=== PATIENT | female | born 1995 | race Caucasian/White ===

== ENCOUNTER 2024-11-09 17:05 | Inpatient (IN) | payer BC, SELFPAY ==
[2024-11-09] VITALS (9 sets, daily range): BP systolic 115–127; BP diastolic 67–88; PULSE 46–103; RESP 16–18; TEMP 36.7–37.3; O2SAT 82–99; BMI 26.6
[2024-11-09 16:57] LABS: ROM Internal Control Test YES-OK TO RESULT pt. (Internal QC)
[2024-11-09 17:00] LABS: ROM Patient Test POSITIVE (Negative)
[2024-11-09 17:01] LABS: Record Kit Lot#, ROM+ K3358
[2024-11-09] MEDS: Lactated Ringers 1,000 ML 50 ML IV (17:30)
[2024-11-09 18:16] LABS: Hematocrit 32.2 % (37-47); Hemoglobin 10.6 g/dL (12.0-15.0); Immature Granulocytes Count 0.090 X10^3/uL (0.0-0.0); Mean Corp Hgb Conc 32.9 g/dL (32-36); Mean Corpuscular Volume 85.0 fL (81-99); Mean Platelet Vol. 11.4 fl (6.2-12.0); NRBC Flagged by Analyzer 0 % (0-5); Platelet Count 224 K/mm3 (150-450); RBC Distribution Width CV 13.2 % (11.6-14.6); RBC Distribution Width SD 40.6 fl (35.1-43.9); Red Blood Count 3.79 M/mm3 (4.2-5.4); White Blood Count 13.9 K/mm3 (4.4-11.0)
[2024-11-09 18:27] LABS: Syphilis Antibodies Nonreactive (Nonreactive)
--- NOTE | 2024-11-09 19:30 | PCM.HP.OB ---
HPI - General General Date of Admission: 11/09/24 Date of Service: 11/09/24 Chief Complaint: leaking of fluid [facility] Narrative IGNACIO PETTIT, is a 29 F who presents 3 para 1-0-1-1 who presents for spontaneous rupture membranes. She notes she had some vaginal discharge around 5:30 AM however she had leaking of fluid down her legs at approximately 9 AM. She has had some irregular contractions last few days but not anything that she has been timing. She has had no gross vaginal bleeding. She has had good movement. Maternal Data Information Final APOLONIA: 11/17/24 Gestational age: 38 6/7 [facility] [place] [facility] Medical History (Updated 11/09/24 @ 19:[address] Abigail Hensley MD) Genital herpes affecting History of pre-term labor Home Medications ?Medication ?Instructions ?Recorded ?Last Taken ?Type acyclovir 400 mg tablet 400 mg PO TID 11/09/24 11/09/24 06:30 History vitamins no.102-iron 90 1 cap PO DAILY 11/09/24 11/09/24 History mg-folate 1 mg-dha 200 mg capsule Allergy/AdvReac Type Severity Reaction Status Date / Time Penicillins (PCN) Allergy Severe Rash Verified 11/09/24 15:30 latex Allergy Unknown Rash Verified 11/09/24 15:30 nickel Allergy Unknown Rash Verified 11/09/24 15:30 valacyclovir (From Valtrex) Allergy Unknown Shortness Verified 11/09/24 15:30 of breath Surgical History (Updated 11/09/24 @ 17:40 by Danilo Iglesias) History of surgery Social History Smoking Status: Former smoker History Elective abortions Hx Para 1 Spontaneous abortions Hx # Term Pregnancies Ectopic pregnancies Hx # Pregnancies Multiple births # of living children ROS Constitutional Constitutional: Denies fatigue, fever(s) or malaise Eyes Eyes: Denies change in vision ENT HEENT: Denies dizziness or headache(s) Cardiovascular Cardiovascular: Denies chest pain, dyspnea or lightheadedness Respiratory/Chest Respiratory/Chest: Denies cough or dyspnea Gastrointestinal Gastrointestinal: Denies change in bowel habits Genitourinary Genitourinary: Denies burning urination or genital lesions Integumentary Integumentary: Denies rash Neurologic Neurologic: Denies confusion, dizziness, headache(s), numbness or weakness Vital Signs Vital Signs Vital Signs: 11/09/24 15:40 11/09/24 15:40 11/09/24 15:40 Temperature 99.1 F Temperature Source Pulse Rate 87 Respiratory Rate Blood Pressure 123/88 H BP Systolic 123 BP Diastolic 88 Pulse Ox 11/09/24 15:40 11/09/24 15:43 11/09/24 15:43 Temperature Temperature Source Pulse Rate 88 Respiratory Rate 16 Blood Pressure BP Systolic BP Diastolic Pulse Ox 97 11/09/24 16:16 11/09/24 16:16 11/09/24 19:20 Temperature Temperature Source Temporal Pulse Rate 83 Respiratory Rate Blood Pressure BP Systolic BP Diastolic Pulse Ox 98 11/09/24 19:20 11/09/24 19:21 11/09/24 19:21 Temperature 98.0 F 98.1 F Temperature Source Pulse Rate Respiratory Rate Blood Pressure 127/82 H BP Systolic 127 BP Diastolic 82 Pulse Ox 11/09/24 19:21 Temperature Temperature Source Pulse Rate 93 Respiratory Rate Blood Pressure BP Systolic BP Diastolic Pulse Ox Weight Weight: 66.224 kg Body Mass Index (BMI) 26.6 Physical Exam Const alert and no apparent distress General Appearance: cooperative HEENT normocephalic Resp normal respiratory effort Cardio regular rate GI soft to palpation GI Narrative: gravid, nontender, appropriate for gestational age Extremity no calf tenderness General Extremity: edema Skin no wounds Rashes: No rashes noted Psych activity/motor behavior normal Labs Labs Labs: Blood Type B POSITIVE Antibody Screen NEGATIVE Hct 32.2 % (37-47) L Hgb 10.6 g/dL (12.0-15.0) L Syphilis Total Ab Nonreactive (Nonreactive) Assessment & Plan (1) PROM (premature rupture of membranes): COMMENT: Estimated weight is less than 4000 g clinically and pelvis clinically adequate to expect vaginal delivery. I discussed with the patient recommendation for Pitocin for induction of labor as patient is evelyn but no evidence of active labor and approximately 10 to 12 hours since rupture of membranes. We are not sure of exact time for rupture membranes. Patient declines Pitocin at this time. May have routine pain control measures during labor. Patient plans to have an unmedicated may elect to use nitrous oxide. Has been on acyclovir for HSV prophylaxis. No signs or symptoms of outbreak today (2) 38 weeks gestation of :
--- OUTSIDE RECORDS SUMMARY | 2024-11-09 23:23 | XMS RPT_ITS | CCD ---
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 Comment: [facility] Congress of Obstetricians and Gynecologists (Steff/Ofelia) guidelines state gestational diabetes mellitus is present when 2 or more of the plasma glucose concentrations meet or exceed the following levels: fastin mg/dl, 1 hr: 180 mg/dl, 2 hr: 155 mg/dl, and 3 hr: 140 mg/dl. Performed By: #### G TGST1 #### [facility] CLIA [id number] [address] [place] [address] [place] GLUCOSE GESTATIONAL, 2 HOURo n 09-06-2024 Glucose 2 Hr post Unsp challenge [Mass/Vol] 162 mg/dL Normal <165 [facility] Comment on above: Order Comment: Speci men Type: BLOOD SPECIMEN Ordering Facility: [facility] Address: [address] [place] [address] Result Comment: [facility] Congress of Obstetricians and Gynecologists (Steff/Ofelia) guidelines state gestational diabetes mellitus is present when 2 or more of the plasma glucose concentrations meet or exceed the following levels: fastin mg/dl, 1 hr: 180 mg/dl, 2 hr: 155 mg/dl, and 3 hr: 140 mg/dl. Performed By: #### G TGST2 #### [facility] CLIA [id number] [address] [place] [address] [place] GLUCOSE GESTATIONAL, 3 HOURo n 09-06-2024 Glucose 3 Hr post Unsp challenge [Mass/Vol] 144 mg/dL Normal <145 [facility] Comment on above: Order Comment: Yennifer puga Type: BLOOD SPECIMEN Ordering Facility: [facility] Address: [address] [place] [address] Result Comment: [facility] Congress of Obstetricians and Gynecologists (Artis/Coustan) guidelines state gestational diabetes mellitus is present when 2 or more of the plasma glucose concentrations meet or exceed the following levels: fastin mg/dl, 1 hr: 180 mg/dl, 2 hr: 155 mg/dl, and 3 hr: 140 mg/dl. Performed By: #### G TGST3 #### [facility] CLIA [id number] [address] [place] [address] [place] GLUCOSE GESTATIONAL, FASTING on 09-06-2024 Glucose post fast [Mass/Vol] 73 mg/dL Normal 70-100 [facility] Comment on above: Order Comment: Yennifer puga Type: BLOOD SPECIMEN Ordering Facility: [facility] Address: [address] [place] [address] Result Comment: [facility] Congress of Obstetricians and Gynecologists (Artis/Coustan) guidelines state gestational diabetes mellitus is present when 2 or more of the plasma glucose concentrations meet or exceed the following levels: fastin mg/dl, 1 hr: 180 mg/dl, 2 hr: 155 mg/dl, and 3 hr: 140 mg/dl. Performed By: #### G TGSTF #### [facility] CLIA [id number] [address] [place] [address] [place] CBC W Auto Differential pane l (Bld)on 08-26-2024 Basophils (Bld) [#/Vol] 0.03 10*3/uL Normal <0.11 [facility] Comment on above: Order Comment: Yennifer puga Type: BLOOD SPECIMEN Ordering Facility: [facility] Address: [address] [place] [address] Performed By: #### 3 024-7, 3016-3 #### [facility] CLIA [id number] [address] [place] [address] [id number] [place] [address] [place] Basophils/100 WBC (Bld) 0.3 % Normal [facility] Comment on above: Order Comment: Speci men Type: BLOOD SPECIMEN Ordering Facility: [facility] Address: [address] [place] [address] Performed By: #### 3 024-7, 3016-3 #### [facility] CLIA [id number] [address] [place] [address] [place] Differential cell count method Nom (Bld) Auto Normal [facility] Comment on above: Order Comment: Speci men Type: BLOOD SPECIMEN Ordering Facility: [facility] Address: [address] [place] [address] Performed By: #### 3 024-7, 6-3 #### [facility] CLIA [id number] [address] [place] [address] [place] Eosinophils (Bld) [#/Vol] 0.07 10*3/uL Normal <0.46 [facility] Comment on above: Order Comment: Speci men Type: BLOOD SPECIMEN Ordering Facility: [facility] Address: [address] [place] [address] Performed By: #### 3 024-7, 6-3 #### [facility] CLIA [id number] [address] [place] [address] [place] Eosinophils/100 WBC (Bld) 0.7 % Normal [facility] Comment on above: Order Comment: Speci men Type: BLOOD SPECIMEN Ordering Facility: [facility] Address: [address] [place] [address] Performed By: #### 3 024-7, 6-3 #### [facility] CLIA [id number] [address] [place] [address] [place] Erythrocyte distribution width (RBC) [Ratio] 13.2 % Normal 11.5-15.0 [facility] Comment on above: Order Comment: Speci men Type: BLOOD SPECIMEN Ordering Facility: [facility] Address: [address] [place] [address] Performed By: #### 3 024-7, 3016-3 #### [facility] CLIA [id number] [address] [place] [address] [place] Hematocrit (Bld) [Volume fraction] 32.9 % Low 36.0-46.0 [facility] Comment on above: Order Comment: Speci men Type: BLOOD SPECIMEN Ordering Facility: [facility] Address: [address] [place] [address] Performed By: #### 3 024-7, 3015-3 #### [facility] CLIA [id number] [address] [place] [address] [place] Hemoglobin (Bld) [Mass/Vol] 11.2 g/dL Low 11.5-15.5 [facility] Comment on above: Order Comment: Speci men Type: BLOOD SPECIMEN Ordering Facility: [facility] Address: [address] [place] [address] Performed By: #### 3 024-7, 3015-3 #### [facility] CLIA [id number] [address] [place] [address] [place] Immature granulocytes (Bld) [#/Vol] 0.11 10*3/uL High <0.10 [facility] Comment on above: Order Comment: Speci men Type: BLOOD SPECIMEN Ordering Facility: [facility] Address: [address] [place] [address] Performed By: #### 3 024-7, 6-3 #### [facility] CLIA [id number] [address] [place] [address] [place] Immature granulocytes/100 WBC (Bld) 1.0 % Normal [facility] Comment on above: Order Comment: Speci men Type: BLOOD SPECIMEN Ordering Facility: [facility] Address: [address] [place] [address] Performed By: #### 3 024-7, 3016-3 #### [facility] CLIA [id number] [address] [place] [address] [place] Lymphocytes (Bld) [#/Vol] 1.78 10*3/uL Normal 1.00-4.00 [facility] Comment on above: Order Comment: Speci men Type: BLOOD SPECIMEN Ordering Facility: [facility] Address: [address] [place] [address] Performed By: #### 3 024-7, 3016-3 #### [facility] CLIA [id number] [address] [place] [address] [place] Lymphocytes/100 WBC (Bld) 17.0 % Normal [facility] Comment on above: Order Comment: Speci men Type: BLOOD SPECIMEN Ordering Facility: [facility] Address: [address] [place] [address] Performed By: #### 3 024-7, 3016-3 #### [facility] CLIA [id number] [address] [place] [address] [place] MCH (RBC) [Entitic mass] 29.8 pg Normal 26.0-34.0 [facility] Comment on above: Order Comment: Speci men Type: BLOOD SPECIMEN Ordering Facility: [facility] Address: [address] [place] [address] Performed By: #### 3 024-7, 3016-3 #### [facility] CLIA [id number] [address] [place] [address] [place] MCHC (RBC) [Mass/Vol] 34.0 g/dL Normal 30.5-36.0 [facility] Comment on above: Order Comment: Speci men Type: BLOOD SPECIMEN Ordering Facility: [facility] Address: [address] [place] [address] Performed By: #### 3 024-7, 3016-3 #### [facility] CLIA [id number] [address] [place] [address] [place] MCV (RBC) [Entitic vol] 87.5 fL Normal 80.0-100.0 [facility] Comment on above: Order Comment: Speci men Type: BLOOD SPECIMEN Ordering Facility: [facility] Address: [address] [place] [address] Performed By: #### 3 024-7, 3016-3 #### [facility] CLIA [id number] [address] [place] [address] [place] Monocytes (Bld) [#/Vol] 0.75 10*3/uL Normal <0.87 [facility] Comment on above: Order Comment: Speci men Type: BLOOD SPECIMEN Ordering Facility: [facility] Address: [address] [place] [address] Performed By: #### 3 024-7, 3016-3 #### [facility] CLIA [id number] [address] [place] [address] [place] Monocytes/100 WBC (Bld) 7.1 % Normal [facility] Comment on above: Order Comment: Speci men Type: BLOOD SPECIMEN Ordering Facility: [facility] Address: [address] [place] [address] Performed By: #### 3 024-7, 3016-3 #### [facility] CLIA [id number] [address] [place] [address] [place] Neutrophils (Bld) [#/Vol] 7.75 10*3/uL High 1.45-7.50 [facility] Comment on above: Order Comment: Speci men Type: BLOOD SPECIMEN Ordering Facility: [facility] Address: [address] [place] [address] Performed By: #### 3 024-7, 3016-3 #### [facility] CLIA [id number] [address] [place] [address] [place] Neutrophils/100 WBC (Bld) 73.9 % Normal [facility] Comment on above: Order Comment: Speci men Type: BLOOD SPECIMEN Ordering Facility: [facility] Address: [address] [place] [address] Performed By: #### 3 024-7, 3016-3 #### [facility] CLIA [id number] [address] [place] [address] [place] Nucleated RBC (Bld) [#/Vol] 10*3/uL Normal <0.01 [facility] Comment on above: Order Comment: Speci men Type: BLOOD SPECIMEN Ordering Facility: [facility] Address: [address] [place] [address] Performed By: #### 3 024-7, 6-3 #### [facility] CLIA [id number] [address] [place] [address] [place] Nucleated RBC/100 WBC (Bld) [Ratio] 0.0 /100 WBC Normal [facility] Comment on above: Order Comment: Speci men Type: BLOOD SPECIMEN Ordering Facility: [facility] Address: [address] [place] [address] Performed By: #### 3 024-7, 6-3 #### [facility] CLIA [id number] [address] [place] [address] [place] Platelet mean volume (Bld) [Entitic vol] 9.6 fL Normal 9.0-12.7 [facility] Comment on above: Order Comment: Speci men Type: BLOOD SPECIMEN Ordering Facility: [facility] Address: [address] [place] [address] Performed By: #### 3 024-7, 3016-3 #### [facility] CLIA [id number] [address] [place] [address] [place] Platelets (Bld) [#/Vol] 271 10*3/uL Normal 150-400 [facility] Comment on above: Order Comment: Speci men Type: BLOOD SPECIMEN Ordering Facility: [facility] Address: [address] [place] [address] Performed By: #### 3 024-7, 3016-3 #### [facility] CLIA [id number] [address] [place] [address] [place] RBC (Bld) [#/Vol] 3.76 10*6/uL Low 3.90-5.20 [facility] Comment on above: Order Comment: Speci men Type: BLOOD SPECIMEN Ordering Facility: [facility] Address: [address] [place] [address] Performed By: #### 3 024-7, 3016-3 #### [facility] CLIA [id number] [address] [place] [address] [place] WBC (Bld) [#/Vol] 10.49 10*3/uL Normal 3.70-11.00 [facility] Comment on above: Order Comment: Speci men Type: BLOOD SPECIMEN Ordering Facility: [facility] Address: [address] [place] [address] Performed By: #### 3 024-7, 3015-3 #### [facility] CLIA [id number] [address] [place] [address] [place] Examination level ultrasound on 08-26-2024 [facility] Radiology Study observation (narrative) [facility] GESTATIONAL GLUCOSE SCREEN, 1-HOUR, 50 GRAM, NON-FASTINGon 08-26-2024 Glucose [Mass/Vol] 140 mg/dL High 74-134 [facility] Comment on above: Order Comment: Speci men Type: BLOOD SPECIMEN Ordering Facility: [facility] Address: [address] [place] [address] Result Comment: [place] Congress of Obstetricians and Gynecologists (Steff/Ofelia) guidelines state a gestational diabetes mellitus positive screen is made, in women not previously diagnosed with overt diabetes, when the 1 hr plasma glucose level is equal to or above 140 mg/dL. The [facility] Adjunct Instructor In Economics and Women's Health [place] recommends a 135 mg/dL cutoff. Performed By: #### 3 024-7, 3016-3 #### [facility] CLIA [id number] [address] [place] [address] [place] Reagin and Treponema pallidu m IgG and IgM [Interp]on 08-26-2024 T. pallidum IgG+IgM IA Ql (S) Non-Reactive Normal Nonreactive [facility] Comment on above: Order Comment: Yennifer puga Type: BLOOD SPECIMEN Ordering Facility: [facility] Address: [address] [place] [address] Performed By: #### T SPN #### [facility] CLIA [id number] [address] [place] [address] [place] Reagin+T pallidum IgG+IgM Se rPl-Impon 08-26-2024 Reagin and Treponema pallidum IgG and IgM [Interp] Cannot exclude recent Treponemal infection if specimen collected within 7-10 days after appearance of suspect lesions or 2-3 weeks after an exposure. Clinical correlation is required. Normal [facility] Comment on above: Order Comment: Speci vivien Type: BLOOD SPECIMEN Ordering Facility: [facility] Address: [address] [place] [address] Performed By: #### T SPN #### [facility] CLIA [id number] [address] [place] [address] [place] [facility] CNPN Telephone (OBGYWM) IGNACIO PETTIT ([id number]) 1995 F Date Time Provider Department 08/17/24 GISELLA KNAPP OBLYLE During your visit today, we recorded the following information about you: Patricia Pryor RN 08/17/2024 4:36 PM Signed 26w6d Patient called in asking if provider reviewed labs from yesterday yet. Aware provider back in office tomorrow. JOSE Denney Deidre, MD 08/18/2024 7:47 AM Signed See result note Patricia Pryor RN 08/18/2024 9:30 AM Signed Gisella Knapp MD to [facility] Ob-Rv Repair Technician Pool (Selected Message) 08/18/24 7:47 AM Result Note Slight increase in amylase which can be normal in to have small increase in number- but could also be seen with pancreatitis (I would expect her to have likely higher numbers and very sick) but if she still has symptoms we should get her in to see GI. Please see how she is feeling. Next appt 08/26/24. Pt was in [facility] last week for pain. BILE ACIDS, TOTAL; LIPASE; COMPREHENSIVE METABOLIC PANEL; AMYLASE; COMPLETE BLOOD COUNT Patricia Pryor RN 08/18/2024 9:30 AM Signed Left message for patient to call office. JOSE Denney Trisha, RN 08/19/2024 9:53 AM Signed See 08/18 results follow up encounter. Patient was notified. Patricia Pryor RN Allergies As of Date: 08/17/2024 Noted Allergy Reaction NICKEL 12/24/2018 2 - Rash LATEX 06/07/2015 2 - Rash PENICILLINS 06/07/2015 2 - Rash Comments: 05/24/2024 skin testing positive to Pre-Pen indicating increased risk of having an allergic reaction to penicillin Date Reviewed: 08/13/2024 Reviewed by: Harley Lam MA - Fully Assessed Reason for Visit: Results [95] Prescriptions as of 08/19/2024 - cyclobenzaprine (FLEXERIL) 5 mg tablet Take 5 mg by mouth two times a day as needed. - acetaminophen (TYLENOL EXTRA STRENGTH) 500 mg tablet Take 500 mg by mouth every 8 hours as needed for pain. - PNV no.95/ferrous fum/folic ac ( ORAL) Take by mouth. - Lactobacillus acidophilus (PROBIOTIC ORAL) Take by mouth. 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 M-Power [O99.891] 05/31/2024 Pyelectasis of fetus on ultrasound (HC*07/01/2024 Uterine size-date discrepancy, second trimester*07/29/2024 Encounter Status:Closed by PATRICIA PRYOR on 08/19/24 Normal [facility] Amylase SerPl-cCncon 025 Amylase [Catalytic activity/Vol] 118 U/L High 30-104 [facility] Comment on above: Order Comment: Speci men Type: BLOOD SPECIMEN Ordering Facility: [facility] Address: [address] [place] [address] Performed By: #### 3 024-7, 3016-3 #### [facility] CLIA [id number] [address] [place] [address] [place] BILE ACIDS FRACT BLDon 08-16 CHENODEOXYCHOLIC ACID 0.3 umol/L Normal 0.0-3.4 [facility] Comment on above: Order Comment: Speci men Type: BLOOD SPECIMEN Ordering Facility: [facility] Address: [address] [place] [address] Performed By: #### 3 024-7, 3016-3 #### [facility] CLIA [id number] [address] [place] [address] [place] CHOLIC ACID 0.3 umol/L Normal 0.0-1.9 [facility] Comment on above: Order Comment: Speci men Type: BLOOD SPECIMEN Ordering Facility: [facility] Address: [address] [place] [address] Performed By: #### 3 024-7, 3015-3 #### [facility] CLIA [id number] [address] [place] [address] [place] DEOXYCHOLIC ACID 1.0 umol/L Normal 0.0-2.5 [facility] Comment on above: Order Comment: Speci men Type: BLOOD SPECIMEN Ordering Facility: [facility] Address: [address] [place] [address] Performed By: #### 3 024-7, 3015-3 #### [facility] CLIA [id number] [address] [place] [address] [place] TOTAL BILE ACIDS 1.9 umol/L Normal 0.0-7.0 [facility] Comment on above: Order Comment: Speci men Type: BLOOD SPECIMEN Ordering Facility: [facility] Address: [address] [place] [address] Result Comment: INTE RPRETIVE INFORMATION: Bile Acids, Fractionated and Total This test was developed and its performance characteristics determined by [facility]. It has not been cleared or approved by the [place] Food and Drug Administration. This test was performed in a CLIA certified laboratory and is intended for clinical purposes. Performed By: [facility] [address] [place] [id number] Clerical Secretary: Mikal Bernstein MD, PhD [place] Number: [id number] Performed By: #### 3 024-7, 3 #### [facility] CLIA [id number] [address] [place] [address] [place] URSODEOXYCHOLIC ACID 0.3 umol/L Normal 0.0-1.0 [facility] Comment on above: Order Comment: Speci men Type: BLOOD SPECIMEN Ordering Facility: [facility] Address: [address] [place] [address] Performed By: #### 3 024-7, 3015-3 #### [facility] CLIA [id number] [address] [place] [address] [place] BILE ACIDS, TOTALon 08-17-19 25 Bile acid [Moles/Vol] 2.4 umol/L Normal <7.5 [facility] Comment on above: Order Comment: Yennifer puga Type: BLOOD SPECIMEN Ordering Facility: [facility] Address: [address] [place] [address] Result Comment: Refe rence interval applies to fasting specimens. The total serum bile acid concentration is increased after meals; hence, samples should be collected under fasting conditions, when possible. This does not apply to patients for whom intrahepatic cholestasis of as a diagnostic consideration; these patients will need peak bile acid testing, and samples should be postprandial. This serum bile acid assay should not be used for patients receiving ursodeoxycholic acid, nor should it be used as the primary assay for the screening or diagnosis of genetic disorders of bile acid metabolism. Patient Reference Intervals: 0 Days to 5 Months: Not established 6 Months to 23 Months: <25.8 umol/L 2 Years to 4 Years: <20.9 umol/L 5 Years to 9 Years: <12.4 umol/L 10 Years to 19 Years: <13.6 umol/L 20 Years to 59 Years: <7.5 umol/L >=60 Years: <8.3 umol/L Reference Intervals (Non-fasting): First Trimester (up to 13 weeks gestation): < 15.3 umol/L Reference Interval (Non-fasting): Second Trimester (13 - 27 weeks gestation): < 11.4 umol/L Reference Interval (Non-fasting): Third Trimester (> 27 weeks gestation): < 10.4 umol/L Performed By: #### 3 024-7, 3016-3 #### [facility] CLIA [id number] [address] [place], [place] [address] [place] CBC panel Auto (Bld)on 08-16 Erythrocyte distribution width (RBC) [Ratio] 13.5 % Normal 11.5-15.0 [facility] Comment on above: Order Comment: Yennifer puga Type: BLOOD SPECIMEN Ordering Facility: [facility] Address: [address] [place] [address] Performed By: #### 3 024-7, 6-3 #### [facility] CLIA [id number] [address] [place] [address] [place] Hematocrit (Bld) [Volume fraction] 36.3 % Normal 36.0-46.0 [facility] Comment on above: Order Comment: Speci men Type: BLOOD SPECIMEN Ordering Facility: [facility] Address: [address] [place] [address] Performed By: #### 3 024-7, 3015-3 #### [facility] CLIA [id number] [address] [place] [address] [place] Hemoglobin (Bld) [Mass/Vol] 12.0 g/dL Normal 11.5-15.5 [facility] Comment on above: Order Comment: Speci men Type: BLOOD SPECIMEN Ordering Facility: [facility] Address: [address] [place] [address] Performed By: #### 3 024-7, 3015-3 #### [facility] CLIA [id number] [address] [place] [address] [place] MCH (RBC) [Entitic mass] 30.2 pg Normal 26.0-34.0 [facility] Comment on above: Order Comment: Speci men Type: BLOOD SPECIMEN Ordering Facility: [facility] Address: [address] [place] [address] Performed By: #### 3 024-7, 3015-3 #### [facility] CLIA [id number] [address] [place] [address] [place] MCHC (RBC) [Mass/Vol] 33.1 g/dL Normal 30.5-36.0 [facility] Comment on above: Order Comment: Speci men Type: BLOOD SPECIMEN Ordering Facility: [facility] Address: [address] [place] [address] Performed By: #### 3 024-7, 6-3 #### [facility] CLIA [id number] [address] [place] [address] [place] MCV (RBC) [Entitic vol] 91.4 fL Normal 80.0-100.0 [facility] Comment on above: Order Comment: Speci men Type: BLOOD SPECIMEN Ordering Facility: [facility] Address: [address] [place] [address] Performed By: #### 3 024-7, 3016-3 #### [facility] CLIA [id number] [address] [place] [address] [place] Nucleated RBC (Bld) [#/Vol] 10*3/uL Normal <0.01 [facility] Comment on above: Order Comment: Speci men Type: BLOOD SPECIMEN Ordering Facility: [facility] Address: [address] [place] [address] Performed By: #### 3 024-7, 3016-3 #### [facility] CLIA [id number] [address] [place] [address] [place] Platelet mean volume (Bld) [Entitic vol] 12.1 fL Normal 9.0-12.7 [facility] Comment on above: Order Comment: Speci men Type: BLOOD SPECIMEN Ordering Facility: [facility] Address: [address] [place] [address] Performed By: #### 3 024-7, 3016-3 #### [facility] CLIA [id number] [address] [place] [address] [place] Platelets (Bld) [#/Vol] 231 10*3/uL Normal 150-400 [facility] Comment on above: Order Comment: Speci men Type: BLOOD SPECIMEN Ordering Facility: [facility] Address: [address] [place] [address] Performed By: #### 3 024-7, 3016-3 #### [facility] CLIA [id number] [address] [place] [address] [place] RBC (Bld) [#/Vol] 3.97 10*6/uL Normal 3.90-5.20 [facility] Comment on above: Order Comment: Speci men Type: BLOOD SPECIMEN Ordering Facility: [facility] Address: [address] [place] [address] Performed By: #### 3 024-7, 3016-3 #### [facility] CLIA [id number] [address] [place] [address] [place] WBC (Bld) [#/Vol] 11.78 10*3/uL High 3.70-11.00 [facility] Comment on above: Order Comment: Speci men Type: BLOOD SPECIMEN Ordering Facility: [facility] Address: [address] [place] [address] Performed By: #### 3 024-7, 3016-3 #### [facility] CLIA [id number] [address] [place] [address] [place] Comprehensive metabolic 2000 panelon 08-16-2024 Albumin [Mass/Vol] 3.8 g/dL Low 3.9-4.9 [facility] Comment on above: Order Comment: Speci men Type: BLOOD SPECIMEN Ordering Facility: [facility] Address: [address] [place] [address] Performed By: #### 3 024-7, 3016-3 #### [facility] CLIA [id number] [address] [place] [address] [place] ALP [Catalytic activity/Vol] 87 U/L Normal 34-123 [facility] Comment on above: Order Comment: Speci men Type: BLOOD SPECIMEN Ordering Facility: [facility] Address: [address] [place] [address] Performed By: #### 3 024-7, 3016-3 #### [facility] CLIA [id number] [address] [place] [address] [place] ALT [Catalytic activity/Vol] 33 U/L Normal 7-38 [facility] Comment on above: Order Comment: Speci men Type: BLOOD SPECIMEN Ordering Facility: [facility] Address: [address] [place] [address] Performed By: #### 3 024-7, 3016-3 #### [facility] CLIA [id number] [address] [place] [address] [place] Anion gap [Moles/Vol] 12 mmol/L Normal 8-15 [facility] Comment on above: Order Comment: Speci men Type: BLOOD SPECIMEN Ordering Facility: [facility] Address: [address] [place] [address] Performed By: #### 3 024-7, 3016-3 #### [facility] CLIA [id number] [address] [place] [address] [place] AST [Catalytic activity/Vol] 27 U/L Normal 13-35 [facility] Comment on above: Order Comment: Speci men Type: BLOOD SPECIMEN Ordering Facility: [facility] Address: [address] [place] [address] Performed By: #### 3 024-7, 3016-3 #### [facility] CLIA [id number] [address] [place] [address] [place] Bilirubin [Mass/Vol] mg/dL Low 0.2-1.3 [facility] Comment on above: Order Comment: Speci men Type: BLOOD SPECIMEN Ordering Facility: [facility] Address: [address] [place] [address] Performed By: #### 3 024-7, 3016-3 #### [facility] CLIA [id number] [address] [place] [address] [place] Calcium [Mass/Vol] 9.0 mg/dL Normal 8.5-10.2 [facility] Comment on above: Order Comment: Speci men Type: BLOOD SPECIMEN Ordering Facility: [facility] Address: [address] [place] [address] Performed By: #### 3 024-7, 3016-3 #### [facility] CLIA [id number] [address] [place] [address] [place] Chloride [Moles/Vol] 102 mmol/L Normal 98-107 [facility] Comment on above: Order Comment: Speci men Type: BLOOD SPECIMEN Ordering Facility: [facility] Address: [address] [place] [address] Performed By: #### 3 024-7, 3016-3 #### [facility] CLIA [id number] [address] [place] [address] [place] CO2 [Moles/Vol] 21 mmol/L Low 22-30 [facility] Comment on above: Order Comment: Speci men Type: BLOOD SPECIMEN Ordering Facility: [facility] Address: [address] [place] [address] Performed By: #### 3 024-7, 3016-3 #### [facility] CLIA [id number] [address] [place] [address] [place] Creatinine [Mass/Vol] 0.41 mg/dL Low 0.58-0.96 [facility] Comment on above: Order Comment: Speci men Type: BLOOD SPECIMEN Ordering Facility: [facility] Address: [address] [place] [address] Performed By: #### 3 024-7, 3016-3 #### [facility] CLIA [id number] [address] [place] [address] [place] Creatinine and Glomerular filtration rate.predicted panel (S/P/Bld) 135 mL/min/1.73m??? Normal >=60 [facility] Comment on above: Order Comment: Speci men Type: BLOOD SPECIMEN Ordering Facility: [facility] Address: [address] [place] [address] Result Comment: Lyndsey mated Glomerular Filtration Rate (eGFR) is calculated using the 2020 CKD-EPI creatinine equation. This equation utilizes serum creatinine, sex, and age as parameters. The creatinine assay has traceable calibration to isotope dilution-mass spectrometry. Refer to KDIGO guidelines for clinical interpretation. In patients with unstable renal function, e.g. those with acute kidney injury, the eGFR may not accurately reflect actual GFR. Performed By: #### 3 024-7, 6-3 #### [facility] CLIA [id number] [address] [place] [address] [place] Glucose [Mass/Vol] 73 mg/dL Low 74-99 [facility] Comment on above: Order Comment: Yennifer puga Type: BLOOD SPECIMEN Ordering Facility: [facility] Address: [address] [place] [address] Result Comment: The [place] Diabetes Association (ADA) provides guidance for cutoff values for fasting glucose and random glucose. The ADA defines fasting as no caloric intake for at least 8 hours. Fasting plasma glucose results between 100 to 125 mg/dL indicate increased risk for diabetes (prediabetes). Fasting plasma glucose results greater than or equal to 126 mg/dL meet the criteria for diagnosis of diabetes. In the absence of unequivocal hyperglycemia, results should be confirmed by repeat testing. In a patient with classic symptoms of hyperglycemia or hyperglycemic crisis, random plasma glucose results greater than or equal to 200 mg/dL meet the criteria for diagnosis of diabetes. Reference: Standards of Medical Care in Diabetes 2016, [place] Diabetes Association. Diabetes Care. 2016.39(Suppl 1). Performed By: #### 3 024-7, 3015-3 #### [facility] CLIA [id number] [address] [place] [address] [place] Potassium [Moles/Vol] 3.7 mmol/L Normal 3.7-5.1 [facility] Comment on above: Order Comment: Yennifer puga Type: BLOOD SPECIMEN Ordering Facility: [facility] Address: [address] [place] [address] Performed By: #### 3 024-7, 3015-3 #### [facility] CLIA [id number] [address] [place], [place] [address] [place] Protein [Mass/Vol] 7.1 g/dL Normal 6.3-8.0 [facility] Comment on above: Order Comment: Speci men Type: BLOOD SPECIMEN Ordering Facility: [facility] Address: [address] [place] [address] Performed By: #### 3 024-7, 3016-3 #### [facility] CLIA [id number] [address] [place] [address] [place] Sodium [Moles/Vol] 135 mmol/L Low 136-144 [facility] Comment on above: Order Comment: Speci men Type: BLOOD SPECIMEN Ordering Facility: [facility] Address: [address] [place] [address] Performed By: #### 3 024-7, 3016-3 #### [facility] CLIA [id number] [address] [place] [address] [place] Urea nitrogen [Mass/Vol] 6 mg/dL Low 7-21 [facility] Comment on above: Order Comment: Speci men Type: BLOOD SPECIMEN Ordering Facility: [facility] Address: [address] [place] [address] Performed By: #### 3 024-7, 3016-3 #### [facility] CLIA [id number] [address] [place] [address] [place] Lipase SerPl-cCncon 08-17-19 25 Lipase [Catalytic activity/Vol] 45 U/L Normal 16-61 [facility] Comment on above: Order Comment: Speci men Type: BLOOD SPECIMEN Ordering Facility: [facility] Address: [address] [place] [address] Performed By: #### 3 024-7, 3016-3 #### [facility] CLIA [id number] [address] [place] [address] [place] Bacteria Ur Culton 5 Bacteria identified Cx Nom (U) ORGANISM ID: 1 10,000 -<50,000 CFU/ml Normal urogenital remy Normal [facility] Comment on above: Performed By: #### 3 024-7, 3016-3 #### [facility] CLIA [id number] [address] [place] [address] [place] Jacob 08-13-2024 CNPN Telephone (OBGYWM) ORAIGNACIO Palomo ([id number]) 1995 F Date Time Provider Department 08/13/24 JOCELYN COOLEY OBHEENAWVeronica During your visit today, we recorded the following information about you: Marylu Simons RN 08/13/2024 9:05 AM Signed 26w2d Went to [facility] ER for pain in kidney/gallbladder. Pt states she was advised she needed admitted to this morning, but declined. Therefore, was advised to f/u in office d/t elevated blood work r/t liver and gallbladder AND Polyps in gallbladder. States glucose was in urine AND US was also completed. States was given muscle relaxer (cyclobenzaprine TID x7 days) AND Tylenol AND advised to use heating pad. States medications are taking edge off- but still having pain rear right side and front right side. Woke up feeling achy-has not got out of bed at this time. Records requested from [facility] for appt scheduled in office today with DM. Marylu Simons RN Allergies As of Date: 08/13/2024 Noted Allergy Reaction NICKEL 12/24/2018 2 - Rash LATEX 06/07/2015 2 - Rash PENICILLINS 06/07/2015 2 - Rash Comments: 05/24/2024 skin testing positive to Pre-Pen indicating increased risk of having an allergic reaction to penicillin Date Reviewed: 07/29/2024 Reviewed by: Harley Lam MA - Fully Assessed Reason for Visit: ER F/U [41] Prescriptions as of 08/13/2024 - PNV no.95/ferrous fum/folic ac ( ORAL) Take by mouth. - Lactobacillus acidophilus (PROBIOTIC ORAL) Take by mouth. 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 M-Power [O99.891] 05/31/2024 Pyelectasis of fetus on ultrasound (HC*07/01/2024 Uterine size-date discrepancy, second trimester*07/29/2024 Encounter Status:Closed by MARYLU SIMONS on 08/13/24 Normal [facility] UA DIP, URINE (POC)on 2024 BILIRUBIN UA (POCT) Negative Negative [facility] CLARITY UA (POCT) Clear [facility] COLOR UA (POCT) Yellow [facility] GLUCOSE UA (POCT) Negative Negative mg/dL [facility] Hemoglobin Ql (U) Negative Negative [facility] Interpretation and review of laboratory results Abnormal [facility] KETONE UA (POCT) Trace Negative mg/dL [facility] LEUKOCYTES UA (POCT) Negative Negative [facility] NITRITE UA (POCT) Negative Negative [facility] PH UA (POCT) 6.5 4.5 - 8.0 [facility] Protein Ql (U) Trace Abnormal Negative mg/dL [facility] SPECIFIC GRAVITY UA (POCT) 1.02 1.005 - 1.030 [facility] UROBILINOGEN UA (POCT) 0.2 Normal E.U./dL [facility] Location:[facility], [address] , [place], [place], [id number] [place] [address] POINT OF CARE [facility] US ABDOMEN LIMITEDon 025 US ABDOMEN LIMITED ORIGINAL EXAMINATION: RIGHT UPPER QUADRANT ULTRASOUND 08/12/2024 11:57 pm COMPARISON: None. HISTORY: ORDERING SYSTEM PROVIDED HISTORY: Reason for Exam: RUQ abdominal pain and transaminitis Permanently stored images were reviewed FINDINGS: LIVER: Liver measures 15.8 cm and is within normal limits for size. There is normal parenchymal echogenicity without evidence of intrahepatic biliary ductal dilation. No nodularity of the liver margin or focal hepatic mass. BILIARY SYSTEM: Gallbladder is well distended and demonstrates multiple rounded non mobile echogenicities projecting into its lumen and measuring up to 4 mm in size. No evidence of pericholecystic fluid, wall thickening or stones. Negative sonographic Almaguer's sign. Common bile duct is within normal limits measuring 5.3 mm at the dominique hepatis. RIGHT KIDNEY: The right kidney measures 10.1 cm in length and demonstrates normal cortical thickness and echogenicity. Mild right pelvicaliectasis. No focal renal lesion. PANCREAS: Visualized portions of the pancreas are unremarkable. OTHER: No evidence of right upper quadrant ascites. Visualized proximal segments of the aorta and IVC are patent. IMPRESSION: Mild right pelvicaliectasis. Intrarenal collecting system is not dilated. Multiple gallbladder polyps measuring up to 4 mm in size and require no additional follow-up imaging. I have personally reviewed the images of this examination, and agree with the resident's findings and interpretation. Interpreted by: Jose Martinez MD Preliminary Report By: Malini Camilo Electronically signed By Jose Martinez MD Dictated Date: 08/13/2024 12:30:55 AM Prelim Date: 08/13/2024 12:39:08 AM Sign Date: 08/13/2024 12:52:23 AM Ordering Provider: JENNIFER Jack [facility] .Auto Diffon 08-12-2024 Basophil, Absolute 0.0 10 3/mcL Normal 0.0-0.3 [facility] Comment on above: Performed By: #### A FLAKITA, CMP, CBC, GFR, ADIFF #### [place] [id number] [place] [address] Basophils/100 WBC (Bld) 0.1 % Normal 0.0-2.5 [facility] Comment on above: Performed By: #### A FLAKITA, CMP, CBC, GFR, ADIFF #### [address] [address] Eosinophil, Absolute 0.1 10 3/mcL Normal 0.0-0.7 [facility] Comment on above: Performed By: #### A FLAKITA, CMP, CBC, GFR, ADIFF #### [address] [address] Eosinophils/100 WBC (Bld) 0.4 % Normal 0.0-6.0 [facility] Comment on above: Performed By: #### A FLAKITA, CMP, CBC, GFR, ADIFF #### [address] [address] Lymphocyte, Absolute 1.6 10 3/mcL Normal 0.9-4.3 [facility] Comment on above: Performed By: #### A FLAKITA, CMP, CBC, GFR, ADIFF #### [address] [address] Lymphocytes/100 WBC (Bld) 9.9 % Low 20.0-40.0 [facility] Comment on above: Performed By: #### A FLAKITA, CMP, CBC, GFR, ADIFF #### [address] [address] Monocyte, Absolute 1.2 10 3/mcL Normal 0.1-1.4 [facility] Comment on above: Performed By: #### A FLAKIAT, CMP, CBC, GFR, ADIFF #### [address] [address] Monocytes/100 WBC (Bld) 7.7 % Normal 2.0-13.0 [facility] Comment on above: Performed By: #### A FLAKITA, CMP, CBC, GFR, ADIFF #### [address] [address] Neutrophils/100 WBC (Bld) 81.9 % High 50.0-75.0 [facility] Comment on above: Performed By: #### A FLAKITA, CMP, CBC, GFR, ADIFF #### [address] [address] .GFRon 08-12-2024 GFR/1.73 sq M.predicted among non-blacks MDRD (S/P/Bld) [Vol rate/Area] mL/min/{1.73_m2} Normal [facility] Comment on above: Result Comment: Stages of Chronic Kidney Disease (CKD) Stage Description eGFR(ml/min/1.73 sq.m.) CKD 1 Normal kidney function or >=90 normal kindney function with possible kidney damage (ex. Proteinuria) CKD 2 Kidney damage with mild loss 60-89 of kidney function CKD 3a Mild to moderate loss of kidney 45-59 function CKD 3b Moderate to severe loss of 30-44 of kindey function CKD 4 Severe loss of kidney function 15-29 CKD 5 Kidney failure <15 Note: (go live 2024) the eGFR calculation was updated to the 2020 CKD-EPI creatinine equation without a race factor to calculate the eGFR results. Performed By: #### A FLAKITA, CMP, CBC, GFR, ADIFF #### [place] [address] .NEUABSon 08-12-2024 Neutrophil, Absolute 13.1 10 3/mcL High 2.3-8.1 [facility] Comment on above: Performed By: #### A FLAKITA, CMP, CBC, GFR, ADIFF #### [place] [address] AMYon 08-12-2024 Amylase [Catalytic activity/Vol] 94 U/L Normal 30-118 [facility] Comment on above: Result Comment: No te - New Reference Range in effect 19 Performed By: #### L IP, LD, KETAN #### [place] [address] CBCon 08-12-2024 Erythrocyte distribution width (RBC) [Ratio] 14.0 % Normal 11.5-15.5 [facility] Comment on above: Performed By: #### A FLAKITA, CMP, CBC, GFR, ADIFF #### [place] [address] Hematocrit (Bld) [Volume fraction] 34.9 % Normal 34.0-46.0 [facility] Comment on above: Performed By: #### A FLAKITA, CMP, CBC, GFR, ADIFF #### [place] [address] Hgb 12.0 G/dL Normal 12.0-16.0 [facility] Comment on above: Performed By: #### A FLAKITA, CMP, CBC, GFR, ADIFF #### [address] [address] MCH (RBC) [Entitic mass] 30.1 pg Normal 27.0-33.0 [facility] Comment on above: Performed By: #### A FLAKITA, CMP, CBC, GFR, ADIFF #### [place] [address] MCHC 34.3 G/dL Normal 32.0-36.0 [facility] Comment on above: Performed By: #### A FLAKITA, CMP, CBC, GFR, ADIFF #### [place] [address] MCV (RBC) [Entitic vol] 87.7 fL Normal 80.0-99.0 [facility] Comment on above: Performed By: #### A FLAKITA, CMP, CBC, GFR, ADIFF #### [place] [address] Platelet 223 10 3/mcL Normal 150-450 [facility] Comment on above: Performed By: #### A FLAKITA, CMP, CBC, GFR, ADIFF #### [place] [address] Platelet mean volume (Bld) [Entitic vol] 8.8 fL Normal 6.6-10.5 [facility] Comment on above: Performed By: #### A FLAKITA, CMP, CBC, GFR, ADIFF #### [place] [address] RBC 3.98 10 6/mcL Low 4.10-5.30 [facility] Comment on above: Performed By: #### A FLAKITA, CMP, CBC, GFR, ADIFF #### [place] [id number] WBC 16.0 10 3/mcL High 4.5-10.8 [facility] Comment on above: Performed By: #### A FLAKITA, CMP, CBC, GFR, ADIFF #### [address] [address] CMPon 08-12-2024 Albumin Level 3.2 G/dL Normal 3.2-4.8 [facility] Comment on above: Performed By: #### A FLAKITA, CMP, CBC, GFR, ADIFF #### [address] [address] Albumin/Globulin [Mass ratio] 0.9 {ratio} Normal 0.9-1.6 [facility] Comment on above: Performed By: #### A FLAKITA, CMP, CBC, GFR, ADIFF #### [place] [id number] ALP [Catalytic activity/Vol] 61 U/L Normal 38-126 [facility] Comment on above: Performed By: #### A FLAKITA, CMP, CBC, GFR, ADIFF #### [place] [id number] ALT [Catalytic activity/Vol] 56 U/L High 10-49 [facility] Comment on above: Performed By: #### A FLAKITA, CMP, CBC, GFR, ADIFF #### [place] [id number] AST [Catalytic activity/Vol] 41 U/L High 8-34 [facility] Comment on above: Performed By: #### A FLAKITA, CMP, CBC, GFR, ADIFF #### [place] [id number] Bili Total 0.30 mg/dL Normal 0.20-1.20 [facility] Comment on above: Result Comment: Use of this assay is not recommended for patients undergoing treatment with eltrombopag due to the potential for falsely elevated results. Performed By: #### A FLAKITA, CMP, CBC, GFR, ADIFF #### [place] [id number] BUN/Creatinine Ratio 15.0 ratio Normal 10.0-22.0 [facility] Comment on above: Performed By: #### A FLAKITA, CMP, CBC, GFR, ADIFF #### [place] [id number] Calcium [Mass/Vol] 9.0 mg/dL Normal 8.7-10.4 [facility] Comment on above: Performed By: #### A FLAKITA, CMP, CBC, GFR, ADIFF #### [address] [address] Chloride [Moles/Vol] 104 mmol/L Normal 98-110 [facility] Comment on above: Performed By: #### A FLAKITA, CMP, CBC, GFR, ADIFF #### [address] [address] CO2 [Moles/Vol] 21 mmol/L Low 22-32 [facility] Comment on above: Performed By: #### A FLAKITA, CMP, CBC, GFR, ADIFF #### [address] [address] Creatinine [Mass/Vol] 0.40 mg/dL Low 0.50-1.20 [facility] Comment on above: Result Comment: Test ing performed on [employer] analyzer using enzymatic creatinine methodology. Performed By: #### A FLAKITA, CMP, CBC, GFR, ADIFF #### [address] [address] Electrolyte Balance 14.0 mEq/L Normal 4.0-15.0 [facility] Comment on above: Performed By: #### A FLAKITA, CMP, CBC, GFR, ADIFF #### [address] [address] Globulin 3.7 G/dL Normal 2.5-4.2 [facility] Comment on above: Performed By: #### A FLAKITA, CMP, CBC, GFR, ADIFF #### [address] [address] Glucose [Mass/Vol] 125 mg/dL High 70-110 [facility] Comment on above: Performed By: #### A FLAKITA, CMP, CBC, GFR, ADIFF #### [address] [address] Potassium [Moles/Vol] 3.3 mmol/L Low 3.5-5.0 [facility] Comment on above: Performed By: #### A FLAKITA, CMP, CBC, GFR, ADIFF #### [address] [address] Sodium [Moles/Vol] 139 mmol/L Normal 136-145 [facility] Comment on above: Performed By: #### A FLAKITA, CMP, CBC, GFR, ADIFF #### [place] [id number] Total Protein 6.9 G/dL Normal 5.7-8.2 [facility] Comment on above: Performed By: #### A FLAKITA, CMP, CBC, GFR, ADIFF #### [place] [id number] Urea nitrogen [Mass/Vol] 6.0 mg/dL Low 8.0-22.0 [facility] Comment on above: Performed By: #### A FLAKITA, CMP, CBC, GFR, ADIFF #### [place] [id number] HEPACon 08-12-2024 Hep A IgM Ab Non-Reactive Normal Non-Reactive [facility] Comment on above: Performed By: #### H EPAC #### [place] [id number] Hep A IgM Ab Int See [facility] Comment on above: Result Comment: Clinical Interpretation: No serological evidence of a current Hepatitis A infection. Performed By: #### H EPAC #### [place] [id number] Hep B Core IgM Ab Non-Reactive Normal Non-[facility] Comment on above: Performed By: #### H EPAC #### [place] [id number] Hep B Core IgM Ab Int See [facility] Comment on above: Result Comment: Clinical Interpretation: Samples with a value < 0.80 Index are considered nonreactive (negative) for IgM antibodies to hepatitis B core antigen. Performed By: #### H EPAC #### [place] [id number] Hep B Surf Ag Non-Reactive Normal Non-[facility] Comment on above: Performed By: #### H EPAC #### [place] [id number] Hep C Ab Non-Reactive Normal Non-Reactive [facility] Comment on above: Performed By: #### H EPAC #### [place] [address] Hep C Ab Int See Interp Normal [facility] Comment on above: Result Comment: Clinical Interpretation: Nonreactive: Samples with a value < 0.80 are considered nonreactive (negative) for antibodies to HCV. A negative test result does not exclude the possibility of exposure to or infection with HCV. HCV antibodies may be undetectable in some stages of the infection and in some clinical conditions. Performed By: #### H EPAC #### [place] [id number] [place] [address] LABORATORYOrdered By: Selene Leigh on 08-12-2024 HAV IgM IA Ql Non-Reactive (08/12/24 10:35 PM) Normal Non-Reactive ADM SS HAV IgM IA Ql See Interp 6 *NA* (08/12/24 10:35 PM) Invalid Interpretation Code AH Chemistry S Comment on above: Result Comment: Clinical Interpretation: No serological evidence of a current Hepatitis A infection. HBV core IgM IA Ql See Interp 5 *NA* (08/12/24 10:35 PM) Invalid Interpretation Code AH Chemistry S Comment on above: Result Comment: Clinical Interpretation: Samples with a value < 0.80 Index are considered nonreactive (negative) for IgM antibodies to hepatitis B core antigen. HBV core IgM IA Ql Non-Reactive (08/12/24 10:35 PM) Normal Non-Reactive AH ADM SS HBV surface Ag IA Ql Non-Reactive (08/12/24 10:35 PM) Normal Non-Reactive ADM SS HCV Ab IA Ql See Interp 7 *NA* (08/12/24 10:35 PM) Invalid Interpretation Code AH Chemistry S Comment on above: Result Comment: Clinical Interpretation: Nonreactive: Samples with a value < 0.80 are considered nonreactive (negative) for antibodies to HCV. A negative test result does not exclude the possibility of exposure to or infection with HCV. HCV antibodies may be undetectable in some stages of the infection and in some clinical conditions. HCV Ab IA Ql Non-Reactive (08/12/24 10:35 PM) Normal Non-Reactive ADM SS LABORATORYOrdered By: German Fuller on 08-12-2024 Blood Glucose Testing Reason Routine (08/12/24 10:13 PM) [facility] Work Phone: Glucose [Mass/Vol] 90 mg/dL Normal 70 - 110 mg/dL [facility] Work Phone: LABORATORYOrdered By: SYSTEM SYSTEM on 08-12-2024 Albumin BCP dye [Mass/Vol] 3.2 G/dL Normal 3.2 - 4.8 G/dL ADM SS Albumin/Globulin [Mass ratio] 0.9 {ratio} Normal 0.9 - 1.6 ratio AH ADM SS ALP [Catalytic activity/Vol] 61 U/L Normal 38 - 126 U/L ADM SS ALT No additional P-5'-P [Catalytic activity/Vol] 56 U/L High 10 - 49 U/L ADM SS Amylase [Catalytic activity/Vol] 94 U/L Normal 30 - 118 U/L ADM SS Comment on above: Interpretive Data: * *Note - New Reference Range in effect 19 AST [Catalytic activity/Vol] 41 U/L High 8 - 34 U/L ADM SS Basophils (Bld) [#/Vol] 0.0 103/mcL Normal 0.0 - 0.3 10^3/mcL Workflow SS Basophils/100 WBC (Bld) 0.1 % Normal 0.0 - 2.5 % Workflow SS Bilirubin [Mass/Vol] 0.30 mg/dL Normal 0.20 - 1.20 mg/dL AH ADM SS Comment on above: Interpretive Data: U se of this assay is not recommended for patients undergoing treatment with eltrombopag due to the potential for falsely elevated results. Calcium [Mass/Vol] 9.0 mg/dL Normal 8.7 - 10. 4 mg/dL AH ADM SS Chloride [Moles/Vol] 104 mmol/L Normal 98 - 110 mEq/L ADM SS CO2 [Moles/Vol] 21 mmol/L Low 22 - 32 mEq/L AH ADM SS Creatinine [Mass/Vol] 0.40 mg/dL Low 0.50 - 1.20 mg/dL AH ADM SS Comment on above: Interpretive Data: T esting performed on [employer] analyzer using enzymatic creatinine methodology. Electrolyte Balance 14.0 mEq/L Normal 4.0 - 15 .0 mEq/L AH ADM SS Eosinophils (Bld) [#/Vol] 0.1 103/mcL Normal 0.0 - 0.7 10^3/mcL Workflow SS Eosinophils/100 WBC (Bld) 0.4 % Normal 0.0 - 6.0 % Workflow SS Erythrocyte distribution width (RBC) [Ratio] 14.0 % Normal 11.5 - 15.5 % Workflow SS Estimated Glomerular Filtration Rate ml/min/1.73sqm Invalid Interpretation Code Chemistry S Comment on above: Interpretive Data: Stages of Chronic Kidney Disease (CKD) Stage Description eGFR(ml/min/1.73 sq.m.) CKD 1 Normal kidney function or >=90 normal kindney function with possible kidney damage (ex. Proteinuria) CKD 2 Kidney damage with mild loss 60-89 of kidney function CKD 3a Mild to moderate loss of kidney 45-59 function CKD 3b Moderate to severe loss of 30-44 of kindey function CKD 4 Severe loss of kidney function 15-29 CKD 5 Kidney failure <15 Note: (go live 2024) the eGFR calculation was updated to the 2020 CKD-EPI creatinine equation without a race factor to calculate the eGFR results. Globulin 3.7 G/dL Normal 2.5 - 4.2 G/dL ADM SS Glucose [Mass/Vol] 125 mg/dL High 70 - 110 mg/dL ADM SS Hematocrit (Bld) [Volume fraction] 34.9 % Normal 34.0 - 46.0 % Workflow SS Hemoglobin (Bld) [Mass/Vol] 12.0 G/dL Normal 12.0 - 16.0 G/dL Workflow SS LDH Lactate to pyruvate reaction [Catalytic activity/Vol] 167 1 Normal 120 - 246 U/L ADM SS Lipase [Catalytic activity/Vol] 57 U/L High 12 - 53 U/L ADM SS Lymphocytes (Bld) [#/Vol] 1.6 103/mcL Normal 0.9 - 4.3 10^3/mcL Workflow SS Lymphocytes/100 WBC (Bld) 9.9 % Low 20.0 - 40.0 % Workflow SS MCH (RBC) [Entitic mass] 30.1 pg Normal 27.0 - 33.0 pg Workflow SS MCHC 34.3 G/dL Normal 32.0 - 36.0 G/dL Workflow SS MCV (RBC) [Entitic vol] 87.7 fL Normal 80.0 - 99.0 fL AH Workflow SS Monocytes (Bld) [#/Vol] 1.2 103/mcL Normal 0.1 - 1.4 10^3/mcL AH Workflow SS Monocytes/100 WBC (Bld) 7.7 % Normal 2.0 - 13.0 % AH Workflow SS Neutrophils (Bld) [#/Vol] 13.1 103/mcL High 2.3 - 8.1 10^3/mcL AH Workflow SS Neutrophils/100 WBC (Bld) 81.9 % High 50.0 - 75.0 % AH Workflow SS Platelet mean volume (Bld) [Entitic vol] 8.8 fL Normal 6.6 - 10.5 fL AH Workflow SS Platelets (Bld) [#/Vol] 223 103/mcL Normal 150 - 450 10^3/mcL AH Workflow SS Potassium [Moles/Vol] 3.3 mmol/L Low 3.5 - 5.0 mEq/L AH ADM SS Protein [Mass/Vol] 6.9 G/dL Normal 5.7 - 8.2 G/dL AH ADM SS RBC (Bld) [#/Vol] 3.98 106/mcL Low 4.10 - 5.3 0 10^6/mcL AH Workflow SS Sodium [Moles/Vol] 139 mmol/L Normal 136 - 145 mEq/L AH ADM SS Urea nitrogen [Mass/Vol] 6.0 mg/dL Low 8.0 - 22.0 mg/dL AH ADM SS Urea nitrogen/Creatinine [Mass ratio] 15.0 ratio Normal 10.0 - 22.0 ratio AH ADM SS WBC (Bld) [#/Vol] 16.0 103/mcL High 4.5 - 10.8 10^3/mcL AH Workflow SS LABORATORYOrdered By: Brian Moy on 08-12-2024 Appearance (U) Clear (08/12/24 9:49 PM) Normal Clear AH Auto Urine SS Bilirubin Ql (U) Negative (08/12/24 9:49 PM) Normal Neg-Trace AH Auto Urine SS Color (U) Yellow (08/12/24 9:49 PM) Normal AH Auto Urine SS Glucose Test strip (U) [Mass/Vol] 500 mg/dL Invalid Interpretation Code Negative AH Auto Urine SS Hemoglobin Auto test strip (U) [Mass/Vol] Negative (08/12/24 9:49 PM) Normal Neg-Trace Auto Urine SS Ketones Ql (U) Trace mg/dL Normal Neg-Trace Auto Urine SS UA Leuk Est Negative (08/12/24 9:49 PM) Normal Negative Auto Urine SS UA Nitrite Negative (08/12/24 9:49 PM) Normal Negative Auto Urine SS UA pH 7.0 (08/12/24 9:49 PM) Normal 5.0 - 8.0 Auto Urine SS UA Protein Negative Normal Negative Auto Urine SS UA Spec Grav 1.010 (08/12/24 9:49 PM) Normal 1.006-1.029 Auto Urine SS UA Specimen Type Clean Catch (08/12/24 9:49 PM) Normal Auto Urine SS UA Urobilinogen 0.2 E.U./dL Normal 0.2-1.0 Auto Urine SS LDHon 08-12-2024 LDH 167 U/L Normal 120-246 [facility] Comment on above: Performed By: #### L RIK MORA, KETAN #### [place] [address] LIPon 08-12-2024 Lipase Level 57 U/L High 12-53 [facility] Comment on above: Performed By: #### L RIK MORA AMY #### [place] [address] UAon 08-12-2024 Color (U) Yellow Normal [facility] Comment on above: Performed By: #### L RIK MORA, KETAN #### [place] [id number] Glucose (U) [Mass/Vol] 500 mg/dL Abnormal Negative [facility] Comment on above: Performed By: #### L RIK MORA, KETAN #### [place] [id number] Ketones Ql (U) Trace Normal Neg-Trace [facility] Comment on above: Performed By: #### L RIK MORA, KETAN #### [place] [id number] UA Appear Clear Normal Clear [facility] Comment on above: Performed By: #### L RIK MORA, KETAN #### [place] [address] UA Blood Negative Normal Neg-Trace [facility] Comment on above: Performed By: #### L IP LD, KETAN #### [place] [address] UA Leuk Est Negative Normal Negative [facility] Comment on above: Performed By: #### L IP, LD, KETAN #### [place] [address] UA Nitrite Negative Normal Negative [facility] Comment on above: Performed By: #### L IP, LD, KETAN #### [place] [address] UA pH 7.0 Normal 5.0 - 8.0 [facility] Comment on above: Performed By: #### L IP, LD, KETAN #### [place] [address] UA Protein Negative Normal Negative [facility] Comment on above: Performed By: #### L IP LD, KETAN #### [place] [address] UA Spec Grav 1.010 Normal 1.006-1.029 [facility] Comment on above: Performed By: #### L IPRIK, KETAN #### [place] [address] UA Specimen Type Clean Catch Normal [facility] Comment on above: Performed By: #### L IP LD, KETAN #### [place] [address] UA Urobilinogen 0.2 E.U./dL Normal 0.2-1.0 [facility] Comment on above: Performed By: #### L IP, LD, KETAN #### [place] [address] Urobilinogen (U) [Mass/Vol] Negative Normal Neg-Trace [facility] Comment on above: Performed By: #### L IP, LD, KETAN #### [place] [address] ALLERGEN SKIN TEST-PENICILLI Non 05-24-2024 ANTIBIOTIC PERCUTANEOUS AND INTRADERMAL SKIN TESTING/ Mean Wheal & Flare Diameter (mm) Patient has been identified by name and date of : Yes . Skin test applied by : Mayte Marshall RN Interpreted By: DARVIN Dewey * Clinical significant reactions are regarded as a wheal diameter greater than or equal to 3 mm with a flare diameter greater or equal to 6mm. ALLERGENS Negative Control (50% glycerin/50% cocas for prick and HSA for intradermal) P: W = 2 mm F = 3 mm PENICILLIN GK 10,000 UNITS/ML P: W = 2 mm F = 4 mm PREPEN -(benzylpenicilloyl polylysine) full strength P: W = 3 mm F = 6mm [facility] 38393-015-20 Lot [id number] Exp 04/04 HISTAMINE- positive control (Histamine base 6mg/ml)for Prick and 0.1 mg/ml for intradermal P: W = 7 mm F = 20 mm [facility] CNOVon 05-24-2024 CN Office Visit ([facility] ) IGNACIO PETTIT ([id number]) 1995 F Date Time Provider Department 05/24/24 10:00 AM OSMEL JOSÉ [facility] During your visit today, we recorded the following information about you: Temperature Pulse Respiration Blood pressure 98 degrees 84/minute 17/minute 97/60 Weight Height 51.3 kg 1.575 m Osmel José APRN.CNS 05/25/2024 5:08 PM Signed [facility] Allergy AND Clinical Immunology Jocelyn Cooley APRN.CNM has requested consultation for penicillin allergy. My progress note with assessment and recommendations from today's appointment will be electronically routed to Jocelyn Cooley APRN.CNM. Chief Complaint: penicillin allergy Historian: patient HPI Ms. Pettit is a 29 year old 15-week female with no significant medical history in clinic for work up of penicillin allergy. Patient was a and still in the hospital when she was diagnosed with pneumonia. She was treated with penicillin and developed a rash on her buttocks. Her mother was told she was allergic, so she has avoided it ever since. 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 PAST MEDICAL HISTORY Diagnosis Date Cyst, thyroid 08/2018 History of miscarriage 04/05/2024 HSV-2 seropositive 2022 PCOS (polycystic ovarian syndrome) 2012 PAST SURGICAL HISTORY Procedure Laterality Date TONSILLECTOMY HX FAMILY HISTORY Problem Relation Age of Onset Thyroid Mother Breast Cancer Maternal Grandmother Social History Tobacco Use Smoking status: Former Types: Cigarettes Passive exposure: Current Smokeless tobacco: Never Tobacco comments: Quit when i was 18 Vaping Use Vaping status: Never Used Substance Use Topics Alcohol use: Not Currently Comment: social Drug use: Never Social History Tobacco Use Smoking status: Former Types: Cigarettes Passive exposure: Current Smokeless tobacco: Never Tobacco comments: Quit when i was 18 Current Outpatient Medications Medication Sig aspirin, enteric coated (ECOTRIN LOW STRENGTH) 81 mg EC tablet Take 1 tablet by mouth once daily. PNV no.95/ferrous fum/folic ac ( ORAL) Take by mouth. Lactobacillus acidophilus (PROBIOTIC ORAL) Take by mouth. Current Facility-Administered Medications Medication Dose Route Frequency penicillin G potassium 2,000 Units injection in NaCl 0.9% 0.2 mL (PFIZERPEN-G) 2,000 Units INTRADERMAL ONCE ALLERGIES Allergen Reactions Nickel Rash Latex Rash Penicillins Rash Review of Systems Constitutional: Negative for chills and fever. HENT: Negative for congestion, postnasal drip, rhinorrhea, sore throat and trouble swallowing. Eyes: Negative for redness and itching. Respiratory: Negative for cough, chest tightness, shortness of breath and wheezing. Cardiovascular: Negative for chest pain. Gastrointestinal: Negative for abdominal pain, diarrhea, nausea and vomiting. Skin: Negative for rash. Neurological: Negative for dizziness, syncope, weakness, light-headedness and numbness. Blood pressure 97/60, pulse 84, temperature 36.7 ?C (98 ?F), temperature source Temporal, resp. rate 17, height 157.5 cm (5' 2), weight 51.3 kg (113 lb 1.5 oz), last menstrual period 02/11/2024, SpO2 99%. Body mass index is 20.69 kg/m?. Physical Exam Vitals reviewed. Constitutional: General: She is not in acute distress. Appearance: Normal appearance. She is not ill-appearing. HENT: Nose: Nose normal. Mouth/Throat: Mouth: Mucous membranes are moist. Pharynx: Oropharynx is clear. Eyes: Conjunctiva/sclera: Conjunctivae normal. Cardiovascular: Rate and Rhythm: Normal rate and regular rhythm. Heart sounds: Normal heart sounds. Pulmonary: Effort: Pulmonary effort is normal. Breath sounds: Normal breath sounds. Skin: General: Skin is warm and dry. Neurological: Mental Status: She is alert. Psychiatric: Mood and Affect: Mood normal. Behavior: Behavior is cooperative. Allergy Skin Testing Skin testing performed percutaneously to penicillin G and PrePen. PrePen G was positive and personally reviewed and interpreted by me. Assessment and Recommendations (R21) Rash (primary encounter diagnosis) (Z88.0) Personal history of allergy to penicillin (Z3A.15) 15 weeks gestation of Skin testing positive to PrePen indicating patient is at increased risk for an IgE-mediated reaction to penicilli (more content not included)... Normal [facility] Examination level ultrasound on 05-05-2024 Indication First trimester anatomic survey, History of delivery Impression REMOTE READ The patient is referred for a first trimester anatomy scan including nuchal translucency measurement as clinically indicated. - Single, live, intrauterine . - [place] rump length measurement is consistent with the established gestational age. - A qualitative screen of the nuchal translucency and other anatomic structures was unremarkable on a complete first trimester anatomic assessment. - Not all structural malformations can be detected by ultrasound examination. Recommendations Additional follow-up as clinically indicated. Method Transabdominal ultrasound examination Campbell . Number of fetuses: 1 Dating LMP on: 02/11/2024 GA by LMP 12 w + 0 d APOLONIA by LMP: 11/17/2024 Ultrasound examination on: 05/05/2024 GA by U/S based upon: CRL GA by U/S 11 w + 6 d APOLONIA by U/S: 11/18/2024 Assigned: based on the LMP, selected on 04/05/2024 Assigned GA 12 w + 0 d Assigned APOLONIA: 11/17/2024 General Evaluation Cardiac activity present Placenta: posterior Cord vessels: 3 vessel cord, normal insertion Amniotic fluid: normal amount Biometry Standard FHR 164 bpm CRL 51.2 mm 11w 6d 19% [place] First Trimester Anatomy Calvarium: normal Falx cerebri: normal Choroid plexus: normal Profile: normal Nasal bone: normal Retronasal triangle: normal Maxilla: normal Mandible: normal Nuchal translucency: Unremarkable Situs: normal Cardiac position: normal Cardiac axis: normal 4-chamber view: visualized 4-chamber view with color: visualized [id number] view: normal Abdominal cord insertion: normal Stomach: normal Kidneys: visualized Bladder: normal Color doppler of perivesical umbilical arteries: normal Vertebral alignment: normal Arms: normal Hands: normal Legs: normal Feet: normal Maternal Structures Uterus / Cervix Uterus: Visualized Uterus position: anteverted Ovaries / Tubes / Adnexa Rt ovary: Visualized Rt ovary morphology: normal Rt ovary D1 24 mm Rt ovary D2 21 mm Rt ovary D3 25 mm Rt ovary Vol 6.5 cm Lt ovary: Visualized Lt ovary morphology: normal Lt ovary D1 25 mm Lt ovary D2 14 mm Lt ovary D3 14 mm Lt ovary Vol 2.4 cm Performed By: Precious Elizabeth RDMS Read By: Teresa Manriquez M.D. MATERNAL MEDICINE [facility] Radiology Study observation (narrative) [facility] [id number] PLUSon 04-22-2024 Cell-free DNA./Cell-free DNA.total Dosage of chromosome-specific cfDNA (cfDNA) [Molar fraction] 17% Normal [facility] Comment on above: Order Comment: Speci men Type: BLOOD SPECIMEN Ordering Facility: [facility] Address: [address] [place] [address] Performed By: #### 3 024-7, 3016-3 #### [facility] CLIA [id number] [address] [place] [address] [place] [address] [place] Chr 13+18+21+X+Y aneuploidy Dosage of chromosome-specific cfDNA Ql (cfDNA) Negative Normal [facility] Comment on above: Order Comment: Speci men Type: BLOOD SPECIMEN Ordering Facility: [facility] Address: [address] [place] [address] Performed By: #### 3 024-7, 3016-3 #### [facility] CLIA [id number] [address] [place] [address] [place] Chr 21 trisomy Dosage of chromosome-specific cfDNA Ql (cfDNA) Negative Normal [facility] Comment on above: Order Comment: Speci men Type: BLOOD SPECIMEN Ordering Facility: [facility] Address: [address] [place] [address] Performed By: #### 3 024-7, 3016-3 #### [facility] CLIA [id number] [address] [place] [address] [place] Chr X and Y aneuploidy risk Sequencing Ql (cfDNA) [Interp] Not detected Normal [facility] Comment on above: Order Comment: Speci men Type: BLOOD SPECIMEN Ordering Facility: [facility] Address: [address] [place] [address] Result Comment: Not Detected Not Detected Performed By: #### 3 024-7, 3016-3 #### [facility] CLIA [id number] [address] [place] [address] [place] Citation Williams (Reference lab test) Comment Normal [facility] Comment on above: Order Comment: Speci men Type: BLOOD SPECIMEN Ordering Facility: [facility] Address: [address] [place] [address] Result Comment: 1. P magnolia RANDOLPH, et al. [place] Med. 2012;14(3):296-305. 2. Gucci TAMAYO, et al. Prenat Diag. 2013;33(6):591-597. 3. Quincy Lagos, et al. Clin Chem. 2015 Apr;61(4):608-616. 4. Johnny RANDOLPH, et al. [place] Med. 2011;13(11):913-920. 5. ACOG/[facility] Practice Bulletin No. 226, Dec 2019. Performed By: #### 3 024-7, 3016-3 #### [facility] CLIA [id number] [address] [place] [address] [place] Gestational age Estimated from conception date Campbell Normal [facility] Comment on above: Order Comment: Speci men Type: BLOOD SPECIMEN Ordering Facility: [facility] Address: [address] [place] [address] Performed By: #### 3 024-7, 301-3 #### [facility] CLIA [id number] [address] [place] [address] [place] GESTATIONALAGE AGE > OR = 9W Yes Normal [facility] Comment on above: Order Comment: Farrahi vivien Type: BLOOD SPECIMEN Ordering Facility: [facility] Address: [address] [place] [address] Performed By: #### 3 024-7, 3015-3 #### [facility] CLIA [id number] [address] [place] [address] [place] Laboratory comment Williams (Report) Comment Normal [facility] Comment on above: Order Comment: Yennifer puga Type: BLOOD SPECIMEN Ordering Facility: [facility] Address: [address] [place] [address] Result Comment: The MaterniT(R) 21 PLUS laboratory-developed test (LDT) analyzes circulating cell-free DNA from a maternal blood sample. This test is used for screening purposes and not diagnostic. Clinical correlation is recommended. Validation data on twin pregnancies is limited and the ability of this test to detect aneuploidy in higher multiple gestations has not yet been validated. Performed By: #### 3 024-7, 6-3 #### [facility] CLIA [id number] [address] [place] [address] [place] chief medical director name Nom (Provider) Comment Normal [facility] Comment on above: Order Comment: Farrahi vivien Type: BLOOD SPECIMEN Ordering Facility: [facility] Address: [address] [place] [address] Result Comment: This specimen showed an expected representation of chromosome 21, 18 and 13 material. Clinical correlation is suggested. Comment Dung Moore MD, PhD, Director, [place] Performed By: #### 3 024-7, 3016-3 #### [facility] CLIA [id number] [address] [place] [address] [place] [address] [place] LIMITATIONS OF THE TEST Comment Normal [facility] Comment on above: Order Comment: Speci men Type: BLOOD SPECIMEN Ordering Facility: [facility] Address: [address] [place] [address] Result Comment: Whil e the results of these tests are highly reliable, discordant results, including inaccurate sex prediction, may occur due to placental, maternal, or mosaicism or neoplasm; vanishing twin; prior maternal organ transplant; or other causes. These tests are screening tests and not diagnostic; they do not replace the accuracy and precision of diagnosis with CVS or amniocentesis. A patient with a positive test result should be referred for genetic counseling and offered invasive diagnosis for confirmation of test results.[5] The results of this testing, including the benefits and limitations, should be discussed with a qualified healthcare provider. management decisions, including termination of the , should not be based on the results of these tests alone. The healthcare provider is responsible for the use of this information in the management of their patient. Sex chromosomal aneuploidies are not reportable for known multiple gestations. A negative result does not ensure an unaffected nor does it exclude the possibility of other chromosomal abnormalities or defects which are not a part of these tests. An uninformative result may be reported, the causes of which may include, but are not limited to, insufficient sequencing coverage, noise or artifacts in the region, amplification or sequencing bias, or insufficient fraction. These tests are not intended to identify pregnancies at risk for neural tube defects or ventral wall defects. Testing for whole chromosome abnormalities (including sex chromosomes) and for subchromosomal abnormalities could lead to the potential discovery of both and maternal genomic abnormalities that could have major, minor, or no, clinical significance. Evaluating the significance of a positive or a non-reportable result may involve both invasive testing and additional studies on the mother. Such investigations may lead to a diagnosis of maternal chromosomal or subchromosomal abnormalities, which on occasion may be associated with benign or malignant maternal neoplasms. These tests may not accurately identify triploidy, balanced rearrangements, or the precise location of subchromosomal duplications or deletions; these may be detected by diagnosis with CVS or amniocentesis. The ability to report results may be impacted by maternal BMI, maternal weight, maternal systemic lupus erythematosus (SLE) and/or by certain pharmaceutical agents such as low molecular weight heparin (for example: Lovenox(R), Xaparin(R), Clexane(R) and Fragmin(R)). Performed By: #### 3 024-7, 3016-3 #### [facility] CLIA [id number] [address] [place] [address] STATES [facility] Monosomy X risk Dosage of chromosome-specific cfDNA Ql (Plasma cell-free+WBC DNA) [Interp] Not detected Normal [facility] Comment on above: Order Comment: Yennifer puga Type: BLOOD SPECIMEN Ordering Facility: [facility] Address: [address] [place] [address] Performed By: #### 3 024-7, 3015-3 #### [facility] CLIA [id number] [address] [place] [address] STATES [facility] NEGATIVE PREDICTIVE VALUE Note Normal [facility] Comment on above: Order Comment: Yennifer puga Type: BLOOD SPECIMEN Ordering Facility: [facility] Address: [address] [place] [address] Result Comment: The Negative Predictive Value (NPV) for trisomy 21, 18, and 13 is greater than 99%. The NPV for SCA and ESS cannot be calculated as SCA and ESS are only reported when an abnormality is detected. Performed By: #### 3 024-7, 3016-3 #### [facility] CLIA [id number] [address] [place] [address] [place] PERFORMANCE CHARACTERISTICS Note Normal [facility] Comment on above: Order Comment: Yennifer puga Type: BLOOD SPECIMEN Ordering Facility: [facility] Address: [address] [place] [address] Result Comment: ! Sex ! Accuracy: 99.4% ! ! ! ! Region (associated syndrome) ! Est. Sens# ! Est. Spec ! ! ! ! Trisomy 21 (Down Syndrome) ! 99.1% ! 99.9% ! ! ! ! Trisomy 18 (Cherry Syndrome) ! >99.9% ! 99.6% ! ! ! ! Trisomy 13 (Patau Syndrome) ! 91.7% ! 99.7% ! ! ! ! Sex Chromosome Aneuploidies## ! 96.2% ! 99.7% ! ! ! * As reported in ISCA database nstd37 [https://www.ncbi.nlm.nih.gov/dbvar/studies/nstd37/ ] # Estimated Sensitivity. Sensitivity estimated across the observed size distribution of each syndrome [per ISCA database nstd37] and across the range of fractions observed in routine clinical NIPT. Actual sensitivity can also be influenced by other factors such as the size of the event, total sequence counts, amplification bias, or sequence bias. ## Campbell gestation only. Performed By: #### 3 024-7, 3015-3 #### [facility] CLIA [id number] [address] [place] [address] [place] POSITIVE PREDICTIVE VALUE N/A Normal [facility] Comment on above: Order Comment: Speci men Type: BLOOD SPECIMEN Ordering Facility: [facility] Address: [address] [place] [address] Performed By: #### 3 024-7, 3015-3 #### [facility] CLIA [id number] [address] [place] [address] [place] Reference Lab Test Method Comment Normal [facility] Comment on above: Order Comment: Speci men Type: BLOOD SPECIMEN Ordering Facility: [facility] Address: [address] [place] [address] Result Comment: See Notes Circulating cell-free DNA was purified from the plasma component of maternal blood. The extracted DNA was then converted into a genomic DNA library for aneuploidy analysis of chromosomes 21, 18, and 13 via next generation sequencing.[1] Optional findings based on the test order include sex chromosome aneuploidy (SCA)[2], and enhanced sequencing series (ESS)[3], which will only be reported on as an additional finding when an abnormality is detected. SCA testing includes information on X and Y representation, while ESS testing includes deletions in selected regions (22q, 15q, 11q, 8q, 5p, 4p, 1p) and trisomy of chromosomes 16 and 22. Performed By: #### 3 024-7, 3015-3 #### [facility] CLIA [id number] [address] [place] [address] [place] Service comment (Unsp spec) [Interp] Comment Normal [facility] Comment on above: Order Comment: Speci men Type: BLOOD SPECIMEN Ordering Facility: [facility] Address: [address] [place] [address] Result Comment: See Notes [employer] is a subsidiary of [employer], using the brand [employer]. This test was developed and its performance characteristics determined by [employer]. It has not been cleared or approved by the Food and Drug Administration. This laboratory is certified under the Clinical Laboratory Improvement Amendments (CLIA) as qualified to perform high complexity clinical laboratory testing and accredited by the College of [place] [employer] (CAP). If there is future clinical need for adding MaterniT GENOME testing, this specimen will be available until term. [facility] samples will not be retained beyond 60 days. [facility] patients will have to send a new sample for re-sequencing ([facility] Test Code: [id number]). Performed By: #### 3 024-7, 6-3 #### [facility] CLIA [id number] [address] [place] [address] [place] Sex Dosage of chromosome-specific cfDNA Nom (cfDNA) Comment Normal [facility] Comment on above: Order Comment: Speci men Type: BLOOD SPECIMEN Ordering Facility: [facility] Address: [address] [place] [address] Result Comment: Cons istent with Male Performed By: #### 3 024-7, 3015-3 #### [facility] CLIA [id number] [address] [place] [address] [place] Test performance information Williams (Unsp spec) Comment Normal [facility] Comment on above: Order Comment: Speci men Type: BLOOD SPECIMEN Ordering Facility: [facility] Address: [address] [place] [address] Result Comment: The performance characteristics of the MaterniT(R) 21 PLUS laboratory-developed test (LDT) have been determined in a clinical validation study with women at increased risk for chromosomal aneuploidy.[1-4] Performed By: #### 3 024-7, 3016-3 #### [facility] CLIA [id number] [address] [place] [address] [place] Trisomy 13 risk Dosage of chromosome-specific cfDNA Ql (cfDNA) [Interp] Negative Normal [facility] Comment on above: Order Comment: Speci men Type: BLOOD SPECIMEN Ordering Facility: [facility] Address: [address] [place] [address] Performed By: #### 3 024-7, 3016-3 #### [facility] CLIA [id number] [address] [place] [address] [place] Trisomy 18 risk Dosage of chromosome-specific cfDNA Ql (Plasma cell-free+WBC DNA) [Interp] Negative Normal [facility] Comment on above: Order Comment: Speci men Type: BLOOD SPECIMEN Ordering Facility: [facility] Address: [address] [place] [address] Performed By: #### 3 024-7, 3016-3 #### [facility] CLIA [id number] [address] [place] [address] [place] CBC W Auto Differential pane l (Bld)on 04-08-2024 Basophils (Bld) [#/Vol] 0.04 10*3/uL Normal <0.11 [facility] Comment on above: Order Comment: Speci men Type: BLOOD SPECIMEN Ordering Facility: [facility] Address: [address] [place] [address] Performed By: #### 5 7021-8 #### [facility] CLIA [id number] [address] [place] [address] [place] Basophils/100 WBC (Bld) 0.4 % Normal [facility] Comment on above: Order Comment: Speci men Type: BLOOD SPECIMEN Ordering Facility: [facility] Address: [address] [place] [address] Performed By: #### 5 7021-8 #### [facility] CLIA [id number] [address] [place] [address] [place] Differential cell count method Nom (Bld) Auto Normal [facility] Comment on above: Order Comment: Speci men Type: BLOOD SPECIMEN Ordering Facility: [facility] Address: [address] [place] [address] Performed By: #### 5 7021-8 #### [facility] CLIA [id number] [address] [place] [address] [place] Eosinophils (Bld) [#/Vol] 0.09 10*3/uL Normal <0.46 [facility] Comment on above: Order Comment: Speci men Type: BLOOD SPECIMEN Ordering Facility: [facility] Address: [address] [place] [address] Performed By: #### 5 7021-8 #### [facility] CLIA [id number] [address] [place] [address] [place] Eosinophils/100 WBC (Bld) 0.9 % Normal [facility] Comment on above: Order Comment: Speci men Type: BLOOD SPECIMEN Ordering Facility: [facility] Address: [address] [place] [address] Performed By: #### 5 7021-8 #### [id number] [address] [place] [address] [place] Erythrocyte distribution width (RBC) [Ratio] 12.8 % Normal 11.5-15.0 [facility] Comment on above: Order Comment: Speci men Type: BLOOD SPECIMEN Ordering Facility: [facility] Address: [address] [place] [address] Performed By: #### 5 7021-8 #### [facility] CLIA [id number] [address] [place] [address] [place] Hematocrit (Bld) [Volume fraction] 36.9 % Normal 36.0-46.0 [facility] Comment on above: Order Comment: Speci men Type: BLOOD SPECIMEN Ordering Facility: [facility] Address: [address] [place] [address] Performed By: #### 5 7021-8 #### [facility] CLIA [id number] [address] [place] [address] [place] Hemoglobin (Bld) [Mass/Vol] 12.8 g/dL Normal 11.5-15.5 [facility] Comment on above: Order Comment: Speci men Type: BLOOD SPECIMEN Ordering Facility: [facility] Address: [address] [place], [place] [address] Performed By: #### 5 7021-8 #### [facility] CLIA [id number] [address] [place] [address] [place] Immature granulocytes (Bld) [#/Vol] 0.03 10*3/uL Normal <0.10 [facility] Comment on above: Order Comment: Speci men Type: BLOOD SPECIMEN Ordering Facility: [facility] Address: [address] [place] [address] Performed By: #### 5 7021-8 #### [facility] CLIA [id number] [address] [place] [address] [place] Immature granulocytes/100 WBC (Bld) 0.3 % Normal [facility] Comment on above: Order Comment: Speci men Type: BLOOD SPECIMEN Ordering Facility: [facility] Address: [address] [place] [address] Performed By: #### 5 7021-8 #### [facility] CLIA [id number] [address] [place] [address] [place] Lymphocytes (Bld) [#/Vol] 2.07 10*3/uL Normal 1.00-4.00 [facility] Comment on above: Order Comment: Speci men Type: BLOOD SPECIMEN Ordering Facility: [facility] Address: [address] [place] [address] Performed By: #### 5 7021-8 #### [facility] CLIA [id number] [address] [place] [address] [place] Lymphocytes/100 WBC (Bld) 21.0 % Normal [facility] Comment on above: Order Comment: Speci men Type: BLOOD SPECIMEN Ordering Facility: [facility] Address: [address] [place] [address] Performed By: #### 5 7021-8 #### [facility] CLIA [id number] [address] [place] [address] [place] MCH (RBC) [Entitic mass] 29.4 pg Normal 26.0-34.0 [facility] Comment on above: Order Comment: Speci men Type: BLOOD SPECIMEN Ordering Facility: [facility] Address: [address] [place] [address] Performed By: #### 5 7021-8 #### [id number] [address] [place] [address] [place] MCHC (RBC) [Mass/Vol] 34.7 g/dL Normal 30.5-36.0 [facility] Comment on above: Order Comment: Speci men Type: BLOOD SPECIMEN Ordering [facility]: [facility] Address: [address] [place] [address] Performed By: #### 5 7021-8 #### [facility] [id number] [address] [place] [address] [place] MCV (RBC) [Entitic vol] 84.8 fL Normal 80.0-100.0 [facility] Comment on above: Order Comment: Speci men Type: BLOOD SPECIMEN Ordering Facility: [facility] Address: [address] [place] [address] Performed By: #### 5 7021-8 #### [facility] CLIA [id number] [address] [place] [address] [place] Monocytes (Bld) [#/Vol] 0.84 10*3/uL Normal <0.87 [facility] Comment on above: Order Comment: Speci men Type: BLOOD SPECIMEN Ordering Facility: [facility] Address: [address] [place] [address] Performed By: #### 5 7021-8 #### [facility] CLIA [id number] [address] [place] [address] [place] Monocytes/100 WBC (Bld) 8.5 % Normal [facility] Comment on above: Order Comment: Speci men Type: BLOOD SPECIMEN Ordering Facility: [facility] Address: [address] [place] [address] Performed By: #### 5 7021-8 #### [facility] CLIA [id number] [address] [place] [address] [place] Neutrophils (Bld) [#/Vol] 6.81 10*3/uL Normal 1.45-7.50 [facility] Comment on above: Order Comment: Speci men Type: BLOOD SPECIMEN Ordering Facility: [facility] Address: [address] [place] [address] Performed By: #### 5 7021-8 #### [facility] CLIA [id number] [address] [place] [address] [place] Neutrophils/100 WBC (Bld) 68.9 % Normal [facility] Comment on above: Order Comment: Speci men Type: BLOOD SPECIMEN Ordering Facility: [facility] Address: [address] [place] [address] Performed By: #### 5 7021-8 #### [facility] CLIA [id number] [address] [place] [address] [place] Nucleated RBC (Bld) [#/Vol] 10*3/uL Normal <0.01 [facility] Comment on above: Order Comment: Speci men Type: BLOOD SPECIMEN Ordering Facility: [facility] Address: [address] [place] [address] Performed By: #### 5 7021-8 #### [facility] CLIA [id number] [address] [place] [address] [place] Nucleated RBC/100 WBC (Bld) [Ratio] 0.0 /100 WBC Normal [facility] Comment on above: Order Comment: Speci men Type: BLOOD SPECIMEN Ordering Facility: [facility] Address: [address] [place] [id number] Performed By: #### 5 7021-8 #### [facility] CLIA [id number] [address] [place] [address] [place] Platelet mean volume (Bld) [Entitic vol] 10.3 fL Normal 9.0-12.7 [facility] Comment on above: Order Comment: Speci men Type: BLOOD SPECIMEN Ordering Facility: [facility] Address: [address] [place], [place] [address] Performed By: #### 5 7021-8 #### [facility] CLIA [id number] [address] [place] [address] [place] Platelets (Bld) [#/Vol] 230 10*3/uL Normal 150-400 [facility] Comment on above: Order Comment: Speci men Type: BLOOD SPECIMEN Ordering Facility: [facility] Address: [address] [place] [address] Performed By: #### 5 7021-8 #### [facility] CLIA [id number] [address] [place] [address] [place] RBC (Bld) [#/Vol] 4.35 10*6/uL Normal 3.90-5.20 [facility] Comment on above: Order Comment: Speci men Type: BLOOD SPECIMEN Ordering Facility: [facility] Address: [address] [place] [address] Performed By: #### 5 7021-8 #### [facility] CLIA [id number] [address] [place] [address] [place] WBC (Bld) [#/Vol] 9.88 10*3/uL Normal 3.70-11.00 [facility] Comment on above: Order Comment: Speci men Type: BLOOD SPECIMEN Ordering Facility: [facility] Address: [address] [place] [address] Performed By: #### 5 7021-8 #### [facility] CLIA [id number] [address] [place] [address] [place] HBV surface Ag Ser Qlon 03-12 HBV surface Ag Ql (S) Negative Normal Negative [facility] Comment on above: Order Comment: Speci men Type: BLOOD SPECIMEN Ordering Facility: [facility] Address: [address] [place] [address] Performed By: #### 3 024-7, 3016-3 #### [facility] CLIA [id number] [address] [place] [address] [place] HCV Ab Ser Qlon 04-08-2024 HCV Ab Ql (S) Negative Normal Negative [facility] Comment on above: Order Comment: Speci men Type: BLOOD SPECIMEN Ordering Facility: [facility] Address: [address] [place] [address] Result Comment: The result suggests no evidence of active infection with Hepatitis C virus. Should recent infection be suspected, repeat testing may be considered 4-6 weeks after this draw. Performed By: #### T SPN #### [facility] CLIA [id number] [address] [place] [address] [place] HIV 1+2 Ab IA Qlon HIV 1 and 2 Ab IA.rapid Nom (S/P/Bld) Normal [facility] Comment on above: Order Comment: Speci men Type: BLOOD SPECIMEN Ordering Facility: [facility] Address: [address] [place] [address] Result Comment: Test not indicated. Performed By: #### 3 024-7, 3016-3 #### [facility] CLIA [id number] [address] [place] [address] [place] HIV 1+2 Ab+HIV1 p24 Ag IA Ql Non-Reactive Normal Nonreactive [facility] Comment on above: Order Comment: Speci men Type: BLOOD SPECIMEN Ordering Facility: [facility] Address: [address] [place] [address] Performed By: #### 3 024-7, 3015-3 #### [facility] CLIA [id number] [address] [place] [address] [place] HIV immunoassay testing algorithm interpretation (S/P/Bld) [Interp] Normal [facility] Comment on above: Order Comment: Speci men Type: BLOOD SPECIMEN Ordering Facility: [facility] Address: [address] [place] [address] Result Comment: No e vidence of HIV-1 or HIV-2 infection. Should recent infection be suspected, repeat testing may be considered 2-3 weeks after this draw. Tucker Rev. Code 3701.243(E): This information has been disclosed to you from confidential records protected from disclosure by state law. ???You shall make no further disclosure of this information without the specific, written, and informed release of the individual to whom it pertains or as otherwise permitted by state law. A general authorization for the release of medical or other information is not sufficient for the purpose of the release of HIV test results or diagnoses. Performed By: #### 3 024-7, 3015-3 #### [facility] CLIA [id number] [address] [place] [address] [place] HbA1c (Bld)on 04-08-2024 Average glucose Estimated from glycated hemoglobin (Bld) [Mass/Vol] 91 mg/dL Normal [facility] Comment on above: Order Comment: Speci men Type: BLOOD SPECIMEN Ordering Facility: [facility] Address: [address] [place] [address] Result Comment: eAG: (Estimated average glucose) is a calculated value from HgbA1c and is circulation representative of the average blood glucose level in the last 2-3 month period. Performed By: #### T SPN #### [facility] CLIA [id number] [address] [place] [address] [place] HbA1c (Bld) [Mass fraction] 4.8 % Normal 4.3-5.6 [facility] Comment on above: Order Comment: Speci men Type: BLOOD SPECIMEN Ordering Facility: [facility] Address: [address] [place] [address] Result Comment: Amer ican Diabetes Association guidelines indicate that patients with HgbA1c in the range 5.7-6.4% are at increased risk for development of diabetes, and intervention by lifestyle modification may be beneficial. HgbA1c greater or equal to 6.5% is considered diagnostic of diabetes. Performed By: #### T SPN #### [facility] CLIA [id number] [address] [place] [address] [place] RUBELLA IGG ANTIBODYon 04-08 RUBELLA IGG AB, QUAL Positive Normal Positive [facility] Comment on above: Order Comment: Speci [facility] Type: BLOOD SPECIMEN Ordering Facility: [facility] Address: [address] [place] [address] Result Comment: The result suggests recent or past exposure to Rubella virus or history of Rubella vaccination. Positive result may also be seen due to presence of passively-transferred antibodies. Please correlate with patient's history. Performed By: #### 3 024-7, 6-3 #### [facility] CLIA [id number] [address] [place] [address] [place] Reagin and Treponema pallidu m IgG and IgM [Interp]on 04-08-2024 T. pallidum IgG+IgM IA Ql (S) Non-Reactive Normal Nonreactive [facility] Comment on above: Order Comment: Speci [facility] Type: BLOOD SPECIMEN Ordering Facility: [facility] Address: [address] [place] [address] Performed By: #### 3 024-7, 3016-3 #### [facility] CLIA [id number] [address] [place] [address] [place] Reagin+T pallidum IgG+IgM Se rPl-Impon 04-08-2024 Reagin and Treponema pallidum IgG and IgM [Interp] Cannot exclude recent Treponemal infection if specimen collected within 7-10 days after appearance of suspect lesions or 2-3 weeks after an exposure. Clinical correlation is required. Normal [facility] Comment on above: Order Comment: Speci men Type: BLOOD SPECIMEN Ordering Facility: [facility] Address: [address] [place] [address] Performed By: #### 3 024-7, 3016-3 #### [facility] IA [id number] [address] [place] [address] [place] T4 Free SerPl-mCncon 025 Free T4 [Mass/Vol] 1.3 ng/dL Normal 0.9-1.7 [facility] Comment on above: Order Comment: Speci men Type: BLOOD SPECIMEN Ordering Facility: [facility] Address: [address] [place] [address] Performed By: #### 3 024-7, 3016-3 #### [facility] IA [id number] [address] [place] [address] [place] TSH SerPl-aCncon 04-08-2024 TSH Qn 0.941 m[IU]/L Normal 0.270-4.200 [facility] Comment on above: Order Comment: Speci men Type: BLOOD SPECIMEN Ordering Facility: [facility] Address: [address] [place] [address] Result Comment: If t he patient is , TSH reference range varies by gestational period: First Trimester (weeks 9-12): 0.180-2.990 mIU/L Second Trimester: 0.110-3.980 mIU/L Third Trimester: 0.480-4.710 mIU/L Wilder Tanner et al. A Practical Approach for the Verifications and Determination of Site- and Trimester-Specific Reference Intervals for Thyroid Function tests in . Thyroid, 2019:29:3:412-420. Jorge Palomo, et al. 2017 Guidelines of the [place] Thy[employer] Association for the Diagnosis and Management of Thyroid Disease during and the . Thyroid, 2017:27:3:315-389. Performed By: #### 3 024-7, 3016-3 #### [facility] CLIA [id number] [address] [place] [address] [place] TYPE + SCREEN PRENATALon ABO B Normal [facility] Comment on above: Order Comment: Speci men Type: BLOOD SPECIMEN Ordering Facility: [facility] Address: [address] [place] [address] Performed By: #### T SPN #### [facility] CLIA [id number] [address] [place] [address] [place] Rh Nom (Bld) Positive Normal [facility] Comment on above: Order Comment: Speci men Type: BLOOD SPECIMEN Ordering Facility: [facility] Address: [address] [place] [address] Performed By: #### T SPN #### [facility] CLIA [id number] [address] [place] [address] [place] [facility] TYPE AND SCREEN EXPIRATION 04/11/2024 23:59 Normal [facility] Comment on above: Order Comment: Speci men Type: BLOOD SPECIMEN Ordering Facility: [facility] Address: [address] [place] [address] Performed By: #### T SPN #### CC MAIN BLOOD BANK CLIA [id number] [address] [place] [address] [place] Bacteria Ur Culton 5 Bacteria identified Cx Nom (U) ORGANISM ID: 1 <10,000 CFU/ml Normal urogenital remy Normal [facility] Comment on above: Performed By: #### 3 024-7, 3016-3 #### [facility] CLIA [id number] [address] [place] [address] [place] C. trachomatis+N. gonorrhoea e DNA RICH+probe Ql (Unsp spec)on 04-05-2024 C. trachomatis rRNA RICH+probe Ql (Unsp spec) Not detected Normal Not detected [facility] Comment on above: Order Comment: Speci men Type: BLOOD SPECIMEN Ordering Facility: [facility] Address: [address] [place] [address] Performed By: #### 3 024-7, 3016-3 #### [facility] CLIA [id number] [address] [place] [address] N. gonorrhoeae rRNA RICH+probe Ql (Unsp spec) Not detected Normal Not detected [facility] Comment on above: Order Comment: Speci men Type: BLOOD SPECIMEN Ordering Facility: [facility] Address: [address] [place] [address] Performed By: #### 3 024-7, 3016-3 #### [facility] CLIA [id number] [address] [place] [address] [place] POC BACK SEWER ULTRASOUNDon 04-05-19 Indication Viability; confirm cardiac activity Impression Single intrauterine gestational sac, CRL is appropriate for clinical dates, corresponding to APOLONIA 11/17/24 cardiac activity is visualized Recommendations Follow up for 1st Trimester Anatomy with Nuchal Translucency as clinically indicated if desired. Method Transabdominal ultrasound examination, Transvaginal ultrasound examination. View: Adequate visualization Campbell . Number of embryos: 1 Dating LMP on: 02/11/2024 GA by LMP 7 w + 5 d APOLONIA by LMP: 11/17/2024 Ultrasound examination on: 04/05/2024 GA by U/S based upon: CRL GA by U/S 7 w + 4 d APOLONIA by U/S: 11/18/2024 Assigned: based on the LMP, selected on 04/05/2024 Assigned GA 7 w + 5 d Assigned APOLONIA: 11/17/2024 Biometry Standard FHR 141 bpm CRL 13.3 mm 7w 4d 72% Hadlock Assessment Gestational sac: visualized Location: intrauterine Yolk sac: visualized Embryo: visualized CRL 13.3 mm 7w 4d 72% Hadlock Cardiac activity: present FHR 141 bpm General Evaluation Cardiac activity present. FHR 141 bpm Performed By: Leodan Van NP Read By: Leodan Van NP MATERNAL MEDICINE [facility] Radiology Study observation (narrative) [facility] Jacob 2024 CNPN Telephone (OBGYWM) IGNACIO PETTIT ([id number]) 1995 F Date Time Provider Department 03/31/24 LEODAN VAN OBGYWM During your visit today, we recorded the following information about you: Marylu Simons RN 2024 10:00 AM Signed Attempted to reach patient to go over new OB intake questions. Left message for Pt to call office today and as to speak to Yony or Carie and if unable to reach one of us, to please arrive to her appointment on Friday at least 30 minutes early to allow time to go over questions prior to appointment with provider and to arrive with a full bladder. Marylu Simons RN Allergies As of Date: 2024 Noted Allergy Reaction NICKEL 12/24/2018 2 - Rash LATEX 06/07/2015 2 - Rash PENICILLINS 06/07/2015 2 - Rash Date Reviewed: 09/25/2023 Reviewed by: Stacy Caldera APRN.[facility] - Fully Assessed Reason for Visit: Appointment [186] Prescriptions as of 2024 - Lactobacillus acidophilus (PROBIOTIC ORAL) Take by mouth. Problem List As Of Date: 2024 (None) Medications Discontinued During This Encounter Prescriptions - albuterol HFA (PROVENTIL HFA, VENTOLIN HFA) 90 mcg/actuation inhaler (Discontinued) Inhale 1-2 Puffs as instructed every 4 hours as needed for wheezing/shortness of breath. - clindamycin (CLEOCIN-T) 1 % gel (Discontinued) - doxycycline (VIBRA-TABS) 100 mg tablet (Discontinued) take 2 tablets by mouth WITHIN 24 HOURS BUT NO LATER THAN 72 HOURS AFTER CONDOMLESS SEX - tretinoin (RETIN-A) 0.025 % topical cream (Discontinued) - valACYclovir (VALTREX) 1 gram tablet (Discontinued) Take 1 tablet by mouth once daily. - XULANE 150-35 mcg/24 hr patch (Discontinued) Apply 1 Patch as directed one time a week. Encounter Status:Closed by MARYLU SIMONS on 03/31/24 Normal [facility] B-HCG SerPl-aCncon 5 HCG.beta subunit Qn 1340.0 m[IU]/mL High <5.0 [facility] Comment on above: Order Comment: Speci men Type: BLOOD SPECIMEN Ordering Facility: [facility] Address: [address] [place] [address] Result Comment: HOLLIS TITATIVE HCG NORMAL RANGES Weeks of Gestation (Weeks Since LMP) 3 Weeks (5.8-71.2 mIU/mL) 4 Weeks (9.5-750 mIU/mL) 5 Weeks (217-7138 mIU/mL) 6 Weeks (158-09883 mIU/mL) 7 Weeks (3697-425907 mIU/mL) 8 Weeks (30956-314517 mIU/mL) 9 Weeks (17705-592953 mIU/mL) 10 Weeks (13540-939155 mIU/mL) 12 Weeks (44803-523641 mIU/mL) Referenced to 4th IS of [facility] Performed By: #### T SPN #### [facility] MAIN BLOOD BANK [facility] [id number] [address] [place] [address] [place] Jacob 03-15-2024 CNPN Telephone (OBGYWM) IGNACIO PETTIT ([id number]) 1995 F Date Time Provider Department 03/15/24 STACY CALDERA OBGYW During your visit today, we recorded the following information about you: Ana Diaz 03/15/2024 10:37 AM Signed Patient calling in to see if someone in OB could place a blood test for her to confirm . She states it is still early on. She is also asking if she is still okay to take valacyclovir as needed. Please review and advise patient. Ana Cooleystrom March 15, 2024 10:37 AM Joanna Orozco RN 03/15/2024 1:36 PM Signed Patient called in regards to below message, states she took 2 home tests and both were positive. Patient wanting blood test to confirm as her last was a miscarriage at 7 weeks. , LMP 02/11/24, approximately 4w5d. Patient also asked below about taking valacyclovir as needed, not currently having an outbreak. New OB has been scheduled. JOSE Gutiérrez Sara, MD 03/15/2024 2:26 PM Signed Hcg quant filed Valtrex is ok to take in for hsv outbreak Joanna Orozco RN 03/15/2024 2:29 PM Signed Patient notified and voiced understanding. Joanna Orozco RN Allergies As of Date: 03/15/2024 Noted Allergy Reaction NICKEL 12/24/2018 2 - Rash LATEX 06/07/2015 2 - Rash PENICILLINS 06/07/2015 2 - Rash Date Reviewed: 09/25/2023 Reviewed by: Stacy Caldera APRN.[employer] - Fully Assessed Reason for Visit: Patient Question [1477] Primary Visit Diagnosis:Missed menses [N92.6] Order(s):HCG QUANTITATIVE [SQHCGQT] Order #: [id number] FUTURE Prescriptions as of 03/15/2024 - valACYclovir (VALTREX) 1 gram tablet Take 1 tablet by mouth once daily. - clindamycin (CLEOCIN-T) 1 % gel - tretinoin (RETIN-A) 0.025 % topical cream - doxycycline (VIBRA-TABS) 100 mg tablet take 2 tablets by mouth WITHIN 24 HOURS BUT NO LATER THAN 72 HOURS AFTER CONDOMLESS SEX - XULANE 150-35 mcg/24 hr patch Apply 1 Patch as directed one time a week. - albuterol HFA (PROVENTIL HFA, VENTOLIN HFA) 90 mcg/actuation inhaler Inhale 1-2 Puffs as instructed every 4 hours as needed for wheezing/shortness of breath. - Lactobacillus acidophilus (PROBIOTIC ORAL) Take by mouth. Problem List As Of Date: 03/15/2024 (None) Encounter Status:Closed by JOANNA OROZCO on 03/15/24 [facility] ED PROV NOTEon 09-13-2023 ED PROV NOTE HNO ID: [id number] Author: ИВАН REYES PA-C Service: Emergency Medicine Author Type: Physician [employer] Machine Tender Type: ED Provider Notes Filed: 09/13/2023 19:04 Note Text: ED Provider Note Patient Name: Ignacio Pettit : 1995 SERVICE DATE: 09/13/23 History Patient presents with: Cough: Cough X 2 weeks Patient is a 28-year-old female coming in today with concerns for persistent cough for the last 2 weeks. Initially just had a headache and nonproductive cough. In the last 5 to 6 days however did note some fever/chills as well as some arthralgias and myalgias. She denies sore throat. Does feel like she has saliva in her throat. She denies drooling or voice changes. She denies chest pain or shortness of breath. Denies any abdominal pain, nausea, vomiting, diarrhea. Daughter sick with similar viral symptoms prior to her onset. She has been taking Tessalon Perles and Claritin. PAST MEDICAL HISTORY Diagnosis Date Cyst, thyroid 08/2018 HSV-2 seropositive 2022 PCOS (polycystic ovarian syndrome) 2012 PAST SURGICAL HISTORY Procedure Laterality Date TONSILLECTOMY HX FAMILY HISTORY Problem Relation Age of Onset Thyroid Mother Breast Cancer Maternal Grandmother Social History Tobacco Use Smoking status: Former Passive exposure: Current Smokeless tobacco: Never Vaping Use Vaping Use: Never used Substance and Sexual Activity Alcohol use: Yes Comment: social Drug use: Never Sexual activity: Yes Partners: Male ALLERGIES Allergen Reactions Nickel Rash Latex Rash Penicillins Rash Review of Systems Constitutional: Positive for chills, fatigue and fever. Negative for appetite change and diaphoresis. HENT: Negative for congestion, ear discharge, ear pain, facial swelling, hearing loss, sinus pressure, sinus pain, sneezing, sore throat, tinnitus, trouble swallowing and voice change. Eyes: Negative for pain, redness and itching. Respiratory: Positive for cough. Negative for chest tightness, shortness of breath and wheezing. Cardiovascular: Negative for chest pain, palpitations and leg swelling. Gastrointestinal: Negative for abdominal pain, diarrhea, nausea and vomiting. Endocrine: Negative. Genitourinary: Negative. Musculoskeletal: Positive for arthralgias and myalgias. Negative for joint swelling, neck pain and neck stiffness. Skin: Negative for color change, pallor, rash and wound. Allergic/Immunologic: Negative for immunocompromised state. Neurological: Positive for headaches. Negative for dizziness, facial asymmetry, speech difficulty, weakness, light-headedness and numbness. Hematological: Does not bruise/bleed easily. Psychiatric/Behaviora l: Negative for agitation, confusion, self-injury and suicidal ideas. The patient is not nervous/anxious. Physical Exam Vitals [09/13/23 1655] BP Pulse Temp Temp src Resp SpO2 Weight Height 112/78 87 36.5 ?C (97.7 ?F) Tympanic 18 97 % 45.4 kg (100 lb) -- Physical Exam Vitals and nursing note reviewed. Constitutional: General: She is not in acute distress. Appearance: Normal appearance. She is not ill-appearing. HENT: Head: Normocephalic and atraumatic. Jaw: No trismus. Mouth/Throat: Lips: Murillo. Mouth: Mucous membranes are moist. Pharynx: Oropharynx is clear. Uvula midline. No pharyngeal swelling, oropharyngeal exudate, posterior oropharyngeal erythema or uvula swelling. Tonsils: No tonsillar exudate or tonsillar abscesses. Comments: Tolerating secretions without difficulty. No drooling, muffled voice or trismus. No Bi's angina Eyes: Extraocular Movements: Extraocular movements intact. Pupils: Pupils are equal, round, and reactive to light. Neck: Meningeal: Kernig's sign absent. Cardiovascular: Rate and Rhythm: Normal rate and regular rhythm. Pulmonary: Effort: Pulmonary effort is normal. No respiratory distress. Breath sounds: Normal breath sounds. No wheezing or rhonchi. Abdominal: General: Bowel sounds are normal. Palpations: Abdomen is soft. Tenderness: There is no abdominal tenderness. There is no right CVA tenderness, left CVA tenderness, guarding or rebound. Musculoskeletal: General: No swelling or tenderness. Normal range of motion. Cervical back: Full passive range of motion without pain, normal range of motion and neck supple. No erythema, rigidity or tenderness. No pain with movement, spinous process tenderness or muscular tenderness. Normal range of motion. Right lower leg: No edema. Left lower leg: No edema. Comments: Moves all 4 extremities through full, pain-free range of motion. No focal joint pain Skin: General: Skin is warm and dry. Capillary Refill: Capillary refill takes less than 2 seconds. Findings: No erythema or rash. Neurological: General: No focal deficit present. Mental Status: She is alert and oriented to person, place, and time. Cranial Nerves: No dysarthria or facial asymmetry. Motor: Motor fu (more content not included)... Normal [facility] FLUABV+SARS-CoV-2+RSV Pnl Re sp RICH+probeon 09-13-2023 FLUABV+SARS-CoV-2+RSV Pnl Resp RICH+probe COVID 19 RESULT: Not detected The method used is RT-PCR or an equivalent NAAT method. Reference Range(the expected result in uninfected individuals): Not detected INFLUENZA A PCR: Not detected INFLUENZA B PCR: Not detected RSV PCR: Not detected Normal [facility] Comment on above: Performed By: #### 9 5941-1 #### [facility] CLIA [id number] [address] [place] [address] [place] XR CHEST 2V FRONTAL/LATon XR CHEST 2V FRONTAL/LAT * * *Final Report* * * DATE OF EXAM: Sep 13 2023 5:16PM AWX [id number] - XR CHEST 2V FRONTAL/LAT / PROCEDURE REASON: Cough * * * * Physician Interpretation * * * * EXAMINATION: CHEST RADIOGRAPH (2 VIEW FRONTAL and LATERAL) CLINICAL HISTORY: Cough MQ: XC2_6 EXAM DATE/TIME: 09/13/2023 5:16 PM COMPARISON: No relevant prior studies available. RESULT: Lines, tubes, and devices: None. Lungs and pleura: No consolidation. No lung mass. No pleural effusion. No pneumothorax. Cardiomediastinal silhouette: Normal cardiomediastinal silhouette. Bones and soft tissues: Unremarkable. IMPRESSION: No acute radiographic abnormality. Utility Tender Carding: MICHAEL Transcribe Date/Time: Sep 13 2023 5:27P Dictated by : NILE GARRISON MD This examination was interpreted and the report reviewed and electronically signed by: NILE GARRISON MD on Sep 13 2023 5:28PM EST [id number] Normal [facility] US THYROID/PARATHYROIDon [facility] ED Provider Noteon ED Provider Note Fly [facility] eMERGENCY dEPARTMENT eNCOUnter Pt Name: Ignacio Pettit Birthdate 1995 Date of evaluation: 07/20/2020 Provider: Ramesh Mejia APRN - YOK[place] I have evaluated this patient on my own, per my scope of practice with an attending physician available for consultation. CHIEF COMPLAINT Chief Complaint Patient presents with ? Laceration HISTORY OF PRESENT ILLNESS (Location/Symptom, Timing/Onset,Context/ Setting, Quality, Duration, Modifying Factors, Severity) Note limiting factors. HPI Ignacio Pettit is a 25 y.o. female who presents to the emergency department with a laceration to the distal portion of the middle finger of the right hand. Patient cut it on a mandolin. Unsure when her last tetanus was. States she could not get it to stop bleeding. Nursing Notes were reviewed. REVIEW OF SYSTEMS (2+ for4; 10+ for level 5) Review of Systems Constitutional: Negative for activity change, appetite change, chills and fever. HENT: Negative for ear discharge, sinus pressure, sore throat and tinnitus. Eyes: Negative for discharge and redness. Musculoskeletal: Negative for arthralgias, back pain, myalgias and neck pain. Skin: Positive for wound. Negative for color change and rash. Neurological: Negative for dizziness, light-headedness and headaches. Psychiatric/Behaviora l: Negative for agitation and confusion. All other systems reviewed and are negative. PAST MEDICAL HISTORY History reviewed. No pertinent past medical history. SURGICALHISTORY Past Surgical History: Procedure Laterality Date ? INTRAUTERINE DEVICE INSERTION 06/15/15 - 06/14/25 ParaGard ? TONSILLECTOMY Bilateral CURRENT MEDICATIONS Previous Medications No medications on file Latex, Other, and Pcn [penicillins] FAMILY HISTORY Family History Problem Relation Age of Onset ? Breast Cancer Neg Hx ? Cancer Neg Hx ? Colon Cancer Neg Hx ? Diabetes Neg Hx ? Eclampsia Neg Hx ? Hypertension Neg Hx ? Ovarian Cancer Neg Hx ? Labor Neg Hx ? Spont Abortions Neg Hx ? Stroke Neg Hx SOCIAL HISTORY Social History Socioeconomic History ? Marital status: Spouse name: None ? Number of children: None ? Years of education: None ? Highest education level: None Occupational History ? None Social Needs ? Financial resource strain: None ? Food insecurity Worry: None Inability: None ? Transportation needs Medical: None Non-medical: None Tobacco Use ? Smoking status: Former Smoker ? Smokeless tobacco: Never Used Substance and Sexual Activity ? Alcohol use: Not Currently Alcohol/week: 0.0 standard drinks ? Drug use: No ? Sexual activity: Yes Partners: Male control/protection: I.U.D. Comment: ParaGard (06/15/15 - 06/14/25) Lifestyle ? Physical activity Days per week: None Minutes per session: None ? Stress: None Relationships ? Social connections Talks on phone: None Gets together: None Attends lutheran service: None Active member of club or organization: None Attends meetings of clubs or organizations: None Relationship status: None ? Intimate partner violence Fear of current or ex partner: None Emotionally abused: None Physically abused: None Forced sexual activity: None Other Topics Concern ? None Social History Narrative ? None SCREENINGS @FLOW([id number])@ PHYSICAL EXAM (5+ for level 4, 8+ for level 5) ED Triage Vitals [07/20/202056] BP Temp Temp Source Pulse Resp SpO2 Height Weight 135/88 99.1 ?F (37.3 ?C) Temporal 111 16 100 % -- 100 lb (45.4 kg) Physical Exam Vitals signs and nursing note reviewed. Constitutional: General: She is not in acute distress. Appearance: Normal appearance. She is normal weight. She is not ill-appearing or toxic-appearing. HENT: Head: Normocephalic and atraumatic. Right Ear: External ear normal. Left Ear: External ear normal. Eyes: Extraocular Movements: Extraocular movements intact. Conjunctiva/sclera: Conjunctivae normal. Pupils: Pupils are equal, round, and reactive to light. Neck: Musculoskeletal: Normal range of motion and neck supple. No neck rigidity or muscular tenderness. Musculoskeletal: Normal range of motion. General: No swelling or deformity. Lymphadenopathy: Cervical: No cervical adenopathy. Skin: General: Skin is warm and dry. Capillary Refill: Capillary refill takes less than 2 seconds. Comments: Tissue avulsion to the lateral aspect of the middle finger of the distal phalanx of the right hand. Bleeding noted. Neurological: General: No focal deficit present. Mental Status: She is alert and oriented to person, place, and time. Mental status is at baseline. Psychiatric: Mood and Affect: Mood normal. DIAGNOSTIC RESULTS EKG (Per Emergency Physician): Not performed. RADIOLOGY (Per EmergencyPhysician): Not performed. Interpretation per the Radiologist below, if available at the time of this note: No results found (more content not included)... Normal [facility] ABO Rh Blood Typeon 11-09-19 19 ABO and Rh group Nom (Bld) ABO Group: B Rh, Gel: POS Normal [facility] Comment on above: Performed By: #### A BOB #### [address] [address] ABO/RHon 11-08-2018 Sodium [Moles/Vol] B [place], [place] Sodium [Moles/Vol] Positive [place], [place] Comment on above: Test Performed by [address] [address] Test Performed by [id number] [place] [address] Basic Metabolic Panelon Calcium [Mass/Vol] 9.0 mg/dL Normal 8.4-10.4 [facility] Comment on above: Performed By: #### H EMDF, BMP3, QWNT #### [address] Anion gap [Moles/Vol] 11 Normal [facility] Comment on above: Performed By: #### H EMDF, BMP3, QWNT #### [address] CO2 [Moles/Vol] 22 mmol/L Normal 22-30 [facility] Comment on above: Performed By: #### H EMDF, BMP3, QWNT #### [address] [address] [place] [address] Creatinine [Mass/Vol] 0.62 mg/dL Normal 0.52-1.25 [facility] Comment on above: Performed By: #### H EMDF, BMP3, QWNT #### [facility] [address] [place] [address] GFR/1.73 sq M predicted among blacks MDRD (S/P/Bld) [Vol rate/Area] mL/min/{1.73_m2} Normal >60 [facility] Comment on above: Performed By: #### H EMDF, BMP3, QWNT #### [facility] [address] [place] [address] GFR/1.73 sq M predicted among non-blacks MDRD (S/P/Bld) [Vol rate/Area] mL/min/{1.73_m2} Normal >60 [facility] Comment on above: Result Comment: Sour ce- MDRD equation with creatinine calibration to IDMS(NKDEP) eGFR not recommended for drug dose adjustment Performed By: #### H EMDF, BMP3, QWNT #### [address] [address] [address] [place], [place] Glucose [Mass/Vol] 89 mg/dL Normal 70-100 [facility] Comment on above: Performed By: #### H EMDF, BMP3, QWNT #### [address] [address] [place] [address] Urea nitrogen [Mass/Vol] 10 mg/dL Normal 7-20 [facility] Comment on above: Performed By: #### H EMDF, BMP3, QWNT #### [address] [place] [address] Chloride [Moles/Vol] 106 mmol/L Normal 98-107 [facility] Comment on above: Performed By: #### H EMDF, BMP3, QWNT #### [address] [place] [address] Potassium [Moles/Vol] 3.4 mmol/L Low 3.5-5.1 [facility] Comment on above: Performed By: #### H EMDF, BMP3, QWNT #### [facility] [address] [place] [address] Sodium [Moles/Vol] 139 mmol/L Normal 135-145 [facility] Comment on above: Performed By: #### H EMDF, BMP3, QWNT #### [facility] [address] [place] [address] Anion gap [Moles/Vol] 11 mmol/L [place], [place] Calcium [Mass/Vol] 9.0 mg/dL 8.4 - 10. 4 mg/dL [place] Chloride [Moles/Vol] 106 mmol/L 98 - 10 7 mmol/L [place] CO2 [Moles/Vol] 22 mmol/L 22 - 30 mmol/L [place] Creatinine [Mass/Vol] 0.62 mg/dL 0.52 - 1.25 mg/dL [place] EGFR IF NonAfrican [place] >60.0 >60 mL/min [place] Comment on above: Source- MDRD equatio n with creatinine calibration to IDMS(NKDEP) eGFR not recommended for drug dose adjustment GFR/1.73 sq M predicted among blacks MDRD (S/P/Bld) [Vol rate/Area] mL/min/{1.73_m2} >60 mL/min [place] Glucose [Mass/Vol] 89 mg/dL 70 - 100 mg/dL [place], [place] Interpretation and review of laboratory results Abnormal [place] Potassium [Moles/Vol] 3.4 mmol/L Low 3.5 - 5.1 mmol/L [place] Sodium [Moles/Vol] 139 mmol/L 135 - 145 mmol/L [place] Urea nitrogen [Mass/Vol] 10 mg/dL 7 - 20 mg/dL [place] Test Performed by [facility], [address] [place] [address] [place], [place] Complete Urinalysison 2018 Appearance (U) Clear Normal [facility] Comment on above: Result Comment: Refe rence Range: Clear Performed By: #### C UA2 #### [address] [address] [address] [place], [place] Bacteria LM.HPF (Urine sed) [#/Area] Negative Normal [facility] Comment on above: Result Comment: Refe rence Range: Negative Performed By: #### C UA2 #### [address] [address] [address] [place], [place] Bilirubin,Urine Negative Normal [facility] Comment on above: Result Comment: Refe rence Range: Negative Performed By: #### C UA2 #### [address] [address] [address] [place], [place] Cast, Hyaline Negative Normal [facility] Comment on above: Result Comment: Refe rence Range: Negative Performed By: #### C UA2 #### [address] [address] [address] [place], [place] Color (U) Light-Yellow Normal [facility] Comment on above: Result Comment: Refe rence Range: Lt. Yellow Performed By: #### C UA2 #### [address] [address] [place], [place] Glucose Ql (U) Normal Normal [facility] Comment on above: Result Comment: Refe rence Range: Normal (<70) Performed By: #### C UA2 #### [address] [address] [address] [place], [place] Ketone,Urine Negative Normal [facility] Comment on above: Result Comment: Refe rence Range: Negative Performed By: #### C UA2 #### [address] [address] [address] [place], [place] Leukocytes,Urine Negative Normal [facility] Comment on above: Result Comment: Refe rence Range: Negative Performed By: #### C UA2 #### [address] [address] [address] [place], [place] Nitrites,Urine Negative Normal [facility] Comment on above: Result Comment: Refe rence Range: Negative Performed By: #### C UA2 #### [address] [address] [address] [place], [place] Occult Blood,Urine 0.1 mg/dL Normal [facility] Comment on above: Result Comment: Refe rence Range: Negative Performed By: #### C UA2 #### [address] [address] [address] [place], [place] pH (U) 7.5 Normal 5.0-8.0 [facility] Comment on above: Performed By: #### C UA2 #### [address] [address] [address] [place], [place] Protein (U) [Mass/Vol] Negative Normal [facility] Comment on above: Result Comment: Refe rence Range: Negative Performed By: #### C UA2 #### [address] [address] [address] [place], [place] RBC LM.HPF (Urine sed) [#/Area] 3 - 5 Normal [facility] Comment on above: Result Comment: Refe rence Range: 0-2 Performed By: #### C UA2 #### [address] [address] [address] [place], [place] Specific [place],Urine 1.018 Normal 1.005-1.030 [facility] Comment on above: Performed By: #### C UA2 #### [address] [address] [address] [place], [place] Squamous Epithelial 0 - 2 Normal [facility] Comment on above: Result Comment: Refe rence Range: 3-5 Performed By: #### C UA2 #### [address] [address] [address] [place], [place] Urobilinogen,Urine Normal Normal [facility] Comment on above: Result Comment: Refe rence Range: Normal (0-1) Performed By: #### C UA2 #### [address] [address] [place], [place] WBC LM.HPF (Urine sed) [#/Area] 0 - 2 Normal [facility] Comment on above: Result Comment: Refe rence Range: 0-5 Performed By: #### C UA2 #### [address] [address] [place] [address] HCG, Quantitative, on 11-08-2018 hCG Quant 1561 m[IU]/mL Abnormal <3 [place], [place] Interpretation and review of laboratory results Abnormal [place] Test Performed by [facility], [address] [place] [id number] [place] Hemogram (CBC) w/Auto Diffon 11-08-2018 Absolute Baso # 0.0 10*3/uL 0 - 0.2 10*3/uL [place] Absolute Neut # 6.2 10*3/uL 1.8 - 7 10*3/uL [place] Basophils/100 WBC (Bld) 0.4 % 0 - 2 % [place] Eosinophils (Bld) [#/Vol] 0.1 10*3/uL 0 - 0.5 10*3/uL [place] Eosinophils/100 WBC (Bld) 0.9 % Low 1 - 6 % [place] Erythrocyte distribution width (RBC) [Ratio] 13.6 % 11.5 - 14.5 % [place] Granulocytes/100 WBC (Bld) 63.4 % 40 - 80 % [place] Hematocrit (Bld) [Volume fraction] 38.2 % 35 - 47 % [place] Hemoglobin (Bld) [Mass/Vol] 13.2 g/dL 11.7 - 16 g/dL [place] Interpretation and review of laboratory results Abnormal [place] Lymphocytes (Bld) [#/Vol] 2.6 10*3/uL 1 - 4.3 10*3/uL [place] Lymphocytes/100 WBC (Bld) 26.8 % 20 - 40 % [place] MCH (RBC) [Entitic mass] 29.7 pg 26 - 34 pg [place] MCHC (RBC) [Mass/Vol] 34.5 % 32 - 36 % [place], [place] MCV (RBC) [Entitic vol] 86.0 fL 79 - 98 fL [place] Monocytes (Bld) [#/Vol] 0.8 10*3/uL 0 - 0.8 10*3/uL [place] Monocytes/100 WBC (Bld) 8.5 % 2 - 10 % [place] Platelet mean volume (Bld) [Entitic vol] 8.7 fL 7.4 - 10.4 fL [place] Platelets (Bld) [#/Vol] 208 10*3/uL 140 - 440 10*3/uL [place] RBC (Bld) [#/Vol] 4.45 10*6/uL 3.8 - 5.2 10*6/uL [place] WBC (Bld) [#/Vol] 9.8 10*3/uL 3.6 - 10.7 10*3/uL [place] Test Performed by [facility], [address] [place] [id number] [place] [address] Hemogram w/ Autodiffon 11-08 Abs Baso Cnt 0.0 10*3/uL Normal 0.0-0.2 [facility] Comment on above: Performed By: #### H EMDF, BMP3, QWNT #### [address] Abs Neutrophile Cnt 6.2 10*3/uL Normal 1.8-7.0 [facility] Comment on above: Performed By: #### H EMDF, BMP3, QWNT #### [address] [address] Basophils/100 WBC (Bld) 0.4 % Normal 0.0-2.0 [facility] Comment on above: Performed By: #### H EMDF, BMP3, QWNT #### [address] [address] Eosinophils (Bld) [#/Vol] 0.1 10*3/uL Normal 0.0-0.5 [facility] Comment on above: Performed By: #### H EMDF, BMP3, QWNT #### [address] [address] Eosinophils/100 WBC (Bld) 0.9 % Low 1.0-6.0 [facility] Comment on above: Performed By: #### H EMDF, BMP3, QWNT #### [address] [address] [place], [place] Erythrocyte distribution width (RBC) [Ratio] 13.6 % Normal 11.5-14.5 [facility] Comment on above: Performed By: #### H EMDF, BMP3, QWNT #### [address] [address] [place], [place] Granulocytes/100 WBC (Bld) 63.4 % Normal 40.0-80.0 [facility] Comment on above: Performed By: #### H EMDF, BMP3, QWNT #### [address] Hematocrit (Bld) [Volume fraction] 38.2 % Normal 35.0-47.0 [facility] Comment on above: Performed By: #### H EMDF, BMP3, QWNT #### [address] [address] [place], [place] Hemoglobin (Bld) [Mass/Vol] 13.2 g/dL Normal 11.7-16.0 [facility] Comment on above: Performed By: #### H EMDF, BMP3, QWNT #### [address] [address] [place], [place] Lymphocytes (Bld) [#/Vol] 2.6 10*3/uL Normal 1.0-4.3 [facility] Comment on above: Performed By: #### H EMDF, BMP3, QWNT #### [address] [address] [place], [place] Lymphocytes/100 WBC (Bld) 26.8 % Normal 20.0-40.0 [facility] Comment on above: Performed By: #### H EMDF, BMP3, QWNT #### [address] [address] [place] MCH (RBC) [Entitic mass] 29.7 pg Normal 26.0-34.0 [facility] Comment on above: Performed By: #### H EMDF, BMP3, QWNT #### [address] [address] [place] MCHC (RBC) [Mass/Vol] 34.5 % Normal 32.0-36.0 [facility] Comment on above: Performed By: #### H EMDF, BMP3, QWNT #### [address] MCV (RBC) [Entitic vol] 86.0 fL Normal 79.0-98.0 [facility] Comment on above: Performed By: #### H EMDF, BMP3, QWNT #### [address] Monocytes (Bld) [#/Vol] 0.8 10*3/uL Normal 0.0-0.8 [facility] Comment on above: Performed By: #### H EMDF, BMP3, QWNT #### [address] Monocytes/100 WBC (Bld) 8.5 % Normal 2.0-10.0 [facility] Comment on above: Performed By: #### H EMDF, BMP3, QWNT #### [address] Platelet mean volume (Bld) [Entitic vol] 8.7 fL Normal 7.4-10.4 [facility] Comment on above: Performed By: #### H EMDF, BMP3, QWNT #### [address] Platelets (Bld) [#/Vol] 208 10*3/uL Normal 140-440 [facility] Comment on above: Performed By: #### H EMDF, BMP3, QWNT #### [address] RBC (Bld) [#/Vol] 4.45 10*6/uL Normal 3.80-5.20 [facility] Comment on above: Performed By: #### H EMDF, BMP3, QWNT #### [facility] [address] [place] [address] WBC (Bld) [#/Vol] 9.8 10*3/uL Normal 3.6-10.7 [facility] Comment on above: Performed By: #### H EMDF, BMP3, QWNT #### [facility] [address] [place] [address] US OB TRANSVAGINALon [address], [facility] Incoming Radiology Results From [facility] - 11/08/2018 9:49 PM EDT Patient Name: IGNACIO PETTIT ---Ultrasound--- Exam Date/Time 11/08/2018 20:30:31 EDT Exam US Transvaginal Ordering Physician SHELL MORGAN MADALINA Accession Number [id number] CPT4 Codes 04455 () Reason For Exam 7 weeks, bleeding , abd cramping Report OB ULTRASOUND-FIRST TRIMESTER: CLINICAL INDICATION: Vaginal bleeding. Patient is seven weeks . Last menstrual period is unknown. TECHNIQUE: Transabdominal and transvaginal images were obtained to optimally evaluate the ovaries and adnexal structures including color flow and spectral Doppler imaging COMPARISON: None. FINDINGS: The endometrium is heterogeneous and measures 1.5 cm. There is no gestational sac identified. There is a small amount of simple appearing fluid within the cul-de-sac. Right ovary measures 4.2 x 2.5 x 2.1 cm. There is normal color Doppler flow within the right ovary and grossly normal spectral Doppler flow as well. The left ovary measures 2.8 x 2.0 x 2.4 cm. There is normal color Doppler flow with normal spectral Doppler signal in the left ovary. There is a complex cyst with layering echogenic material measuring 1.4 x 1.4 x 1.2 cm within the left ovary. IMPRESSION: 1. Heterogeneous endometrium measuring 1.5 cm in thickness. No gestational sac is identified. Recommend serial hCG measurements and repeat pelvic ultrasound. 2. Complex left ovarian cyst measuring 1.4 x 1.4 by 1.2 cm with layering echogenic material. Report Dictated on --- Final --- Dictated: 11/08/2018 9:43 pm Dictating Physician: MD MELVIN GEORGE RICHARD Signed Date and Time: 11/08/2018 9:47 pm Signed by: MD MELVIN GEORGE RICHARD Transcribed Date and Time: 11/08/2018 9:43 [place] Patient Name: IGNACIO PETTIT ---Ultrasound--- Exam Date/Time 11/08/2018 20:30:31 EDT Exam US Transvaginal Ordering Physician SHELL MORGAN MADALINA Accession Number [id number] CPT4 Codes 65105 () Reason For Exam 7 weeks, bleeding , abd cramping Report OB ULTRASOUND-FIRST TRIMESTER: CLINICAL INDICATION: Vaginal bleeding. Patient is seven weeks . Last menstrual period is unknown. TECHNIQUE: Transabdominal and transvaginal images were obtained to optimally evaluate the ovaries and adnexal structures including color flow and spectral Doppler imaging COMPARISON: None. FINDINGS: The endometrium is heterogeneous and measures 1.5 cm. There is no gestational sac identified. There is a small amount of simple appearing fluid within the cul-de-sac. Right ovary measures 4.2 x 2.5 x 2.1 cm. There is normal color Doppler flow within the right ovary and grossly normal spectral Doppler flow as well. The left ovary measures 2.8 x 2.0 x 2.4 cm. There is normal color Doppler flow with normal spectral Doppler signal in the left ovary. There is a complex cyst with layering echogenic material measuring 1.4 x 1.4 x 1.2 cm within the left ovary. IMPRESSION: 1. Heterogeneous endometrium measuring 1.5 cm in thickness. No gestational sac is identified. Recommend serial hCG measurements and repeat pelvic ultrasound. 2. Complex left ovarian cyst measuring 1.4 x 1.4 by 1.2 cm with layering echogenic material. Report Dictated on --- Final --- Dictated: 11/08/2018 9:43 pm Dictating Physician: MD MELVIN GEORGE RICHARD Signed Date and Time: 11/08/2018 9:47 pm Signed by: MD MELVIN GEORGE RICHARD Transcribed Date and Time: 11/08/2018 9:43 [place] US Transvaginalon 09-01-2019 US Transvaginal Patient Name: IGNACIO PETTIT Ultrasound Exam Date/Time 11/08/2018 20:30:31 EDT Exam US Transvaginal Ordering Physician SHELL MORGAN MADALINA Accession Number [id number] CPT4 Codes 50928 () Reason For Exam 7 weeks, bleeding , abd cramping Report OB ULTRASOUND-FIRST TRIMESTER: CLINICAL INDICATION: Vaginal bleeding. Patient is seven weeks . Last menstrual period is unknown. TECHNIQUE: Transabdominal and transvaginal images were obtained to optimally evaluate the ovaries and adnexal structures including color flow and spectral Doppler imaging COMPARISON: None. FINDINGS: The endometrium is heterogeneous and measures 1.5 cm. There is no gestational sac identified. There is a small amount of simple appearing fluid within the cul-de-sac. Right ovary measures 4.2 x 2.5 x 2.1 cm. There is normal color Doppler flow within the right ovary and grossly normal spectral Doppler flow as well. The left ovary measures 2.8 x 2.0 x 2.4 cm. There is normal color Doppler flow with normal spectral Doppler signal in the left ovary. There is a complex cyst with layering echogenic material measuring 1.4 x 1.4 x 1.2 cm within the left ovary. IMPRESSION: 1. Heterogeneous endometrium measuring 1.5 cm in thickness. No gestational sac is identified. Recommend serial hCG measurements and repeat pelvic ultrasound. 2. Complex left ovarian cyst measuring 1.4 x 1.4 by 1.2 cm with layering echogenic material. Report Dictated on Final Dictated: 11/08/2018 9:43 pm Dictating Physician: MD MELVIN GEORGE RICHARD Signed Date and Time: 11/08/2018 9:47 pm Signed by: MD MELVIN GEORGE RICHARD Transcribed Date and Time: 11/08/2018 9:43 Normal [facility] Urinalysison 11-08-2018 Appearance (U) [facility] Comment on above: Reference Range: Adel[place] ar Bacteria, UA Negative /[HPF] [place] Comment on above: Reference Range: Neg ative Bilirubin Urine Negative mg/dL [place] Comment on above: Reference Range: Neg ative Color (U) Light-Yellow [place] Comment on above: Reference Range: Lt. Yellow Glucose, Ur Normal mg/dL [place] Comment on above: Reference Range: Nor mal (<70) Hyaline Casts, UA Negative /[LPF] [place] Comment on above: Reference Range: Neg ative Ketones Ql (U) Negative mg/dL [place] Comment on above: Reference Range: Neg ative LEUKOCYTES, UA Negative [place]/uL [place] Comment on above: Reference Range: Neg ative Nitrite, Urine Negative [place] Comment on above: Reference Range: Neg ative Occult Blood,Urine 0.1 mg/dL [place] Comment on above: Reference Range: Neg ative pH (U) 7.5 [pH] [place] Protein (U) [Mass/Vol] Negative mg/dL [place] Comment on above: Reference Range: Neg ative RBC (U) [#/Vol] 3-5 /[HPF] [place] Comment on above: Reference Range: 0-2 Specific [place], Urine 1.018 [place] Squam Epithel, UA 0-2 /[HPF] [place] Comment on above: Reference Range: 3-5 Urobilinogen, Urine Normal mg/dL [place] Comment on above: Reference Range: Nor mal (0-1) WBC, UA 0-2 /[HPF] [place] Comment on above: Reference Range: 0-5 Test Performed by [facility], [address] [place] [address] [place] hCG Quantitativeon 9 hCG Quantitative 1561 m[IU]/mL Abnormal < 3 [facility] Comment on above: Performed By: #### H EMDF, BMP3, QWNT #### [facility] [address] [address] Vital Signs Date Time Vital Sign Value Performing Clinician Facility 11-03-2024 11:00-0400 Body mass index (BMI) [Ratio] 26.41 kg/m2 Jocelyn Plotts HEAD BAKER.CNM Work Phone: [facility] 11-03-2024 11:00-0400 Body weight 65.5 kg Jocelyn Plotts HEAD BAKER.CNM Work Phone: [facility] 11-03-2024 11:00-0400 Diastolic blood pressure 60 mm[Hg] Jocelyn Plotts HEAD BAKER.CNM Work Phone: [facility] 11-03-2024 11:00-0400 Systolic blood pressure 100 mm[Hg] Jocelyn Plotts HEAD BAKER.CNM Work Phone: [facility] 10-27-2024 12:55-0400 Body mass index (BMI) [Ratio] 25.9 kg/m2 Jocelyn Plotts HEAD BAKER.CNM Work Phone: [facility] 10-27-2024 12:55-0400 Body weight 64.23 kg Jocelyn Plotts HEAD BAKER.CNM Work Phone: [facility] 10-27-2024 12:55-0400 Diastolic blood pressure 60 mm[Hg] Jocelyn Plotts HEAD BAKER.CNM Work Phone: [facility] 10-27-2024 12:55-0400 Systolic blood pressure 100 mm[Hg] Jocelyn Plotts HEAD BAKER.CNM Work Phone: [facility] 10-20-2024 09:49-0400 Body mass index (BMI) [Ratio] 25.53 kg/m2 Coreen Cespedes HEAD BAKER.CNM Work Phone: [facility] 10-20-2024 09:49-0400 Body weight 63.32 kg Coreen Cespedes HEAD BAKER.CNM Work Phone: [facility] 10-20-2024 09:49-0400 Diastolic blood pressure 60 mm[Hg] Coreen Cespedes HEAD BAKER.CNM Work Phone: [facility] 10-20-2024 09:49-0400 Systolic blood pressure 90 mm[Hg] Coreencesar Cespedes HEAD BAKER.CNM Work Phone: [facility] 10-06-2024 10:08-0400 Body mass index (BMI) [Ratio] 24.84 kg/m2 Jocelyn Polanconessa HEAD BAKER.CNM Work Phone: [facility] 10-06-2024 10:08-0400 Body weight 61.6 kg Jocelyn Cooley HEAD BAKER.CNM Work Phone: [facility] 10-06-2024 10:08-0400 Diastolic blood pressure 66 mm[Hg] Jocelyn Cooley HEAD BAKER.CNM Work Phone: [facility] 10-06-2024 10:08-0400 Systolic blood pressure 112 mm[Hg] Jocelyn Cooley HEAD BAKER.CNM Work Phone: [facility] 09-22-2024 09:58-0400 Body mass index (BMI) [Ratio] 24.51 kg/m2 Gisella Dinh MD Work Phone: [facility] 09-22-2024 09:58-0400 Body weight 60.78 kg Gisella Dinh MD Work Phone: [facility] 09-22-2024 09:58-0400 Diastolic blood pressure 60 mm[Hg] Gisella Dinh MD Work Phone: [facility] 09-22-2024 09:58-0400 Systolic blood pressure 100 mm[Hg] Gisella Dinh MD Work Phone: [facility] 09-08-2024 15:02-0400 Body mass index (BMI) [Ratio] 23.78 kg/m2 Coreen Cespedes HEAD BAKER.CNM Work Phone: [facility] 09-08-2024 15:02-0400 Body weight 58.97 kg Coreen Cespedes APRN.CNM Work Phone: [facility] 09-08-2024 15:02-0400 Diastolic blood pressure 62 mm[Hg] Coreen Cespedes HEAD BAKER.CNM Work Phone: [facility] 09-08-2024 15:02-0400 Systolic blood pressure 100 mm[Hg] Coreen Cespedes APRN.CNM Work Phone: [facility] 08-26-2024 10:46-0400 Body mass index (BMI) [Ratio] 23.23 kg/m2 Cristobal Almanzar MD Work Phone: [facility] 08-26-2024 10:46-0400 Body weight 57.61 kg Cristobal Almanzar MD Work Phone: [facility] 08-26-2024 10:46-0400 Diastolic blood pressure 60 mm[Hg] Cristobal Almanzar MD Work Phone: [facility] 08-26-2024 10:46-0400 Systolic blood pressure 108 mm[Hg] Cristobal Almanzar MD Work Phone: [facility] 08-13-2024 16:16-0400 Body mass index (BMI) [Ratio] 22.83 kg/m2 Gisella Dinh MD Work Phone: [facility] 08-13-2024 16:16-0400 Body weight 56.61 kg Gisella Dinh MD Work Phone: [facility] 08-13-2024 16:16-0400 Diastolic blood pressure 64 mm[Hg] Gisella Dinh MD Work Phone: [facility] 08-13-2024 16:16-0400 Systolic blood pressure 110 mm[Hg] Gisella Dinh MD Work Phone: [facility] 05-31-2024 10:15-0400 Body mass index (BMI) [Ratio] 19.94 kg/m2 Coreen Cespedes APRN.CNM Work Phone: [facility] 05-31-2024 10:15-0400 Body weight 49.44 kg Coreen Cespedes APRN.CNM Work Phone: [facility] 05-31-2024 10:15-0400 Diastolic blood pressure 62 mm[Hg] Coreen Cespedes HEAD BAKER.CNM Work Phone: [facility] 05-31-2024 10:15-0400 Systolic blood pressure 100 mm[Hg] Coreen Cespedes HEAD BAKER.CNM Work Phone: [facility] 05-24-2024 09:53-0400 Body height 157.5 cm Osmel José HEAD BAKER.ICING MAKER Work Phone: [facility] 05-24-2024 09:53-0400 Body mass index (BMI) [Ratio] 20.69 kg/m2 Osmel José HEAD BAKER.ICING MAKER Work Phone: [facility] 05-24-2024 09:53-0400 Body temperature 98.01 [degF] Osmel José HEAD BAKER.ICING MAKER Work Phone: [facility] 05-24-2024 09:53-0400 Body weight 51.3 kg Osmel José HEAD BAKER.ICING MAKER Work Phone: [facility] 05-24-2024 09:53-0400 Diastolic blood pressure 60 mm[Hg] Osmel José HEAD BAKER.ICING MAKER Work Phone: [facility] 05-24-2024 09:53-0400 Heart rate 84 /min Osmel José HEAD BAKER.ICING MAKER Work Phone: [facility] 05-24-2024 09:53-0400 Respiratory rate 17 /min Osmel José HEAD BAKER.ICING MAKER Work Phone: [facility] 05-24-2024 09:53-0400 SaO2% (BldA) [Mass fraction] 99 % Osmel José HEAD BAKER.ICING MAKER Work Phone: [facility] 05-24-2024 09:53-0400 Systolic blood pressure 97 mm[Hg] Osmel Alvarezi HEAD BAKER.ICING MAKER Work Phone: [facility] 05-05-2024 10:00-0500 Body mass index (BMI) [Ratio] 18.21 kg/m2 Jocelyn Polancots HEAD BAKER.CNM Work Phone: [facility] 05-05-2024 10:00-0500 Body weight 48.99 kg Jocelyn Polancots HEAD BAKER.CNM Work Phone: [facility] 05-05-2024 10:00-0500 Diastolic blood pressure 66 mm[Hg] Jocelyn Polancots HEAD BAKER.CNM Work Phone: [facility] 05-05-2024 10:00-0500 Systolic blood pressure 108 mm[Hg] Jocelyn Polancots HEAD BAKER.CNM Work Phone: [facility] 04-05-2024 09:47-0500 Body height 164 cm Leodan Van HEAD BAKER.[employer] WORK[employer] Work Phone: [facility] 04-05-2024 09:47-0500 Body mass index (BMI) [Ratio] 18.38 kg/m2 Leodan Van HEAD BAKER.[employer] WORK[employer] Work Phone: [facility] 04-05-2024 09:47-0500 Body weight 49.44 kg Leodan Van HEAD BAKER.[employer] WORK[employer] Work Phone: [facility] 04-05-2024 09:47-0500 Diastolic blood pressure 60 mm[Hg] Leodan Van HEAD BAKER.[employer] WORK[employer] Work Phone: [facility] 04-05-2024 09:47-0500 Systolic blood pressure 108 mm[Hg] Leodan Van HEAD BAKER.[employer] WORKER Work Phone: [facility] 03-18-2024 10:27-0500 Body temperature 97.52 [degF] LEODAN DUNN DO [facility] 03-18-2024 10:27-0500 Body weight 50 kg LEODAN DUNN DO [facility] 03-18-2024 10:27-0500 Diastolic Blood Pressure Non-Invasive 72 mm[Hg] LEODAN DUNN DO [facility] 03-18-2024 10:27-0500 Heart rate 88 /min LEODAN DUNN DO [facility] 03-18-2024 10:27-0500 Respiratory rate 18 /min LEODAN DUNN DO [facility] 03-18-2024 10:27-0500 Systolic Blood Pressure Non-Invasive 109 mm[Hg] LEODAN DUNN DO [facility] 09-25-2023 09:41-0400 Body height 157.5 cm Stacy Redvale HEAD BAKER.[employer] WORK[employer] Work Phone: [facility] 09-25-2023 09:41-0400 Body mass index (BMI) [Ratio] 18.47 kg/m2 Stacy Yudith HEAD BAKER.[employer] WORK[employer] Work Phone: [facility] 09-25-2023 09:41-0400 Body weight 45.81 kg Stacy [place] HEAD BAKER.[employer] WORK[employer] Work Phone: [facility] 09-25-2023 09:41-0400 Diastolic blood pressure 58 mm[Hg] Stacy Yudith HEAD BAKER.[employer] WORK[employer] Work Phone: [facility] 09-25-2023 09:41-0400 Systolic blood pressure 104 mm[Hg] Stacy Redvale HEAD BAKER.[employer] WORK[employer] Work Phone: [facility] 02-07-2023 07:59-0500 Body temperature 97.9 [degF] Mikael Pendlebury HEAD BAKER.[employer] WORKER Work Phone: [facility] 02-07-2023 07:59-0500 Body weight 49.9 kg Mikael Pendlebury HEAD BAKER.[employer] WORK[employer] Work Phone: [facility] 02-07-2023 07:59-0500 Diastolic blood pressure 78 mm[Hg] Mikael Pendlebury HEAD BAKER.[employer] WORK[employer] Work Phone: [facility] 02-07-2023 07:59-0500 Heart rate 83 /min Mikael Pendlebury HEAD BAKER.[employer] WORK[employer] Work Phone: [facility] 02-07-2023 07:59-0500 Respiratory rate 20 /min [facility].[employer] WORK[employer] Work Phone: [facility] 02-07-2023 07:59-0500 SaO2% (BldA) [Mass fraction] 98 % [facility] HEAD [facility]ER.[employer] WORK[employer] Work Phone: [facility] 02-07-2023 07:59-0500 Systolic blood pressure 117 mm[Hg] [facility] HEAD BAKER.[employer] WORKER Work Phone: [facility] 09-24-2022 07:23-0400 Body height 157.5 cm Stacy [place] HEAD BAKER.[employer] WORKER Work Phone: [facility] 09-24-2022 07:23-0400 Body weight 46.63 kg Stacy Yudith HEAD BAKER.[employer] WORK[employer] Work Phone: [facility] 09-24-2022 07:23-0400 Diastolic blood pressure 60 mm[Hg] Stacy Yudith HEAD BAKER.[employer] WORK[employer] Work Phone: [facility] 09-24-2022 07:23-0400 Systolic blood pressure 110 mm[Hg] Stacy [place]ale HEAD BAKER.[employer] WORK[employer] Work Phone: [facility] 07-20-2020 20:57-0400 Body mass index (BMI) [Ratio] 18.29 kg/m2 Milo Thornton DO Work Phone: [facility] Work Phone: 07-20-2020 20:57-0400 Body temperature 99.1 [degF] Milo Thornton DO Work Phone: [facility] Work Phone: 07-20-2020 20:57-0400 Body weight 45.36 kg Milo Thornton DO Work Phone: [facility] Work Phone: 07-20-2020 20:57-0400 Diastolic blood pressure 88 mm[Hg] Milo Thornton DO Work Phone: [facility] Work Phone: 07-20-2020 20:57-0400 Heart rate 111 /min Milo Thornton DO Work Phone: [facility] Work Phone: 07-20-2020 20:57-0400 Respiratory rate 16 /min Milo Thornton DO Work Phone: [facility] Work Phone: 07-20-2020 20:57-0400 SaO2% (BldA) [Mass fraction] 100 % Milo Thornton DO Work Phone: [employer] Work Phone: 07-20-2020 20:57-0400 Systolic blood pressure 135 mm[Hg] Milo Thornton DO Work Phone: [employer] Work Phone: 11-08-2018 22:36-0400 BP Diastolic 79 mm[Hg] [place], [place] 11-08-2018 22:36-0400 BP Systolic 109 mm[Hg] [place], [place] 11-08-2018 22:36-0400 Pulse (Heart Rate) 81 /min [place], [place] 11-08-2018 22:36-0400 Pulse Oximetry 98 % Milo [facility] , [place] 11-08-2018 22:36-0400 Respiratory Rate 18 /min [facility] [place] 11-08-2018 19:34-0400 BMI (Body Mass Index) 18.29 kg/m2 [facility], [place] 11-08-2018 19:34-0400 Body Temperature 97.81 [degF] [facility] [place] 11-08-2018 19:34-0400 Body weight 45.36 kg [facility] [place] 11-08-2018 19:34-0400 Height 157.5 cm [facility] [place] Encounters Encounter Date Encounter Type Care Provider Facility Start: 11-17-2024 [facility] Facility: [facility] Start: 11-03-2024 End: 11-03-2024 Patient encounter procedure Jocelyn Cooley HEAD BAKER.ERICK Work Phone: OB/Gynecology Comment on above: 38 weeks gestation o f (HCC) (Primary Dx); Supervision of high risk in third trimester (HCC); HSV-2 seropositive Start: 11-03-2024 End: 11-03-2024 ambulatory [facility] Facility:[facility] Start: 10-27-2024 End: 10-27-2024 Patient encounter procedure Jocelyn Cooley HEAD BAKER.CNM Work Phone: OB/Gynecology Comment on above: 37 weeks gestation o f (HCC) (Primary Dx); Supervision of high risk in third trimester (HCC); HSV-2 seropositive; History of delivery Start: 10-27-2024 End: 10-27-2024 [facility] Facility:[facility] Start: 10-20-2024 End: 10-20-2024 Patient encounter procedure Coreen Cespedes HEAD BAKER.ERICK Work Phone: OB/Gynecology Comment on above: Supervision of high risk in second trimester (HCC) (Primary Dx); 36 weeks gestation of (HCC); HSV-2 seropositive Start: 10-20-2024 End: 10-20-2024 [facility] Facility:[facility] Start: 10-11-2024 [facility] Facility: [facility] Start: 10-11-2024 End: 10-11-2024 Subsequent hospital visit by physician Kurt Ponce Ob L&D Work Phone: OB/Gynecology Comment on above: Supervision of high risk in second trimester (HCC) [O09.92] Start: 10-06-2024 End: 10-06-2024 Patient encounter procedure Jocelyn Polanconessa HEAD BAKER.CNVeronica Work Phone: OB/Gynecology Comment on above: 34 weeks gestation o f (HCC) (Primary Dx); Supervision of high risk in third trimester (HCC); History of delivery; Penicillin allergy Start: 10-06-2024 End: 10-06-2024 [facility] Facility:[facility] Start: 09-29-2024 End: 09-29-2024 Telephone encounter Kurt Greene Ob L&D Work Phone: [facility] 3 L&D Comment on above: Care Coordination (M -Power scheduling, lmtcb//) Start: 09-22-2024 End: 09-22-2024 Patient encounter procedure Gisella Dinh MD Work Phone: OB/Gynecology Comment on above: Supervision of high risk in third trimester (HCC) (Primary Dx); Pyelectasis of fetus on ultrasound ([facility]); History of delivery; 32 weeks gestation of ([facility]) Start: 09-22-2024 End: 09-22-2024 ambulatory GISELLA DINH Facility:[facility] Start: 09-17-2024 End: 09-17-2024 Telephone encounter Kurt Greene Ob L&D Work Phone: [facility] 3 L&D Comment on above: Care Coordination (M -Power Scheduling/LM attempt # 1) Start: 09-15-2024 End: 09-15-2024 ambulatory Kurt Greene Ob L&D Work Phone: [facility] 3 L&D Comment on above: M-Power Time to Jasson cuenca Start: 09-15-2024 End: 09-15-2024 E-mail encounter from caregiver Kurt Greene Ob L&D Work Phone: [facility] 3 L&D Start: 09-08-2024 End: 09-08-2024 Patient encounter procedure Coreen Cespedes APRN.CNM Work Phone: OB/Gynecology Comment on above: Supervision of high risk in third trimester (HCC) (Primary Dx); Pyelectasis of fetus on ultrasound (HCC); History of delivery; Penicillin allergy; 30 weeks gestation of (HCC) Start: 09-08-2024 End: 09-08-2024 ambulatory COREEN CESPEDES Facility:[facility] Start: 09-06-2024 End: 09-06-2024 ambulatory JOCELYN SANCHEZNESSA Facility:[id number] Start: 08-26-2024 End: 10-26-2024 Follow-up encounter Leodan Van APRN.CUT AND COVER LINE WORKER Work Phone: OB/Gynecology Start: 08-26-2024 End: 08-26-2024 Patient encounter procedure [employer] Maternal Medicine Comment on above: Pyelectasis of fetus on ultrasound (HCC) (Primary Dx); Encounter for repeat ultrasound of pyelectasis, antepartum, single or unspecified fetus (HCC); Uterine size-date discrepancy, second trimester ([facility]) Supervision of high risk in third trimester (HCC) (Primary Dx); 28 weeks gestation of ([facility]); Need for vaccination; Pyelectasis of fetus on ultrasound ([facility]) Start: 08-26-2024 End: 08-26-2024 ambulatory JOCELYN COOLEY Facility:[facility] Start: 08-18-2024 End: 10-18-2024 Follow-up encounter Gisella Dinh MD Work Phone: OB/Gynecology Start: 08-17-2024 End: 08-19-2024 Telephone encounter Gisella Dinh MD Work Phone: OB/Gynecology Comment on above: Results Start: 08-16-2024 End: 08-18-2024 ambulatory GISELLA DINH Facility:[facility] Start: 08-13-2024 End: 08-13-2024 ambulatory GISELLA DINH Facility:[facility] Start: 08-13-2024 End: 08-13-2024 Patient encounter procedure Gisella Dinh MD Work Phone: OB/Gynecology Comment on above: Abdominal pain durin g in second trimester (HCC) (Primary Dx); Elevated LFTs; Supervision of high risk in second trimester ([facility]); History of delivery; Uterine size-date discrepancy, second trimester (HCC); 26 weeks gestation of ([facility]) Start: 08-13-2024 End: 08-13-2024 Telephone encounter Jocelyn Cooley APRN.CNM Work Phone: OB/Gynecology Comment on above: ER F/U Start: 08-12-2024 End: 08-13-2024 Emergency department patient visit AFRICA [place] MD Facility:A Start: 08-12-2024 End: 08-13-2024 Observation AFRICA [place] MD [facility] Start: 08-12-2024 End: 08-12-2024 ambulatory Jocelyn Cooley HEAD BAKER.CNM Work Phone: OB/Gynecology Comment on above: Back pain Start: 08-12-2024 End: 08-12-2024 Emergency department patient visit AFRICA [place] MD [facility] Start: 07-29-2024 End: 07-29-2024 ambulatory LEODAN YOLIS Facility:[facility] Start: 07-01-2024 End: 07-01-2024 [facility] Facility:[facility] Start: 05-31-2024 End: 05-31-2024 E-mail encounter from caregiver Kurt Greene Ob L&D Work Phone: [place] Start: 05-31-2024 End: 05-31-2024 ambulatory COREEN CESPEDES Facility:[facility] Start: 05-31-2024 End: 05-31-2024 Patient encounter procedure Coreen Cespedes HEAD BAKER.CNM Work Phone: OB/Gynecology Comment on above: Supervision of high risk in second trimester (Primary Dx); 15 weeks gestation of ; History of delivery; Penicillin allergy; Enlarged thyroid; HSV-2 seropositive M-Power Referral Start: 05-24-2024 End: 05-24-2024 ambulatory OSMEL JOSÉ Facility:[facility] Start: 05-24-2024 End: 05-24-2024 Office outpatient visit 15 minutes Osmel José HEAD BAKER.ICING MAKER Work Phone: Allergy Comment on above: Rash (Primary Dx); Personal history of allergy to penicillin; 15 weeks gestation of Start: 05-05-2024 End: 05-05-2024 ambulatory LEODAN VAN Facility:[facility] Start: 05-05-2024 End: 05-05-2024 Patient encounter procedure Jocelyn Cooley DMITRY Work Phone: OB/Gynecology Comment on above: 12 weeks gestation o f (Primary Dx); History of delivery; Penicillin allergy; Supervision of high risk in second trimester Encounter for baljit webb screening for malformation using ultrasound (Primary Dx); 12 weeks gestation of Start: 04-26-2024 End: 06-26-2024 Follow-up encounter Leodan Van APRN.CNP Work Phone: OB/Gynecology Start: 04-22-2024 End: 04-22-2024 ambulatory LEODAN VAN Facility:[facility] Start: 04-08-2024 End: 04-08-2024 ambulatory LEODAN VAN Facility:[facility] Start: 04-05-2024 End: 04-05-2024 ambulatory LEODAN VAN Facility:[facility] Start: 04-05-2024 End: 04-05-2024 Patient encounter procedure Leodan Van APRN.CNP Work Phone: OB/Gynecology Comment on above: Encounter for superv ision of high risk in first trimester, antepartum (Primary Dx); with uncertain dates in first trimester; History of miscarriage; History of delivery; Underweight; At risk for sexually transmitted disease due to partner with genital herpes; Enlarged thyroid; Nausea and vomiting during ; Penicillin allergy; Family history of spina bifida Start: 2024 End: 2024 Telephone encounter Leodan Van APRN.CNP Work Phone: OB/Gynecology Comment on above: Appointment Start: 03-18-2024 End: 03-18-2024 Emergency department patient visit LEODAN DUNN DO [facility] Start: 03-16-2024 End: 03-16-2024 ambulatory OTTO CALDWELL Facility:[facility] Start: 03-15-2024 End: 03-15-2024 Telephone encounter Stacy Caldera APRN.CNP Work Phone: OB/Gynecology Comment on above: Patient Question Start: 11-11-2023 End: 11-11-2023 Refill Stacy Caldera APRN.OYKO Work Phone: OB/Gynecology Comment on above: Refill Request Start: 09-25-2023 End: 09-25-2023 Patient encounter procedure Stacy Redvale HEAD BAKER.YOKO Work Phone: OB/Gynecology Comment on above: Encounter for gyneco logical examination (general) (routine) without abnormal findings (Primary Dx); Screen for STD (sexually transmitted disease); Vaginal discharge; Encounter for surveillance of transdermal patch hormonal contraceptive device Start: 09-25-2023 End: 09-25-2023 Patient encounter status Stacy Caldera HEAD BAKER.CUT [employer] COVER LINE WORKER Work Phone: [facility] Work Phone: Start: 09-13-2023 End: 09-13-2023 Emergency department patient visit Facility:[facility] Start: 02-07-2023 End: 02-07-2023 Office outpatient visit 15 minutes Mikael Nicolas HEAD BAKER.CUT AND COVER LINE WORKER Work Phone: [facility] Comment on above: Sinobronchitis (Prim betito Dx) Start: 11-28-2022 Telephone encounter Stacy Keen idalia HEAD BAKER.YOKO Work Phone: OB/Gynecology Comment on above: Patient Question Start: 11-18-2022 Telephone encounter Stacy friedman HEAD BAKER.YOKO Work Phone: OB/Gynecology Comment on above: Patient Question Start: 09-26-2022 End: 09-26-2022 Subsequent hospital visit by physician [facility] Wstr Mob 2 Work Phone: Radiology Comment on above: Enlarged thyroid [E0 4.9] Start: 09-25-2022 Telephone encounter Stacy Keen idalia HEAD BAKER.CUT AND COVER LINE WORKER Work Phone: OB/Gynecology Comment on above: Results Start: 09-24-2022 End: 09-24-2022 Patient encounter procedure Stacy Caldera HEAD BAKER.CUT [employer] COVER LINE WORKER Work Phone: OB/Gynecology Comment on above: Encounter for gyneco logical examination (general) (routine) without abnormal findings (Primary Dx); Screening for cervical cancer; Encounter for screening for human papillomavirus (HPV); Screen for STD (sexually transmitted disease); Vaginal discharge; Enlarged thyroid; Encounter for other contraceptive management Start: 09-24-2022 End: 09-24-2022 Patient encounter status Stacy Caldera HEAD BAKER.CUT AND COVER LINE WORKER Work Phone: [facility] Work Phone: Start: 07-20-2020 End: 07-20-2020 Emergency department patient visit Milo Thornton DO Work Phone: [facility] ED Comment on above: Laceration of right middle finger without foreign body without damage to nail, initial encounter (Primary Dx) Start: 11-08-2018 End: 11-09-2018 Emergency department patient visit Milo Ernst [facility] Comment on above: Vaginal bleeding (Pr imary Dx); Threatened , antepartum Procedures Date Procedure Procedure Detail Performing Clinician Start: 11-03-2024 Urnls dip stick/tabl et rgnt non-auto w/o micrscp Jocelyn Plotts HEAD BAKER.CNM Work Phone: Start: 10-27-2024 Urnls dip stick/tabl et rgnt non-auto w/o micrscp Jocelyn Plotts HEAD BAKER.CNM Work Phone: Start: 10-20-2024 Urnls dip stick/tabl et rgnt non-auto w/o micrscp Coreen Cespedes HEAD BAKER.CNM Work Phone: Start: 10-06-2024 Urnls dip stick/tabl et rgnt non-auto w/o micrscp Jocelyn Plotts HEAD BAKER.CNM Work Phone: Start: 08-26-2024 Us preg uterus after 1st trimest 03/10 gestation Leodan Van HEAD BAKER.CUT [employer] COVER LINE WORKER Work Phone: Start: 08-13-2024 Urnls dip stick/tabl et rgnt auto w/o microscopy Gisella Dinh MD Work Phone: Start: 05-24-2024 ALLERGEN SKIN TEST-PENICILLIN Osmel José APRN.ICING MAKER Work Phone: Start: 05-05-2024 Us preg uterus after 1st trimest 03/10 gestation Leodan Arroyoyolis HOGAN.CUT AND COVER LINE WORKER Work Phone: Start: 04-08-2024 Antibody screen OTTO CROWELL GABYJENNY Comment on above: Order Comment: Speci men Type: BLOOD SPECIMEN Ordering Facility: [facility] Address: [address] [place] [address] Performed By: #### T SPN #### [facility] CLIA [id number] [address] [place] [address] [place] [address] [place] Start: 04-05-2024 Us uterus l imited fetuses Leodan Arroyooylis HOGAN.CUT AND COVER LINE WORKER Work Phone: Start: 09-26-2022 Us soft tissue head & neck real time imge docm Stacy Caldera APRN.CUT [employer] COVER LINE WORKER Work Phone: Start: 11-08-2018 Basic metabolic pane l calcium total Tonya Morgan Work Phone: Start: 11-08-2018 Blood count complete auto&auto difrntl wbc Tonya Mendez Work Phone: Start: 11-08-2018 Blood typing serologic abo Tonya Morgan Work Phone: Start: 11-08-2018 Gonadotropin chorion ic quantitative Tonya Rissaasan Work Phone: Start: 11-08-2018 Urnls dip stick/tabl et rgnt auto w/o microscopy Tonya Rissaasan Work Phone: Start: 11-08-2018 Us preg uterus real time w/image dcmtn transvag Tonya Rissaasafam Work Phone: Plan of Treatment Date Care Activity Detail Author Start: 08-26-2034 Urine microalbumin profile DTaP,Tdap,Td Vaccine (3 - Td or Tdap) [facility] Start: 07-20-2030 DTaP/Tdap/Td vaccine (2 - Td) DTaP/Tdap/Td vaccine (2 - Td) [facility] Work Phone: Start: 07-20-2030 Urine microalbumin profile DTaP,Tdap,Td Vaccine (2 - Td or Tdap) [facility] Start: 09-24-2025 PAP TESTING PAP TESTING [facility] Start: 09-24-2025 Screening for malign ant neoplasm of cervix Cervical Cancer Screening [facility] Start: 11-17-2024 End: 11-17-2024 Patient encounter procedure 11/17/2024 9:45 AM EDT Routine Office Visit OB/Gynecology [address] [place] [address] Coreen Cespedes APRN.CNM [address] [place] [address] OB OB/Gynecology Comment on above: OB Start: 11-10-2024 End: 11-10-2024 Patient encounter procedure 11/10/2024 9:45 AM EDT Routine Office Visit OB/Gynecology [address] [place] [address] Coreen Cespedes APRN.CNM [address] [place] [address] (Fax) OB OB/Gynecology Comment on above: OB Start: 11-08-2024 Influenza vaccination [facility] Start: 11-03-2024 End: 11-03-2024 Patient encounter procedure 11/03/2024 11:15 AM EDT Routine Office Visit OB/Gynecology [address] [place] [address] Jocelyn Cooley APRN.CNVeronica [address] [place] [address] (Fax) OB OB/Gynecology Comment on above: OB Start: 10-27-2024 End: 10-27-2024 Patient encounter procedure 10/27/2024 1:00 PM EDT Routine Office Visit OB/Gynecology [address] [place] [address] Jocelyn Cooley APRN.CNM [address] [place] [address] OB OB/Gynecology Comment on above: OB Start: 10-20-2024 End: 10-20-2024 Patient encounter procedure 10/20/2024 9:45 AM EDT Routine Office Visit OB/Gynecology [address] [place] [address] Coreen Cespedes APRN.CNM [address] [place] [address] OB OB/Gynecology Comment on above: OB Start: 10-06-2024 End: 10-06-2024 Patient encounter procedure 10/06/2024 10:00 AM EDT Routine Office Visit OB/Gynecology [address] [place] [address] Jocelyn Cooley APRN.CNM [address] [place] [address] OB OB/Gynecology Comment on above: OB Start: 09-30-2024 End: 09-30-2024 Patient encounter procedure 09/30/2024 9:00 AM EDT Office Visit OB/Gynecology [address] [place] [address] Stacy Caldera APRN.CUT AND COVER LINE WORKER [address] [place] [address] Annual Exam OB/Gynecology Comment on above: Annual Exam Start: 09-22-2024 End: 09-22-2024 Patient encounter procedure 09/22/2024 10:00 AM EDT Routine Office Visit OB/Gynecology [address] [place] [address] Gisella Knapp MD [address] [place] [address] OB OB/Gynecology Comment on above: OB Start: 09-07-2024 End: 09-07-2024 Patient encounter procedure 09/07/2024 3:15 PM EDT Routine Office Visit OB/Gynecology [address] [place] [address] Coreen Cespedes APRN.CN [address] [place] [address] OB OB/Gynecology Comment on above: OB Start: 08-26-2024 End: 08-26-2024 Patient encounter procedure Maternal Medicine Comment on above: growth/kidneys OB Routine Start: 08-26-2024 End: 08-26-2024 ambulatory Nuzhat [facility] Comment on above: Glucose Test and Lab s Start: 08-16-2024 End: 08-16-2024 ambulatory 08/16/2024 11:00 AM EDT Results Only [facility] [address] [place] [address] [facility] Start: 08-13-2024 End: 08-13-2024 Patient encounter procedure 08/13/2024 4:00 PM EDT Routine Office Visit OB/Gynecology [address] [place] [address] Gisella Knapp MD [address] [place] [address] /[facility] OB/Gynecology Comment on above: /[facility] Start: 08-13-2024 End: 11-12-2024 Amylase [Enzymatic activity/volume] in Serum or Plasma AMYLASE Lab Routine Abdominal pain during in second trimester (HCC) Expected: 08/13/2024, Expires: 11/12/2024 [facility] Comment on above: Expected: 08/13/2024 , Expires: 11/12/2024 Start: 08-13-2024 End: 11-12-2024 BILE ACIDS FRACT BLD BILE ACIDS FRACT BLD Lab Routine Abdominal pain during in second trimester ([facility]) Elevated LFTs Expected: 08/13/2024, Expires: 11/12/2024 [facility] Comment on above: Expected: 08/13/2024 , Expires: 11/12/2024 Start: 08-13-2024 End: 11-12-2024 BILE ACIDS, TOTAL BILE ACIDS, TOTAL Lab Routine Abdominal pain during in second trimester ([facility]) Elevated LFTs Expected: 08/13/2024, Expires: 11/12/2024 [facility] Comment on above: Expected: 08/13/2024 , Expires: 11/12/2024 Start: 08-13-2024 End: 11-12-2024 CBC panel - Blood by Automated count COMPLETE BLOOD COUNT Lab Routine Abdominal pain during in second trimester ([facility]) Expected: 08/13/2024, Expires: 11/12/2024 [facility] Comment on above: Expected: 08/13/2024 , Expires: 11/12/2024 Start: 08-13-2024 End: 11-12-2024 Comprehensive metabolic 2000 panel - Serum or Plasma COMPREHENSIVE METABOLIC PANEL Lab Routine Abdominal pain during in second trimester ([facility]) Elevated LFTs Expected: 08/13/2024, Expires: 11/12/2024 [facility] Work Phone: Comment on above: Expected: 08/13/2024 , Expires: 11/12/2024 Start: 08-13-2024 End: 11-12-2024 Lipase [Enzymatic activity/volume] in Serum or Plasma LIPASE Lab Routine Abdominal pain during in second trimester ([facility]) Expected: 08/13/2024, Expires: 11/12/2024 [facility] Comment on above: Expected: 08/13/2024 , Expires: 11/12/2024 Start: 07-29-2024 End: 07-29-2024 Patient encounter procedure 07/29/2024 10:30 AM EDT Routine Office Visit OB/Gynecology [address] [place] [address] Jocelyn Cooley APRN.CN [address] [place] [address] OB Routine OB/Gynecology Comment on above: OB Routine Start: 07-01-2024 End: 07-01-2024 Patient encounter procedure Maternal Medicine Comment on above: Anatomy Scan OB Routine Start: 05-31-2024 End: 05-31-2024 Patient encounter procedure 05/31/2024 10:00 AM EDT Routine Office Visit OB/Gynecology [address] [place] [address] Coreen Cespedes APRN.CN [address] [place] [address] OB Routine OB/Gynecology Comment on above: OB Routine Start: 05-05-2024 End: 05-05-2024 Patient encounter procedure Maternal Medicine Comment on above: Nuchal OB Start: 04-05-2024 End: 07-05-2024 ANEMIA REFLEX PANEL ANEMIA REFLEX PANEL Lab Routine with uncertain dates in first trimester Expected: 04/05/2024, Expires: 07/05/2024 [facility] Work Phone: Comment on above: Expected: 04/05/2024 , Expires: 07/05/2024 Start: 04-05-2024 End: 07-05-2024 Chromosome 21 trisomy [Presence] in Blood or Tissue by Cytogenetics [id number] PLUS Lab Routine Encounter for supervision of high risk in first trimester, antepartum Expected: 04/05/2024, Expires: 07/05/2024 [facility] Comment on above: Expected: 04/05/2024 , Expires: 07/05/2024 Start: 04-05-2024 End: 07-05-2024 Hemoglobin A1c in Blood HEMOGLOBIN A1C Lab Routine with uncertain dates in first trimester Expected: 04/05/2024, Expires: 07/05/2024 [facility] Comment on above: Expected: 04/05/2024 , Expires: 07/05/2024 Start: 04-05-2024 End: 07-05-2024 Hepatitis B virus surface Ag [Presence] in Serum HEPATITIS B SURFACE ANTIGEN Lab Routine with uncertain dates in first trimester Expected: 04/05/2024, Expires: 07/05/2024 [facility] Comment on above: Expected: 04/05/2024 , Expires: 07/05/2024 Start: 04-05-2024 End: 07-05-2024 Hepatitis C virus Ab [Presence] in Serum HEPATITIS C ANTIBODY IA WITH CONFIRMATION Lab Routine with uncertain dates in first trimester Expected: 04/05/2024, Expires: 07/05/2024 [facility] Comment on above: Expected: 04/05/2024 , Expires: 07/05/2024 Start: 04-05-2024 End: 07-05-2024 HIV 1+2 Ab [Presence] in Serum or Plasma by Immunoassay HIV 1/2 COMBO WITH REFLEX TO DIFFERENTIATION Lab Routine with uncertain dates in first trimester Expected: 04/05/2024, Expires: 07/05/2024 [facility] Comment on above: Expected: 04/05/2024 , Expires: 07/05/2024 Start: 04-05-2024 End: 04-05-2025 OBSTETRIC ULTRASOUND WHI OBSTETRIC ULTRASOUND WHI Anc Imaging Routine with uncertain dates in first trimester Expected: 04/05/2024, Expires: 04/05/2025 [facility] Comment on above: Expected: 04/05/2024 , Expires: 04/05/2025 Start: 04-05-2024 End: 07-05-2024 RUBELLA IGG ANTIBODY RUBELLA IGG ANTIBODY Lab Routine with uncertain dates in first trimester Expected: 04/05/2024, Expires: 07/05/2024 [facility] Comment on above: Expected: 04/05/2024 , Expires: 07/05/2024 Start: 04-05-2024 End: 07-05-2024 SYPHILIS TREPONEMAL W/REFLEX SYPHILIS TREPONEMAL W/REFLEX Lab Routine with uncertain dates in first trimester Expected: 04/05/2024, Expires: 07/05/2024 [facility] Comment on above: Expected: 04/05/2024 , Expires: 07/05/2024 Start: 04-05-2024 End: 07-05-2024 Thyrotropin [Units/volume] in Serum or Plasma THYROID STIMULATING HORMONE Lab Routine Enlarged thyroid Expected: 04/05/2024, Expires: 07/05/2024 [facility] Comment on above: Expected: 04/05/2024 , Expires: 07/05/2024 Start: 04-05-2024 End: 07-05-2024 Thyroxine (T4) free [Mass/volume] in Serum or Plasma T4 FREE/FREE THYROXINE Lab Routine Enlarged thyroid Expected: 04/05/2024, Expires: 07/05/2024 [facility] Comment on above: Expected: 04/05/2024 , Expires: 07/05/2024 Start: 04-05-2024 End: 07-05-2024 TYPE + SCREEN TYPE + SCREEN Blood Bank Routine with uncertain dates in first trimester Expected: 04/05/2024, Expires: 07/05/2024 [facility] Comment on above: Expected: 04/05/2024 , Expires: 07/05/2024 Start: 04-05-2024 End: 04-05-2024 Patient encounter procedure 04/05/2024 9:30 AM EST Initial Office Visit OB/Gynecology [address] [place] [address] Leodan Van APRN.CUT AND COVER LINE WORKER [address] [place] [address] New OB-LMP 02/10 OB/Gynecology Comment on above: New OB-LMP 02/10 Start: 03-15-2024 End: 06-14-2024 Choriogonadotropin.beta subunit [Units/volume] in Serum or Plasma HCG QUANTITATIVE Lab Routine Missed menses Expected: 03/15/2024, Expires: 06/14/2024 [facility] Work Phone: Comment on above: Expected: 03/15/2024 , Expires: 06/14/2024 Start: 11-09-2023 Covid-19 Vaccine () Covid-19 Vaccine () [facility] Start: 11-09-2023 Covid-19 Vaccine () Covid-19 Vaccine () [facility] Start: 11-09-2023 Influenza vaccination Influenza Vacc ine (#1) [facility] Start: 01-01-2024 Behavioral Health Screening Behavioral Health Screening [facility] Start: 11-08-2022 Covid-19 Vaccine () Covid-19 Vaccine () [facility] Start: 11-08-2022 Influenza vaccination [facility] Start: 09-24-2022 End: 11-24-2022 Hepatitis B virus surface Ag [Presence] in Serum [facility] Work Phone: Comment on above: Expected: 09/24/2022 , Expires: 11/24/2022 Start: 09-24-2022 End: 11-24-2022 Hepatitis C virus RNA [Units/volume] (viral load) in Serum or Plasma by RICH with probe detection [facility] Work Phone: Comment on above: Expected: 09/24/2022 , Expires: 11/24/2022 Start: 09-24-2022 End: 11-24-2022 HERPES SIMPLEX TYPE 1 AND 2 IG [facility] Work Phone: Comment on above: Expected: 09/24/2022 , Expires: 11/24/2022 Start: 09-24-2022 End: 11-24-2022 HIV 1+2 Ab [Presence] in Serum or Plasma by Immunoassay [facility] Work Phone: Comment on above: Expected: 09/24/2022 , Expires: 11/24/2022 Start: 09-24-2022 End: 11-24-2022 SYPHILIS TOTAL W/REFLEX [facility] Work Phone: Comment on above: Expected: 09/24/2022 , Expires: 11/24/2022 Start: 09-24-2022 End: 11-24-2022 THYROID PEROXIDASE ANTIBODY BLOOD [facility] Work Phone: Comment on above: Expected: 09/24/2022 , Expires: 11/24/2022 Start: 09-24-2022 End: 11-24-2022 Thyrotropin [Units/volume] in Serum or Plasma [facility] Work Phone: Comment on above: Expected: 09/24/2022 , Expires: 11/24/2022 Start: 09-24-2022 End: 11-24-2022 Thyroxine (T4) free [Mass/volume] in Serum or Plasma [facility] Work Phone: Comment on above: Expected: 09/24/2022 , Expires: 11/24/2022 Start: 09-24-2022 End: 11-24-2022 Triiodothyronine (T3) [Mass/volume] in Serum or Plasma [facility] Work Phone: Comment on above: Expected: 09/24/2022 , Expires: 11/24/2022 Start: 03-10-2022 DEPRESSION ASSESSMENT DEPRESSION ASS ESSMENT [facility] Start: 12-24-2021 PAP TESTING PAP TESTING [facility] Start: 11-08-2020 Influenza vaccination Flu vacc ine (Season Ended) [facility] Work Phone: Start: 2020 HPV Vaccine (1 - 3-d ose SCDM series) HPV Vaccine (1 - 3-dose SCDM series) [facility] Start: 11-20-2018 End: 11-20-2018 Appointment 11/20/2018 Appointment Radiology Therese Mckoy MD [address] [facility] [address] [place], [place] [id number] [facility] Ultrasound Start: 11-08-2018 Influenza vaccination Flu vaccine (# 1) [place], [place] Start: 05-26-2017 Cervical cancer screen Cervical canc er screen [place], [place] Start: 05-26-2017 Screening for malign ant neoplasm of cervix Cervical cancer screen [facility] Work Phone: Start: 2012 DTaP/Tdap/Td vaccine (1 - Tdap) DTaP/Tdap/Td vaccine (1 - Tdap) [place], [place] Start: 2012 Hepatitis B Vaccine (1 of 3 - 19+ 3-dose series) Hepatitis B Vaccine (1 of 3 - 19+ 3-dose series) [facility] Start: 2012 Urine microalbumin profile [facility] Start: 2011 Anxiety Screening Anxiety Screening [facility] Start: 2011 Depression Screening Depression Scre ening [facility] Start: 2011 HEPATITIS C SCREENING HEPATITIS C SHAVON ALMONTE [facility] Start: 2011 HIV SCREENING HIV SCREENING [facility] Start: 2008 HIV screen HIV screen [place], [place] Start: 2008 HIV screening HIV screen [facility] Work Phone: Start: 2008 HPV vaccine (1 - Fem kenna 3-dose series) HPV vaccine (1 - Female 3-dose series) [place], [place] Start: 2006 Varicella Vaccine (1 of 2 - 13+ 2-dose series) Varicella Vaccine (1 of 2 - 13+ 2-dose series) [place] Start: 2005 COVID-19 Vaccine (1) COVID-19 Vaccin e (1) [facility] Work Phone: Start: 1994 Varicella vaccine (1 of 2 - 2-dose childhood series) Varicella vaccine (1 of 2 - 2-dose childhood series) [facility] Work Phone: Start: 1993 COVID-19 VACCINE (#1) COVID-19 VACCI NE (#1) [facility] Start: 1993 HEPATITIS B (1 of 3 - 3-dose series) HEPATITIS B (1 of 3 - 3-dose series) [facility] Start: 1993 Hepatitis B Vaccine (1 of 3 - 3-dose series) Hepatitis B Vaccine (1 of 3 - 3-dose series) [facility] Start: 1993 Hepatitis C screening Hepatitis C shavon spencer [facility] Work Phone: Bacteria identified in Urine by Culture BACTERIAL CULTURE, URINE Microbiology Routine with uncertain dates in first trimester 04/05/2024 10:28 AM EST [facility] Bacteria identified in Urine by Culture BACTERIAL CULTURE, URINE Microbiology Routine Abdominal pain during in second trimester (HCC) 08/13/2024 4:25 PM EDT [facility] BACTERIAL VAGINOSIS NAAT BACTERI AL VAGINOSIS NAAT Lab Routine Vaginal discharge Ordered: 09/24/2022 [facility] Work Phone: Comment on above: Ordered: 09/24/2022 BACTERIAL VAGINOSIS NAAT BACTERI AL VAGINOSIS NAAT Lab Routine Screen for STD (sexually transmitted disease) Vaginal discharge 09/25/2023 10:09 AM EDT [facility] WILMAN/TRICHOMONAS NAAT WILMAN /TRICHOMONAS NAAT Microbiology Routine Vaginal discharge Ordered: 09/24/2022 [facility] Work Phone: Comment on above: Ordered: 09/24/2022 WILMAN/TRICHOMONAS NAAT WILMAN /TRICHOMONAS NAAT Lab Routine Screen for STD (sexually transmitted disease) Vaginal discharge 09/25/2023 10:09 AM EDT [facility] Chlamydia trachomatis+Neisseria gonorrhoeae DNA [Presence] in Unspecified specimen by RICH with probe detection GONORRHEA/CHLAMYDIA NAAT Lab Routine Screen for STD (sexually transmitted disease) Ordered: 09/24/2022 [facility] Work Phone: Comment on above: Ordered: 09/24/2022 Chlamydia trachomatis+Neisseria gonorrhoeae DNA [Presence] in Unspecified specimen by RICH with probe detection GONORRHEA/CHLAMYDIA NAAT Lab Routine Screen for STD (sexually transmitted disease) 09/25/2023 10:09 AM [facility] Work Phone: Chlamydia trachomatis+Neisseria gonorrhoeae DNA [Presence] in Unspecified specimen by RICH with probe detection GONORRHEA/CHLAMYDIA NAAT Lab Routine with uncertain dates in first trimester 04/05/2024 10:28 AM [facility] EKG 12 Lead - Chest Pain EKG 12 Lead - Chest Pain ECG STAT 11/08/2018 7:55 PM EDT [facility] [place] PAP TEST PAP TEST Lab [facility] Encounter for gynecological examination (general) (routine) without abnormal findings Screening for cervical cancer Encounter for screening for human papillomavirus (HPV) Ordered: 09/24/2022 [facility] Work Phone: Comment on above: Ordered: 09/24/2022 ROUTINE, GR OUP B STREPTOCOCCUS BY PCR ROUTINE, GROUP B STREPTOCOCCUS BY PCR Microbiology Routine 36 weeks gestation of (HCC) 10/20/2024 10:27 AM [facility] Work Phone: End: 10-24-2023 Us soft tissue head & neck real time imge docm US THYROID/PARATHYROID Radiology Routine Enlarged thyroid 1 Occurrences starting 09/24/2022 until 10/24/2023 [facility] Work Phone: Comment on above: 1 Occurrences starti ng 09/24/2022 until 10/24/2023 [facility] c Immunizations Immunization Date Immunization Notes Care Provider Alina lambertbenja 08-26-2024 tetanus toxoid, redu bertha diphtheria toxoid, and acellular pertussis vaccine, adsorbed Wh[employer] [facility] 07-20-2020 diphtheria, tetanus toxoids and acellular pertussis vaccine, unspecified formulation Milo Thornton DO Work Phone: [facility] Work Phone: 07-20-2020 tetanus toxoid, redu bertha diphtheria toxoid, and acellular pertussis vaccine, adsorbed Milo Thornton DO Work Phone: [facility] Work Phone: 12-29-2016 influenza virus vaccine, unspecified formulation Stacy Caldera APRN.CUT AND COVER LINE WORKER Work Phone: [facility] Payers Date Payer Category Payer Self-pay 2024 Unknown [id number] 2022 [facility] BLUE CARD PPO OOS [id number] 2022 Unknown [id number] 2021 Private Health Insurance [id number] 2021 Unknown [id number] 2018 Unknown [id number] 2015 Unknown [employer] BLUE ACCESS [place]NY xxxxxxxxxxxx 2015-Present [address] [place] [address] xxxxxxxxxxxx [id number] 1993 Unknown [id number] 1993 Unknown [id number] 1993 Unknown [id number] Unknown [id number] Social History Date Type Detail Facility Start: 11-08-2018 End: 04-05-2024 Tobacco smoking status NHIS Former smoker [facility] Work Phone: Start: 11-08-2018 End: 04-05-2024 Alcohol intake Not Currently [place], [place] Start: 1995 Sex Assigned At Not on file [place], [place] Start: 07-20-2020 End: 04-05-2024 Tobacco use and exposure Never used [facility] Start: 07-20-2020 End: 11-03-2024 Alcohol intake Ex-drinker (finding) [facility] Work Phone: Exposure to SARS-CoV -2 (event) Not sure [facility] History of tobacco use Current smoker [facility] Work Phone: History of tobacco use Passive smoker [facility] Work Phone: Start: 09-24-2022 End: 09-25-2023 Alcohol intake Current drinker of alcohol (finding) [facility] Start: 09-24-2022 End: 04-05-2024 History of Social function [facility] Start: 09-26-2014 National Score (1-10 0), lower number is lower risk 88 [facility] Start: 12-24-2018 Alcohol Comment social [facility] Start: 1995 Sex Assigned At Female [facility] Start: 06-01-2023 Gender identity Identifies as female gender (finding) [facility] Start: 06-01-2023 Sexual orientation Heterosexual (fin ding) [facility] Tobacco smoking status [facility] Start: 03-18-2024 Sex Female (finding) [facility] History of tobacco use Cigarette Smoker [facility] Start: 04-05-2024 Tobacco Comment Quit when i was 18 [facility] Start: 02-25-2024 [facility] Start: 08-12-2024 Tobacco smoking status Never s moked tobacco (finding) [facility] Goals Date Patient Goal Desired Activity /State Personal health goal Functional Status Date Assessment Result Facility 03-18-2024 Functional Status Repositions self [facility] Mental Status Date Assessment Result Facility 03-18-2024 Mental Status Oriented x 4 [facility] Clinical Notes 07-20-2020 to 11-03-2024 Quick Notes - Jocelyn Cooley APRN.[facility] - 11/03/2024 11:15 AM EDTPrenatal Quick Notes - Jocelyn Cooley APRN.[facility] - 11/03/2024 11:15 AM EDTPatient InstructionsPatient Instructions Note Date & Type Note Facility 11-03-2024 Progress note Formatting of t his note might be different from the original. S: Ignacio Pettit is a 29 year old female who presents at 38 weeks gestation for a routine visit. Positive movements. Has not been able to get into chiropractor and having increased back /sciatica pain. Denies any consistent cramps. Requesting CE for baseline today. Denies headache, visual changes, chest pain, shortness of breath, vaginal bleeding, leakage of fluid, or dysuria. O: See flow sheet Gen: No apparent distress Abd: Gravid, nontender SENSITIVE EXAMINATION CONSENT: The sensitive examination was discussed with the Patient or Patient's Authorized Counter Sales Representative. As applicable, any other physician, advance practice provider, medical student, or other health professional student that will be observing or involved in the sensitive examination for educational or training purposes was discussed with the Patient or Authorized Counter Sales Representative. The Patient or Authorized Counter Sales Representative has agreed to proceed with the sensitive examination. ASSESSMENT/PLAN: 1. 38 weeks gestation of 2. 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 Positive movements. Has not been able to get into chiropractor and having increased back /sciatica pain. Denies any consistent cramps. Requesting CE for baseline today. Denies headache, visual changes, chest pain, shortness of breath, vaginal bleeding, leakage of fluid, or dysuria. O: See flow sheet Gen: No apparent distress Abd: Gravid, nontender SENSITIVE EXAMINATION CONSENT: The sensitive examination was discussed with the Patient or Patient's Authorized Counter Sales Representative. As applicable, any other physician, advance practice provider, medical student, or other health professional student that will be observing or involved in the sensitive examination for educational or training purposes was discussed with the Patient or Authorized Counter Sales Representative. The Patient or Authorized Counter Sales Representative has agreed to proceed with the sensitive examination. ASSESSMENT/PLAN: 1. 38 weeks gestation of 2. 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 Preparing for labor: Eat dates to promote spontaneous labor! Has an oxytocin-like effect on the body, leading to increased sensitivity of the uterus. Stimulates uterine contractions. Reduces hemorrhage the way oxytocin does. Date fruit contains saturated and unsaturated fatty acids such as oleic, linoleic, and linolenic acids, which are involved in saving and supplying energy and construction of prostaglandins. In addition, serotonin, tannin, and calcium in date fruit contribute to the contraction of smooth muscles of the uterus. Date fruit also has a laxative effect, which stimulates uterine contractions. Six dates per day is the magic number--provided that you re eating smaller deglet noor dates. Deglet noor dates are about 1 inch long. Medjool dates can be up to 2 inches long. If you re eating medjool dates, you only need about 3 dates to reach the 75 grams recommended in the studies. Not sure which type of date you have in your refrigerator? It s probably a deglet noor. How to Eat Dates During Dates are a healthy and delicious snack, so how can you add them to your diet? Add dates during in this awesome oatmeal recipe. Add dates to replace sugar in your favorite recipe or to km your homemade almond milk. Use dates and nuts to make an easy pie crust in the outside food server. Add soaked dates to homemade nut butter for a sweet treat. Add dates to km homemade salad dressing. Add dates during easily with these yummy (paleo friendly) bars made from dates. What Is Red Raspberry [place] Tea? Red raspberry leaf tea comes from the leaves of the red raspberry plant. This herbal tea has been used for centuries to support respiratory, digestive and uterine health, particularly during and childbearing years. While usually known as a female herb, red raspberry leaf tea can also help support the prostate and various stomach ailments in children. How It Can Help and Red raspberry leaf tea can help to make labor faster and reduce complications and interventions during . One study found that women who consumed RRL tea regularly are less likely to go overdue or give prematurely. These women may also be less likely to receive an artificial rupture of their membranes or require a section, forceps, or vacuum than the women in the control group. Red raspberry leaf has many other benefits to , , and too. How Much Red Raspberry [place] Tea to Drink? With your doctor or investment banking associate s approval, start with 1 cup of red raspberry leaf tea per day starting in the second trimester. Watch for any uterine cramping or other reactions. If you don t experience any, you can talk to your healthcare provider about increasing to 2 cups per day. Again, watch for any uterine cramping. If you notice any, cut back on your dosage for two weeks and try again. Keep in mind, some moms have irritable uteruses and can only drink red raspberry leaf tea once they reach their due date because of uterine cramping. Is Red Raspberry [place] Tea the Same as Raspberry [place] Tea? How About Plain Old Raspberry Tea? Sometimes. You really need to look at the ingredients to be sure. Note that there is no difference between red raspberry leaf and raspberry leaf. Branded Reality or [employer] Raspberry [place] Tea are two good brands. The red raspberry leaf teas that we recommend are 100% red raspberry leaf. Other teas labeled as raspberry are often a blend of rosehips, hibiscus, raspberry leaves, and raspberry flavor. So they may not be as effective. The teas to avoid are raspberry-flavored herbal teas, which may have ingredients like hibiscus, suzanna hips, apples, elderberries, natural and artificial raspberry flavors. Teas like this don t contain raspberry leaf at all and thus won t offer any of the potential benefits of RRLT outlined in this article. The [employer] www.Robotoki I named this 'circuit' after my friend Rossy Longoria, who shared and discussed it with me when I was working with a client whose labor seemed to be stalled out and no longer progressing... This circuit is useful to help get the baby lined up, ideally, in the Left Occiput Anterior (SYBIL) Position, both before labor begins and when some corrections need to be done during labor. Prenatally, this position set can help to rotate a baby. As a natural method of induction, this can help get things going if baby just needed a gentle nudge of position to set things off. To the best of my knowledge, this group of positions will not hurt a baby that is already lined up correctly. - Mary Vila Before you Begin..... This circuit takes at least 90 minutes to complete so clear your schedule and make mental preparations so you can relax in your environment. The second step requires a lot of pillows so gather them up before beginning Before starting, you should empty your bladder! Have a nice drink nearby, and make sure it has a straw! If you are having contractions, this circuit should bedone through contractions, try not to change positions between steps Step One: Open-knee Chest Stay in this position for 30 minutes, start in cat/cow, then drop your chest as low as you can to the bed or the floor and your bottom as high as you can. Knees should be fairly wide apart, and the angle between the torso/thighs should be wider than 90 degrees. Wiggle around, prop with lots of pillows and use this time to get totally relaxed. This position allows the baby to scoot out of the pelvis a bit and gives them room to rotate, shift their head position, etc. If the person finds it helpful,careful positioning with a rebozo under the belly, with gentle tension from a support person behindcan help maintain this position for the full 30minutes. Step Two: Exaggerated Left Side Lying Roll to your left side, bringing your top leg as high as possible and keeping your bottom leg straight. Roll forward as much as possible,again using a lot of pillows. Sink into the bed and relax some more. If you fall asleep, that's totally okay and you can stay there! If not, stay here for at least another half an hour. Try and get your top right leg up towards your head and get as rolled over onto your belly as much as possible. If you repeat the circuit during labor, try alternating left and right sides. We know the photo the left is actually right side... just flip the image in your head. Step Three: Mike and Park Pate, walk stairs facing sideways, 2 at a time, (have a pharmaceutical sales specialist downstairs of you!), take a walk outside with one foot on the curb and the other on the street, sit on a ball and hula- anything that's upright and putting your pelvis in open, asymmetrical positions. Spend at least 30 minutes doing this one as well to give your baby a chance to move down. If you are lunging or stair or curb walking, you should lunge/walk/go up stairs in the direction that feels better to you. The salcido with the lunge is that the toes of the higher leg and mom's belly button should be at right angles. Do not lunge over your knee, that closes the pelvis. Rossy Cortez Von: Circuit Creator - www.[email or web address].co Mary Vila, CD, BDT (MAIKOL), LCCE, FACCE: Supporting Content - [email or web address] Leodan Miranda: Photography - www.IDENT Technology Emily Burk CD/CDT (MARLENA): Print and Resident Caregiver - www.OmniEarth Circuit Masterminds The [employer]PlanMe Circuit www.Robotoki SEQUENTIAL SCREENINGS The [facility] offers sequential screenings for women who are interested in screenings for chromosomal abnormalities and certain defects during a . The sequential screen combines ultrasound and blood tests to determine the risk of chromosomal abnormalities, including Down's Syndrome (Trisomy 21) and Trisomy 18, as well as open neural tube defects including spina bifida. Ultrasound examination is performed between 11 weeks and 13 weeks gestational age. Blood tests are drawn after the ultrasound and again later in the between 15 and 21 weeks gestational age. Please let your physician know if you are interested in this testing. It will require an appointment with our electronic warfare technician. This is not an ultrasound performed by a physician in our office during a routine visit. SIGNS AND SYMPTOMS OF LABOR 1. Contractions every 10 minutes or more often 2. Clear, pink, or brownish fluid (water) leaking from vagina 3. Feeling that baby is pushing down, pressure 4. Low, dull backache 5. Cramps that feel like a period 6. Cramps with or without diarrhea If you notice any of the above symptoms, contact our office at [phone] and ask to speak with a nurse. After hours, you can call [facility] at [phone] OR call [facility] at [phone] and ask to have the doctor emergency communications dispatcher paged. If you consider this an emergency, dial 9-1-1 or go to your nearest emergency department. NEED HELP? Are you dealing with a violent or abusive relationship? Are you a victim of rape or sexual assult? Call [facility] ([place]) 24 hour Crisis Hotline: 355.111.4606 or 623-804-3381. MANUAL Your Guide to a Healthy manual is now on-line. Visit [email or web address] to download your free copy documented in this encounter [facility] 10-27-2024 Progress note Formatting of t his note might be different from the original. S: Ignacio Pettit is a 29 year old female who presents at 37 weeks gestation for a routine visit. Positive movements. Occasional tl chase. Denies headache, visual changes, chest pain, shortness of breath, vaginal bleeding, leakage of fluid, or dysuria. Feeling well, no complaints. O: See flow sheet Gen: No apparent distress Abd: Gravid, nontender ASSESSMENT/PLAN: 1. 37 weeks gestation of (HCC) - ICD9: V22.2, ICD10: Z3A.37 (primary diagnosis) 2. Supervision of high risk in third trimester ([facility]) - ICD9: V23.9, ICD10: O09.93 3. HSV-2 seropositive 4. History of delivery - Hx. delivery at 36 weeks- PPROM - Started Acyclovir 400 mg PO TID - GBS negative - Labor precautions and timing of contractions reviewed Jocelyn Cooley APRN.CNM [facility] 10-27-2024 Miscellaneous Notes S: Ignacio Pettit is a 29 year old female who presents at 37 weeks gestation for a routine visit. Positive movements. Occasional tl chase. Denies headache, visual changes, chest pain, shortness of breath, vaginal bleeding, leakage of fluid, or dysuria. Feeling well, no complaints. O: See flow sheet Gen: No apparent distress Abd: Gravid, nontender ASSESSMENT/PLAN: 1. 37 weeks gestation of ([facility]) - ICD9: V22.2, ICD10: Z3A.37 (primary diagnosis) 2. Supervision of high risk in third trimester ([facility]) - ICD9: V23.9, ICD10: O09.93 3. HSV-2 seropositive 4. History of delivery - Hx. delivery at 36 weeks- PPROM - Started Acyclovir 400 mg PO TID - GBS negative - Labor precautions and timing of contractions reviewed Jocelyn Cooley APRN.CNM documented in this encounter [facility] 10-27-2024 Instructions Paloma Bond LPN - 10/27/2024 12:51 PM EDT SEQUENTIAL SCREENINGS The [facility] offers sequential screenings for women who are interested in screenings for chromosomal abnormalities and certain defects during a . The sequential screen combines ultrasound and blood tests to determine the risk of chromosomal abnormalities, including Down's Syndrome (Trisomy 21) and Trisomy 18, as well as open neural tube defects including spina bifida. Ultrasound examination is performed between 11 weeks and 13 weeks gestational age. Blood tests are drawn after the ultrasound and again later in the between 15 and 21 weeks gestational age. Please let your physician know if you are interested in this testing. It will require an appointment with our electronic warfare technician. This is not an ultrasound performed by a physician in our office during a routine visit. SIGNS AND SYMPTOMS OF LABOR 1. Contractions every 10 minutes or more often 2. Clear, pink, or brownish fluid (water) leaking from vagina 3. Feeling that baby is pushing down, pressure 4. Low, dull backache 5. Cramps that feel like a period 6. Cramps with or without diarrhea If you notice any of the above symptoms, contact our office at [phone] and ask to speak with a nurse. After hours, you can call [employer] [facility] [place] at [phone] OR call [facility] at [phone] and ask to have the doctor emergency communications dispatcher paged. If you consider this an emergency, dial 11-08- or go to your nearest emergency department. NEED HELP? Are you dealing with a violent or abusive relationship? Are you a victim of rape or sexual assult? Call [facility] ([place]) 24 hour Crisis Hotline: 448.207.3204 or 537-771-4846. MANUAL Your Guide to a Healthy manual is now on-line. Visit [email or web address] [email or web address] to download your free copy documented in this encounter [facility] 10-20-2024 Progress note Formatting of t his note might be different from the original. BRENDA-S: Ignacio Pettit is a 29 year old female who presents at 36w0d with APOLONIA:11/17/2024, by Last Menstrual Period for a routine visit. Denies headache, visual changes, chest pain, shortness of breath, vaginal bleeding, leakage of fluid, or dysuria. Feeling well, no complaints. O: See flow sheet Gen: No apparent distress Abd: Gravid, nontender Limited bedside US confirms cephalic. present for exam SENSITIVE EXAMINATION CONSENT: The sensitive examination was discussed with the Patient or Patient's Authorized Counter Sales Representative. As applicable, any other physician, advance practice provider, medical student, or other health professional student that will be observing or involved in the sensitive examination for educational or training purposes was discussed with the Patient or Authorized Counter Sales Representative. The Patient or Authorized Counter Sales Representative has agreed to proceed with the sensitive examination. ASSESSMENT/PLAN: 1. Supervision of high risk in second trimester -Continue PNV 2. 36 weeks gestation of - ROUTINE, GROUP B STREPTOCOCCUS BY PCR 3. HSV-2 seropositive -History of respiratory infection after taking valacyclovir. Asking if ok for her to take acyclovir, will await response. More intolerance and not allergy PTL precautions reviewed and when to call RTO in one week Coreen Cespedes APRN.CNM [facility] 10-20-2024 Miscellaneous Notes BRENDA-S: Ignacio Pettit is a 29 year old female who presents at 36w0d with APOLONIA:11/17/2024, by Last Menstrual Period for a routine visit. Denies headache, visual changes, chest pain, shortness of breath, vaginal bleeding, leakage of fluid, or dysuria. Feeling well, no complaints. O: See flow sheet Gen: No apparent distress Abd: Gravid, nontender Limited bedside US confirms cephalic. present for exam SENSITIVE EXAMINATION CONSENT: The sensitive examination was discussed with the Patient or Patient's Authorized Counter Sales Representative. As applicable, any other physician, advance practice provider, medical student, or other health professional student that will be observing or involved in the sensitive examination for educational or training purposes was discussed with the Patient or Authorized Counter Sales Representative. The Patient or Authorized Counter Sales Representative has agreed to proceed with the sensitive examination. ASSESSMENT/PLAN: 1. Supervision of high risk in second trimester -Continue PNV 2. 36 weeks gestation of - ROUTINE, GROUP B STREPTOCOCCUS BY PCR 3. HSV-2 seropositive -History of respiratory infection after taking valacyclovir. Asking if ok for her to take acyclovir, will await response. More intolerance and not allergy PTL precautions reviewed and when to call RTO in one week Coreen Cespedes APRN.CNM documented in this encounter [facility] 10-20-2024 Instructions Coreen Cespedes APRN.CNM - 10/20/2024 9:48 AM EDT SIGNS AND SYMPTOMS OF LABOR 1. Contractions every 10 minutes or more often 2. Clear, pink, or brownish fluid (water) leaking from vagina 3. Feeling that baby is pushing down, pressure 4. Low, dull backache 5. Cramps that feel like a period 6. Cramps with or without diarrhea If you notice any of the above symptoms, contact our office at [phone] and ask to speak with a nurse. After hours, you can call doctors registry at [phone] OR call [facility] at [phone] and ask to have the doctor emergency communications dispatcher paged. If you consider this an emergency, dial 9-1- or go to your nearest emergency department. NEED HELP? Are you dealing with a violent or abusive relationship? Are you a victim of rape or sexual assult? Call [facility] ([place]) 24 hour Crisis Hotline: 894.810.6739 or 379-755-5426. MANUAL Your Guide to a Healthy manual is now on-line. Visit [email or web address] [email or web address] to download your free copy documented in this encounter [facility] 10-11-2024 Miscellaneous Notes Summary: [employer] [employer] Consult M-[employer] Manager Lpn Note Hospital Name: [place] Completed by: Светлана Warren RN Date: October 11, 2024 [employer] Resource Time: 2 hours Consult Code:E Consult Type: Phone Safety Concerns: No Ignacio Pettit [id number] Preferred Name: Ignacio OB Provider: Abigail Hensley Estimated Date of Delivery: 11/17/24 Designated Support People: Bryn () Labor Plan at time of Consult: Vaginal, Un-medicated, Breast milk Primary Themes During Consult: Control or loss of control Primary Triggers: Connection to lines Restriction to bed Pain medication tradeoffs Primary Concern: Ignacio wants a low intervention, unmedicated . Labor & Strategies: Ignacio strongly wishes to avoid an epidural, primarily due to a desire for movement. If continuous monitoring is indicated, she would prefer a walking monitor. She would like to be able to eat light meals in labor and plans to talk with her team about this. Ignacio is interested in using the shower (no tub) and nitrous oxide. This is Bryn's first biological child (he is Ignacio's older child's father through adoption). Ignacio asks that her team make an effort to include him, give him instructions, and reassure him. Ignacio does not wish to push on her back unless there is a medical need for it. Concerns: None Feeding Plan Details: . Ignacio did not have much support when her first child was born. Safety/Support/Social Work: None documented in this encounter [facility] 10-11-2024 Progress note Summary: Zak wilson Consult -[employer] Manager Lpn Note Hospital Name: [place] Completed by: Светлана Warren RN Date: October 11, 2024 [employer] Resource Time: 2 hours Consult Code:E Consult Type: Phone Safety Concerns: No Ignacio Pettit [id number] Preferred Name: Ignacio OB Provider: Abigail Hensley Estimated Date of Delivery: 11/17/24 Designated Support People: Bryn () Labor Plan at time of Consult: Vaginal, Un-medicated, Breast milk Primary Themes During Consult: Control or loss of control Primary Triggers: Connection to lines Restriction to bed Pain medication tradeoffs Primary Concern: Ignacio wants a low intervention, unmedicated . Labor & Strategies: Ignacio strongly wishes to avoid an epidural, primarily due to a desire for movement. If continuous monitoring is indicated, she would prefer a walking monitor. She would like to be able to eat light meals in labor and plans to talk with her team about this. Ignacio is interested in using the shower (no tub) and nitrous oxide. This is Bryn's first biological child (he is Ignacio's older child's father through adoption). Ignacio asks that her team make an effort to include him, give him instructions, and reassure him. Ignacio does not wish to push on her back unless there is a medical need for it. Concerns: None Feeding Plan Details: . Ignacio did not have much support when her first child was born. Safety/Support/Social Work: None [facility] 10-06-2024 Progress note Formatting of t his note might be different from the original. S: Ignacio Pettit is a 29 year old female who presents at 34 weeks gestation for a routine visit. Positive movements. Occasional tl chase. C/O skin itchy. No rashes noted. Denies itching on palms or feet. C/O sensitive skin. Does not think she has changed soaps or lotions. Advised to continue to monitor and report any increase. Denies headache, visual changes, chest pain, shortness of breath, vaginal bleeding, leakage of fluid, or dysuria. Feeling well, no complaints. O: See flow sheet Gen: No apparent distress Abd: Gravid, nontender ASSESSMENT/PLAN: 1. 34 weeks gestation of 2. Supervision of high risk in third trimester 3. History of delivery 4. Penicillin allergy - PCN allergy - PTL precautions reviewed and when to call office - Continue vitamin daily - Has opted out of ASA - RTO 2 weeks for AJ with GBS Jocelyn Cooley APRN.CNM [facility] 10-06-2024 Miscellaneous Notes S: Ignacio Pettit is a 29 year old female who presents at 34 weeks gestation for a routine visit. Positive movements. Occasional tl chase. C/O skin itchy. No rashes noted. Denies itching on palms or feet. C/O sensitive skin. Does not think she has changed soaps or lotions. Advised to continue to monitor and report any increase. Denies headache, visual changes, chest pain, shortness of breath, vaginal bleeding, leakage of fluid, or dysuria. Feeling well, no complaints. O: See flow sheet Gen: No apparent distress Abd: Gravid, nontender ASSESSMENT/PLAN: 1. 34 weeks gestation of 2. Supervision of high risk in third trimester 3. History of delivery 4. Penicillin allergy - PCN allergy - PTL precautions reviewed and when to call office - Continue vitamin daily - Has opted out of ASA - RTO 2 weeks for AJ with GBS Jocelyn Cooley APRN.CNM documented in this encounter [facility] 10-06-2024 Instructions Paloma Bond LPN - 10/06/2024 10:03 AM EDT SEQUENTIAL SCREENINGS The [facility] offers sequential screenings for women who are interested in screenings for chromosomal abnormalities and certain defects during a . The sequential screen combines ultrasound and blood tests to determine the risk of chromosomal abnormalities, including Down's Syndrome (Trisomy 21) and Trisomy 18, as well as open neural tube defects including spina bifida. Ultrasound examination is performed between 11 weeks and 13 weeks gestational age. Blood tests are drawn after the ultrasound and again later in the between 15 and 21 weeks gestational age. Please let your physician know if you are interested in this testing. It will require an appointment with our electronic warfare technician. This is not an ultrasound performed by a physician in our office during a routine visit. SIGNS AND SYMPTOMS OF LABOR 1. Contractions every 10 minutes or more often 2. Clear, pink, or brownish fluid (water) leaking from vagina 3. Feeling that baby is pushing down, pressure 4. Low, dull backache 5. Cramps that feel like a period 6. Cramps with or without diarrhea If you notice any of the above symptoms, contact our office at [phone] and ask to speak with a nurse. After hours, you can call doctors registry at [phone] OR call [facility] at [phone] and ask to have the doctor emergency communications dispatcher paged. If you consider this an emergency, dial 2-7-7 or go to your nearest emergency department. NEED HELP? Are you dealing with a violent or abusive relationship? Are you a victim of rape or sexual assult? Call [facility] ([place]) 24 hour Crisis Hotline: 474.116.4809 or 853-036-8478. MANUAL Your Guide to a Healthy manual is now on-line. Visit [email or web address] to download your free copy documented in this encounter [facility] 09-22-2024 Progress note Formatting of t his note might be different from the original. DM-Pt doing well. Denies vaginal Bleeding, Leaking fluid, or regular Contractions. Pt reports good movement Physical Exam: Gen: female in no apparent distress Abd: soft, Gravid. Non tender to palpation. See flow sheet @ 32 weeks Assessment & Plan Supervision of high risk in third trimester (HCC) Pyelectasis of fetus on ultrasound ([facility]) History of delivery 32 weeks gestation of ([facility]) Gonzalo silva reviewed Gisella Mcclendon MD [facility] 09-22-2024 Miscellaneous Notes DM-Pt doing well. Denies vaginal Bleeding, Leaking fluid, or regular Contractions. Pt reports good movement Physical Exam: Gen: female in no apparent distress Abd: soft, Gravid. Non tender to palpation. See flow sheet @ 32 weeks Assessment & Plan Supervision of high risk in third trimester ([facility]) Pyelectasis of fetus on ultrasound ([facility]) History of delivery 32 weeks gestation of ([facility]) Gonzalo silva reviewed Gisella Mcclendon MD documented in this encounter [facility] 09-22-2024 Instructions Emelia Miles MA - 09/22/2024 9:52 AM EDT SEQUENTIAL SCREENINGS The [facility] offers sequential screenings for women who are interested in screenings for chromosomal abnormalities and certain defects during a . The sequential screen combines ultrasound and blood tests to determine the risk of chromosomal abnormalities, including Down's Syndrome (Trisomy 21) and Trisomy 18, as well as open neural tube defects including spina bifida. Ultrasound examination is performed between 11 weeks and 13 weeks gestational age. Blood tests are drawn after the ultrasound and again later in the between 15 and 21 weeks gestational age. Please let your physician know if you are interested in this testing. It will require an appointment with our electronic warfare technician. This is not an ultrasound performed by a physician in our office during a routine visit. SIGNS AND SYMPTOMS OF LABOR 1. Contractions every 10 minutes or more often 2. Clear, pink, or brownish fluid (water) leaking from vagina 3. Feeling that baby is pushing down, pressure 4. Low, dull backache 5. Cramps that feel like a period 6. Cramps with or without diarrhea If you notice any of the above symptoms, contact our office at [phone] and ask to speak with a nurse. After hours, you can call doctors registry at [phone] OR call [facility] at [phone] and ask to have the doctor emergency communications dispatcher paged. If you consider this an emergency, dial 9-1-8 or go to your nearest emergency department. NEED HELP? Are you dealing with a violent or abusive relationship? Are you a victim of rape or sexual assult? Call [facility] ([place]) 24 hour Crisis Hotline: 306.229.4130 or 773-321-8909. MANUAL Your Guide to a Healthy manual is now on-line. Visit [email or web address] [email or web address] to download your free copy documented in this encounter [facility] 09-08-2024 Instructions Coreen Cespedes APRN.JENNIFER - 09/08/2024 3:00 PM EDT in [place] -[email or web address] What is my perineum? Your perineum is the area between your vaginal opening and your rectum. This area stretches when you give , and sometimes the perineum or vagina will tear as your baby is being born. If your health care provider cuts an episiotomy during your , it is this area that is cut. You may need stitches after your baby is born if you have a tear or have an episiotomy. How often do perineal tears occur? About 4 to 8 out of every 10 women who give vaginally will have some tear in their perineum. About two?thirds of these women will need some stitches. Is an episiotomy necessary? An episiotomy is not necessary for most women. Although they were common before the 1990s, they are rarely done today. However, sometimes your health care provider may recommend an episiotomy just as your baby is being born. For example, an episiotomy can help if your baby needs to be born very quickly. You can ask your health care provider to talk with you about episiotomy during a visit. Can my health care provider do anything to help me avoid a tear? There are many ways that your health care provider can help to reduce your chance of tearing. For example, your provider may: Apply a warm compress to the perineum just before the baby comes out Recommend specific positions for you to be in as you push Provide gentle downward pressure on the baby's head as your baby is coming out Ask that you push your baby out between contractions Avoid the use of forceps or a vacuum to help your baby be born Can I do anything before the to help me avoid a tear? Preventing a perineal tear that occurs during has been the subject of many research studies. Several studies have found that perineal massage during the last weeks of can reduce tearing at for women giving for the first time. This massage--using 2 fingers to stretch your perineal tissues--is performed by you, in your home, once or twice a week, for the last 4 to 6 weeks of your . The next page of this handout tells how to do this massage. For every 15 women who do perineal massage, one woman will avoid an episiotomy and perineal tearing that needs stitches. While you massage, you can practice relaxing the muscles in your perineum. This can help you prepare for the stretching, burning feeling you may have when your baby's head is born. Relaxing this area during can help prevent tearing. Does perineal massage in help all women? Massage seems to work better for some women than others. Women having their first baby, women who are 30 years or older, and women who have had episiotomies before have fewer tears and less severe tears when perineal massage is done during the last weeks of . Can my partner help? Yes! Many women find that it is easier to have their partners do this massage. See the instructions for perineal massage on the next page for more information. Are there any risks to perineal massage during ? Not that we know of. It is free. It doesn't hurt. It is easy to do. And most women don't mind doing it. However, you should not stretch the perineum until it hurts or massage too often, which can hurt the skin in that area. Do not do perineal massage more than once or twice a week. Women who do it more often do not have a lower risk of perineal tearing. Check with your health care provider before beginning perineal massage. And, if you believe your amniotic fluid (bag of bhandari) is leaking, check with your health care provider before putting anything in your vagina. Instructions for Perineal Massage During Wash your hands well, and make sure your fingernails are short. Relax in a private place where you can rest with your legs open and your knees bent. Some women like to lean on pillows for back support. Lubricate your thumbs and the perineal tissues. Use a lubricant such as vitamin E oil, coconut oil, almond oil, or any vegetable oil used for cooking--like olive oil. You may also try a water?soluble jelly, such as K?Y jelly, or your body's natural vaginal lubricant. Do not use baby oil, mineral oil, or petroleum jelly (Vaseline). Place your thumbs about 1 to 1.5 inches inside your vagina (see Figure 1). Press down (toward the anus) and to the sides until you feel a slight burning, stretching sensation. Hold that stretched position for 1 or 2 minutes. With your thumbs, slowly massage the lower half of the vagina using a U?shaped movement for 2 to 3 minutes at most. Concentrate on relaxing your muscles. This is a good time to practice slow, deep breathing techniques. Partners: If your partner is doing the perineal massage, follow the same basic instructions above. However, your partner should use his or her index fingers to do the massage (instead of thumbs). The same side?to?side, U?shaped, downward pressure method should be used. Good communication is important--be sure to tell your partner if you have too much pain or burning! Figure 1 1 Perineal Massage [employer]les[employer] Grade Level: 7.2 Approved March 2015. This handout replaces Perineal Massage in published in Volume 50, Issue 1, Mar/Apr 2004 SIGNS AND SYMPTOMS OF LABOR 1. Contractions every 10 minutes or more often 2. Clear, pink, or brownish fluid (water) leaking from vagina 3. Feeling that baby is pushing down, pressure 4. Low, dull backache 5. Cramps that feel like a period 6. Cramps with or without diarrhea If you notice any of the above symptoms, contact our office at [phone] and ask to speak with a nurse. After hours, you can call doctors registry at [phone] OR call [facility] at [phone] and ask to have the doctor emergency communications dispatcher paged. If you consider this an emergency, dial 11-08- or go to your nearest emergency department. NEED HELP? Are you dealing with a violent or abusive relationship? Are you a victim of rape or sexual assult? Call [facility] ([place]) 24 hour Crisis Hotline: 157.524.9385 or 823-908-4928. MANUAL Your Guide to a Healthy manual is now on-line. Visit [email or web address] [email or web address] to download your free copy documented in this encounter [facility] 09-08-2024 Progress note Formatting of t his note is different from the original. BRENDA-S: Ignacio Pettit is a 29 year old female who presents at 30w0d with APOLONIA:11/17/2024, by Last Menstrual Period for a routine visit. Denies headache, visual changes, chest pain, shortness of breath, vaginal bleeding, leakage of fluid, or dysuria. Feeling well, no complaints. O: See flow sheet Gen: No apparent distress Abd: Gravid, nontender 08/26/24-The EFW is 1170 g, at the 35%. AC is at the 59%. - MVP of 4.7 cm and VIKKI of 15.1 cm. ASSESSMENT/PLAN: 1. Supervision of high risk in second trimester -Continue PNV -Declines ASA -MPOWER consult placed, history of traumatic care in the past -3hr GTT normal -Handout given on perineal massage 2. 30 weeks gestation of 3. History of delivery -At 36w5d, no additional testing at this time 4. Penicillin allergy -Consult completed and PCN allergy verified. No Keflex -Sensitivity testing with GBS 5. Enlarged thyroid -Thyroid studies normal 6. HSV-2 seropositive -Reviewed recommendation for HSV prophylaxis at 36wk PTL precautions reviewed and when to call RTO in 2 wk Coreen Cespedes APRN.CNM [facility] 09-08-2024 Miscellaneous Notes BRENDA-S: Ignacio Pettit is a 29 year old female who presents at 30w0d with APOLONIA:11/17/2024, by Last Menstrual Period for a routine visit. Denies headache, visual changes, chest pain, shortness of breath, vaginal bleeding, leakage of fluid, or dysuria. Feeling well, no complaints. O: See flow sheet Gen: No apparent distress Abd: Gravid, nontender 08/26/24-The EFW is 1170 g, at the 35%. AC is at the 59%. - MVP of 4.7 cm and VIKKI of 15.1 cm. ASSESSMENT/PLAN: 1. Supervision of high risk in second trimester -Continue PNV -Declines ASA -MPOWER consult placed, history of traumatic care in the past -3hr GTT normal -Handout given on perineal massage 2. 30 weeks gestation of 3. History of delivery -At 36w5d, no additional testing at this time 4. Penicillin allergy -Consult completed and PCN allergy verified. No Keflex -Sensitivity testing with GBS 5. Enlarged thyroid -Thyroid studies normal 6. HSV-2 seropositive -Reviewed recommendation for HSV prophylaxis at 36wk PTL precautions reviewed and when to call RTO in 2 wk Coreen Cespedes APRN.CNM documented in this encounter [facility] 08-26-2024 Progress note Formatting of t his note might be different from the original. KJ - S: Ignacio denies LOF, contractions or vaginal bleeding. O: 28w1d, see flow sheet SENSITIVE EXAM: Sensitive exam not performed. A/P: Assessment & Plan Supervision of high risk in third trimester (HCC) 28 weeks gestation of (HCC) Labs today Need for vaccination Tdap today Pyelectasis of fetus on ultrasound (HCC) RESOLVED on US today Declines LARC Reviewed PTL & FM precautions Cristobal Almanzar MD [facility] 08-26-2024 Miscellaneous Notes KJ - S: Ignacio denies LOF, contractions or vaginal bleeding. O: 28w1d, see flow sheet SENSITIVE EXAM: Sensitive exam not performed. A/P: Assessment & Plan Supervision of high risk in third trimester (HCC) 28 weeks gestation of (HCC) Labs today Need for vaccination Tdap today Pyelectasis of fetus on ultrasound (HCC) RESOLVED on US today Declines LARC Reviewed PTL & FM precautions Cristobal Almanzar MD documented in this encounter [facility] 08-26-2024 Note HNO ID: [id number] Author: KARISSA JACKSON MA Service: ? Author Type: Wood Strip Block Floor Installer Type: Progress Notes Filed: 08/26/2024 11:51 Note Text: Patient identified by name and date of . Ignacio Pettit presents today for a vaccination of Tdap. Patient denies an allergy to latex: yes Patient denies a severe (life-threatening) allergy to a previous dose of Tdap, DTP, DTaP, DT or Td vaccine. Yes Patient denies history of epilepsy or neurological problems: Yes Patient is afebrile and denies being moderately or severely ill: Yes Patient denies history of Guillain-Diablo Syndrome (a severe paralytic illness): Yes Tdap Adacel injection was given without incident. See immunizations for details of immunizations administered today. VIS sheet provided: Yes Provider Dr Almanzar was present in office at time of injection. Shawnee Cole MA [facility] 08-26-2024 History of Presen t illness Narrative Patient identified by name and date of . Ignacio Pettit presents today for a vaccination of Tdap. Patient denies an allergy to latex: yes Patient denies a severe (life-threatening) allergy to a previous dose of Tdap, DTP, DTaP, DT or Td vaccine. Yes Patient denies history of epilepsy or neurological problems: Yes Patient is afebrile and denies being moderately or severely ill: Yes Patient denies history of Guillain-Diablo Syndrome (a severe paralytic illness): Yes Tdap Adacel injection was given without incident. See immunizations for details of immunizations administered today. VIS sheet provided: Yes Provider Dr Almanzar was present in office at time of injection. Shawnee Cole MA documented in this encounter [facility] 08-26-2024 Instructions Shawnee Cole MA - 08/26/2024 10:45 AM EDT SEQUENTIAL SCREENINGS The [facility] offers sequential screenings for women who are interested in screenings for chromosomal abnormalities and certain defects during a . The sequential screen combines ultrasound and blood tests to determine the risk of chromosomal abnormalities, including Down's Syndrome (Trisomy 21) and Trisomy 18, as well as open neural tube defects including spina bifida. Ultrasound examination is performed between 11 weeks and 13 weeks gestational age. Blood tests are drawn after the ultrasound and again later in the between 15 and 21 weeks gestational age. Please let your physician know if you are interested in this testing. It will require an appointment with our electronic warfare technician. This is not an ultrasound performed by a physician in our office during a routine visit. SIGNS AND SYMPTOMS OF LABOR 1. Contractions every 10 minutes or more often 2. Clear, pink, or brownish fluid (water) leaking from vagina 3. Feeling that baby is pushing down, pressure 4. Low, dull backache 5. Cramps that feel like a period 6. Cramps with or without diarrhea If you notice any of the above symptoms, contact our office at [phone] and ask to speak with a nurse. After hours, you can call [employer] registry at [phone] OR call [facility] at [phone] and ask to have the doctor emergency communications dispatcher paged. If you consider this an emergency, dial 4 or go to your nearest emergency department. NEED HELP? Are you dealing with a violent or abusive relationship? Are you a victim of rape or sexual assult? Call [facility] ([place]) 24 hour Crisis Hotline: 216.169.4506 or 559-727-2837. MANUAL Your Guide to a Healthy manual is now on-line. Visit [email or web address] to download your free copy documented in this encounter [facility] 08-26-2024 Note Indication Evaluation of growth. Urinary tract dilation Impression REMOTE READ - Single, live, intrauterine . - presentation is cephalic. - The biometry is consistent with the assigned gestational dating. - The EFW is 1170 g, at the 35%. AC is at the 59%. - Amniotic fluid volume is normal amount with an MVP of 4.7 cm and VIKKI of 15.1 cm. - The placenta is posterior, fundal. - No malformations visualized on a limited survey as detailed below. UTD resolved. Recommendations Additional follow-up as clinically indicated. Maternal Assessment Height 165 cm Height (ft) 5 ft Height (in) 5 in Physical Exam Initial weight (lb) 109 lb Initial BMI 18.14 kg/m Method Transabdominal ultrasound examination [place] . Number of fetuses: 1 Dating LMP on: 02/11/2024 GA by LMP 28 w + 1 d APOLONIA by LMP: 11/17/2024 GA by prior assessment 28 w + 1 d APOLONIA by prior assessment: 11/17/2024 Ultrasound examination on: 08/26/2024 GA by U/S based upon: AC, BPD, Femur, HC GA by U/S 28 w + 3 d APOLONIA by U/S: 11/15/2024 Assigned: based on stated APOLONIA, selected on 07/01/2024 Assigned GA 28 w + 1 d Assigned APOLONIA: 11/17/2024 General Evaluation Cardiac activity present. FHR 142 bpm. movements: present. Presentation: cephalic Placenta: Placental site: posterior, fundal Umbilical cord: Cord vessels: 3 vessel cord. Insertion site: normal insertion Amniotic fluid: Amount of AF: normal amount. MVP 4.7 cm. VIKKI 15.1 cm. Q1 3.3 cm, Q2 4.7 cm, Q3 2.9 cm, Q4 4.3 cm Growth Overview Exam date GA BPD (mm) HC (mm) AC (mm) FL (mm) HL (mm) EFW (g) 07/01/2024 20w 1d 44 18% 172 38% 155 62% 30.7 41% 30.1 45% 330 41% 08/26/2024 28w 1d 74.3 87% 260.2 42% 244.2 59% 50.3 25% 1170 35% Biometry Standard BPD 74.3 mm 29w 6d 87% Hadlock OFD 89.0 mm 26w 4d 15% Nicolaides HC 260.2 mm 27w 6d 42% Amy AC 244.2 mm 28w 5d 59% Hadlock Femur 50.3 mm 27w 1d 25% Amy EFW 1,170 g 27w 5d 35% Hadlock EFW (lb) 2 lb EFW (oz) 9 oz EFW by: Hadlock (HC-AC-FL) Extended Bonded Structures Repairer 3.4 mm Extremities / Bony Struc FL / HC 0.19 Other Structures FHR 142 bpm Anatomy Lateral ventricles: normal Cavum septi pellucidi: normal Cerebellum: normal Cisterna magna: normal 4-chamber view: normal RVOT view: normal LVOT view: normal 3-vessel view: normal Heart / Thorax Situs: situs solitus (normal) Diaphragm: normal Stomach: normal Kidneys: normal Bladder: normal sex: male Wants to know sex: yes Performed By: Mallory Kirby RDMS Read By: Kathy Franks M.D. [facility] 08-19-2024 Telephone encounter Note See 08/18 results follow up encounter. Patient was notified. Patricia Pryor RN [facility] 08-19-2024 Miscellaneous Notes See 08/18 results follow up encounter. Patient was notified. Patricia Pryor RN Left message for patient to call office. Patricia Pryor RN Images from the original note were not included. Gisella Knapp MD to [facility] Ob-Rv Repair Technician Pool (Selected Message) 08/18/24 7:47 AM Result Note Slight increase in amylase which can be normal in to have small increase in number- but could also be seen with pancreatitis (I would expect her to have likely higher numbers and very sick) but if she still has symptoms we should get her in to see GI. Please see how she is feeling. Next appt 08/26/24. Pt was in [facility] last week for pain. BILE ACIDS, TOTAL; LIPASE; COMPREHENSIVE METABOLIC PANEL; AMYLASE; COMPLETE BLOOD COUNT See result note 26w6d Patient called in asking if provider reviewed labs from yesterday yet. Aware provider back in office tomorrow. Patricia Pryor RN documented in this encounter [facility] 08-18-2024 Telephone encounter Note I think at this point it is not OB related- I would see if she can see GI/Gen surgery for any further recommendations. Consult order placed. [facility] 08-18-2024 Miscellaneous Notes I think at this point it is not OB related- I would see if she can see GI/Gen surgery for any further recommendations. Consult order placed. Ob patient is 27w0d and reports mid back pain and upper mid abdominal pain that has been persistent and varies in intensity. Reports decreased appetite. documented in this encounter [facility] 08-18-2024 Telephone encounter Note Ob patient is 27w0d and reports mid back pain and upper mid abdominal pain that has been persistent and varies in intensity. Reports decreased appetite. [facility] 08-18-2024 Telephone encounter Note Left message for patient to call office. Patricia Pryor RN [facility] 08-18-2024 Telephone encounter Note Images from the original note were not included. Gisella Knapp MD to [facility] Ob-Rv Repair Technician Pool (Selected Message) 08/18/24 7:47 AM Result Note Slight increase in amylase which can be normal in to have small increase in number- but could also be seen with pancreatitis (I would expect her to have likely higher numbers and very sick) but if she still has symptoms we should get her in to see GI. Please see how she is feeling. Next appt 08/26/24. Pt was in [facility] last week for pain. BILE ACIDS, TOTAL; LIPASE; COMPREHENSIVE METABOLIC PANEL; AMYLASE; COMPLETE BLOOD COUNT [facility] 08-18-2024 Telephone encounter Note See result note [facility] 08-17-2024 Telephone encounter Note 26w6d Patient called in asking if provider reviewed labs from yesterday yet. Aware provider back in office tomorrow. Patricia Pryor RN T [facility] 08-13-2024 Progress note Formatting of t his note might be different from the original. DM-pt seen for ER follow up - pt went to ER for Right sided pain that radiates to front. Today her pain is 5/10 yesterday pain was 7-8. Tylenol gives a little relief. Denies n/v or fevers. Woke up hot the other night but no fever she is aware of. No itching appreciated. Pt doing well. Denies vaginal Bleeding, Leaking fluid, or regular Contractions. Pt reports good movement Physical Exam: Gen: female in no apparent distress Abd: soft, Gravid. Mild tenderness in Epigastric area, no significant RUQ pain. Negative [place] See flow sheet @ 26.2 weeks Assessment & Plan Abdominal pain during in second trimester ([facility]) Orders: UA DIP, URINE (POC) BACTERIAL CULTURE, URINE COMPREHENSIVE METABOLIC PANEL; Future BILE ACIDS, TOTAL; Future BILE ACIDS FRACT BLD; Future AMYLASE; Future LIPASE; Future COMPLETE BLOOD COUNT; Future Elevated LFTs Orders: COMPREHENSIVE METABOLIC PANEL; Future BILE ACIDS, TOTAL; Future BILE ACIDS FRACT BLD; Future Supervision of high risk in second trimester ([facility]) History of delivery Uterine size-date discrepancy, second trimester ([facility]) 26 weeks gestation of ([facility]) Labs to be repeated Friday When to return to ER discussed with patient [place] counts reviewed Gisella Mcclendon MD [facility] 08-13-2024 Miscellaneous Notes DM-pt seen for ER follow up - pt went to ER for Right sided pain that radiates to front. Today her pain is 5/10 yesterday pain was 7-8. Tylenol gives a little relief. Denies n/v or fevers. Woke up hot the other night but no fever she is aware of. No itching appreciated. Pt doing well. Denies vaginal Bleeding, Leaking fluid, or regular Contractions. Pt reports good movement Physical Exam: Gen: female in no apparent distress Abd: soft, Gravid. Mild tenderness in Epigastric area, no significant RUQ pain. Negative [place] See flow sheet @ 26.2 weeks Assessment & Plan Abdominal pain during in second trimester ([facility]) Orders: UA DIP, URINE (POC) BACTERIAL CULTURE, URINE COMPREHENSIVE METABOLIC PANEL; Future BILE ACIDS, TOTAL; Future BILE ACIDS FRACT BLD; Future AMYLASE; Future LIPASE; Future COMPLETE BLOOD COUNT; Future Elevated LFTs Orders: COMPREHENSIVE METABOLIC PANEL; Future BILE ACIDS, TOTAL; Future BILE ACIDS FRACT BLD; Future Supervision of high risk in second trimester ([facility]) History of delivery Uterine size-date discrepancy, second trimester ([facility]) 26 weeks gestation of ([facility]) Labs to be repeated Friday When to return to ER discussed with patient [place] counts reviewed Gisella Mcclendon MD documented in this encounter [facility] 08-13-2024 Instructions Harley aLm MA - 08/13/2024 4:16 PM EDT SEQUENTIAL SCREENINGS The [facility] offers sequential screenings for women who are interested in screenings for chromosomal abnormalities and certain defects during a . The sequential screen combines ultrasound and blood tests to determine the risk of chromosomal abnormalities, including Down's Syndrome (Trisomy 21) and Trisomy 18, as well as open neural tube defects including spina bifida. Ultrasound examination is performed between 11 weeks and 13 weeks gestational age. Blood tests are drawn after the ultrasound and again later in the between 15 and 21 weeks gestational age. Please let your physician know if you are interested in this testing. It will require an appointment with our electronic warfare technician. This is not an ultrasound performed by a physician in our office during a routine visit. SIGNS AND SYMPTOMS OF LABOR 1. Contractions every 10 minutes or more often 2. Clear, pink, or brownish fluid (water) leaking from vagina 3. Feeling that baby is pushing down, pressure 4. Low, dull backache 5. Cramps that feel like a period 6. Cramps with or without diarrhea If you notice any of the above symptoms, contact our office at [phone] and ask to speak with a nurse. After hours, you can call doctors registry at [phone] OR call [facility] at [phone] and ask to have the doctor emergency communications dispatcher paged. If you consider this an emergency, dial [phone]--1 or go to your nearest emergency department. NEED HELP? Are you dealing with a violent or abusive relationship? Are you a victim of rape or sexual assult? Call [facility] ([place]) 24 hour Crisis Hotline: 621.843.8526 or 809-134-3405. MANUAL Your Guide to a Healthy manual is now on-line. Visit [email or web address] to download your free copy documented in this encounter [facility] 08-13-2024 Telephone encounter Note 26w2d Went to [facility] ER for pain in kidney/gallbladder. Pt states she was advised she needed admitted to this morning, but declined. Therefore, was advised to f/u in office d/t elevated blood work r/t liver and gallbladder & Polyps in gallbladder. States glucose was in urine & US was also completed. States was given muscle relaxer (cyclobenzaprine TID x7 days) & Tylenol & advised to use heating pad. States medications are taking edge off- but still having pain rear right side and front right side. Woke up feeling achy-has not got out of bed at this time. Records requested from [facility] for appt scheduled in office today with DM. Marylu Simons, JOSE [facility] 08-13-2024 Miscellaneous Notes 26w2d Went to [facility] ER for pain in kidney/gallbladder. Pt states she was advised she needed admitted to this morning, but declined. Therefore, was advised to f/u in office d/t elevated blood work r/t liver and gallbladder & Polyps in gallbladder. States glucose was in urine & US was also completed. States was given muscle relaxer (cyclobenzaprine TID x7 days) & Tylenol & advised to use heating pad. States medications are taking edge off- but still having pain rear right side and front right side. Woke up feeling achy-has not got out of bed at this time. Records requested from [facility] for appt scheduled in office today with DM. Marylu Simons RN documented in this encounter [facility] 08-13-2024 Hospital Discharg e instructions Patient Education 08/13/2024 01:32:56 7 - Labor and Delivery Outpatient Instructions (CUSTOM) [place] LABOR AND DELIVERY OUTPATIENT HOME-GOING INSTRUCTIONS _X_ You are to follow up with your physician in ___ days/weeks. ACTIVITY ___ Bedrest _X__Activity as tolerated ___ No work/school for ___ days. ___Other PRESCRIPTION GIVEN _X__Yes ___sent to pharmacy____ Call your physician if you experience: _X__ Increase in vaginal discharge, leaking fluid, or vaginal bleeding. ___ More than 4, 5, or 6 contractions in one hour. _X__ Burning and frequency with urination. DECREASED MOVEMENT _X__ Lie down on your left side, drink some fluids and relax. Count the movements. You need to have 10 movements in 2 hours. _X__ If you do not feel the 10 movements, call your physician. OTHER _X__ After an exam you may experience some spotting or discharge. As long as it is not bright red and heavy like a period or continues to leak as if your water broke, it is to be expected. LABOR Call your physician if you experience: ___ Painful uterine contractions every ___ minutes for ___ hours. _X__A gush or continuous trickle of watery discharge. COME TO THE HOSPITAL AND CALL PHYSICIAN IF: _X__ Your abdomen feels continually firm. _X__ *Bleeding is bright red and enough to saturate a pad in one hour or less. *Call 911 or go to the nearest Emergency Room for assistance. Form 477850 D: 02/15 Document Released: 02/24/2006 Document Revised: 02/13/2012 Document Reviewed: 02/24/2006 ExitCare Patient Information 2012 Health Essentials. Follow Up Care 08/12/2024 20:42:17 With:[facility] Address: When: Unknown Comments:with investment banking associate group at [facility] Follow-up as scheduled [facility] 08-13-2024 Note Discharge Instructions Thank you for allowing [facility] to assist you with your healthcare needs. The following is important discharge information regarding your hospital visit. Your Care Team MILO THORNTON DO What to do next Follow Up Appointments Follow Up with [facility] Additional Information: with investment banking associate group at [facility] Follow-up as scheduled Someone Will Contact You Regarding These Home Health Referrals No home referrals have been ordered for you. No one will call you. The Following Activity and Diet Have Been Ordered for You No qualifying data available. No qualifying data available. The Following Equipment Has Been Ordered for You No qualifying data available. The Following Treatments Have Been Arranged for You Discharge Labs No qualifying data available. Discharge Radiology No qualifying data available. Other Therapies No qualifying data available. Allergies Latex penicillin Medications Please ask your primary doctor or pharmacist before taking any other medication not listed, including over the counter drugs, herbal medications, vitamins and or supplements as they may interact with your home medications. What How Much When Instructions Last Dose New cyclobenzaprine (cyclobenzaprine 5 mg oral tablet) 1 tab(s) by mouth Three (3) times a day Duration: 7 Days Pickup at [facility] Unchanged multivitamin, 1 tab(s) by mouth Every day Pharmacy Information [facility]: [address] [place], [place] [id number] [phone] Please take this list to your next doctor s visit. Bring all medications you take, including over the counter medications, herbals and other supplements with you to your doctor s visit. Patients and families are reminded to discard old lists and to update any records with all medication providers or retail pharmacies. Education Materials [place] LABOR AND DELIVERY OUTPATIENT HOME-GOING INSTRUCTIONS _X_ You are to follow up with your physician in ___ days/weeks. ACTIVITY ___ Bedrest _X__Activity as tolerated ___ No work/school for ___ days. ___Other PRESCRIPTION GIVEN _X__Yes ___sent to pharmacy____ Call your physician if you experience: _X__ Increase in vaginal discharge, leaking fluid, or vaginal bleeding. ___ More than 4, 5, or 6 contractions in one hour. _X__ Burning and frequency with urination. DECREASED MOVEMENT _X__ Lie down on your left side, drink some fluids and relax. Count the movements. You need to have 10 movements in 2 hours. _X__ If you do not feel the 10 movements, call your physician. OTHER _X__ After an exam you may experience some spotting or discharge. As long as it is not bright red and heavy like a period or continues to leak as if your water broke, it is to be expected. LABOR Call your physician if you experience: ___ Painful uterine contractions every ___ minutes for ___ hours. _X__A gush or continuous trickle of watery discharge. COME TO THE HOSPITAL AND CALL PHYSICIAN IF: _X__ Your abdomen feels continually firm. _X__ *Bleeding is bright red and enough to saturate a pad in one hour or less. *Call 911 or go to the nearest Emergency Room for assistance. Form [id number] D: 02/15 Document Released: 02/24/2006 Document Revised: 02/13/2012 Document Reviewed: 02/24/2006 ExitCare Patient Information 2012 Health Essentials. Additional Information VACCINATE! IT SAVES LIVES! Members of the community who have not yet received the COVID-19 vaccine and would like to receive it can visit one of [facility] vaccine clinics. There are many vaccine clinic locations within the [facility]. For locations and available times, please visit [email or web address] It is important to note that some COVID mobile vaccine clinics are held outdoors and may be canceled in rainy or stormy conditions. To learn more about pediatric vaccinations (ages 5-11), we invite you to visit the [facility] webpage. [email or web address] To learn more about the COVID-19 vaccine, we invite you to visit the CDC website for a list of frequently asked questions. https://www.cdc.gov/coronavirus/ 2019-ncov/vaccines/faq.html [facility] Patient Portal Access Instructions: Stay connected with your healthcare team and access your personal medical information anytime with the [facility] Patient Portal.If you would like a full copy of your medical records, please contact the [facility] Medical Records Department, Friday through Friday between 8a.m. and 4:30p.m. Please follow the directions below to access the portal: 1.Access the email account you provided upon registration to the hospital.2.Look for an invitation email from [facility].3.Open the email and access the invitation link: Accept Invitation to [facility].Fill in the required kim to create your account. Sign into [email or web address] with your username and password that you created in the above steps to stay up to date. You can then view a summary of results, a summary of your visits, and the ability to download your summaries to your computer or send the information securely to a physician. Remember that your healthcare information is confidential, so carefully consider who you will allow to register on the [facility] Patient Portal for access to your information. You can also access the [facility] Patient Portal on the [employer] noman. Simply click on Health Records under Health Data and then click on the [employer] logo. HOW TO SAFELY DISPOSE OF PRESCRIPTION MEDICATIONS Please use one of the following methods to safely dispose of your unused medications. 1.Use a drug disposal kit: the drug disposal pouch allows you to safely discard your old and unused drugs. Ask your nurse to give you one when you are discharged.2.Visit a local take-back location: Many local pharmacies and police departments have programs that collect old and unwanted prescription drugs. Call your local pharmacy or go to http://[employer].Twelixir/5F4Pm3e to find one close to you.3.Make use of household items: Use cat litter or old coffee grounds to dispose medications if other options are not available. Mix your drugs with these household products, seal them in an airtight container and throw it into the garbage. Call [facility]: [phone] to be sure your drugs can be disposed of in this way. Some medicines may require a different approach.4.Never flush your medications down the toilet. IF YOU HAVE BEEN PRESCRIBED AN OPIOID FOR PAIN If you have been prescribed an opioid (such as hydrocodone, oxycodone or morphine), it is critical to understand the possible side effects and risks of opioid pain medications. Even when taken as directed, opioids can have several side effects including: Tolerance, meaning you might need to take more of a medication for the same pain relief. Nausea, vomiting and/or constipation. Sleepiness, dizziness, dry mouth, confusion, depression or itching. Physical dependence, meaning you have withdrawal symptoms when a medication is stopped, can develop within a few days. KNOW YOUR RESPONSIBILITIES It is important to know exactly how much and how often to take the opioid pain medications you are prescribed. Never take opioids in higher amounts or more often than prescribed. Do not combine opioids with alcohol or other drugs that cause drowsiness, such as benzodiazepines, also known as benzos, including diazepam and alprazolam, muscle relaxants or sleep aids. Never sell or share prescription opioids. This is illegal. Store opioids in a secure place and out of reach of others (including children, family, friends and visitors). The last page of this document has been signed and retained as a CHART COPY Signatures Patient Education Materials 7 - Labor and Delivery Outpatient Instructions (CUSTOM) Medication Leaflets My discharge plan and instructions have been reviewed and explained to me and I,IGNACIO PETTIT understand my current condition and have read and understand these discharge instructions. I have received a written copy of the plan/instructions. If I have questions, I am aware that I should contact my doctor. Patient/Counter Sales Representative Signature: Date/Time: Relationship to Patient: Witness Name/Signature: Date/Time: [facility] 08-12-2024 Note Exam Date Time Procedure Performing Provider Status 08/12/24 11:50 PM US Abdomen Limited JOSE MARTINEZ; Auth (Verified) [id number] ORIGINAL EXAMINATION: RIGHT UPPER QUADRANT ULTRASOUND 08/12/2024 11:57 pm COMPARISON: None. HISTORY: ORDERING SYSTEM PROVIDED HISTORY: Reason for Exam: RUQ abdominal pain and transaminitis Permanently stored images were reviewed FINDINGS: LIVER: Liver measures 15.8 cm and is within normal limits for size. There is normal parenchymal echogenicity without evidence of intrahepatic biliary ductal dilation. No nodularity of the liver margin or focal hepatic mass. BILIARY SYSTEM: Gallbladder is well distended and demonstrates multiple rounded non mobile echogenicities projecting into its lumen and measuring up to 4 mm in size. No evidence of pericholecystic fluid, wall thickening or stones. Negative sonographic Almaguer's sign. Common bile duct is within normal limits measuring 5.3 mm at the dominique hepatis. RIGHT KIDNEY: The right kidney measures 10.1 cm in length and demonstrates normal cortical thickness and echogenicity. Mild right pelvicaliectasis. No focal renal lesion. PANCREAS: Visualized portions of the pancreas are unremarkable. OTHER: No evidence of right upper quadrant ascites. Visualized proximal segments of the aorta and IVC are patent. IMPRESSION: Mild right pelvicaliectasis. Intrarenal collecting system is not dilated. Multiple gallbladder polyps measuring up to 4 mm in size and require no additional follow-up imaging. I have personally reviewed the images of this examination, and agree with the resident's findings and interpretation. Interpreted by: Jose Martinez MD Preliminary Report By: Malini Camilo Electronically signed By Jose Martinez MD Dictated Date: 08/13/2024 12:30:55 AM Prelim Date: 08/13/2024 12:39:08 AM Sign Date: 08/13/2024 12:52:23 AM Ordering Provider: JENNIFER VELASQUEZ [id number] Telephone encounter Note* Telephone Encounter - Renate Fong RN - 08/12/2024 8:17 AM EDT I called patient and spoke with her. She is 26w1d. I told patient it is important for her to get checked out right away. Patient states she has been told before that pain when walking was due to gallbladder. Denies any contractions. No bleeding. Baby active. Denies pain on urination. She does state that she has frequency of urination. Temp 98.8. Spoke with Jocelyn Cooley- Patient to be seen in Urgent Care and understands importance of being seen SUZI [facility]06-05-2025 Miscellaneous Notes* Telephone Encounter - Renate Fong RN - 08/12/2024 8:17 AM EDT I called patient and spoke with her. She is 26w1d. I told patient it is important for her to get checked out right away. Patient states she has been told before that pain when walking was due to gallbladder. Denies any contractions. No bleeding. Baby active. Denies pain on urination. She does state that she has frequency of urination. Temp 98.8. Spoke with Jocleyn Cooley- Patient to be seen in Urgent Care and understands importance of being seen SUZI [facility] Progress note* Quick Notes - Coreen Cespedes APRN.CNM - 05/31/2024 10:34 AM EDT BRENDA-S: Ignacio Pettit is a 29 year old female who presents at 15w5d with APOLONIA:11/17/2024, by Last Menstrual Period for a routine visit. Denies headache, visual changes, chest pain, shortness of breath, vaginal bleeding, leakage of fluid, or dysuria. Feeling well, no complaints. O: See flow sheet Gen: No apparent distress Abd: Gravid, nontender ASSESSMENT/PLAN: 1. Supervision of high risk in second trimester -Continue PNV -Declines ASA -MPOWER consult placed, history of traumatic care in the past 2. 15 weeks gestation of 3. History of delivery -At 36w5d, no additional testing at this time 4. Penicillin allergy -Consult completed and PCN allergy verified. 5. Enlarged thyroid -Thyroid studies normal 6. HSV-2 seropositive -Reviewed recommendation for HSV prophylaxis at 36wk PTL precautions reviewed and when to call RTO in 4 wk Coreen Cespedes APRN.CNM [facility]03-24-2025 Miscellaneous Notes* Quick Notes - Coreen Cespedes APRN.CNM - 05/31/2024 10:34 AM EDT BRENDA-S: Ignacio Pettit is a 29 year old female who presents at 15w5d with APOLONIA:11/17/2024, by Last Menstrual Period for a routine visit. Denies headache, visual changes, chest pain, shortness of breath, vaginal bleeding, leakage of fluid, or dysuria. Feeling well, no complaints. O: See flow sheet Gen: No apparent distress Abd: Gravid, nontender ASSESSMENT/PLAN: 1. Supervision of high risk in second trimester -Continue PNV -Declines ASA -MPOWER consult placed, history of traumatic care in the past 2. 15 weeks gestation of 3. History of delivery -At 36w5d, no additional testing at this time 4. Penicillin allergy -Consult completed and PCN allergy verified. 5. Enlarged thyroid -Thyroid studies normal 6. HSV-2 seropositive -Reviewed recommendation for HSV prophylaxis at 36wk PTL precautions reviewed and when to call RTO in 4 wk Coreen Cespedes APRN.CNM documented in this encounterKind[facility]03-[facility]-2025 Instructions* Patient Instructions* Coreen Cespedes APRN.CNM - 05/31/2024 9:25 AM EDT in [facility] SIGNS AND SYMPTOMS OF LABOR 1. Contractions every 10 minutes or more often 2. Clear, pink, or brownish fluid (water) leaking from vagina 3. Feeling that baby is pushing down, pressure 4. Low, dull backache 5. Cramps that feel like a period 6. Cramps with or without diarrhea If you notice any of the above symptoms, contact our office at [phone] and ask to speak with anurse. After hours, you can call doctors registry at [phone] OR call [facility] at [phone] ask to have the doctor emergency communications dispatcher paged. If you consider this an emergency, dial 9-1-6 or go to your nearest emergency department. NEED HELP? Are you dealing with a violent or abusive relationship? Are you a victim of rape or sexual assult? Call [facility] ([place]) 24 hour Crisis Hotline: 505.317.4040 or 811-816-7500. MANUAL Your Guide to a Healthy manual is now on-line. Visit [email or web address] to download your free copy documented in this encounterKindred [facility] [place]03-18-2025 Instructions* Patient Instructions* Osmel José APRN.CNS - 05/25/2024 5:05 PM EDT Your skin test is positive to penicillin indicating you have an increased risk for an allergic reaction to penicillin and penicillin-like medications. -Recommend strict avoidance of penicillin and penicillin-like antibiotics -May return for repeat testing documented in this encounterKind[facility] [place]03-17-2025 NoteHNO ID: [id number] Author: MAYTE MARSHALL RN Service: ? Author Type: Registered Nurse Type: Progress Notes Filed: 05/25/2024 17:08 Note Text: Hydrocortisone cream 2.5% applied to positive skin test reactions per order. Discussed avoidance measures for environmental allergies.[facility]03-17-2025 History of Present illness Narrative* Mayte Marshall RN - 05/24/2024 11:02 AM EDT Hydrocortisone cream 2.5% applied to positive skin test reactions per order. Discussed avoidance measures for environmental allergies. * Osmel José APRN.CNS - 05/24/2024 10:06 AM EDT [facility] Allergy & Clinical Immunology Jocelyn Cooley APRN.CNM has requested consultation for penicillin allergy. My progress note withassessment and recommendations from today's appointment will be electronically routed to Jocelyn Cooley APRN.CNM. Chief Complaint: penicillin allergy Historian: patient HPI Ms. Pettit is a 29 year old 15-week female with no significant medical history in clinic forwork up of penicillin allergy. Patient was a and still in the hospital when she was diagnosed with pneumonia. She was treated with penicillin and developed a rash on her buttocks. Her mother was told she was allergic, so she has avoided it ever since. 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 PAST MEDICAL HISTORY Diagnosis Date Cyst, thyroid 08/2018 History of miscarriage 04/05/2024 HSV-2 seropositive 2022 PCOS (polycystic ovarian syndrome) 2012 PAST SURGICAL HISTORY Procedure Laterality Date TONSILLECTOMY HX FAMILY HISTORY Problem Relation Age of Onset Thyroid Mother Breast Cancer Maternal Grandmother Social History Tobacco Use Smoking status: Former Types: Cigarettes Passive exposure: Current Smokeless tobacco: Never Tobacco comments: Quit when i was 18 Vaping Use Vaping status: Never Used Substance Use Topics Alcohol use: Not Currently Comment: social Drug use: Never Social History Tobacco Use Smoking status: Former Types: Cigarettes Passive exposure: Current Smokeless tobacco: Never Tobacco comments: Quit when i was 18 Current Outpatient Medications Medication Sig aspirin, enteric coated (ECOTRIN LOW STRENGTH) 81 mg EC tablet Take 1 tablet by mouth once daily. PNV no.95/ferrous fum/folic ac ( ORAL) Take by mouth. Lactobacillus acidophilus (PROBIOTIC ORAL) Take by mouth. Current Facility-Administered Medications Medication Dose Route Frequency penicillin G potassium 2,000 Units injection in NaCl 0.9% 0.2 mL (PFIZERPEN-G) 2,000 Units INTRADERMAL ONCE ALLERGIES Allergen Reactions Nickel Rash Latex Rash Penicillins Rash Review of Systems Constitutional: Negative for chills and fever. HENT: Negative for congestion, postnasal drip, rhinorrhea, sore throat and trouble swallowing. Eyes: Negative for redness and itching. Respiratory: Negative for cough, chest tightness, shortness of breath and wheezing. Cardiovascular: Negative for chest pain. Gastrointestinal: Negative for abdominal pain, diarrhea, nausea and vomiting. Skin: Negative for rash. Neurological: Negative for dizziness, syncope, weakness, light-headedness and numbness. Blood pressure 97/60, pulse 84, temperature 36.7 C (98 F), temperature source Temporal, resp. rate 17, height 157.5 cm (5' 2), weight 51.3 kg (113 lb 1.5 oz), last menstrual period 02/11/2024, SpO2 99%. Body mass index is 20.69 kg/m . Physical Exam Vitals reviewed. Constitutional: General: She is not in acute distress. Appearance: Normal appearance. She is not ill-appearing. HENT: Nose: Nose normal. Mouth/Throat: Mouth: Mucous membranes are moist. Pharynx: Oropharynx is clear. Eyes: Conjunctiva/sclera: Conjunctivae normal. Cardiovascular: Rate and Rhythm: Normal rate and regular rhythm. Heart sounds: Normal heart sounds. Pulmonary: Effort: Pulmonary effort is normal. Breath sounds: Normal breath sounds. Skin: General: Skin is warm and dry. Neurological: Mental Status: She is alert. Psychiatric: Mood and Affect: Mood normal. Behavior: Behavior is cooperative. Allergy Skin Testing Skin testing performed percutaneously to penicillin G and PrePen. PrePen G was positive and personally reviewed and interpreted by me. Assessment and Recommendations (R21) Rash (primary encounter diagnosis) (Z88.0) Personal history of allergy to penicillin (Z3A.15) 15 weeks gestation of Skin testing positive to PrePen indicating patient is at increased risk for an IgE-mediated reaction to penicillin and penicillin-like antibiotics compared with the history-negative general population. -Recommend strict avoidance of penicillin and penicillin-like antibiotics and using equally effective alternatives -If there is no equally effective alternative, desensitization may be considered -May return for repeat testing I spent a total of 25 minutes on the date of the service which included preparing to see the patient, [id number] patient care, completing clinical documentation, obtaining and/or reviewing separately obtained history, performing a medically appropriate examination, counseling and educating the pat ient/family/caregiver, ordering medications, tests, or procedures, independently interpreting results (not separately reported), and communicating results to the patient/family/caregiver. AVS provided to patient via [employer] and included a recap of today's appointment and medical plan. This note was partially generated using [employer] voice recognition system, and there may be some incorrect words, spellings, and punctuation that were not noted in checking the note before saving. Osmel José APRN.ICING MAKER Allergy & Clinical Immunology documented in this encounterKind[facility]03-17-2025 NoteHNO ID: [id number] Author: OSMEL JOSÉ APRN.ICING MAKER Service: ? Author Type: Nurse Specialist Type: Progress Notes Filed: 05/25/2024 17:08 Note Text: [facility] Allergy AND Clinical Immunology Jocelyn Cooley APRN.CNM has requested consultation for penicillin allergy. My progress note with assessment and recommendations from today's appointment will be electronically routed to Jocelyn Cooley APRN.CNM. Chief Complaint: penicillin allergy Historian: patient HPI Ms. Pettit is a 29 year old 15-week female with no significant medical history in clinic for work up of penicillin allergy. Patient was a and still in the hospital when she was diagnosed with pneumonia. She was treated with penicillin and developed a rash on her buttocks. Her mother was told she was allergic, so she has avoided it ever since. 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 PAST MEDICAL HISTORY Diagnosis Date Cyst, thyroid 08/2018 History of miscarriage 04/05/2024 HSV-2 seropositive 2022 PCOS (polycystic ovarian syndrome) 2012 PAST SURGICAL HISTORY Procedure Laterality Date TONSILLECTOMY HX FAMILY HISTORY Problem Relation Age of Onset Thyroid Mother Breast Cancer Maternal Grandmother Social History Tobacco Use Smoking status: Former Types: Cigarettes Passive exposure: Current Smokeless tobacco: Never Tobacco comments: Quit when i was 18 Vaping Use Vaping status: Never Used Substance Use Topics Alcohol use: Not Currently Comment: social Drug use: Never Social History Tobacco Use Smoking status: Former Types: Cigarettes Passive exposure: Current Smokeless tobacco: Never Tobacco comments: Quit when i was 18 Current Outpatient Medications Medication Sig aspirin, enteric coated (ECOTRIN LOW STRENGTH) 81 mg EC tablet Take 1 tablet by mouth once daily. PNV no.95/ferrous fum/folic ac ( ORAL) Take by mouth. Lactobacillus acidophilus (PROBIOTIC ORAL) Take by mouth. Current Facility-Administered Medications Medication Dose Route Frequency penicillin G potassium 2,000 Units injection in NaCl 0.9% 0.2 mL (PFIZERPEN-G) 2,000 Units INTRADERMAL ONCE ALLERGIES Allergen Reactions Nickel Rash Latex Rash Penicillins Rash Review of Systems Constitutional: Negative for chills and fever. HENT: Negative for congestion, postnasal drip, rhinorrhea, sore throat and trouble swallowing. Eyes: Negative for redness and itching. Respiratory: Negative for cough, chest tightness, shortness of breath and wheezing. Cardiovascular: Negative for chest pain. Gastrointestinal: Negative for abdominal pain, diarrhea, nausea and vomiting. Skin: Negative for rash. Neurological: Negative for dizziness, syncope, weakness, light-headedness and numbness. Blood pressure 97/60, pulse 84, temperature 36.7 ?C (98 ?F), temperature source Temporal, resp. rate 17, height 157.5 cm (5' 2), weight 51.3 kg (113 lb 1.5 oz), last menstrual period 02/11/2024, SpO2 99%. Body mass index is 20.69 kg/m?. Physical Exam Vitals reviewed. Constitutional: General: She is not in acute distress. Appearance: Normal appearance. She is not ill-appearing. HENT: Nose: Nose normal. Mouth/Throat: Mouth: Mucous membranes are moist. Pharynx: Oropharynx is clear. Eyes: Conjunctiva/sclera: Conjunctivae normal. Cardiovascular: Rate and Rhythm: Normal rate and regular rhythm. Heart sounds: Normal heart sounds. Pulmonary: Effort: Pulmonary effort is normal. Breath sounds: Normal breath sounds. Skin: General: Skin is warm and dry. Neurological: Mental Status: She is alert. Psychiatric: Mood and Affect: Mood normal. Behavior: Behavior is cooperative. Allergy Skin Testing Skin testing performed percutaneously to penicillin G and PrePen. PrePen G was positive and personally reviewed and interpreted by me. Assessment and Recommendations (R21) Rash (primary encounter diagnosis) (Z88.0) Personal history of allergy to penicillin (Z3A.15) 15 weeks gestation of Skin testing positive to PrePen indicating patient is at increased risk for an IgE-mediated reaction to penicillin and penicillin-like antibiotics compared with the history-negative general population. -Recommend strict avoidance of penicillin and penicillin-like antibiotics and using equally effective alternatives -If there is no equally effective alternative, desensitization may be considered -May return p (more content not included)...[facility]02-26-2025 Progress note* Quick Notes - Jocelyn Cooley APRN.CNM - 05/05/2024 10:28 AM EST S: Ignacio Pettit is a 29 year old female who presents at 12 weeks gestation for a routine visit. Just completed 1st trimester ultrasound. labs already done. N/V resolved. Denies headache, visual changes, chest pain, shortness of breath, vaginal bleeding, leakage of fluid, or dysuria. Feeling well, no complaints. O: See flow sheet Gen: No apparent distress Abd: Gravid, nontender ASSESSMENT/PLAN: 1. 12 weeks gestation of 2. History of delivery 3. Penicillin allergy 4. Supervision of high risk in second trimester - Consult for [facility] allergy clinic for confirmation - N/V resolved - Start ASA daily - Continue vitamin daily - RTO 4 weeks Jocelyn Cooley APRN.CNM [facility]02-26-2025 Miscellaneous Notes* Quick Notes - Jocelyn Cooley APRN.CNM - 05/05/2024 10:28 AM EST S: Ignacio Pettit is a 29 year old female who presents at 12 weeks gestation for a routine visit. Just completed 1st trimester ultrasound. labs already done. N/V resolved. Denies headache, visual changes, chest pain, shortness of breath, vaginal bleeding, leakage of fluid, or dysuria. Feeling well, no complaints. O: See flow sheet Gen: No apparent distress Abd: Gravid, nontender ASSESSMENT/PLAN: 1. 12 weeks gestation of 2. History of delivery 3. Penicillin allergy 4. Supervision of high risk in second trimester - Consult for [facility] allergy clinic for confirmation - N/V resolved - Start ASA daily - Continue vitamin daily - RTO 4 weeks Jocelyn Cooley APRN.CNM documented in this encounter[facility]25 Instructions* Patient Instructions* Harley Lam MA - 05/05/2024 9:59 AM EST SEQUENTIAL SCREENINGS The [facility] offers sequential screenings for women who are interested in screenings for chromosomal abnormalities and certain defects during a . The sequential screen combinesultrasound and blood tests to determine the risk of chromosomal abnormalities, including Down's Syndrome (Trisomy 21) and Trisomy 18, as well as open neural tube defects including spina bifida. Ultrasound examination is performed between 11 weeks and 13 weeks gestational age. Blood tests are drawn after the ultrasound and again later in the between 15 and 21 weeks gestational age. Please let your physician know if you are interested in this testing. It will require an appointment withour electronic warfare technician. This is not an ultrasound performed by a physician in our office during a routine visit. SIGNS AND SYMPTOMS OF LABOR 1. Contractions every 10 minutes or more often 2. Clear, pink, or brownish fluid (water) leaking from vagina 3. Feeling that baby is pushing down, pressure 4. Low, dull backache 5. Cramps that feel like a period 6. Cramps with or without diarrhea If you notice any of the above symptoms, contact our office at [phone] and ask to speak with anurse. After hours, you can call doctors registry at [phone] OR call [facility] at [phone] ask to have the doctor emergency communications dispatcher paged. If you consider this an emergency, dial [phone] or go to your nearest emergency department. NEED HELP? Are you dealing with a violent or abusive relationship? Are you a victim of rape or sexual assult? Call [facility] ([place]) 24 hour Crisis Hotline: 124.805.4786 or 148-631-5884. MANUAL Your Guide to a Healthy manual is now on-line. Visit [email or web address] to download your free copy documented in this encounterKind[facility]25 Telephone encounter Note * Telephone Encounter - Marylu Simons RN - 04/26/2024 3:43 PM EST Linked to OB episode. Marylu Simons RN [facility]02-[facility] Miscellaneous Notes* Telephone Encounter - Marylu Simons RN - 04/26/2024 3:43 PM EST Linked to OB episode. Marylu Simons RN documented in this encounterKind[facility]01-27-2025 Instructions* Patient Instructions* Leodan Van APRN.CUT AND COVER LINE WORKER - 04/05/2024 9:28 AM EST Please select the following link to access the [facility] Your Guide to a Healthy . [email or web address] MORNING SICKNESS IN by Bebe Fields M.D. for [facility] As you may already know, morning sickness can often be more appropriately called evening sickness or outos-olfcyw-vl-the-day sickness. While there are the nikolas few, most women (50-90%) experience some degree of nausea, some have vomiting, and a few develop a severe form of vomiting duringpregnancy called hyperemesis gravidarum. What causes the nausea and vomiting of ? We can't explain why some people feel fine and others are green for months. Even the same woman mayfeel vastly different in each . There is some relationship between nausea and the level ofthe hormone hCG. In twin pregnancies, and in other situations where the hCG is greater than expected, nausea and vomiting tend to be worse. In a destined for miscarriage, hCG levels tend to be low, and nausea is often less severe. This being said, a lack of nausea doesn't guarantee that the is destined for miscarriage. The fact that nausea and vomiting are often signs of a healthy can offer a silver lining in the dark cloud of miserable nausea. How long will the nausea last? Fortunately, for most women, nausea and vomiting are a first trimester event, peaking at week 9-10 and waning by week 14-16. When you are feeling bad the weeks can go by slowly but most momsdo feel tremendously better by the middle of the . Whether morning sickness is a brief experience or lasts through most of the , there are treatments that can make the weeks or months more tolerable. What can you do about it? Diet: See what works for you. Try eating bland dry foods, and avoid fatty or spicy foods. It is okay to eat a less than perfectly balanced diet in the first trimester. Have your liquids separately from dry foods. Try sports drinks, water, clear juices, Víctor-aid, or non-caffeinated tea. Avoid carbonated beverages that fill up your stomach. Try eating lots of little meals. If you tend to feel sick when you first wake up, leave crackers next to the bed for a quick snack before rising. Keeping healthy snacks with you all day to nibble when you feel queasy can sometimes even prevent nausea from starting. vitamins and nausea: Pre- vitamins can sometimes worsen nausea in . While folate is necessary, especially early in the , it comes as a smaller pill that many people find more tolerable than the complete vitamin pill. Ask your practitioner if it is okay to temporarilyreplace vitamins and iron with just a folate pill if you find a significant worsening in the level of your nausea from the vitamins. Alternative therapies: Acupressure may be used to treat nausea in , and is not known to have any risks for the fetus. Wristbands (marketed for seasickness) that put pressure on an acupressure point at the wrist are often available at drugstores or travel stores. Lilia root is used for nausea in many traditional cultures. Some women take fresh grated lilia or lilia tablets. It is possible that the pill form contains other ingredients or contaminants, so you may want to try fresh lilia first. Medications: Emetrol is the only nausea medication approved for use in . It is available over the counter and is soothing to the stomach. A prescription medication called Bendectin was available in the 1970s-1979's and was shown to be safe in , but the company stopped marketing it in the [place] due to the costs of liability coverage. Bendectin contained 10 milligrams of vitamin B6 and 10 milligrams of Doxylamine. Two tablets were given at bedtime and a total of up to 4 tablets could be used in a 24-hour period. Interestingly, Unisom , which contains a higher dose (25 mg.) of the same medication, Doxylamine, is currently marketed as an kwwz-dji-qjbwzpe sleeping pill. Ask your practitioner if creating a vitamin B6/Doxylaminecombination with abat-svd-dtnqsgu medications would be safe for you. Prescription medications like Compazine and Phenergan can be used if the benefits outweigh possiblerisks, but these have not been clearly shown to be safe in . Zofran , an expensive anti-nausea medication often used to treat nausea from chemotherapy, can also be used. Can I throw up so much it harms the baby? The act of vomiting cannot hurt your fetus, which is protected inside the uterus. If you get dehydrated or develop a metabolic imbalance, this can be unhealthy. As long as you can keep down liquids, you and your baby will generally do all right. Eat when you feel able. If you are unable to keep anyt fabian down, or if you notice potential signs of dehydration such as lightheadedness, or concentratedand/or infrequent urination, call your practitioner. Some women need brief hospital admission for intravenous fluids and anti-nausea medications if their condition becomes severe. This severe form ofnausea and vomiting is called Hyperemesis Gravidarum. As with many symptoms of , remind yourself that this, too, shall pass, and you'll have a wonderful baby to show for it! TREATMENT OPTIONS, SHORT VERSION: Frequent small meals Hydrate throughout day [employer] wrist pressure point applicators Lilia root (powdered, in capsules) 250mg four times a day Vitamin B6 25 mg tablet three times a day Also may be taken with half a tablet of Unisom three times a day (Doxylamine 12.5 mg) If severe (weight loss, dehydration), call us and come in for IV hydration and possible medication in the form of injections. Prescription medications such as Phenergan, Compazine, Reglan documented in this encounterKindred [facility] [place]01-27-2025 NoteHNO ID: [id number] Author: LEODAN VAN APRN.YOKO Service: ? Author Type: Nurse Practitioner Type: Progress Notes Filed: 04/05/2024 10:39 Note Text: Nuclear Engineering Technician offered: Patient declines. INITIAL OB ASSESSMENT HPI: Ignacio is a 29 year old White Female here to establish Obstetrical Care. Patient's last menstrual period was 02/11/2024. from OB Dating Form. was unplanned but accepted Complaints: No OB History T0 L1 SAB1 IAB0 Ectopic0 Multiple0 Live Births1 Previous history: Prior : No History of 4th degree laceration: no History of shoulder dystocia: no History of Hypertensive disorders including pre-eclampsia or gestational hypertension: no History of gestational diabetes: no Patient's Risk Screening for delivery: Have you had a prior campbell between 20w and 36w6d? (!) Yes Did you present in active spontaneous labor or have ruptured membranes, or advanced cervical dilation (greater than or equal to 4 cm) or effacement? No How many pregnancies have you had before? 2 Did you have a previous baby with a GBS Infection? No Please select all that apply for any prior : N/A MEDICAL/PSYCHOSOCIAL HISTORY: Severe Bleeding with Delivery: no Thyroid Disease: enlarged thyroid Gestational Hypertension: no Preeclampsia: no Diabetes in : no No results found for: ABORHD BMI 18.38 kg/(m2) Last Pap: 09/24/2022 normal History of abnormal pap: no Prior treatment for cervical dysplasia: none. Last HPV: N/A History of STDs: Chlamydia; HSV Partner History of STDs: chlamydia Did you have a partner with Herpes? (!) Yes Tobacco use: No E-Cigarette/Vaping Use: No Caffeine use: Yes Drug use: No Alcohol use: No Multivitamin with Folic acid: Yes Would refuse blood transfusion if medically necessary: No Social Needs: How often does this describe you? I don't have enough money to pay my bills: Never Within the past 12 months, have you worried that your food would run out before you had money to buy more? Never In the past 12 months, has lack of reliable transportation kept you from going to medical appointments or work, or from getting things needed for daily living? Never In the past 12 months, have you had any concerns about having a place to live, or about the condition or quality of your housing? Never Would you like more information on any of the following (please check all that apply)? Crime Scene Evidence Technician; Reading Assistant care Social History: Do you have any history of depression, anxiety, PTSD, or other mood problems? No Do you have a history of abuse or trauma that may impact your experience? No Are you currently employed? No Depression/Anxiety Screening: denies symptoms of depression. OB Depression and Anxiety Screening- This Encounter (since 04/04/2024) Over the past 2 weeks have you felt down, depressed, or hopeless? Negative Over the past two weeks, have you felt little interest or pleasure in doing things?? Negative Feeling nervous, anxious or on edge 1-Several days Not being able to stop or control worrying 0-Not al all Anxiety Pre-Screening Total (If >/= 3 additional questions will be reviewed) 1 Genetic Screening: Partner present: Yes Patient verbalized knowledge of partner family health history: Yes Do you or your partner have any personal or family history of defects not previously discussed: No Do you have history of a complicated by anomaly, genetic condition, or demise: No Preeclampsia Risk Screening: Screening for prevention of preeclampsia: High risk factors: None Moderate risk ractors: None OB Risk Screening: Completed, positive findings include: Patient answered 'Yes' they had a prior campbell between 20w and 36w6d. Marital Status: Partner: Name: Bryn Age: 28 Occupation: Line Work Gender: Male PAST MEDICAL HISTORY Diagnosis Date Cyst, thyroid 08/2018 HSV-2 seropositive 2022 PCOS (polycystic ovarian syndrome) 2012 PAST SURGICAL HISTORY Procedure Laterality Date TONSILLECTOMY HX Current Outpatient Medications Medication Sig Dispense Refill PNV no.95/ferrous fum/folic ac ( ORAL) Take by mouth. Lactobacillus acidophilus (PROBIOTIC ORAL) Take by mouth. No current facility-administered medications for this visit. Allergies As of Date: 04/05/2024 Allergen Noted Reaction NICKEL 12/24/2018 Rash LATEX 06/07/2015 Rash PENICILLINS 06/07/2015 Rash Fully Assessed 04/05/2024 Does patient have penicillin allergy: Yes, plan for allergy testing. REVIEW OF SYSTEMS: GENERAL: Negative for: Fever or Chills HEENT: Negative for: Headache, Impaired Vision, Ringing in Ears, Nosebleeds NECK: Negative for: Swelling, Pain, Stiffness RESPIRATORY: Negative for: Cough, Shortness of breath, Wheezing GASTROINTESTINAL: Negative for: Heartburn, Constipation, Diarrhe (more content not included)...[facility]01-27-2025 History of Present illness Narrative* Leodan Van, SAMIRA.CUT AND COVER LINE WORKER - 04/05/2024 9:27 AM EST Nuclear Engineering Technician offered: Patient declines. INITIAL OB ASSESSMENT HPI: Ignacio is a 29 year old White Female here to establish Obstetrical Care. Patient's last menstrual period was 02/11/2024. from OB Dating Form. was unplanned but accepted Complaints: No OB History T0 L1 SAB1 IAB0 Ectopic0 Multiple0 Live Births1 Previous history: Prior : No History of 4th degree laceration: no History of shoulder dystocia: no History of Hypertensive disorders including pre-eclampsia or gestational hypertension: no History of gestational diabetes: no Patient's Risk Screening for delivery: Have you had a prior campbell between 20w and 36w6d? (!) Yes Did you present in active spontaneous labor or have ruptured membranes, or advanced cervical dilation (greater than or equal to 4 cm) or effacement? No How many pregnancies have you had before? 2 Did you have a previous baby with a GBS Infection? No Please select all that apply for any prior : N/A MEDICAL/PSYCHOSOCIAL HISTORY: Severe Bleeding with Delivery: no Thyroid Disease: enlarged thyroid Gestational Hypertension: no Preeclampsia: no Diabetes in : no No results found for: ABORHD BMI 18.38 kg/(m^2) Last Pap: 09/24/2022 normal History of abnormal pap: no Prior treatment for cervical dysplasia: none. Last HPV: N/A History of STDs: Chlamydia; HSV Partner History of STDs: chlamydia Did you have a partner with Herpes? (!) Yes Tobacco use: No E-Cigarette/Vaping Use: No Caffeine use: Yes Drug use: No Alcohol use: No Multivitamin with Folic acid: Yes Would refuse blood transfusion if medically necessary: No Social Needs: How often does this describe you? I don't have enough money to pay my bills: Never Within the past 12 months, have you worried that your food would run out before you had money to buy more? Never In the past 12 months, has lack of reliable transportation kept you from going to medical appointments or work, or from getting things needed for daily living? Never In the past 12 months, have you had any concerns about having a place to live, or about the condition or quality of your housing? Never Would you like more information on any of the following (please check all that apply)? Crime Scene Evidence Technician; Reading Assistant care Social History: Do you have any history of depression, anxiety, PTSD, or other mood problems? No Do you have a history of abuse or trauma that may impact your experience? No Are you currently employed? No Depression/Anxiety Screening: denies symptoms of depression. OB Depression and Anxiety Screening- This Encounter (since 04/04/2024) Over the past 2 weeks have you felt down, depressed, or hopeless? Negative Over the past two weeks, have you felt little interest or pleasure in doing things? Negative Feeling nervous, anxious or on edge 1-Several days Not being able to stop or control worrying 0-Not al all Anxiety Pre-Screening Total (If >/= 3 additional questions will be reviewed) 1 Genetic Screening: Partner present: Yes Patient verbalized knowledge of partner family health history: Yes Do you or your partner have any personal or family history of defects not previously discussed: No Do you have history of a complicated by anomaly, genetic condition, or demise: No Preeclampsia Risk Screening: Screening for prevention of preeclampsia: High risk factors: None Moderate risk ractors: None OB Risk Screening: Completed, positive findings include: Patient answered 'Yes' they had a prior campbell between 20w and 36w6d. Marital Status: Partner: Name: Bryn Age: 28 Occupation: Line Work Gender: Male PAST MEDICAL HISTORY Diagnosis Date Cyst, thyroid 08/2018 HSV-2 seropositive 2022 PCOS (polycystic ovarian syndrome) 2012 PAST SURGICAL HISTORY Procedure Laterality Date TONSILLECTOMY HX Current Outpatient Medications Medication Sig Dispense Refill PNV no.95/ferrous fum/folic ac ( ORAL) Take by mouth. Lactobacillus acidophilus (PROBIOTIC ORAL) Take by mouth. No current facility-administered medications for this visit. Allergies As of Date: 04/05/2024 Allergen Noted Reaction NICKEL 12/24/2018 Rash LATEX 06/07/2015 Rash PENICILLINS 06/07/2015 Rash Fully Assessed 04/05/2024 Does patient have penicillin allergy: Yes, plan for allergy testing. REVIEW OF SYSTEMS: GENERAL: Negative for: Fever or Chills HEENT: Negative for: Headache, Impaired Vision, Ringing in Ears, Nosebleeds NECK: Negative for: Swelling, Pain, Stiffness RESPIRATORY: Negative for: Cough, Shortness of breath, Wheezing GASTROINTESTINAL: Negative for: Heartburn, Constipation, Diarrhea, Blood in stool + nausesa MUSCULOSKELETAL: Negative for: Muscle or joint pain, stiffness, Joint swelling NEUROLOGIC/PSYCHIATRIC: Negative for: Weakness, Paralysis, Numbness, Tingling, Tremor, Anxiety, Depression, Memory loss SKIN: Negative for: Rash, Itching GENITOURINARY: Negative for: vaginal itching, vaginal discharge, hematuria or dysuria SENSITIVE EXAM: The sensitive examination was discussed with the Patient or Patient's Authorized Counter Sales Representative. As applicable, any other physician, advance practice provider, medical student, or other health professional student that will be observing or involved in the sensitive examination for educational or training purposes was discussed with the Patient or Authorized Counter Sales Representative. The Patient or Authorized Counter Sales Representative has agreed to proceed with the sensitive examination. (Sensitive examination includes inspection and/or palpation of the breasts, pelvis, prostate and anorectal regions). PHYSICAL EXAM: BP 108/60 Ht 5' 4.567 (1.64m) Wt 109 lb (49.4kg) LMP 02/11/2024 BMI 18.38 kg/(m^2). GENERAL: pleasant in no apparent distress DERMATOLOGY: Normal, without lesions, non-icteric, and non-hirsute NECK: Supple, full range of motion, no adenopathy, and thyroid normal CHEST: Normal inspiratory effort BREAST: soft, non-tender, symmetric, no dominant mass, normal nipple-areolar complex, no lymphadenopathy, and no nipple discharge ABDOMEN: soft, non-tender, and no masses NEURO: alert and oriented x3,exam grossly non-focal PELVIS: External genitalia normal without lesions. Perineal body intact. No vaginal or cervical lesions. Cervix closed. Uterus 7 week size. No adnexal masses or tenderness. Clinical Pelvimetry: Pelvimetry clinically assessed as adequate I attest that I was present, not working on other tasks, and directing the student during this visit. I have reviewed and agree with the above documentation of this student. Leodan Van, HEAD BAKER.CUT AND COVER LINE WORKER Limited OB ultrasound exam: single intrauterine and positive cardiac activity ASSESSMENT: 29 year old at 7w5d wks gestational age PLAN: 1) Patient oriented to practice. Patient given new OB orientation folder. Discussed nutrition, folic acid supplementation, dietary guidelines, exercise, smoking, alcohol, caffeine, and drug use. Discussed gestational weight gain guidelines. Discussed routine OB labs including STD/HIV. Discussed how to access Your guide to a health and the [employer]. Discussed hemoglobin electrophoresis. Patient: Declines Patient has penicillin allergy, plan for allergy testing. Reviewed midwifery and plant engineering manager services that are available. 2) Screening: Hemoglobin A1C: ordered Baby Aspirin: The patient has been counseled about the potential benefits of low dose aspirin in and our recommendation that this be offered to all patients, regardless of whether they meet the high risk criteria specified above. She Accepts Aneuploidy Screening: Discussed aneuploidy screening, nuchal translucency/first trimester early anatomy ultrasound and NIPT. The risks/benefits and limitations of NIPT/aneuploidy screening were reviewed including the potential for false negative and false positive results. The availability of genetic counseling was reviewed. Information on aneuploidy screening was provided. The patient chooses toproceed with First trimester early anatomy ultrasound (12-13w6d) and NIPT - understands potential out of pocket cost [facility] Carrier Screening: Discussed myriad carrier screening. We discussed the availability of professional-society guided carrier screening and reviewed the conditions screened and limitations of screening. The availability of genetic counseling was reviewed. Information on carrier screening was provided. The patient Declines 3) Patient offered option of Virtual Visits. Patient unsure. May consider in future. ACTIVE PROBLEM LIST Encounter for Supervision of High Risk in First Trimester, Antepartum - 04/05/2024 Comment: Care Checklist Vaccines: [] Flu vaccine [] declined [] RSV vaccine 32 0/7 - 36 08/14 (Nov - Apr) [] declined [] COVID vaccine [] declined [] TDaP - [] declined First trimester: [x] Dating US [] 1st tri labs [x] Pap smear [] Carrier screening [x] declined [x] NIPT screening [] declined [x] First trimester anatomy scan [] declined [x] universal ASA ordered (start 12w-16w) [] declined [] M Power Consult [] not indicated [] declined Second trimester: [] Anatomy scan [] Mode of Delivery - [] Feeding - [] Pump ordered [] Diabetes screen [] CBC, RPR [] Behavioral Health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 oriented x3,exam grossly non-focal EXTREMITIES: normal ASSESSMENT/PLAN: 1) Health maintenance: Pap/HPV up to date. Mammogram starting age 40. Nutrition, exercise and routine health maintenance exams reviewed. Calcium/Vitamin D supplementation information provided. 2) Contraception: patch. Contraceptive options reviewed and information provided. 3) STD screening: Accepted STD check for Gonorrhea and Chlamydia. Trich/BV /yeast ordered for vaginal discharge 4) Follow up one year or sooner as needed Stacy Caldera APRN.YOKO documented in this [facility]Kind[facility] History of Present illness Narrative* Mikael Nicolas APRN.YOKO - 02/07/2023 8:22 AM EST Subjective HPI Nontoxic-appearing female presents urgent care sinus pressure cough. Duration of symptoms 9 days. Associated symptoms listed above. Patient states initially she did have a sore throat fatigue possible low-grade fever cough sinus congestion. All symptoms have improved other than sinus congestion andcough. Sick contacts multiple colleagues at work are sick similar signs symptoms. Has not use any OTC medications. No significant pain. Denies any fever body aches chills productive cough chest pain shortness of breath pleuritic pain hemoptysis nausea vomiting abdominal pain change in bowel or bladder habits. Past medical history prescription medication use and allergies reviewed. Denies chance of . Is not breast-feeding. .Patient presents with: Cough: Nasal congestion x 1 week PAST MEDICAL HISTORY Diagnosis Date Cyst, thyroid 08/2018 HSV-2 seropositive 2022 PCOS (polycystic ovarian syndrome) 2012 PAST SURGICAL HISTORY Procedure Laterality Date TONSILLECTOMY HX ALLERGIES Nickel, Latex, and Penicillins MEDICATIONS valACYclovir (VALTREX) 1 gram Take 1 tablet by mouth once daily. XULANE 150-35 mcg/24 hr patch Apply 1 Patch as directed one time a week. Lactobacillus acidophilus (PROBIOTIC ORAL) Take by mouth. FAMILY HISTORY Problem Relation Age of Onset Thyroid Mother Breast Cancer Maternal Grandmother Social History Tobacco Use Smoking status: Former Passive exposure: Current Smokeless tobacco: Never Vaping Use Vaping Use: Never used Substance Use Topics Alcohol use: Yes Comment: social Drug use: Never BP 117/78 Pulse 83 Temp 36.6 C (97.9 F) Resp 20 Wt 49.9 kg (110 lb) LMP 01/16/2023 (ExactDate) SpO2 98% BMI 20.12 kg/m Review of Systems Constitutional: Negative for chills, fever and malaise/fatigue. HENT: Positive for congestion and sinus pain. Negative for ear discharge, ear pain and sore throat. Eyes: Negative for blurred vision, pain, discharge and redness. Respiratory: Positive for cough. Negative for hemoptysis, sputum production, shortness of breath, wheezing and stridor. Cardiovascular: Negative for chest pain. Gastrointestinal: Negative for abdominal pain, diarrhea, nausea and vomiting. Musculoskeletal: Negative for myalgias. Skin: Negative for itching and rash. Neurological: Negative for dizziness and headaches. Objective Physical Exam Constitutional: General: She is not in acute distress. Appearance: She is not diaphoretic. HENT: Head: Normocephalic. Jaw: No trismus, tenderness, swelling or pain on movement. Right Ear: Tympanic membrane, ear canal and external ear normal. Left Ear: Tympanic membrane, ear canal and external ear normal. Nose: Congestion present. Right Sinus: Maxillary sinus tenderness present. Left Sinus: Maxillary sinus tenderness present. Mouth/Throat: Mouth: Mucous membranes are moist. Pharynx: Oropharynx is clear. Uvula midline. No pharyngeal swelling, oropharyngeal exudate, posterior oropharyngeal erythema or uvula swelling. Eyes: Conjunctiva/sclera: Conjunctivae normal. Pupils: Pupils are equal, round, and reactive to light. Cardiovascular: Rate and Rhythm: Normal rate and regular rhythm. Heart sounds: Normal heart sounds. Pulmonary: Effort: Pulmonary effort is normal. No tachypnea, accessory muscle usage or respiratory distress. Breath sounds: Normal breath sounds. No stridor. No wheezing, rhonchi or rales. Abdominal: General: There is no distension. Palpations: Abdomen is soft. Tenderness: There is no abdominal tenderness. There is no guarding or rebound. Musculoskeletal: Cervical back: Normal range of motion and neck supple. No edema, erythema, rigidity or tenderness. No pain with movement. Normal range of motion. Lymphadenopathy: Cervical: No cervical adenopathy. Skin: General: Skin is warm and dry. Neurological: Mental Status: She is alert and oriented to person, place, and time. ASSESSMENT/PLAN: 1. Sinobronchitis - ICD9: 473.9, 490, ICD10: J32.9, J40 Diagnosed with sinobronchitis. Placed on Mucinex. Safety net doxycycline sent to pharmacy. Follow-up 3 to 5 days symptoms are improving. Patient was educated on supportive therapies. Patient was instructed to immediately proceed to emergency room for any new, worsening, or symptoms lasting longer than anticipated. The patient's clinical presentation is otherwise unremarkable at this time. Based on exam and clinical finding, the patient is stable for discharge. Plan of care was discussed with patient. Patient verbalizes understanding and agrees to plan of care. This note was generated using [employer] software. It may contain errors in wording, punctuation, or spelling. Mikael Nicolas APRN.CNP [facility] Miscellaneous Notes* Telephone Encounter - Naomi Auguste LPN - 11/28/2022 4:33 PM EDT Patient notified * Telephone Encounter - Stacy Caldera APRN.CNP - 11/28/2022 3:52 PM EDT I will send in a new order for the brand name patch to see if that will stick to her better. Stacy Caldera APRN.CNP * Telephone Encounter - Abigail Doshi LPN - 11/28/2022 3:41 PM EDT Pt calling and stating that she likes using the control patch but is having issues with it sticking. She is using alcohol prior to applying. She is wanting to know if there is another brand or type of patch that she can be given. Abigail Doshi LPN documented [facility] this [facility]23 Miscellaneous Notes* Telephone Encounter - Therese Schafer RN - 11/18/2022 4:44 PM EDT Patient notified. Therese Schafer RN * Telephone Encounter - Stacy Caldera APRN.CNP - 11/18/2022 4:40 PM EDT Valtrex sent. Stacy Caldera APRN.CUT AND COVER LINE WORKER * Telephone Encounter - Abigail Doshi LPN - 11/18/2022 3:11 PM EDT Pt calling and stated that she is having an outbreak. She is reporting a few lesions at the openingof the vagina. She states that it is sensitive, she said that areas are still blistered. She is wanting to know if she can have an antiviral to help healing of areas. Abigail Doshi LPN documented in this encounter[facility]23 History of Present illness Narrative* Hamida Storm RDMS - 09/26/2022 7:45 AM EDT Radiology Service Progress Note PATIENT NAME: Ignacio Pettit DATE OF SERVICE: September 26, 2022 TIME: 8:19 AM PATIENT IDENTITY VERIFICATION COMPLETED USING TWO (2) IDENTIFIERS: Name and Date of confirmedby patient verbally. FALL SCREENING: Has the patient had 2 falls in the last year or 1 fall with injury or currently using an Ambulatory Assistive Device (Walker, Cane, Wheelchair, Crutches, etc.)? No PATIENT GENDER DATA: Female. status: : No status: NO. PATIENT RELEVANT IMPLANT DATA REVIEWED: Not Applicable RADIOLOGY DEPARTMENT: Ultrasound PERIPHERAL IV DATA: Not applicable SIGNED BY: Hamida Storm RDMS September 26, 2022 8:19 AM documented in this encounter[facility]-2023 Miscellaneous Notes* Telephone Encounter - Abigail Doshi LPN - 09/25/2022 8:18 AM EDT Pt notified and voiced understanding of directions. Pt voiced understanding. Abigail Doshi LPN * Telephone Encounter - Stacy Caldera APRN.CNP - 09/25/2022 8:10 AM EDT BV positive. To treat with Flagyl 500mg PO BID for 7 days. 1) No alcohol during treatment and for 24 hours after last dose. 2) No intercourse during treatment. 3) Probiotic by mouth once daily for 30 days or as needed. Stacy Caldera APRN.[place] documented in this encounterKind[facility]07-18-[facility]23 History of Present illness Narrative* Stacy Caldera APRN.CNP - 09/24/2022 7:22 AM EDT Ignacio is a 27 year old who presents for an annual gynecologic exam with complaints, vaginal discharge and odor . Menses: cycles every 30-32 days and 4 days of flow. 1-2 day heavy Contraception: none HPV vaccine: No Last Pap: 12/29/2018 normal HPV: N/A History of abnormal pap: No Last mammogram: never Sexually active: Yes History of STDS: chlamydia Patient concerns for STD exposure: Yes: new partner Pain with intercourse: No Postcoital bleeding: No OB History T0 L1 SAB1 IAB0 Ectopic0 Multiple0 Live Births1 Rv Repair Technician History LMP: 09/14/2022 (Exact Date), Having periods Age at Menarche: Age at First : Age at Menopause: Rv Repair Technician History Comments: Sexual Activity: Yes; Male Contraception: No contraception data on record PAST MEDICAL HISTORY Diagnosis Date Cyst, thyroid 08/2018 PCOS (polycystic ovarian syndrome) 2013 PAST SURGICAL HISTORY Procedure Laterality Date TONSILLECTOMY HX FAMILY HISTORY Problem Relation Age of Onset Thyroid Mother Breast Cancer Maternal Grandmother SOCIAL HISTORY Social History Tobacco Use Smoking status: Former Passive exposure: Current Smokeless tobacco: Never Vaping Use Vaping Use: Never used Substance Use Topics Alcohol use: Yes Comment: social Drug use: Never REVIEW OF SYSTEMS Abdomen: No abdominal pain, nausea, vomiting, diarrhea, or constipation. No bloating, early satiety, indigestion, or increased flatulence. Bladder: No dysuria, gross hematuria, urinary frequency, urinary urgency, or incontinence. Breast: No breast lumps, nipple d/c, overlying skin changes, redness or skin retraction. Allergies and current medication updated:Yes EXAM: Ht 5' 2 (1.58m) Wt 102 lb 12.8 oz (46.6kg) LMP 09/14/2022 BMI 18.80 kg/(m^2). GENERAL: pleasant, female in no apparent distress HEENT: Normocephalic, atraumatic, mucus membranes moist, and no lesions NECK: Supple, full range of motion, no adenopathy, and + enlarged thyroid DERMATOLOGY: Normal, without lesions, non-icteric, and non-hirsute BREAST: soft, non-tender, symmetric, no dominant mass, normal nipple-areolar complex, no lymphadenopathy, and no nipple discharge CHEST: Normal inspiratory effort ABDOMEN: soft, non-tender, and no masses PELVIC: external genitalia normal, normal Bartholin's glands, urethra, Tea's glands, no vulvar lesions, no cervical lesions, good vaginal support, physiologic discharge present, normal appearing perineal body and perianal region BIMANUAL: uterus normal size, shape and consistency, no adnexal masses, and non-tender RECTOVAGINAL: deferred. NEURO: alert and oriented x3,exam grossly non-focal EXTREMITIES: normal ASSESSMENT/PLAN: 1. Encounter for gynecological examination (general) (routine) without abnormal findings - ICD9: V72.31, ICD10: Z01.419 (primary diagnosis) - Completed pelvic and breast exam - Encouraged monthly BSE - Follow up for annual exam in one year. - PAP TEST 2. Screening for cervical cancer - ICD9: V76.2, ICD10: Z12.4 - PAP TEST 3. Encounter for screening for human papillomavirus (HPV) - ICD9: V73.81, ICD10: Z11.51 - PAP TEST 4. Screen for STD (sexually transmitted disease) - ICD9: V74.5, ICD10: Z11.3 - GONORRHEA/CHLAMYDIA NAAT - SYPHILIS TOTAL W/REFLEX - HEP B SURF AG SCRN - HCV QUANT RNA BY PCR - HIV 1 2 COMBO(AG/AB),WITH REFLEX TO DIFFERENTIATION - HERPES SIMPLEX TYPE 1 AND 2 IG 5. Vaginal discharge - ICD9: 623.5, ICD10: N89.8 - WILMAN/TRICHOMONAS NAAT - BACTERIAL VAGINOSIS NAAT 6. Enlarged thyroid - ICD9: 240.9, ICD10: E04.9 - TSH BLD - T4 FREE/FREE THYROX - T3 BLD - THYROID PEROXIDASE ANTIBODY BLOOD - US THYROID/PARATHYROID 7. Encounter for other contraceptive management - ICD9: V25.8, ICD10: Z30.8 Xulane ordered Will notify patient of test results. Stacy Caldera APRN.CNP Medical Decision Making: Problems: Moderate: New problem with uncertain prognosis Data: Unique test(s) ordered: 3+ Risk: Low: Low risk from testing/treatment Medical Decision Making Level: 4 - Moderate documented in this encounter[facility]05-13-[facility]21 Hospital Discharge instructions* Instructions* Ramesh Mejia APRN - [place] - 07/20/2020 Change the dressing in 24 hours, if the Gelfoam is still on there leave it on for another 24 hours.After 48 hours if the Gelfoam is still on there soak it in water till it comes off and then reapplydressing. This will take time to heal. * Attachments The following attachments cannot be sent through Care Everywhere. * Lacerations: Open (Belgian) documented in this [facility] Work Phone: Evaluation + Plan note No data available for this section [facility] Evaluation note* Diagnosis Laceration of right middle finger without foreign body without damage to nail, initial encounter- Primary documented in this encounter [facility] Work Phone: Evaluation note* Diagnosis Encounter for gynecological examination (general) (routine) without abnormal findings- Primary Screening for cervical cancer Screening for malignant neoplasm of the cervix Encounter for screening for human papillomavirus (HPV) Special screening examination for human papillomavirus (HPV) Screen for STD (sexually transmitted disease) Screening examination for venereal disease Vaginal discharge Leukorrhea, not specified as infective Enlarged thyroid Goiter, unspecified Encounter for other contraceptive management [facility]* Diagnosis Enlarged thyroid Goiter, unspecified [facility] Diagnosis Sinobronchitis- Primary Unspecified sinusitis (chronic) [facility]* Diagnosis Encounter for gynecological examination (general) (routine) without abnormal findings- Primary Screen for STD (sexually transmitted disease) Screening examination for venereal disease Vaginal discharge Leukorrhea, not specified as infective Encounter for surveillance of transdermal patch hormonal contraceptive device [facility]* Diagnosis Missed menses- Primary Absence of menstruation [facility]* Diagnosis Encounter for supervision of high risk in first trimester, antepartum- Primary with uncertain dates in first trimester History of miscarriage Personal history of other genital system and obstetric disorders History of delivery Underweight At risk for sexually transmitted disease due to partner with genital herpes Enlarged thyroid Goiter, unspecified Nausea and vomiting during Penicillin allergy Personal history of allergy to penicillin Family history of spina bifida Family history of congenital anomalies documented [facility]* Diagnosis 12 weeks gestation of - Primary state, incidental History of delivery Penicillin allergy Personal history of allergy to penicillin Supervision of high risk in second trimester Unspecified high-risk [facility]* Diagnosis Encounter for screening for malformation using ultrasound- Primary 12 weeks gestation of state, incidental [facility]* Diagnosis Rash- Primary Rash and other nonspecific skin eruption Personal history of allergy to penicillin 15 weeks gestation of state, incidental [facility]* Diagnosis Supervision of high risk in second trimester- Primary Unspecified high-risk 15 weeks gestation of state, incidental History of delivery Penicillin allergy Personal history of allergy to penicillin Enlarged thyroid Goiter, unspecified HSV-2 seropositive Other and unspecified nonspecific immunological findings [facility]* Diagnosis Abdominal pain during in second trimester (HCC)- Primary Elevated LFTs Other abnormal blood chemistry Supervision of high risk in second trimester ([facility]) Unspecified high-risk History of delivery Uterine size-date discrepancy, second trimester ([facility]) 26 weeks gestation of ([facility]) state, incidental * Assessment & Plan Note - Gisella Knapp MD - 08/13/2024 4:58 PM EDT Associated Problem(s): History of delivery * Assessment & Plan Note - Gisella Knapp MD - 08/13/2024 4:58 PM EDT Associated Problem(s): Uterine size-date discrepancy, second trimester ([facility]) documented [facility]* Diagnosis Abdominal pain during in second trimester ([facility])- Primary Elevated LFTs Other abnormal blood chemistry Supervision of high risk in second trimester ([facility]) Unspecified high-risk History of delivery Uterine size-date discrepancy, second trimester ([facility]) 26 weeks gestation of ([facility]) state, incidental Pyelectasis of fetus on ultrasound ([facility])- Primary Abnormal findings on screening Encounter for repeat ultrasound of pyelectasis, antepartum, single or unspecified fetus ([facility]) Uterine size-date discrepancy, second trimester ([facility]) [facility]* Diagnosis Abdominal pain during in second trimester ([facility])- Primary Elevated LFTs Other abnormal blood chemistry Supervision of high risk in second trimester ([facility]) Unspecified high-risk History of delivery Uterine size-date discrepancy, second trimester ([facility]) 26 weeks gestation of ([facility]) state, incidental Supervision of high risk in third trimester ([facility])- Primary Unspecified high-risk 28 weeks gestation of ([facility]) state, incidental Need for vaccination Need for prophylactic vaccination and inoculation against unspecified single disease Pyelectasis of fetus on ultrasound ([facility]) Abnormal findings on screening * Assessment & Plan Note - Cristobal Almanzar MD - 08/26/2024 11:00 AM EDTAssociated Problem(s): Pyelectasis of fetus on ultrasound ([facility]) (Resolved 08/26/2024) RESOLVED on US today documented in this encounter [facility] note* Diagnosis Abdominal pain during in second trimester ([facility])- Primary Elevated LFTs Other abnormal blood chemistry Supervision of high risk in second trimester ([facility]) Unspecified high-risk History of delivery Uterine size-date discrepancy, second trimester ([facility]) 26 weeks gestation of ([facility]) state, incidental Supervision of high risk in third trimester ([facility])- Primary Unspecified high-risk Pyelectasis of fetus on ultrasound ([facility]) Abnormal findings on screening History of delivery Penicillin allergy Personal history of allergy to penicillin 30 weeks gestation of ([facility]) state, incidental documented in this encounter [facility] note* Diagnosis Abdominal pain during in second trimester ([facility])- Primary Elevated LFTs Other abnormal blood chemistry Supervision of high risk in second trimester ([facility]) Unspecified high-risk History of delivery Uterine size-date discrepancy, second trimester ([facility]) 26 weeks gestation of ([facility]) state, incidental Supervision of high risk in third trimester ([facility])- Primary Unspecified high-risk Pyelectasis of fetus on ultrasound ([facility]) Abnormal findings on screening History of delivery 32 weeks gestation of ([facility]) state, incidental * Assessment & Plan Note - Gisella Knapp MD - 09/22/2024 10:04 AM EDTAssociated Problem(s): History of delivery documented in this encounter [facility] note* Diagnosis Abdominal pain during in second trimester ([facility])- Primary Elevated LFTs Other abnormal blood chemistry Supervision of high risk in second trimester ([facility]) Unspecified high-risk History of delivery Uterine size-date discrepancy, second trimester ([facility]) 26 weeks gestation of ([facility]) state, incidental Supervision of high risk in third trimester ([facility])- Primary Unspecified high-risk Pyelectasis of fetus on ultrasound ([facility]) Abnormal findings on screening History of delivery 32 weeks gestation of ([facility]) state, incidental 34 weeks gestation of ([facility])- Primary state, incidental Supervision of high risk in third trimester ([facility]) Unspecified high-risk History of delivery Penicillin allergy Personal history of allergy to penicillin [facility]* Diagnosis Abdominal pain during in second trimester ([facility])- Primary Elevated LFTs Other abnormal blood chemistry Supervision of high risk in second trimester ([facility]) Unspecified high-risk History of delivery Uterine size-date discrepancy, second trimester ([facility]) 26 weeks gestation of ([facility]) state, incidental Supervision of high risk in third trimester ([facility])- Primary Unspecified high-risk Pyelectasis of fetus on ultrasound ([facility]) Abnormal findings on screening History of delivery 32 weeks gestation of ([facility]) state, incidental M-Power- Primary Other specified complication, antepartum Supervision of high risk in second trimester ([facility]) Unspecified high-risk 15 weeks gestation of ([facility]) state, incidental [facility] Diagnosis Abdominal pain during in second trimester ([facility])- Primary Elevated LFTs Other abnormal blood chemistry Supervision of high risk in second trimester ([facility]) Unspecified high-risk History of delivery Uterine size-date discrepancy, second trimester ([facility]) 26 weeks gestation of ([facility]) state, incidental Abdominal pain during in second trimester ([facility])- Primary Elevated amylase Other nonspecific abnormal serum enzyme levels Gallbladder polyp Cholesterolosis of gallbladder Supervision of high risk in third trimester ([facility])- Primary Unspecified high-risk Pyelectasis of fetus on ultrasound ([facility]) Abnormal findings on screening History of delivery 32 weeks gestation of ([facility]) state, incidental [facility]* Diagnosis Abdominal pain during in second trimester ([facility])- Primary Elevated LFTs Other abnormal blood chemistry Supervision of high risk in second trimester ([facility]) Unspecified high-risk History of delivery Uterine size-date discrepancy, second trimester ([facility]) 26 weeks gestation of ([facility]) state, incidental Supervision of high risk in third trimester ([facility])- Primary Unspecified high-risk Pyelectasis of fetus on ultrasound ([facility]) Abnormal findings on screening History of delivery 32 weeks gestation of ([facility]) state, incidental Supervision of high risk in second trimester ([facility])- Primary Unspecified high-risk 36 weeks gestation of ([facility]) state, incidental HSV-2 seropositive Other and unspecified nonspecific immunological findings [facility]* Diagnosis Abdominal pain during in second trimester ([facility])- Primary Elevated LFTs Other abnormal blood chemistry Supervision of high risk in second trimester ([facility]) Unspecified high-risk History of delivery Uterine size-date discrepancy, second trimester ([facility]) 26 weeks gestation of ([facility]) state, incidental Elevated glucose- Primary Other abnormal glucose Supervision of high risk in third trimester ([facility])- Primary Unspecified high-risk Pyelectasis of fetus on ultrasound ([facility]) Abnormal findings on screening History of delivery 32 weeks gestation of ([facility]) state, incidental [facility]* Diagnosis Abdominal pain during in second trimester ([facility])- Primary Elevated LFTs Other abnormal blood chemistry Supervision of high risk in second trimester ([facility]) Unspecified high-risk History of delivery Uterine size-date discrepancy, second trimester ([facility]) 26 weeks gestation of ([facility]) state, incidental Supervision of high risk in third trimester ([facility])- Primary Unspecified high-risk Pyelectasis of fetus on ultrasound ([facility]) Abnormal findings on screening History of delivery 32 weeks gestation of ([facility]) state, incidental 37 weeks gestation of ([facility])- Primary state, incidental Supervision of high risk in third trimester ([facility]) Unspecified high-risk HSV-2 seropositive Other and unspecified nonspecific immunological findings History of delivery [facility] Diagnosis Abdominal pain during in second trimester ([facility])- Primary Elevated LFTs Other abnormal blood chemistry Supervision of high risk in second trimester ([facility]) Unspecified high-risk History of delivery Uterine size-date discrepancy, second trimester ([facility]) 26 weeks gestation of ([facility]) state, incidental Supervision of high risk in third trimester (HCC)- Primary Unspecified high-risk Pyelectasis of fetus on ultrasound ([facility]) Abnormal findings on screening History of delivery 32 weeks gestation of ([facility]) state, incidental 38 weeks gestation of (H[facility])- Primary state, incidental Supervision of high risk in third trimester ([facility]) Unspecified high-risk HSV-2 seropositive Other and unspecified nonspecific immunological findings documented in this encounter [facility] Discharge instructions No data available for this section [facility] Progress note No data available for this section [facility] Reason for referral (narrative)* Diagnostic Procedure Only (Routine) - Authorized Specialty Diagnoses / Procedures Referred By Fadyac t Referred To Contact US IMAGING Diagnoses Enlarged thyroid Procedures US THYROID/PARATHYROID US SOFT TISSUE HEAD & NECK REAL TIME IMGE Stacy Danielson APRN.CNP [address] [place] [address] Us Imaging Referral ID Status Reason Start Date Expiration Date Visits Requested Visits Authorized [id number] Authorized Auto-Generat ed Referral 09/24/2022 10/24/2023 1 1 [facility] for referral (narrative)* Diagnostic Procedure Only (Routine) - Closed Specialty Diagnoses / Procedures Referred By Contac t Referred To Contact US IMAGING Diagnoses Enlarged thyroid Procedures US THYROID/PARATHYROID US SOFT TISSUE HEAD & NECK REAL TIME IMGE Stacy Danielson APRN.CNP [address] [place] [address] [place] [address] Referral ID Status Reason Start Date Expiration Date V isits Requested Visits Authorized [id number] Closed Auto-Generate d Referral 09/24/2022 10/24/2023 1 1 [facility] for referral (narrative)* Diagnostic Procedure Only (Routine) - New Request Specialty Diagnoses / Procedures Referred By Contac t Referred To Contact [facility] Diagnoses with uncertain dates in first trimester Procedures OBSTETRIC ULTRASOUND WHI US PREG UTERUS AFTER 1ST TRIMEST 1 GESTATION Leodan Van APRN.CUT AND COVER LINE WORKER [address] [place] [address] [address] Referral ID Status Reason Start Date Expiration Date Visits Requested Visits Authorized [id number] New Request Auto-Generat ed Referral 04/05/2024 04/05/2025 1 1 * Diagnostic Procedure Only (Routine) - Pending Review Specialty Diagnoses / Procedures Referred By Contac t Referred To Contact [facility] Diagnoses with uncertain dates in first trimester Procedures OBSTETRIC ULTRASOUND WHI US PREG UTERUS AFTER 1ST TRIMEST GESTATION Leodan Van APRN.CUT AND COVER LINE WORKER [address] [place] [address] [facility] [address] [place] [id number] Referral ID Status Reason Start Date Expiration Date Visits Requested Visits Authorized [id number] Pending Review Auto-Generat ed Referral 04/05/2024 04/05/2025 1 1 [facility] for visit Narrative* Transition of Care (Routine) - Closed Specialty Diagnoses / Procedures Referred By Contac t Referred To Contact Diagnoses Supervision of high risk in second trimester (HCC) 15 weeks gestation of (HCC) Procedures MPOCroeen Max APRN.CNM [address] [place] [address] Phone: tel: fax: Referral ID Status Reason Start Date Expiration Date V isits Requested Visits Authorized [id number] Closed PCP Requested Referral 05/31/2024 05/31/2025 1 1 [facility] note* Ekaterina Lora: PERFORM Event Display: Patient Summary Documents Authored Date: [id number] [facility] Discharge Instructions * Instructions* Tonya Morgan PA-C - 11/09/[address] Mckoy on Friday for repeat blood work. Return to the ED if bleeding gets worse. * Attachments The following attachments cannot be sent through Care Everywhere. * Miscarriage: Threatened (Belgian) documented in this encounter Assessments Diagnosis Vaginal bleeding- Primary Other specified noninflammatory disorder of vagina Threatened , antepartum Advance Directives No Advanced Directives Records FoundDocuments on File Type Date Recorded Patient Counter Sales Representative Expl anation Advance Directives and Living Will Power of Group Program Manager Documents on File Type Date Recorded Patient Counter Sales Representative Expl anation ACP-Advance Directive ACP-Power of Group Program Manager Summary Purpose Family History No Family History Records FoundNo Family History Records FoundNo Family History Records Found No data available for this section No data available for this section No data available for this section No Family History Records FoundNo Family History Records FoundNo Family History Records FoundNo Family History Records FoundNo Family History Records FoundNo Family History Records Found Additional Source Comments Reason for Visit (unrecogniz ed section and content) Reason Comments Vaginal Bleeding 7 weeks pregant, ble eding started 0530 today 2pads since 530 Reason Comments Laceration Reason Comments Yearly Exam Reason Comments Results Reason Comments Patient Question Reason Comments Radiology US Specialty Diagnoses / Procedures Referred By Aaron t Referred To Contact US IMAGING Diagnoses Enlarged thyroid Procedures US THYROID/PARATHYROID US SOFT TISSUE HEAD & NECK REAL TIME IMGE DOCM Stacy Caldera, SAMIRA.CUT AND COVER LINE WORKER [address] [place] [address] [place] [address] Referral ID Status Reason Start Date Expiration Date V isits Requested Visits Authorized [id number] Closed Auto-Generate d Referral 09/24/2022 10/24/2023 1 1 Reason Comments Cough Nasal congestion x 1 week Reason Comments Yearly Exam Reason Onset Date Comments Refill Request 11/11/2023 Reason Comments Appointment Reason Comments Initial OB Visit Reason Onset Date Comments Care 05/05/2024 Reason Comments US Specialty Diagnoses / Procedures Referred By Contstefan t Referred To Contact [facility] Diagnoses with uncertain dates in first trimester Procedures OBSTETRIC ULTRASOUND WHI US PREG UTERUS AFTER 1ST TRIMEST GESTATION Leodan Van APRN.CNP [address] [place] [address] Phone: tel: fax:[phone] [address] Referral ID Status Reason Start Date Expiration Date V isits Requested Visits Authorized [id number] Closed Auto-Generate d Referral 04/20/2024 03/09/2025 1 1 Reason Comments pnc testing Reason Onset Date Comments Care 05/31/2024 Reason Comments ER F/U Reason Onset Date Comments Care 08/13/2024 Specialty Diagnoses / Procedures Referred By Aaron rojas Referred To Contact [facility] Diagnoses Encounter for repeat ultrasound of pyelectasis, antepartum, single or unspecified fetus (HCC) Procedures OBSTETRIC ULTRASOUND WHI US PREG UTERUS AFTER 1ST TRIMEST GESTATION Leodan Van APRN.YOKO [address] [place] [address] Phone: tel: fax:[phone] [address] [place] [address] [place] [address] Referral ID Status Reason Start Date Expiration Date V isits Requested Visits Authorized [id number] Closed Auto-Generate d Referral 08/12/2024 03/09/2025 1 1 Reason Onset Date Comments Care 08/26/2024 Reason Onset Date Comments Care 09/08/2024 Reason Comments Care Coordination M-Power SchedulingLM attempt # 1 Reason Onset Date Comments Care 09/22/2024 Reason Comments Care Coordination M-Power scheduling, lmtcb Reason Onset Date Comments Care 10/06/2024 Reason Onset Date Comments Care 10/20/2024 Reason Onset Date Comments Care 10/27/2024 Reason Onset Date Comments Care 11/03/2024 INFORMATION SOURCE (unrecogn ized section and content) DATE CREATED AUTHOR 11/16/2018 [facility] DATE CREATED AUTHOR AUTHOR'S ORGANIZ ATION 11/29/2020 [facility] DATE CREATED AUTHOR AUTHOR'S ORGANIZ ATION 09/14/2023 [facility] DATE CREATED AUTHOR AUTHOR'S ORGANIZ ATION 09/06/2024 [facility] DATE CREATED AUTHOR AUTHOR'S ORGANIZ ATION 09/09/2024 [facility] DATE CREATED AUTHOR AUTHOR'S ORGANIZ ATION 10/01/2024 [facility] DATE CREATED AUTHOR AUTHOR'S ORGANIZ ATION 10/13/2024 [facility] DATE CREATED AUTHOR AUTHOR'S ORGANIZ ATION 10/27/2024 [facility] DATE CREATED AUTHOR AUTHOR'S ORGANIZ ATION 11/05/2024 [facility] Source Comments (unrecognize d section and content) In the event this informatio n is protected by the Federal Confidentiality of Alcohol and Drug Abuse Patient Records regulations: The Federal rules restrict any use of the information to criminally investigate or prosecute any alcohol or drug abuse patient.[facility] the event this information is protected by the Federal Confidentiality of Alcohol and Drug Abuse Patient Records regulations: The Federal rules restrict any use of the information to criminally investigate or prosecute any alcohol or drug abuse patient.[facility] DaytonIn the event this information is protected by the Federal Confidentiality of Alcohol and Drug Abuse Patient Records regulations: The Federal rules restrict any use of the information to criminally investigate or prosecute any alcohol or drug abuse patient.[facility] DaytonIn the event this information is protected by the Federal Confidentiality of Alcohol and Drug Abuse Patient Records regulations: The Federal rules restrict any use of the information to criminally investigate or prosecute any alcohol or drug abuse patient.[facility] DaytonIn the event this information is protected by the Federal Confidentiality of Alcohol and Drug Abuse Patient Records regulations: The Federal rules restrict any use of the information to criminally investigate or prosecute any alcohol or drug abuse patient.[facility] Dayton[facility] the event this information is protected by the Federal Confidentiality of Alcohol and Drug Abuse Patient Records regulations: The Federal rules restrict any use of the information to criminally investigate or prosecute any alcohol or drug abuse patient.[facility] Dayton[facility] the event this information is protected by the Federal Confidentiality of Alcohol and Drug Abuse Patient Records regulations: The Federal rules restrict any use of the information to criminally investigate or prosecute any alcohol or drug abuse patient.[facility] DaytonIn the event this information is protected by the Federal Confidentiality of Alcohol and Drug Abuse Patient Records regulations: The Federal rules restrict any use of the information to criminally investigate or prosecute any alcohol or drug abuse patient.[facility] DaytonIn the event this information is protected by the Federal Confidentiality of Alcohol and Drug Abuse Patient Records regulations: The Federal rules restrict any use of the information to criminally investigate or prosecute any alcohol or drug abuse patient.[facility] Dayton[facility] the event this information is protected by the Federal Confidentiality of Alcohol and Drug Abuse Patient Records regulations: The Federal rules restrict any use of the information to criminally investigate or prosecute any alcohol or drug abuse patient.[facility] DaytonIn the event this information is protected by the Federal Confidentiality of Alcohol and Drug Abuse Patient Records regulations: The Federal rules restrict any use of the information to criminally investigate or prosecute any alcohol or drug abuse patient.[facility] DaytonIn the event this information is protected by the Federal Confidentiality of Alcohol and Drug Abuse Patient Records regulations: The Federal rules restrict any use of the information to criminally investigate or prosecute any alcohol or drug abuse patient.[facility] DaytonIn the event this information is protected by the Federal Confidentiality of Alcohol and Drug Abuse Patient Records regulations: The Federal rules restrict any use of the information to criminally investigate or prosecute any alcohol or drug abuse patient.[facility] DaytonIn the event this information is protected by the Federal Confidentiality of Alcohol and Drug Abuse Patient Records regulations: The Federal rules restrict any use of the information to criminally investigate or prosecute any alcohol or drug abuse patient.[facility] DaytonIn the event this information is protected by the Federal Confidentiality of Alcohol and Drug Abuse Patient Records regulations: The Federal rules restrict any use of the information to criminally investigate or prosecute any alcohol or drug abuse patient.[facility] DaytonIn the event this information is protected by the Federal Confidentiality of Alcohol and Drug Abuse Patient Records regulations: The Federal rules restrict any use of the information to criminally investigate or prosecute any alcohol or drug abuse patient.[facility] DaytonIn the event this information is protected by the Federal Confidentiality of Alcohol and Drug Abuse Patient Records regulations: The Federal rules restrict any use of the information to criminally investigate or prosecute any alcohol or drug abuse patient.[facility] DaytonIn the event this information is protected by the Federal Confidentiality of Alcohol and Drug Abuse Patient Records regulations: The Federal rules restrict any use of the information to criminally investigate or prosecute any alcohol or drug abuse patient.[facility] DaytonIn the event this information is protected by the Federal Confidentiality of Alcohol and Drug Abuse Patient Records regulations: The Federal rules restrict any use of the information to criminally investigate or prosecute any alcohol or drug abuse patient.[facility] DaytonIn the event this information is protected by the Federal Confidentiality of Alcohol and Drug Abuse Patient Records regulations: The Federal rules restrict any use of the information to criminally investigate or prosecute any alcohol or drug abuse patient.[facility] DaytonIn the event this information is protected by the Federal Confidentiality of Alcohol and Drug Abuse Patient Records regulations: The Federal rules restrict any use of the information to criminally investigate or prosecute any alcohol or drug abuse patient.[facility] DaytonIn the event this information is protected by the Federal Confidentiality of Alcohol and Drug Abuse Patient Records regulations: The Federal rules restrict any use of the information to criminally investigate or prosecute any alcohol or drug abuse patient.[facility] DaytonIn the event this information is protected by the Federal Confidentiality of Alcohol and Drug Abuse Patient Records regulations: The Federal rules restrict any use of the information to criminally investigate or prosecute any alcohol or drug abuse patient.[facility] DaytonIn the event this information is protected by the Federal Confidentiality of Alcohol and Drug Abuse Patient Records regulations: The Federal rules restrict any use of the information to criminally investigate or prosecute any alcohol or drug abuse patient.[facility] DaytonIn the event this information is protected by the Federal Confidentiality of Alcohol and Drug Abuse Patient Records regulations: The Federal rules restrict any use of the information to criminally investigate or prosecute any alcohol or drug abuse patient.[facility] DaytonIn the event this information is protected by the Federal Confidentiality of Alcohol and Drug Abuse Patient Records regulations: The Federal rules restrict any use of the information to criminally investigate or prosecute any alcohol or drug abuse patient.[facility] DaytonIn the event this information is protected by the Federal Confidentiality of Alcohol and Drug Abuse Patient Records regulations: The Federal rules restrict any use of the information to criminally investigate or prosecute any alcohol or drug abuse patient.[facility] DaytonIn the event this information is protected by the Federal Confidentiality of Alcohol and Drug Abuse Patient Records regulations: The Federal rules restrict any use of the information to criminally investigate or prosecute any alcohol or drug abuse patient.[facility] DaytonIn the event this information is protected by the Federal Confidentiality of Alcohol and Drug Abuse Patient Records regulations: The Federal rules restrict any use of the information to criminally investigate or prosecute any alcohol or drug abuse patient.[facility] DaytonIn the event this information is protected by the Federal Confidentiality of Alcohol and Drug Abuse Patient Records regulations: The Federal rules restrict any use of the information to criminally investigate or prosecute any alcohol or drug abuse patient.[facility] DaytonIn the event this information is protected by the Federal Confidentiality of Alcohol and Drug Abuse Patient Records regulations: The Federal rules restrict any use of the information to criminally investigate or prosecute any alcohol or drug abuse patient.[facility] DaytonIn the event this information is protected by the Federal Confidentiality of Alcohol and Drug Abuse Patient Records regulations: The Federal rules restrict any use of the information to criminally investigate or prosecute any alcohol or drug abuse patient.[facility] DaytonIn the event this information is protected by the Federal Confidentiality of Alcohol and Drug Abuse Patient Records regulations: The Federal rules restrict any use of the information to criminally investigate or prosecute any alcohol or drug abuse patient.[facility] DaytonIn the event this information is protected by the Federal Confidentiality of Alcohol and Drug Abuse Patient Records regulations: The Federal rules restrict any use of the information to criminally investigate or prosecute any alcohol or drug abuse patient.[facility] DaytonIn the event this information is protected by the [place] Confidentiality of Alcohol and Drug Abuse Patient Records regulations: The Federal rules restrict any use of the information to criminally investigate or prosecute any alcohol or drug abuse patient.[facility] DaytonIn the event this information is protected by the Federal Confidentiality of Alcohol and Drug Abuse Patient Records regulations: The Federal rules restrict any use of the information to criminally investigate or prosecute any alcohol or drug abuse patient.[facility] Patient Care team informatio n (unrecognized section and content) Care Team Personnel Name: MILO THORNTON DO Member Role: Primary Care Physician Address: [address] [place] [address] [place] [address] Telecom: Care Team Related Persons Name: BRYN PETTIT Care Team Personnel Name: MILO THORNTON DO Member Role: Primary Care Physician Address: [address] [place] [address] [place] [address] Telecom: Care Team Related Persons Name: BRYN PETTIT Care Team Personnel Name: MILO THORNTON DO Member Role: Primary Care Physician Address: [address] [place] [address] [place] [address] Telecom: Name: JENNIFER VELASQUEZ MD Position: AH Resident Member Role: Ordering Physician Address: [address] [facility] [place] [address]- Telecom: Care Team Related Persons Name: BRYN PETTIT FOR RECORDS PERTAINING TO PATIENTS WHO ARE OR HAVE BEEN ENROLLED IN A CHEMICAL DEPENDENCY/SUBSTANCEABUSE PROGRAM, SOME INFORMATION MAY BE OMITTED. This clinical summary was aggregated from multiple sources. Caution should be exercised in using it in the provision of clinical care. This summary normalizes information from multiple sources, and as a consequence, information in this document may materially change the coding, format and clinical context of patient data. In addition, data may be omitted in some cases. CLINICAL DECISIONS SHOULD BE BASED ON THE PRIMARY CLINICAL RECORDS. [email or web address] provides no warranty or guarantee of the accuracy or completeness of information in this document.
--- OUTSIDE RECORDS SUMMARY | 2024-11-09 23:41 | XMS RPT_ITS | CCD ---
Author Organization [facility] Care Team Providers Care Business Transformation Analyst Name Role Phone Milo Thornton Primary Care Provider Unavailable Primary Care Provider Unavailabl e Unavailable Primary Care Provider Unavailabl e MILO THORNTON DO Primary Care Physician JOCELYN COOLEY Referring Unavailable Coreen Cespedes Admitting [...] LEODAN Referring Unavailable CRISTOBAL ALMANZAR Attending Unavailable COREEN CESPEDES Attending Unavailable HAURY, LEODAN Referring Unavailable COREEN CESPEDES Attending Unavailable OJCELYN COOLEY Attending Unavailable GISELLA KNAPP Referring Unavail [...] to adverse reactions to drug 6 Rash [place], [place] (10 sources) Penicillins; Translations: [PENICILLINS] Propensity to adverse reactions to drug 6 Rash [place], [place] (2 sources) Other Propensity to adverse reactions 6 Rash, Other (See Comments) [place], [place] (20 sources) nickel; Translations: [NICKEL] Drug Allergy 9 [facility] (11 sources) Penicillins Drug Allergy 6 [facility] (3 sources) Penicillin; Translations: [penicillin] Drug Allergy [facility] (20 sources) Penicillins Drug Allergy 6 Rash [facility] Work Phone: (17 sources) valACYclovir; Translations: [VALACYCLOVIR] Drug Allergy 5 Other: See Comments [facility] Medications Current Medications Medication Drug Class(es) Dates [...] pain. 09/08/2024 Discontinued (Course of therapy completed) [id number] 200 actuat albuterol 0.09 mg/actuat metered dose [...] Discontinued (LIST CLEANUP) 168 hr ethinyl estradiol 0.29418 mg/hr / norelgestromin 0.28159 mg/hr transdermal system (12 sources) Progestin, Estrogen [...] Comment on above: Take 1 tablet by [facility] twice daily for 7 days. [...] Translations: [Abdominal pain during in second trimester ([facility])] Onset: 08-18-2024 Episodic Other complications of (1 source) Other specified related conditions, unspecified trimester; Translations: [Pelvic pain during ([facility])] Onset: 08-13-2024 Episodic Other female genital disorders [...] of ; Translations: [20 weeks gestation of ([facility])] Onset: 07-01-2024 Episodic NEGATED: Highlighted row has been ruled out!Unclassified (1 source) No known active problems Results Test Name Value Interpretation Reference Range Facility URINE OB DIP B/Oon 5 Glucose Ql (U) Negative Neg mg/dL [facility] Interpretation and review of laboratory results Normal [facility] Protein.monoclonal (U) [Mass/Vol] Negative Neg mg/dL [facility] URINE OB DIP B/Oon 5 Glucose Ql (U) 250 mg/dL Neg [facility] Protein.monoclonal (U) [Mass/Vol] Negative Neg mg/dL [facility] ROUTINE, GROUP B ST REPTOCOCCUS BY PCRon 10-20-2024 ROUTINE, GROUP B STREPTOCOCCUS BY PCR Not detected Normal [facility] Comment on above: Performed By: #### 3 024-7, 3016-3 #### [facility] CLIA [id number] [address] [place] [address] [place] URINE OB DIP B/Oon 5 Glucose Ql (U) Negative Neg mg/dL [facility] Interpretation and review of laboratory results Normal [facility] Protein.monoclonal (U) [Mass/Vol] Negative Neg mg/dL [facility] URINE OB DIP B/Oon 5 Glucose Ql (U) Negative Neg mg/dL [facility] Interpretation and review of laboratory results Normal [facility] Protein.monoclonal (U) [Mass/Vol] trace Neg mg/dL [facility] Jacob 09-29-2024 RAFITA Telephone (FV3L+D) IGNACIO PETTIT ([id number]) 1995 F Date Time Provider Department 09/29/24 [...] Encounter Status:Closed by TIAGO DURAN on 09/29/24 [facility] Jacob 09-17-2024 CNPN Telephone (FV3L+D) IGNACIO PETTIT ([id number]) 1995 F Date Time Provider Department 09/17/24 [...] Reason for Visit: Care Coordination [3491] Cmt: M-Tempo AI Scheduling LM attempt # 1 Prescriptions as [...] Encounter Status:Closed by СВЕТЛАНА WARREN on 09/17/24 [facility] GLUCOSE GESTATIONAL, 1 HOURo n 09-06-2024 Glucose 1 Hr post Unsp challenge [Mass/Vol] 142 mg/dL Normal <190 [facility] Comment on above: Order Comment: Speci men Type: BLOOD SPECIMEN Ordering Facility: [facility] Address: [address] [place] [address] Result Comment: [facility] Congress of Obstetricians and Gynecologists (Steff/Ofelia) guidelines state gestational diabetes mellitus is present when 2 or more of the plasma glucose concentrations meet or exceed the following levels: fastin mg/dl, 1 hr: 180 mg/dl, 2 hr: 155 mg/dl, and 3 hr: 140 mg/dl. Performed By: #### G TGST1 #### [facility] CLIA [id number] [address] [place] [address] [place] GLUCOSE GESTATIONAL, 2 HOURo n 09-06-2024 Glucose 2 Hr post Unsp challenge [Mass/Vol] 162 mg/dL Normal <165 [facility] Comment on above: Order Comment: Speci men Type: BLOOD SPECIMEN Ordering Facility: [facility] Address: [address] [place] [address] Result Comment: [facility] Congress of Obstetricians and Gynecologists (Steff/Ofelia) guidelines state gestational diabetes mellitus is present when 2 or more of the plasma glucose concentrations meet or exceed the following levels: fastin mg/dl, 1 hr: 180 mg/dl, 2 hr: 155 mg/dl, and 3 hr: 140 mg/dl. Performed By: #### G TGST2 #### [facility] CLIA [id number] [address] [place] [address] [place] GLUCOSE GESTATIONAL, 3 HOURo n 09-06-2024 Glucose 3 Hr post Unsp challenge [Mass/Vol] 144 mg/dL Normal <145 [facility] Comment on above: Order Comment: Yennifer puga Type: BLOOD SPECIMEN Ordering Facility: [facility] Address: [address] [place] [address] Result Comment: [facility] Congress of Obstetricians and Gynecologists (Artis/Coustan) guidelines state gestational diabetes mellitus is present when 2 or more of the plasma glucose concentrations meet or exceed the following levels: fastin mg/dl, 1 hr: 180 mg/dl, 2 hr: 155 mg/dl, and 3 hr: 140 mg/dl. Performed By: #### G TGST3 #### [facility] CLIA [id number] [address] [place] [address] [place] GLUCOSE GESTATIONAL, FASTING on 09-06-2024 Glucose post fast [Mass/Vol] 73 mg/dL Normal 70-100 [facility] Comment on above: Order Comment: Yennifer puga Type: BLOOD SPECIMEN Ordering Facility: [facility] Address: [address] [place] [address] Result Comment: [facility] Congress of Obstetricians and Gynecologists (Artis/Coustan) guidelines state gestational diabetes mellitus is present when 2 or more of the plasma glucose concentrations meet or exceed the following levels: fastin mg/dl, 1 hr: 180 mg/dl, 2 hr: 155 mg/dl, and 3 hr: 140 mg/dl. Performed By: #### G TGSTF #### [facility] CLIA [id number] [address] [place] [address] [place] CBC W Auto Differential pane l (Bld)on 08-26-2024 Basophils (Bld) [#/Vol] 0.03 10*3/uL Normal <0.11 [facility] Comment on above: Order Comment: Yennifer puga Type: BLOOD SPECIMEN Ordering Facility: [facility] Address: [address] [place] [address] Performed By: #### 3 024-7, 3016-3 #### [facility] CLIA [id number] [address] [place] [address] [id number] [place] [address] [place] Basophils/100 WBC (Bld) 0.3 % Normal [facility] Comment on above: Order Comment: Speci men Type: BLOOD SPECIMEN Ordering Facility: [facility] Address: [address] [place] [address] Performed By: #### 3 024-7, 3016-3 #### [facility] CLIA [id number] [address] [place] [address] [place] Differential cell count method Nom (Bld) Auto Normal [facility] Comment on above: Order Comment: Speci men Type: BLOOD SPECIMEN Ordering Facility: [facility] Address: [address] [place] [address] Performed By: #### 3 024-7, 6-3 #### [facility] CLIA [id number] [address] [place] [address] [place] Eosinophils (Bld) [#/Vol] 0.07 10*3/uL Normal <0.46 [facility] Comment on above: Order Comment: Speci men Type: BLOOD SPECIMEN Ordering Facility: [facility] Address: [address] [place] [address] Performed By: #### 3 024-7, 6-3 #### [facility] CLIA [id number] [address] [place] [address] [place] Eosinophils/100 WBC (Bld) 0.7 % Normal [facility] Comment on above: Order Comment: Speci men Type: BLOOD SPECIMEN Ordering Facility: [facility] Address: [address] [place] [address] Performed By: #### 3 024-7, 6-3 #### [facility] CLIA [id number] [address] [place] [address] [place] Erythrocyte distribution width (RBC) [Ratio] 13.2 % Normal 11.5-15.0 [facility] Comment on above: Order Comment: Speci men Type: BLOOD SPECIMEN Ordering Facility: [facility] Address: [address] [place] [address] Performed By: #### 3 024-7, 3016-3 #### [facility] CLIA [id number] [address] [place] [address] [place] Hematocrit (Bld) [Volume fraction] 32.9 % Low 36.0-46.0 [facility] Comment on above: Order Comment: Speci men Type: BLOOD SPECIMEN Ordering Facility: [facility] Address: [address] [place] [address] Performed By: #### 3 024-7, 3015-3 #### [facility] CLIA [id number] [address] [place] [address] [place] Hemoglobin (Bld) [Mass/Vol] 11.2 g/dL Low 11.5-15.5 [facility] Comment on above: Order Comment: Speci men Type: BLOOD SPECIMEN Ordering Facility: [facility] Address: [address] [place] [address] Performed By: #### 3 024-7, 3015-3 #### [facility] CLIA [id number] [address] [place] [address] [place] Immature granulocytes (Bld) [#/Vol] 0.11 10*3/uL High <0.10 [facility] Comment on above: Order Comment: Speci men Type: BLOOD SPECIMEN Ordering Facility: [facility] Address: [address] [place] [address] Performed By: #### 3 024-7, 6-3 #### [facility] CLIA [id number] [address] [place] [address] [place] Immature granulocytes/100 WBC (Bld) 1.0 % Normal [facility] Comment on above: Order Comment: Speci men Type: BLOOD SPECIMEN Ordering Facility: [facility] Address: [address] [place] [address] Performed By: #### 3 024-7, 3016-3 #### [facility] CLIA [id number] [address] [place] [address] [place] Lymphocytes (Bld) [#/Vol] 1.78 10*3/uL Normal 1.00-4.00 [facility] Comment on above: Order Comment: Speci men Type: BLOOD SPECIMEN Ordering Facility: [facility] Address: [address] [place] [address] Performed By: #### 3 024-7, 3016-3 #### [facility] CLIA [id number] [address] [place] [address] [place] Lymphocytes/100 WBC (Bld) 17.0 % Normal [facility] Comment on above: Order Comment: Speci men Type: BLOOD SPECIMEN Ordering Facility: [facility] Address: [address] [place] [address] Performed By: #### 3 024-7, 3016-3 #### [facility] CLIA [id number] [address] [place] [address] [place] MCH (RBC) [Entitic mass] 29.8 pg Normal 26.0-34.0 [facility] Comment on above: Order Comment: Speci men Type: BLOOD SPECIMEN Ordering Facility: [facility] Address: [address] [place] [address] Performed By: #### 3 024-7, 3016-3 #### [facility] CLIA [id number] [address] [place] [address] [place] MCHC (RBC) [Mass/Vol] 34.0 g/dL Normal 30.5-36.0 [facility] Comment on above: Order Comment: Speci men Type: BLOOD SPECIMEN Ordering Facility: [facility] Address: [address] [place] [address] Performed By: #### 3 024-7, 3016-3 #### [facility] CLIA [id number] [address] [place] [address] [place] MCV (RBC) [Entitic vol] 87.5 fL Normal 80.0-100.0 [facility] Comment on above: Order Comment: Speci men Type: BLOOD SPECIMEN Ordering Facility: [facility] Address: [address] [place] [address] Performed By: #### 3 024-7, 3016-3 #### [facility] CLIA [id number] [address] [place] [address] [place] Monocytes (Bld) [#/Vol] 0.75 10*3/uL Normal <0.87 [facility] Comment on above: Order Comment: Speci men Type: BLOOD SPECIMEN Ordering Facility: [facility] Address: [address] [place] [address] Performed By: #### 3 024-7, 3016-3 #### [facility] CLIA [id number] [address] [place] [address] [place] Monocytes/100 WBC (Bld) 7.1 % Normal [facility] Comment on above: Order Comment: Speci men Type: BLOOD SPECIMEN Ordering Facility: [facility] Address: [address] [place] [address] Performed By: #### 3 024-7, 3016-3 #### [facility] CLIA [id number] [address] [place] [address] [place] Neutrophils (Bld) [#/Vol] 7.75 10*3/uL High 1.45-7.50 [facility] Comment on above: Order Comment: Speci men Type: BLOOD SPECIMEN Ordering Facility: [facility] Address: [address] [place] [address] Performed By: #### 3 024-7, 3016-3 #### [facility] CLIA [id number] [address] [place] [address] [place] Neutrophils/100 WBC (Bld) 73.9 % Normal [facility] Comment on above: Order Comment: Speci men Type: BLOOD SPECIMEN Ordering Facility: [facility] Address: [address] [place] [address] Performed By: #### 3 024-7, 3016-3 #### [facility] CLIA [id number] [address] [place] [address] [place] Nucleated RBC (Bld) [#/Vol] 10*3/uL Normal <0.01 [facility] Comment on above: Order Comment: Speci men Type: BLOOD SPECIMEN Ordering Facility: [facility] Address: [address] [place] [address] Performed By: #### 3 024-7, 6-3 #### [facility] CLIA [id number] [address] [place] [address] [place] Nucleated RBC/100 WBC (Bld) [Ratio] 0.0 /100 WBC Normal [facility] Comment on above: Order Comment: Speci men Type: BLOOD SPECIMEN Ordering Facility: [facility] Address: [address] [place] [address] Performed By: #### 3 024-7, 6-3 #### [facility] CLIA [id number] [address] [place] [address] [place] Platelet mean volume (Bld) [Entitic vol] 9.6 fL Normal 9.0-12.7 [facility] Comment on above: Order Comment: Speci men Type: BLOOD SPECIMEN Ordering Facility: [facility] Address: [address] [place] [address] Performed By: #### 3 024-7, 3016-3 #### [facility] CLIA [id number] [address] [place] [address] [place] Platelets (Bld) [#/Vol] 271 10*3/uL Normal 150-400 [facility] Comment on above: Order Comment: Speci men Type: BLOOD SPECIMEN Ordering Facility: [facility] Address: [address] [place] [address] Performed By: #### 3 024-7, 3016-3 #### [facility] CLIA [id number] [address] [place] [address] [place] RBC (Bld) [#/Vol] 3.76 10*6/uL Low 3.90-5.20 [facility] Comment on above: Order Comment: Speci men Type: BLOOD SPECIMEN Ordering Facility: [facility] Address: [address] [place] [address] Performed By: #### 3 024-7, 3016-3 #### [facility] CLIA [id number] [address] [place] [address] [place] WBC (Bld) [#/Vol] 10.49 10*3/uL Normal 3.70-11.00 [facility] Comment on above: Order Comment: Speci men Type: BLOOD SPECIMEN Ordering Facility: [facility] Address: [address] [place] [address] Performed By: #### 3 024-7, 3015-3 #### [facility] CLIA [id number] [address] [place] [address] [place] Examination level ultrasound on 08-26-2024 [facility] Radiology Study observation (narrative) [facility] GESTATIONAL GLUCOSE SCREEN, 1-HOUR, 50 GRAM, NON-FASTINGon 08-26-2024 Glucose [Mass/Vol] 140 mg/dL High 74-134 [facility] Comment on above: Order Comment: Speci men Type: BLOOD SPECIMEN Ordering Facility: [facility] Address: [address] [place] [address] Result Comment: [place] Congress of Obstetricians and Gynecologists (Steff/Ofelia) guidelines state a gestational diabetes mellitus positive screen is made, in women not previously diagnosed with overt diabetes, when the 1 hr plasma glucose level is equal to or above 140 mg/dL. The [facility] Learning [employer] Instructor and [facility] [place] recommends a 135 mg/dL cutoff. Performed By: #### 3 024-7, 3016-3 #### [facility] CLIA [id number] [address] [place] [address] [place] Reagin and Treponema pallidu m IgG and IgM [Interp]on 08-26-2024 T. pallidum IgG+IgM IA Ql (S) Non-Reactive Normal Nonreactive [facility] Comment on above: Order Comment: Yennifer puga Type: BLOOD SPECIMEN Ordering Facility: [facility] Address: [address] [place] [address] Performed By: #### T SPN #### [facility] CLIA [id number] [address] [place] [address] [place] Reagin+T pallidum IgG+IgM Se rPl-Impon 08-26-2024 Reagin and Treponema pallidum IgG and IgM [Interp] Cannot exclude recent Treponemal infection if specimen collected within 7-10 days after appearance of suspect lesions or 2-3 weeks after an exposure. Clinical correlation is required. 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 Next appt 08/26/24. Pt was in [facility] last week for pain. BILE ACIDS, [...] Status:Closed by PATRICIA PRYOR on 08/19/24 Normal [facility] Amylase SerPl-cCncon 025 Amylase [Catalytic activity/Vol] 118 U/L High 30-104 [facility] Comment on above: Order Comment: Speci men Type: BLOOD SPECIMEN Ordering Facility: [facility] Address: [address] [place] [address] Performed By: #### 3 024-7, 3016-3 #### [facility] CLIA [id number] [address] [place] [address] [place] BILE ACIDS FRACT BLDon 08-16 CHENODEOXYCHOLIC ACID 0.3 umol/L Normal 0.0-3.4 [facility] Comment on above: Order Comment: Speci men Type: BLOOD SPECIMEN Ordering Facility: [facility] Address: [address] [place] [address] Performed By: #### 3 024-7, 3016-3 #### [facility] CLIA [id number] [address] [place] [address] [place] CHOLIC ACID 0.3 umol/L Normal 0.0-1.9 [facility] Comment on above: Order Comment: Speci men Type: BLOOD SPECIMEN Ordering Facility: [facility] Address: [address] [place] [address] Performed By: #### 3 024-7, 3015-3 #### [facility] CLIA [id number] [address] [place] [address] [place] DEOXYCHOLIC ACID 1.0 umol/L Normal 0.0-2.5 [facility] Comment on above: Order Comment: Speci men Type: BLOOD SPECIMEN Ordering Facility: [facility] Address: [address] [place] [address] Performed By: #### 3 024-7, 3015-3 #### [facility] CLIA [id number] [address] [place] [address] [place] TOTAL BILE ACIDS 1.9 umol/L Normal 0.0-7.0 [facility] Comment on above: Order Comment: Speci men Type: BLOOD SPECIMEN Ordering Facility: [facility] Address: [address] [place] [address] Result Comment: INTE RPRETIVE INFORMATION: Bile Acids, Fractionated and Total This test was developed and its performance characteristics determined by [facility]. It has not been cleared or approved by the [place] Food and Drug Administration. This test was performed in a CLIA certified laboratory and is intended for clinical purposes. Performed By: [facility] [address] [place] [id number] [employer] Chief Engineer: Mikal Bernstein MD, PhD [place] Number: [id number] Performed By: #### 3 024-7, 3 #### [facility] CLIA [id number] [address] [place] [address] [place] URSODEOXYCHOLIC ACID 0.3 umol/L Normal 0.0-1.0 [facility] Comment on above: Order Comment: Speci men Type: BLOOD SPECIMEN Ordering Facility: [facility] Address: [address] [place] [address] Performed By: #### 3 024-7, 3015-3 #### [facility] CLIA [id number] [address] [place] [address] [place] BILE ACIDS, TOTALon 08-17-19 25 Bile acid [Moles/Vol] 2.4 umol/L Normal <7.5 [facility] Comment on above: Order Comment: Yennifer puga Type: BLOOD SPECIMEN Ordering Facility: [facility] Address: [address] [place] [address] Result Comment: Refe rence interval applies to [...] Performed By: #### 3 024-7, 3016-3 #### [facility] CLIA [id number] [address] [place], [place] [address] [place] CBC panel Auto (Bld)on 08-16 Erythrocyte distribution width (RBC) [Ratio] 13.5 % Normal 11.5-15.0 [facility] Comment on above: Order Comment: Yennifer puga Type: BLOOD SPECIMEN Ordering Facility: [facility] Address: [address] [place] [address] Performed By: #### 3 024-7, 6-3 #### [facility] CLIA [id number] [address] [place] [address] [place] Hematocrit (Bld) [Volume fraction] 36.3 % Normal 36.0-46.0 [facility] Comment on above: Order Comment: Speci men Type: BLOOD SPECIMEN Ordering Facility: [facility] Address: [address] [place] [address] Performed By: #### 3 024-7, 3015-3 #### [facility] CLIA [id number] [address] [place] [address] [place] Hemoglobin (Bld) [Mass/Vol] 12.0 g/dL Normal 11.5-15.5 [facility] Comment on above: Order Comment: Speci men Type: BLOOD SPECIMEN Ordering Facility: [facility] Address: [address] [place] [address] Performed By: #### 3 024-7, 3015-3 #### [facility] CLIA [id number] [address] [place] [address] [place] MCH (RBC) [Entitic mass] 30.2 pg Normal 26.0-34.0 [facility] Comment on above: Order Comment: Speci men Type: BLOOD SPECIMEN Ordering Facility: [facility] Address: [address] [place] [address] Performed By: #### 3 024-7, 3015-3 #### [facility] CLIA [id number] [address] [place] [address] [place] MCHC (RBC) [Mass/Vol] 33.1 g/dL Normal 30.5-36.0 [facility] Comment on above: Order Comment: Speci men Type: BLOOD SPECIMEN Ordering Facility: [facility] Address: [address] [place] [address] Performed By: #### 3 024-7, 6-3 #### [facility] CLIA [id number] [address] [place] [address] [place] MCV (RBC) [Entitic vol] 91.4 fL Normal 80.0-100.0 [facility] Comment on above: Order Comment: Speci men Type: BLOOD SPECIMEN Ordering Facility: [facility] Address: [address] [place] [address] Performed By: #### 3 024-7, 3016-3 #### [facility] CLIA [id number] [address] [place] [address] [place] Nucleated RBC (Bld) [#/Vol] 10*3/uL Normal <0.01 [facility] Comment on above: Order Comment: Speci men Type: BLOOD SPECIMEN Ordering Facility: [facility] Address: [address] [place] [address] Performed By: #### 3 024-7, 3016-3 #### [facility] CLIA [id number] [address] [place] [address] [place] Platelet mean volume (Bld) [Entitic vol] 12.1 fL Normal 9.0-12.7 [facility] Comment on above: Order Comment: Speci men Type: BLOOD SPECIMEN Ordering Facility: [facility] Address: [address] [place] [address] Performed By: #### 3 024-7, 3016-3 #### [facility] CLIA [id number] [address] [place] [address] [place] Platelets (Bld) [#/Vol] 231 10*3/uL Normal 150-400 [facility] Comment on above: Order Comment: Speci men Type: BLOOD SPECIMEN Ordering Facility: [facility] Address: [address] [place] [address] Performed By: #### 3 024-7, 3016-3 #### [facility] CLIA [id number] [address] [place] [address] [place] RBC (Bld) [#/Vol] 3.97 10*6/uL Normal 3.90-5.20 [facility] Comment on above: Order Comment: Speci men Type: BLOOD SPECIMEN Ordering Facility: [facility] Address: [address] [place] [address] Performed By: #### 3 024-7, 3016-3 #### [facility] CLIA [id number] [address] [place] [address] [place] WBC (Bld) [#/Vol] 11.78 10*3/uL High 3.70-11.00 [facility] Comment on above: Order Comment: Speci men Type: BLOOD SPECIMEN Ordering Facility: [facility] Address: [address] [place] [address] Performed By: #### 3 024-7, 3016-3 #### [facility] CLIA [id number] [address] [place] [address] [place] Comprehensive metabolic 2000 panelon 08-16-2024 Albumin [Mass/Vol] 3.8 g/dL Low 3.9-4.9 [facility] Comment on above: Order Comment: Speci men Type: BLOOD SPECIMEN Ordering Facility: [facility] Address: [address] [place] [address] Performed By: #### 3 024-7, 3016-3 #### [facility] CLIA [id number] [address] [place] [address] [place] ALP [Catalytic activity/Vol] 87 U/L Normal 34-123 [facility] Comment on above: Order Comment: Speci men Type: BLOOD SPECIMEN Ordering Facility: [facility] Address: [address] [place] [address] Performed By: #### 3 024-7, 3016-3 #### [facility] CLIA [id number] [address] [place] [address] [place] ALT [Catalytic activity/Vol] 33 U/L Normal 7-38 [facility] Comment on above: Order Comment: Speci men Type: BLOOD SPECIMEN Ordering Facility: [facility] Address: [address] [place] [address] Performed By: #### 3 024-7, 3016-3 #### [facility] CLIA [id number] [address] [place] [address] [place] Anion gap [Moles/Vol] 12 mmol/L Normal 8-15 [facility] Comment on above: Order Comment: Speci men Type: BLOOD SPECIMEN Ordering Facility: [facility] Address: [address] [place] [address] Performed By: #### 3 024-7, 3016-3 #### [facility] CLIA [id number] [address] [place] [address] [place] AST [Catalytic activity/Vol] 27 U/L Normal 13-35 [facility] Comment on above: Order Comment: Speci men Type: BLOOD SPECIMEN Ordering Facility: [facility] Address: [address] [place] [address] Performed By: #### 3 024-7, 3016-3 #### [facility] CLIA [id number] [address] [place] [address] [place] Bilirubin [Mass/Vol] mg/dL Low 0.2-1.3 [facility] Comment on above: Order Comment: Speci men Type: BLOOD SPECIMEN Ordering Facility: [facility] Address: [address] [place] [address] Performed By: #### 3 024-7, 3016-3 #### [facility] CLIA [id number] [address] [place] [address] [place] Calcium [Mass/Vol] 9.0 mg/dL Normal 8.5-10.2 [facility] Comment on above: Order Comment: Speci men Type: BLOOD SPECIMEN Ordering Facility: [facility] Address: [address] [place] [address] Performed By: #### 3 024-7, 3016-3 #### [facility] CLIA [id number] [address] [place] [address] [place] Chloride [Moles/Vol] 102 mmol/L Normal 98-107 [facility] Comment on above: Order Comment: Speci men Type: BLOOD SPECIMEN Ordering Facility: [facility] Address: [address] [place] [address] Performed By: #### 3 024-7, 3016-3 #### [facility] CLIA [id number] [address] [place] [address] [place] CO2 [Moles/Vol] 21 mmol/L Low 22-30 [facility] Comment on above: Order Comment: Speci men Type: BLOOD SPECIMEN Ordering Facility: [facility] Address: [address] [place] [address] Performed By: #### 3 024-7, 3016-3 #### [facility] CLIA [id number] [address] [place] [address] [place] Creatinine [Mass/Vol] 0.41 mg/dL Low 0.58-0.96 [facility] Comment on above: Order Comment: Speci men Type: BLOOD SPECIMEN Ordering Facility: [facility] Address: [address] [place] [address] Performed By: #### 3 024-7, 3016-3 #### [facility] CLIA [id number] [address] [place] [address] [place] Creatinine and Glomerular filtration rate.predicted panel (S/P/Bld) 135 mL/min/1.73m??? Normal >=60 [facility] Comment on above: Order Comment: Speci men Type: BLOOD SPECIMEN Ordering Facility: [facility] Address: [address] [place] [address] Result Comment: Lyndsey mated Glomerular Filtration Rate [...] Performed By: #### 3 024-7, 6-3 #### [facility] CLIA [id number] [address] [place] [address] [place] Glucose [Mass/Vol] 73 mg/dL Low 74-99 [facility] Comment on above: Order Comment: Yennifer puga Type: BLOOD SPECIMEN Ordering Facility: [facility] Address: [address] [place] [address] Result Comment: The [place] [employer] (ADA) provides guidance for cutoff [...] Standards of Medical Care in Diabetes 2016, [place] [employer]. Diabetes Care. 2016.39(Suppl 1). Performed By: #### 3 024-7, 3015-3 #### [facility] CLIA [id number] [address] [place] [address] [place] Potassium [Moles/Vol] 3.7 mmol/L Normal 3.7-5.1 [facility] Comment on above: Order Comment: Yennifer puga Type: BLOOD SPECIMEN Ordering Facility: [facility] Address: [address] [place] [address] Performed By: #### 3 024-7, 3015-3 #### [facility] CLIA [id number] [address] [place], [place] [id number] [place] Protein [Mass/Vol] 7.1 g/dL Normal 6.3-8.0 [facility] Comment on above: Order Comment: Speci men Type: BLOOD SPECIMEN Ordering Facility: [facility] Address: [address] [place] [address] Performed By: #### 3 024-7, 3016-3 #### [facility] CLIA [id number] [address] [place] [address] [place] Sodium [Moles/Vol] 135 mmol/L Low 136-144 [facility] Comment on above: Order Comment: Speci men Type: BLOOD SPECIMEN Ordering Facility: [facility] Address: [address] [place] [address] Performed By: #### 3 024-7, 3016-3 #### [facility] CLIA [id number] [address] [place] [address] [place] Urea nitrogen [Mass/Vol] 6 mg/dL Low 7-21 [facility] Comment on above: Order Comment: Speci men Type: BLOOD SPECIMEN Ordering Facility: [facility] Address: [address] [place] [address] Performed By: #### 3 024-7, 3016-3 #### [facility] CLIA [id number] [address] [place] [address] [place] Lipase SerPl-cCncon 08-17-19 25 Lipase [Catalytic activity/Vol] 45 U/L Normal 16-61 [facility] Comment on above: Order Comment: Speci men Type: BLOOD SPECIMEN Ordering Facility: [facility] Address: [address] [place] [address] Performed By: #### 3 024-7, 3016-3 #### [facility] CLIA [id number] [address] [place] [address] [place] Bacteria Ur Culton 5 Bacteria identified Cx Nom (U) ORGANISM ID: 1 10,000 -<50,000 CFU/ml Normal urogenital remy Normal [facility] Comment on above: Performed By: #### 3 024-7, 3016-3 #### [facility] CLIA [id number] [address] [place] [address] [place] Jacob 08-13-2024 CNPN Telephone (OBGYWM) ORAIGNACIO Palomo ([id number]) 1995 F Date Time Provider Department 08/13/24 JOCELYN COOLEY OBHEENAWVeronica During your visit today, we recorded the following information about you: Marylu Simons RN 08/13/2024 9:05 AM Signed 26w2d Went to [facility] ER for pain in kidney/gallbladder. Pt [...] bed at this time. Records requested from [facility] for appt scheduled in office today with [...] Status:Closed by MARYLU SIMONS on 08/13/24 Normal [facility] UA DIP, URINE (POC)on 2024 BILIRUBIN UA (POCT) Negative Negative [facility] CLARITY UA (POCT) Clear [facility] COLOR UA (POCT) Yellow [facility] GLUCOSE UA (POCT) Negative Negative mg/dL [facility] Hemoglobin Ql (U) Negative Negative [facility] Interpretation and review of laboratory results Abnormal [facility] KETONE UA (POCT) Trace Negative mg/dL [facility] LEUKOCYTES UA (POCT) Negative Negative [facility] NITRITE UA (POCT) Negative Negative [facility] PH UA (POCT) 6.5 4.5 - 8.0 [facility] Protein Ql (U) Trace Abnormal Negative mg/dL [facility] SPECIFIC GRAVITY UA (POCT) 1.02 1.005 - 1.030 [facility] UROBILINOGEN UA (POCT) 0.2 Normal E.U./dL [facility] Location:[facility], [address] , [place], [place], [id number] [place] [address] POINT OF CARE [facility] US ABDOMEN LIMITEDon 025 US ABDOMEN LIMITED [...] 08/13/2024 12:52:23 AM Ordering Provider: JENNIFER Jack [facility] .Auto Diffon 08-12-2024 Basophil, Absolute 0.0 10 3/mcL Normal 0.0-0.3 [facility] Comment on above: Performed By: #### A FLAKITA, CMP, CBC, GFR, ADIFF #### [place] [id number] [place] [address] Basophils/100 WBC (Bld) 0.1 % Normal 0.0-2.5 [facility] Comment on above: Performed By: #### A FLAKITA, CMP, CBC, GFR, ADIFF #### [address] [address] Eosinophil, Absolute 0.1 10 3/mcL Normal 0.0-0.7 [facility] Comment on above: Performed By: #### A FLAKITA, CMP, CBC, GFR, ADIFF #### [address] [address] Eosinophils/100 WBC (Bld) 0.4 % Normal 0.0-6.0 [facility] Comment on above: Performed By: #### A FLAKITA, CMP, CBC, GFR, ADIFF #### [address] [address] Lymphocyte, Absolute 1.6 10 3/mcL Normal 0.9-4.3 [facility] Comment on above: Performed By: #### A FLAKITA, CMP, CBC, GFR, ADIFF #### [address] [address] Lymphocytes/100 WBC (Bld) 9.9 % Low 20.0-40.0 [facility] Comment on above: Performed By: #### A FLAKITA, CMP, CBC, GFR, ADIFF #### [address] [address] Monocyte, Absolute 1.2 10 3/mcL Normal 0.1-1.4 [facility] Comment on above: Performed By: #### A FLAKITA, CMP, CBC, GFR, ADIFF #### [address] [address] Monocytes/100 WBC (Bld) 7.7 % Normal 2.0-13.0 [facility] Comment on above: Performed By: #### A FLAKITA, CMP, CBC, GFR, ADIFF #### [address] [address] Neutrophils/100 WBC (Bld) 81.9 % High 50.0-75.0 [facility] Comment on above: Performed By: #### A FLAKITA, CMP, CBC, GFR, ADIFF #### [address] [address] .GFRon 08-12-2024 GFR/1.73 sq M.predicted among non-blacks MDRD (S/P/Bld) [Vol rate/Area] mL/min/{1.73_m2} Normal [facility] Comment on above: Result Comment: Stages [...] A FLAKITA, CMP, CBC, GFR, ADIFF #### [place] [address] .NEUABSon 08-12-2024 Neutrophil, Absolute 13.1 10 3/mcL High 2.3-8.1 [facility] Comment on above: Performed By: #### A FLAKITA, CMP, CBC, GFR, ADIFF #### [place] [address] AMYon 08-12-2024 Amylase [Catalytic activity/Vol] 94 U/L Normal 30-118 [facility] Comment on above: Result Comment: No te - New Reference Range in effect 19 Performed By: #### L IP, LD, KETAN #### [place] [address] CBCon 08-12-2024 Erythrocyte distribution width (RBC) [Ratio] 14.0 % Normal 11.5-15.5 [facility] Comment on above: Performed By: #### A FLAKITA, CMP, CBC, GFR, ADIFF #### [place] [address] Hematocrit (Bld) [Volume fraction] 34.9 % Normal 34.0-46.0 [facility] Comment on above: Performed By: #### A FLAKITA, CMP, CBC, GFR, ADIFF #### [place] [address] Hgb 12.0 G/dL Normal 12.0-16.0 [facility] Comment on above: Performed By: #### A FLAKITA, CMP, CBC, GFR, ADIFF #### [address] [address] MCH (RBC) [Entitic mass] 30.1 pg Normal 27.0-33.0 [facility] Comment on above: Performed By: #### A FLAKITA, CMP, CBC, GFR, ADIFF #### [place] [address] MCHC 34.3 G/dL Normal 32.0-36.0 [facility] Comment on above: Performed By: #### A FLAKITA, CMP, CBC, GFR, ADIFF #### [place] [address] MCV (RBC) [Entitic vol] 87.7 fL Normal 80.0-99.0 [facility] Comment on above: Performed By: #### A FLAKITA, CMP, CBC, GFR, ADIFF #### [place] [address] Platelet 223 10 3/mcL Normal 150-450 [facility] Comment on above: Performed By: #### A FLAKITA, CMP, CBC, GFR, ADIFF #### [place] [address] Platelet mean volume (Bld) [Entitic vol] 8.8 fL Normal 6.6-10.5 [facility] Comment on above: Performed By: #### A FLAKITA, CMP, CBC, GFR, ADIFF #### [place] [address] RBC 3.98 10 6/mcL Low 4.10-5.30 [facility] Comment on above: Performed By: #### A FLAKITA, CMP, CBC, GFR, ADIFF #### [place] [phone] WBC 16.0 10 3/mcL High 4.5-10.8 [facility] Comment on above: Performed By: #### A FLAKITA, CMP, CBC, GFR, ADIFF #### [address] [address] CMPon 08-12-2024 Albumin Level 3.2 G/dL Normal 3.2-4.8 [facility] Comment on above: Performed By: #### A FLAKITA, CMP, CBC, GFR, ADIFF #### [address] [address] Albumin/Globulin [Mass ratio] 0.9 {ratio} Normal 0.9-1.6 [facility] Comment on above: Performed By: #### A FLAKITA, CMP, CBC, GFR, ADIFF #### [place] [phone] ALP [Catalytic activity/Vol] 61 U/L Normal 38-126 [facility] Comment on above: Performed By: #### A FLAKITA, CMP, CBC, GFR, ADIFF #### [place] [phone] ALT [Catalytic activity/Vol] 56 U/L High 10-49 [facility] Comment on above: Performed By: #### A FLAKITA, CMP, CBC, GFR, ADIFF #### [place] [phone] AST [Catalytic activity/Vol] 41 U/L High 8-34 [facility] Comment on above: Performed By: #### A FLAKITA, CMP, CBC, GFR, ADIFF #### [place] [phone] Bili Total 0.30 mg/dL Normal 0.20-1.20 [facility] Comment on above: Result Comment: Use of this assay is not recommended for patients undergoing treatment with eltrombopag due to the potential for falsely elevated results. Performed By: #### A FLAKITA, CMP, CBC, GFR, ADIFF #### [place] [phone] BUN/Creatinine Ratio 15.0 ratio Normal 10.0-22.0 [facility] Comment on above: Performed By: #### A FLAKITA, CMP, CBC, GFR, ADIFF #### [place] [phone] Calcium [Mass/Vol] 9.0 mg/dL Normal 8.7-10.4 [facility] Comment on above: Performed By: #### A FLAKITA, CMP, CBC, GFR, ADIFF #### [address] [address] Chloride [Moles/Vol] 104 mmol/L Normal 98-110 [facility] Comment on above: Performed By: #### A FLAKITA, CMP, CBC, GFR, ADIFF #### [address] [address] CO2 [Moles/Vol] 21 mmol/L Low 22-32 [facility] Comment on above: Performed By: #### A FLAKITA, CMP, CBC, GFR, ADIFF #### [address] [address] Creatinine [Mass/Vol] 0.40 mg/dL Low 0.50-1.20 [facility] Comment on above: Result Comment: Test ing performed on [employer] analyzer using enzymatic creatinine methodology. Performed By: #### A FLAKITA, CMP, CBC, GFR, ADIFF #### [address] [address] Electrolyte Balance 14.0 mEq/L Normal 4.0-15.0 [facility] Comment on above: Performed By: #### A FLAKITA, CMP, CBC, GFR, ADIFF #### [address] [address] Globulin 3.7 G/dL Normal 2.5-4.2 [facility] Comment on above: Performed By: #### A FLAKITA, CMP, CBC, GFR, ADIFF #### [address] [address] Glucose [Mass/Vol] 125 mg/dL High 70-110 [facility] Comment on above: Performed By: #### A FLAKITA, CMP, CBC, GFR, ADIFF #### [address] [address] Potassium [Moles/Vol] 3.3 mmol/L Low 3.5-5.0 [facility] Comment on above: Performed By: #### A FLAKITA, CMP, CBC, GFR, ADIFF #### [address] [address] Sodium [Moles/Vol] 139 mmol/L Normal 136-145 [facility] Comment on above: Performed By: #### A FLAKITA, CMP, CBC, GFR, ADIFF #### [place] [phone] Total Protein 6.9 G/dL Normal 5.7-8.2 [facility] Comment on above: Performed By: #### A FLAKITA, CMP, CBC, GFR, ADIFF #### [place] [phone] Urea nitrogen [Mass/Vol] 6.0 mg/dL Low 8.0-22.0 [facility] Comment on above: Performed By: #### A FLAKITA, CMP, CBC, GFR, ADIFF #### [place] [phone] HEPACon 08-12-2024 Hep A IgM Ab Non-Reactive Normal Non-Reactive [facility] Comment on above: Performed By: #### H EPAC #### [place] [phone] Hep A IgM Ab Int See [facility] Comment on above: Result Comment: Clinical Interpretation: No serological evidence of a current Hepatitis A infection. Performed By: #### H EPAC #### [place] [id number] Hep B Core IgM Ab Non-Reactive Normal [facility] Comment on above: Performed By: #### H EPAC #### [place] [id number] Hep B Core IgM Ab Int See [facility] Comment on above: Result Comment: Clinical Interpretation: Samples with a value < 0.80 Index are considered nonreactive (negative) for IgM antibodies to hepatitis B core antigen. Performed By: #### H EPAC #### [place] [id number] Hep B Surf Ag Non-Reactive Normal Non-[facility] Comment on above: Performed By: #### H EPAC #### [place] [id number] Hep C Ab Non-Reactive Normal Non-Reactive [facility] Comment on above: Performed By: #### H EPAC #### [place] [address] Hep C Ab Int See Interp Normal [facility] Comment on above: Result Comment: Clinical Interpretation: Nonreactive: Samples with a value < 0.80 are considered nonreactive (negative) for antibodies to HCV. A negative test result does not exclude the possibility of exposure to or infection with HCV. HCV antibodies may be undetectable in some stages of the infection and in some clinical conditions. Performed By: #### H EPAC #### [place] [id number] [place] [address] LABORATORYOrdered By: Selene Leigh on 08-12-2024 HAV [...] Glucose Testing Reason Routine (08/12/24 10:13 PM) [facility] Work Phone: Glucose [Mass/Vol] 90 mg/dL Normal 70 - 110 mg/dL [facility] Work Phone: LABORATORYOrdered By: SYSTEM SYSTEM on [...] above: Interpretive Data: T esting performed on [employer] analyzer using enzymatic creatinine methodology. Electrolyte Balance [...] LDHon 08-12-2024 LDH 167 U/L Normal 120-246 [facility] Comment on above: Performed By: #### L RIK MORA, KETAN #### [place] [address] LIPon 08-12-2024 Lipase Level 57 U/L High 12-53 [facility] Comment on above: Performed By: #### L RIK MORA AMY #### [place] [address] UAon 08-12-2024 Color (U) Yellow Normal [facility] Comment on above: Performed By: #### L RIK MORA, KETAN #### [place] [id number] Glucose (U) [Mass/Vol] 500 mg/dL Abnormal Negative [facility] Comment on above: Performed By: #### L RIK MORA, KETAN #### [place] [phone] Ketones Ql (U) Trace Normal Neg-Trace [facility] Comment on above: Performed By: #### L RIK MORA, KETAN #### [place] [address] UA Appear Clear Normal Clear [facility] Comment on above: Performed By: #### L RIK MORA, KETAN #### [place] [address] UA Blood Negative Normal Neg-Trace [facility] Comment on above: Performed By: #### L IP LD, KETAN #### [place] [address] UA Leuk Est Negative Normal Negative [facility] Comment on above: Performed By: #### L IP, LD, KETAN #### [place] [address] UA Nitrite Negative Normal Negative [facility] Comment on above: Performed By: #### L IP, LD, KETAN #### [place] [address] UA pH 7.0 Normal 5.0 - 8.0 [facility] Comment on above: Performed By: #### L IP, LD, KETAN #### [place] [address] UA Protein Negative Normal Negative [facility] Comment on above: Performed By: #### L IP LD, KETAN #### [place] [address] UA Spec Grav 1.010 Normal 1.006-1.029 [facility] Comment on above: Performed By: #### L IPRIK, KETAN #### [place] [address] UA Specimen Type Clean Catch Normal [facility] Comment on above: Performed By: #### L IP LD, KETAN #### [place] [address] UA Urobilinogen 0.2 E.U./dL Normal 0.2-1.0 [facility] Comment on above: Performed By: #### L IP, LD, KETAN #### [place] [address] Urobilinogen (U) [Mass/Vol] Negative Normal Neg-Trace [facility] Comment on above: Performed By: #### L IP, LD, KETAN #### [place] [address] ALLERGEN SKIN TEST-PENICILLI Non 05-24-2024 ANTIBIOTIC PERCUTANEOUS [...] W = 3 mm F = 6mm [facility] 64221-268-36 Lot [id number] Exp 04/04 HISTAMINE- positive control (Histamine base 6mg/ml)for Prick and 0.1 mg/ml for intradermal P: W = 7 mm F = 20 mm [facility] CNOVon 05-24-2024 CN Office Visit ([facility] ) IGNACIO PETTIT ([id number]) 1995 F Date Time Provider Department 05/24/24 10:[address] 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 Normal [facility] Examination level ultrasound on 05-05-2024 Indication First trimester anatomic survey, History of delivery Impression REMOTE READ The patient is referred for a first trimester anatomy scan including nuchal translucency measurement as clinically indicated. - Single, live, intrauterine . - [place] rump length measurement is consistent with the [...] view: visualized 4-chamber view with color: visualized 4-meioil-whzehbp view: normal Abdominal cord insertion: normal Stomach: [...] Read By: Teresa Manriquez M.D. MATERNAL MEDICINE [facility] Radiology Study observation (narrative) [facility] [id number] PLUSon 04-22-2024 Cell-free DNA./Cell-free DNA.total Dosage of chromosome-specific cfDNA (cfDNA) [Molar fraction] 17% Normal [facility] Comment on above: Order Comment: Speci men Type: BLOOD SPECIMEN Ordering Facility: [facility] Address: [address] [place] [address] Performed By: #### 3 024-7, 3016-3 #### [facility] CLIA [id number] [address] [place] [address] [place] [address] [place] Chr 13+18+21+X+Y aneuploidy Dosage of chromosome-specific cfDNA Ql (cfDNA) Negative Normal [facility] Comment on above: Order Comment: Speci men Type: BLOOD SPECIMEN Ordering Facility: [facility] Address: [address] [place] [address] Performed By: #### 3 024-7, 3016-3 #### [facility] CLIA [id number] [address] [place] [address] [place] Chr 21 trisomy Dosage of chromosome-specific cfDNA Ql (cfDNA) Negative Normal [facility] Comment on above: Order Comment: Speci men Type: BLOOD SPECIMEN Ordering Facility: [facility] Address: [address] [place] [address] Performed By: #### 3 024-7, 3016-3 #### [facility] CLIA [id number] [address] [place] [address] [place] Chr X and Y aneuploidy risk Sequencing Ql (cfDNA) [Interp] Not detected Normal [facility] Comment on above: Order Comment: Speci men Type: BLOOD SPECIMEN Ordering Facility: [facility] Address: [address] [place] [address] Result Comment: Not Detected Not Detected Performed By: #### 3 024-7, 3016-3 #### [facility] CLIA [id number] [address] [place] [address] [place] Citation Williams (Reference lab test) Comment Normal [facility] Comment on above: Order Comment: Speci men Type: BLOOD SPECIMEN Ordering Facility: [facility] Address: [address] [place] [address] Result Comment: 1. P magnolia RANDOLPH, et al. [place] Med. 2012;14(3):296-305. 2. Gucci TAMAYO, et al. Prenat Diag. 2013;33(6):591-597. 3. Quincy Lagos, et al. Clin Chem. 2015 Apr;61(4):608-616. 4. Johnny RANDOLPH, et al. [place] Med. 2011;13(11):913-920. 5. ACOG/SMFM Practice Bulletin No. 226, Dec 2019. Performed By: #### 3 024-7, 3016-3 #### [facility] CLIA [id number] [address] [place] [address] [place] Gestational age Estimated from conception date Campbell Normal [facility] Comment on above: Order Comment: Speci men Type: BLOOD SPECIMEN Ordering Facility: [facility] Address: [address] [place] [address] Performed By: #### 3 024-7, 301-3 #### [facility] CLIA [id number] [address] [place] [address] [place] GESTATIONALAGE AGE > OR = 9W Yes Normal [facility] Comment on above: Order Comment: Farrahi vivien Type: BLOOD SPECIMEN Ordering Facility: [facility] Address: [address] [place] [address] Performed By: #### 3 024-7, 3015-3 #### [facility] CLIA [id number] [address] [place] [address] [place] Laboratory comment Williams (Report) Comment Normal [facility] Comment on above: Order Comment: Yennifer puga Type: BLOOD SPECIMEN Ordering Facility: [facility] Address: [address] [place] [address] Result Comment: The MaterniT(R) 21 PLUS laboratory-developed [...] Performed By: #### 3 024-7, 6-3 #### [facility] CLIA [id number] [address] [place] [address] [place] corporate events director name Nom (Provider) Comment Normal [facility] Comment on above: Order Comment: Farrahi vivien Type: BLOOD SPECIMEN Ordering Facility: [facility] Address: [address] [place] [address] Result Comment: This specimen showed an expected representation of chromosome 21, 18 and 13 material. Clinical correlation is suggested. Comment Dung Moore MD, PhD, Director, [employer] Performed By: #### 3 024-7, 3016-3 #### [facility] CLIA [id number] [address] [place] [address] [place] [address] [place] LIMITATIONS OF THE TEST Comment Normal [facility] Comment on above: Order Comment: Speci men Type: BLOOD SPECIMEN Ordering Facility: [facility] Address: [address] [place] [address] Result Comment: Whil e the results of [...] Performed By: #### 3 024-7, 3016-3 #### [facility] CLIA [id number] [address] [place] [address] [facility] Monosomy X risk Dosage of chromosome-specific cfDNA Ql (Plasma cell-free+WBC DNA) [Interp] Not detected Normal [facility] Comment on above: Order Comment: Yennifer puga Type: BLOOD SPECIMEN Ordering Facility: [facility] Address: [address] [place] [address] Performed By: #### 3 024-7, 3015-3 #### [facility] CLIA [id number] [address] [place] [address] [facility] NEGATIVE PREDICTIVE VALUE Note Normal [facility] Comment on above: Order Comment: Yennifer puga Type: BLOOD SPECIMEN Ordering Facility: [facility] Address: [address] [place] [address] Result Comment: The Negative Predictive Value (NPV) for trisomy 21, 18, and 13 is greater than 99%. The NPV for SCA and ESS cannot be calculated as SCA and ESS are only reported when an abnormality is detected. Performed By: #### 3 024-7, 3016-3 #### [facility] CLIA [id number] [address] [place] [address] [place] PERFORMANCE CHARACTERISTICS Note Normal [facility] Comment on above: Order Comment: Yennifer puga Type: BLOOD SPECIMEN Ordering Facility: [facility] Address: [address] [place] [address] Result Comment: ! Sex ! Accuracy: 99.4% [...] Performed By: #### 3 024-7, 3015-3 #### [facility] CLIA [id number] [address] [place] [address] [place] POSITIVE PREDICTIVE VALUE N/A Normal [facility] Comment on above: Order Comment: Speci men Type: BLOOD SPECIMEN Ordering Facility: [facility] Address: [address] [place] [address] Performed By: #### 3 024-7, 3015-3 #### [facility] CLIA [id number] [address] [place] [address] [place] Reference Lab Test Method Comment Normal [facility] Comment on above: Order Comment: Speci men Type: BLOOD SPECIMEN Ordering Facility: [facility] Address: [address] [place] [address] Result Comment: See Notes Circulating cell-free DNA [...] Performed By: #### 3 024-7, 3015-3 #### [facility] CLIA [id number] [address] [place] [address] [place] Service comment (Unsp spec) [Interp] Comment Normal [facility] Comment on above: Order Comment: Speci men Type: BLOOD SPECIMEN Ordering Facility: [facility] Address: [address] [place] [address] Result Comment: See Notes [employer] is a subsidiary of [email or web address], using the brand [employer]. This test was developed and its performance characteristics determined by [employer]. It has not been cleared or approved by the Food and Drug Administration. This laboratory is certified under the Clinical Laboratory Improvement Amendments (CLIA) as qualified to perform high complexity clinical laboratory testing and accredited by the [employer] (CAP). If there is future clinical need for adding MaterniT GENOME testing, this specimen will be available until term. [facility] samples will not be retained beyond 60 days. [facility] patients will have to send a new sample for re-sequencing ([facility] Test Code: 610334). Performed By: #### 3 024-7, 6-3 #### [facility] CLIA [id number] [address] [place] [address] [place] Sex Dosage of chromosome-specific cfDNA Nom (cfDNA) Comment Normal [facility] Comment on above: Order Comment: Speci men Type: BLOOD SPECIMEN Ordering Facility: [facility] Address: [address] [place] [address] Result Comment: Cons istent with Male Performed By: #### 3 024-7, 3015-3 #### [facility] CLIA [id number] [address] [place] [address] [place] Test performance information Williams (Unsp spec) Comment Normal [facility] Comment on above: Order Comment: Speci men Type: BLOOD SPECIMEN Ordering Facility: [facility] Address: [address] [place] [address] Result Comment: The performance characteristics of the MaterniT(R) 21 PLUS laboratory-developed test (LDT) have been determined in a clinical validation study with women at increased risk for chromosomal aneuploidy.[1-4] Performed By: #### 3 024-7, 3016-3 #### [facility] CLIA [id number] [address] [place] [address] [place] Trisomy 13 risk Dosage of chromosome-specific cfDNA Ql (cfDNA) [Interp] Negative Normal [facility] Comment on above: Order Comment: Speci men Type: BLOOD SPECIMEN Ordering Facility: [facility] Address: [address] [place] [address] Performed By: #### 3 024-7, 3016-3 #### [facility] CLIA [id number] [address] [place] [address] [place] Trisomy 18 risk Dosage of chromosome-specific cfDNA Ql (Plasma cell-free+WBC DNA) [Interp] Negative Normal [facility] Comment on above: Order Comment: Speci men Type: BLOOD SPECIMEN Ordering Facility: [facility] Address: [address] [place] [address] Performed By: #### 3 024-7, 3016-3 #### [facility] CLIA [id number] [address] [place] [address] [place] CBC W Auto Differential pane l (Bld)on 04-08-2024 Basophils (Bld) [#/Vol] 0.04 10*3/uL Normal <0.11 [facility] Comment on above: Order Comment: Speci men Type: BLOOD SPECIMEN Ordering Facility: [facility] Address: [address] [place] [address] Performed By: #### 5 7021-8 #### [facility] CLIA [id number] [address] [place] [address] [place] Basophils/100 WBC (Bld) 0.4 % Normal [facility] Comment on above: Order Comment: Speci men Type: BLOOD SPECIMEN Ordering Facility: [facility] Address: [address] [place] [address] Performed By: #### 5 7021-8 #### [facility] CLIA [id number] [address] [place] [address] [place] Differential cell count method Nom (Bld) Auto Normal [facility] Comment on above: Order Comment: Speci men Type: BLOOD SPECIMEN Ordering Facility: [facility] Address: [address] [place] [address] Performed By: #### 5 7021-8 #### [facility] CLIA [id number] [address] [place] [address] [place] Eosinophils (Bld) [#/Vol] 0.09 10*3/uL Normal <0.46 [facility] Comment on above: Order Comment: Speci men Type: BLOOD SPECIMEN Ordering Facility: [facility] Address: [address] [place] [address] Performed By: #### 5 7021-8 #### [facility] CLIA [id number] [address] [place] [address] [place] Eosinophils/100 WBC (Bld) 0.9 % Normal [facility] Comment on above: Order Comment: Speci men Type: BLOOD SPECIMEN Ordering Facility: [facility] Address: [address] [place] [address] Performed By: #### 5 7021-8 #### [facility] [id number] [address] [place] [address] [place] Erythrocyte distribution width (RBC) [Ratio] 12.8 % Normal 11.5-15.0 [facility] Comment on above: Order Comment: Speci men Type: BLOOD SPECIMEN Ordering Facility: [facility] Address: [address] [place] [address] Performed By: #### 5 7021-8 #### [facility] CLIA [id number] [address] [place] [address] [place] Hematocrit (Bld) [Volume fraction] 36.9 % Normal 36.0-46.0 [facility] Comment on above: Order Comment: Speci men Type: BLOOD SPECIMEN Ordering Facility: [facility] Address: [address] [place] [address] Performed By: #### 5 7021-8 #### [facility] CLIA [id number] [address] [place] [address] [place] Hemoglobin (Bld) [Mass/Vol] 12.8 g/dL Normal 11.5-15.5 [facility] Comment on above: Order Comment: Speci men Type: BLOOD SPECIMEN Ordering Facility: [facility] Address: [address] [place], [place] [address] Performed By: #### 5 7021-8 #### [facility] CLIA [id number] [address] [place] [address] [place] Immature granulocytes (Bld) [#/Vol] 0.03 10*3/uL Normal <0.10 [facility] Comment on above: Order Comment: Speci men Type: BLOOD SPECIMEN Ordering Facility: [facility] Address: [address] [place] [address] Performed By: #### 5 7021-8 #### [facility] CLIA [id number] [address] [place] [address] [place] Immature granulocytes/100 WBC (Bld) 0.3 % Normal [facility] Comment on above: Order Comment: Speci men Type: BLOOD SPECIMEN Ordering Facility: [facility] Address: [address] [place] [address] Performed By: #### 5 7021-8 #### [facility] CLIA [id number] [address] [place] [address] [place] Lymphocytes (Bld) [#/Vol] 2.07 10*3/uL Normal 1.00-4.00 [facility] Comment on above: Order Comment: Speci men Type: BLOOD SPECIMEN Ordering Facility: [facility] Address: [address] [place] [address] Performed By: #### 5 7021-8 #### [facility] CLIA [id number] [address] [place] [address] [place] Lymphocytes/100 WBC (Bld) 21.0 % Normal [facility] Comment on above: Order Comment: Speci men Type: BLOOD SPECIMEN Ordering Facility: [facility] Address: [address] [place] [address] Performed By: #### 5 7021-8 #### [facility] CLIA [id number] [address] [place] [address] [place] MCH (RBC) [Entitic mass] 29.4 pg Normal 26.0-34.0 [facility] Comment on above: Order Comment: Speci men Type: BLOOD SPECIMEN Ordering Facility: [facility] Address: [address] [place] [address] Performed By: #### 5 7021-8 #### [facility] [id number] [address] [place] [address] [place] MCHC (RBC) [Mass/Vol] 34.7 g/dL Normal 30.5-36.0 [facility] Comment on above: Order Comment: Speci men Type: BLOOD SPECIMEN Ordering Facility: [facility] Address: [address] [place] [address] Performed By: #### 5 7021-8 #### [facility] [id number] [address] [place] [address] [place] MCV (RBC) [Entitic vol] 84.8 fL Normal 80.0-100.0 [facility] Comment on above: Order Comment: Speci men Type: BLOOD SPECIMEN Ordering Facility: [facility] Address: [address] [place] [address] Performed By: #### 5 7021-8 #### [facility] CLIA [id number] [address] [place] [address] [place] Monocytes (Bld) [#/Vol] 0.84 10*3/uL Normal <0.87 [facility] Comment on above: Order Comment: Speci men Type: BLOOD SPECIMEN Ordering Facility: [facility] Address: [address] [place] [address] Performed By: #### 5 7021-8 #### [facility] CLIA [id number] [address] [place] [address] [place] Monocytes/100 WBC (Bld) 8.5 % Normal [facility] Comment on above: Order Comment: Speci men Type: BLOOD SPECIMEN Ordering Facility: [facility] Address: [address] [place] [address] Performed By: #### 5 7021-8 #### [facility] CLIA [id number] [address] [place] [address] [place] Neutrophils (Bld) [#/Vol] 6.81 10*3/uL Normal 1.45-7.50 [facility] Comment on above: Order Comment: Speci men Type: BLOOD SPECIMEN Ordering Facility: [facility] Address: [address] [place] [address] Performed By: #### 5 7021-8 #### [facility] CLIA [id number] [address] [place] [address] [place] Neutrophils/100 WBC (Bld) 68.9 % Normal [facility] Comment on above: Order Comment: Speci men Type: BLOOD SPECIMEN Ordering Facility: [facility] Address: [address] [place] [address] Performed By: #### 5 7021-8 #### [facility] CLIA [id number] [address] [place] [address] [place] Nucleated RBC (Bld) [#/Vol] 10*3/uL Normal <0.01 [facility] Comment on above: Order Comment: Speci men Type: BLOOD SPECIMEN Ordering Facility: [facility] Address: [address] [place] [address] Performed By: #### 5 7021-8 #### [facility] CLIA [id number] [address] [place] [address] [place] Nucleated RBC/100 WBC (Bld) [Ratio] 0.0 /100 WBC Normal [facility] Comment on above: Order Comment: Speci men Type: BLOOD SPECIMEN Ordering Facility: [facility] Address: [address] [place] [address] Performed By: #### 5 7021-8 #### [facility] CLIA [id number] [address] [place] [address] [place] Platelet mean volume (Bld) [Entitic vol] 10.3 fL Normal 9.0-12.7 [facility] Comment on above: Order Comment: Speci men Type: BLOOD SPECIMEN Ordering Facility: [facility] Address: [address] [place], [place] [address] Performed By: #### 5 7021-8 #### [facility] CLIA [id number] [address] [place] [address] [place] Platelets (Bld) [#/Vol] 230 10*3/uL Normal 150-400 [facility] Comment on above: Order Comment: Speci men Type: BLOOD SPECIMEN Ordering Facility: [facility] Address: [address] [place] [address] Performed By: #### 5 7021-8 #### [facility] CLIA [id number] [address] [place] [address] [place] RBC (Bld) [#/Vol] 4.35 10*6/uL Normal 3.90-5.20 [facility] Comment on above: Order Comment: Speci men Type: BLOOD SPECIMEN Ordering Facility: [facility] Address: [address] [place] [address] Performed By: #### 5 7021-8 #### [facility] CLIA [id number] [address] [place] [address] [place] WBC (Bld) [#/Vol] 9.88 10*3/uL Normal 3.70-11.00 [facility] Comment on above: Order Comment: Speci men Type: BLOOD SPECIMEN Ordering Facility: [facility] Address: [address] [place] [address] Performed By: #### 5 7021-8 #### [facility] CLIA [id number] [address] [place] [address] [place] HBV surface Ag Ser Qlon 03-12 HBV surface Ag Ql (S) Negative Normal Negative [facility] Comment on above: Order Comment: Speci men Type: BLOOD SPECIMEN Ordering Facility: [facility] Address: [address] [place] [address] Performed By: #### 3 024-7, 3016-3 #### [facility] CLIA [id number] [address] [place] [address] [place] HCV Ab Ser Qlon 04-08-2024 HCV Ab Ql (S) Negative Normal Negative [facility] Comment on above: Order Comment: Speci men Type: BLOOD SPECIMEN Ordering Facility: [facility] Address: [address] [place] [address] Result Comment: The result suggests no evidence of active infection with Hepatitis C virus. Should recent infection be suspected, repeat testing may be considered 4-6 weeks after this draw. Performed By: #### T SPN #### [facility] CLIA [id number] [address] [place] [address] [place] HIV 1+2 Ab IA Qlon HIV 1 and 2 Ab IA.rapid Nom (S/P/Bld) Normal [facility] Comment on above: Order Comment: Speci men Type: BLOOD SPECIMEN Ordering Facility: [facility] Address: [address] [place] [address] Result Comment: Test not indicated. Performed By: #### 3 024-7, 3016-3 #### [facility] CLIA [id number] [address] [place] [address] [place] HIV 1+2 Ab+HIV1 p24 Ag IA Ql Non-Reactive Normal Nonreactive [facility] Comment on above: Order Comment: Speci men Type: BLOOD SPECIMEN Ordering Facility: [facility] Address: [address] [place] [address] Performed By: #### 3 024-7, 3015-3 #### [facility] CLIA [id number] [address] [place] [address] [place] HIV immunoassay testing algorithm interpretation (S/P/Bld) [Interp] Normal [facility] Comment on above: Order Comment: Speci men Type: BLOOD SPECIMEN Ordering Facility: [facility] Address: [address] [place] [address] Result Comment: No e vidence of HIV-1 or HIV-2 infection. Should recent infection be suspected, repeat testing may be considered 2-3 weeks after this draw. [place] Rev. Code 3701.243(E): This information has been [...] Performed By: #### 3 024-7, 3015-3 #### [facility] CLIA [id number] [address] [place] [address] [place] HbA1c (Bld)on 04-08-2024 Average glucose Estimated from glycated hemoglobin (Bld) [Mass/Vol] 91 mg/dL Normal [facility] Comment on above: Order Comment: Speci men Type: BLOOD SPECIMEN Ordering Facility: [facility] Address: [address] [place] [address] Result Comment: eAG: (Estimated average glucose) is a calculated value from HgbA1c and is credit representative of the average blood glucose level in the last 2-3 month period. Performed By: #### T SPN #### [facility] CLIA [id number] [address] [place] [address] [place] HbA1c (Bld) [Mass fraction] 4.8 % Normal 4.3-5.6 [facility] Comment on above: Order Comment: Speci men Type: BLOOD SPECIMEN Ordering Facility: [facility] Address: [address] [place] [address] Result Comment: Amer [place] Diabetes Association guidelines indicate that patients with HgbA1c in the range 5.7-6.4% are at increased risk for development of diabetes, and intervention by lifestyle modification may be beneficial. HgbA1c greater or equal to 6.5% is considered diagnostic of diabetes. Performed By: #### T SPN #### [facility] CLIA [id number] [address] [place] [address] [place] RUBELLA IGG ANTIBODYon 04-08 RUBELLA IGG AB, QUAL Positive Normal Positive [facility] Comment on above: Order Comment: Speci [facility] Type: BLOOD SPECIMEN Ordering Facility: [facility] Address: [address] [place] [address] Result Comment: The result suggests recent or past exposure to Rubella virus or history of Rubella vaccination. Positive result may also be seen due to presence of passively-transferred antibodies. Please correlate with patient's history. Performed By: #### 3 024-7, 6-3 #### [facility] CLIA [id number] [address] [place] [address] [place] Reagin and Treponema pallidu m IgG and IgM [Interp]on 04-08-2024 T. pallidum IgG+IgM IA Ql (S) Non-Reactive Normal Nonreactive [facility] Comment on above: Order Comment: Speci [facility] Type: BLOOD SPECIMEN Ordering Facility: [facility] Address: [address] [place] [address] Performed By: #### 3 024-7, 3016-3 #### [facility] CLIA [id number] [address] [place] [address] [place] Reagin+T pallidum IgG+IgM Se rPl-Impon 04-08-2024 Reagin and Treponema pallidum IgG and IgM [Interp] Cannot exclude recent Treponemal infection if specimen collected within 7-10 days after appearance of suspect lesions or 2-3 weeks after an exposure. Clinical correlation is required. Normal [facility] Comment on above: Order Comment: Speci men Type: BLOOD SPECIMEN Ordering Facility: [facility] Address: [address] [place] [address] Performed By: #### 3 024-7, 3016-3 #### [facility] [place] [id number] [address] [place] [address] [place] T4 Free SerPl-mCncon 025 Free T4 [Mass/Vol] 1.3 ng/dL Normal 0.9-1.7 [facility] Comment on above: Order Comment: Speci men Type: BLOOD SPECIMEN Ordering Facility: [facility] Address: [address] [place] [address] Performed By: #### 3 024-7, 3016-3 #### [facility] [place] [id number] [address] [place] [address] [place] TSH SerPl-aCncon 04-08-2024 TSH Qn 0.941 m[IU]/L Normal 0.270-4.200 [facility] Comment on above: Order Comment: Speci men Type: BLOOD SPECIMEN Ordering Facility: [facility] Address: [address] [place] [address] Result Comment: If t he patient is , TSH reference range varies by gestational period: First Trimester (weeks 9-12): 0.180-2.990 mIU/L Second Trimester: 0.110-3.980 mIU/L Third Trimester: 0.480-4.710 mIU/L Wilder Tanner et al. A Practical Approach for the Verifications and Determination of Site- and Trimester-Specific Reference Intervals for Thyroid Function tests in . Thyroid, 2019:29:3:412-420. Jorge Palomo, et al. 2017 Guidelines of the [place] Thyroid Association for the Diagnosis and Management of Thyroid Disease during and the . Thyroid, 2017:27:3:315-389. Performed By: #### 3 024-7, 3016-3 #### [facility] CLIA [id number] [address] [place] [address] [place] TYPE + SCREEN PRENATALon ABO B Normal [facility] Comment on above: Order Comment: Speci men Type: BLOOD SPECIMEN Ordering Facility: [facility] Address: [address] [place] [address] Performed By: #### T SPN #### [facility] CLIA [id number] [address] [place] [address] [place] Rh Nom (Bld) Positive Normal [facility] Comment on above: Order Comment: Speci men Type: BLOOD SPECIMEN Ordering Facility: [facility] Address: [address] [place] [address] Performed By: #### T SPN #### [facility] CLIA [id number] [address] [place] [address] STATES OF [facility] TYPE AND SCREEN EXPIRATION 04/11/2024 23:59 Normal [facility] Comment on above: Order Comment: Speci men Type: BLOOD SPECIMEN Ordering Facility: [facility] Address: [address] [place] [address] Performed By: #### T SPN #### [facility] CLIA [id number] [address] [place] [address] [place] Bacteria Ur Culton 5 Bacteria identified Cx Nom (U) ORGANISM ID: 1 <10,000 CFU/ml Normal urogenital remy Normal [facility] Comment on above: Performed By: #### 3 024-7, 3016-3 #### [facility] CLIA [id number] [address] [place] [address] [place] C. trachomatis+N. gonorrhoea e DNA RICH+probe Ql (Unsp spec)on 04-05-2024 C. trachomatis rRNA RICH+probe Ql (Unsp spec) Not detected Normal Not detected [facility] Comment on above: Order Comment: Speci men Type: BLOOD SPECIMEN Ordering Facility: [facility] Address: [address] [place] [address] Performed By: #### 3 024-7, 3016-3 #### [facility] CLIA [id number] [address] [place] [address] N. gonorrhoeae rRNA RICH+probe Ql (Unsp spec) Not detected Normal Not detected [facility] Comment on above: Order Comment: Speci men Type: BLOOD SPECIMEN Ordering Facility: [facility] Address: [address] [place] [address] Performed By: #### 3 024-7, 3016-3 #### [facility] CLIA [id number] [address] [place] [address] [place] POC SUPERVISOR CEREAL ULTRASOUNDon 04-05-19 Indication Viability; confirm cardiac activity [...] Read By: Leodan Van NP MATERNAL MEDICINE [facility] Radiology Study observation (narrative) [facility] Jacob 2024 CNPN Telephone (OBGYWM) IGNACIO PETTIT ([id number]) 1995 F Date Time Provider Department 03/31/24 [...] Date Reviewed: 09/25/2023 Reviewed by: Stacy Caldera APRN.[facility] - Fully Assessed Reason for Visit: Appointment [...] Status:Closed by MARYLU SIMONS on 03/31/24 Normal [facility] B-HCG SerPl-aCncon 5 HCG.beta subunit Qn 1340.0 m[IU]/mL High <5.0 [facility] Comment on above: Order Comment: Speci men Type: BLOOD SPECIMEN Ordering Facility: [facility] Address: [address] [place] [address] Result Comment: HOLLIS TITATIVE HCG NORMAL RANGES Weeks of Gestation (Weeks Since LMP) 3 Weeks (5.8-71.2 mIU/mL) 4 Weeks (9.5-750 mIU/mL) 5 Weeks (217-7138 mIU/mL) 6 Weeks (158-61848 mIU/mL) 7 Weeks (3697-046328 mIU/mL) 8 Weeks (52482-439049 mIU/mL) 9 Weeks (44608-719182 mIU/mL) 10 Weeks (52124-610020 mIU/mL) 12 Weeks (06842-447247 mIU/mL) Referenced to 4th IS of [facility] Performed By: #### T SPN #### [facility] [id number] [address] [place] [address] [place] Jacob 03-15-2024 CNPN Telephone (OBGYWM) GINACIO PETTIT ([id number]) 1995 F Date Time Provider Department 03/15/24 [...] Date Reviewed: 09/25/2023 Reviewed by: Stacy Caldera APRN.[employer] - Fully Assessed Reason for Visit: Patient Question [1477] Primary Visit Diagnosis:Missed menses [N92.6] Order(s):HCG QUANTITATIVE [SQHCGQT] Order #: [id number] FUTURE Prescriptions as of 03/15/2024 - valACYclovir [...] Encounter Status:Closed by JOANNA OROZCO on 03/15/24 [facility] ED PROV NOTEon 09-13-2023 ED PROV NOTE HNO ID: [id number] Author: ИВАН REYES PA-C Service: Emergency Medicine Author Type: Physician Gravity Meter Observer Type: ED Provider Notes Filed: 09/13/2023 19:04 [...] and atraumatic. Jaw: No trismus. Mouth/Throat: Lips: Ty Ty. Mouth: Mucous membranes are moist. Pharynx: Oropharynx [...] Motor fu (more content not included)... Normal [facility] FLUABV+SARS-CoV-2+RSV Pnl Re sp RICH+probeon 09-13-2023 FLUABV+SARS-CoV-2+RSV Pnl Resp RICH+probe COVID 19 RESULT: Not detected The method used is RT-PCR or an equivalent NAAT method. Reference Range(the expected result in uninfected individuals): Not detected INFLUENZA A PCR: Not detected INFLUENZA B PCR: Not detected RSV PCR: Not detected Normal [facility] Comment on above: Performed By: #### 9 5941-1 #### [facility] CLIA [id number] [address] [place] [address] [place] XR CHEST 2V [...] tissues: Unremarkable. IMPRESSION: No acute radiographic abnormality. Facility Sales And Admin: MICHAEL Transcribe Date/Time: Sep 13 2023 5:27P Dictated by : NILE GARRISON MD This examination was interpreted and the report reviewed and electronically signed by: NILE GARRISON MD on Sep 13 2023 5:28PM EST [id number] Normal [facility] US THYROID/PARATHYROIDon [facility] ED Provider Noteon ED [facility] e[facility]GENCY dEPARTMENT eNCOUnter Pt Name: [...] on phone: None Gets together: None Attends christian service: None Active member of club or organization: None Attends meetings of clubs or organizations: None Relationship status: None ? Intimate partner violence Fear of current or ex partner: None Emotionally abused: None Physically abused: None Forced sexual activity: None Other Topics Concern ? None Social History Narrative ? None SCREENINGS @FLOW([id number])@ PHYSICAL EXAM (5+ for level 4, 8+ [...] results found (more content not included)... Normal [facility] ABO Rh Blood Typeon 11-09-19 19 ABO and Rh group Nom (Bld) ABO Group: B Rh, Gel: POS Normal [facility] Comment on above: Performed By: #### A BOB #### [address] [address] ABO/RHon 11-08-2018 Sodium [Moles/Vol] B [place] Sodium [Moles/Vol] Positive [place] Comment on above: Test Performed by [address] [address] Test Performed by [id number] [place] [address] Basic Metabolic Panelon Calcium [Mass/Vol] 9.0 mg/dL Normal 8.4-10.4 [facility] Comment on above: Performed By: #### H EMDF, BMP3, QWNT #### [address] Anion gap [Moles/Vol] 11 Normal [facility] Comment on above: Performed By: #### H EMDF, BMP3, QWNT #### [address] CO2 [Moles/Vol] 22 mmol/L Normal 22-30 [facility] Comment on above: Performed By: #### H EMDF, BMP3, QWNT #### [address] [place] [address] Creatinine [Mass/Vol] 0.62 mg/dL Normal 0.52-1.25 [facility] Comment on above: Performed By: #### H EMDF, BMP3, QWNT #### [facility] [address] [place] [address] GFR/1.73 sq M predicted among blacks MDRD (S/P/Bld) [Vol rate/Area] mL/min/{1.73_m2} Normal >60 [facility] Comment on above: Performed By: #### H EMDF, BMP3, QWNT #### [facility] [address] [place] [address] GFR/1.73 sq M predicted among non-blacks MDRD (S/P/Bld) [Vol rate/Area] mL/min/{1.73_m2} Normal >60 [facility] Comment on above: Result Comment: Sour ce- MDRD equation with creatinine calibration to IDMS(NKDEP) eGFR not recommended for drug dose adjustment Performed By: #### H EMDF, BMP3, QWNT #### [address] [place], [place] Glucose [Mass/Vol] 89 mg/dL Normal 70-100 [facility] Comment on above: Performed By: #### H EMDF, BMP3, QWNT #### [address] [place] [address] Urea nitrogen [Mass/Vol] 10 mg/dL Normal 7-20 [facility] Comment on above: Performed By: #### H EMDF, BMP3, QWNT #### [address] [place] [address] Chloride [Moles/Vol] 106 mmol/L Normal 98-107 [facility] Comment on above: Performed By: #### H EMDF, BMP3, QWNT #### [address] [place] [address] Potassium [Moles/Vol] 3.4 mmol/L Low 3.5-5.1 [facility] Comment on above: Performed By: #### H EMDF, BMP3, QWNT #### [facility] [address] [place] [address] Sodium [Moles/Vol] 139 mmol/L Normal 135-145 [facility] Comment on above: Performed By: #### H EMDF, BMP3, QWNT #### [facility] [address] [place] [address] Anion gap [Moles/Vol] 11 mmol/L [place], [place] Calcium [Mass/Vol] 9.0 mg/dL 8.4 - 10. 4 mg/dL [place] Chloride [Moles/Vol] 106 mmol/L 98 - 10 7 mmol/L [place] CO2 [Moles/Vol] 22 mmol/L 22 - 30 mmol/L [place] Creatinine [Mass/Vol] 0.62 mg/dL 0.52 - 1.25 mg/dL [place] EGFR IF NonAfrican [place] >60.0 >60 mL/min [place] Comment on above: Source- MDRD equatio n with creatinine calibration to IDMS(NKDEP) eGFR not recommended for drug dose adjustment GFR/1.73 sq M predicted among blacks MDRD (S/P/Bld) [Vol rate/Area] mL/min/{1.73_m2} >60 mL/min [place] Glucose [Mass/Vol] 89 mg/dL 70 - 100 mg/dL [place], [place] Interpretation and review of laboratory results Abnormal [place] Potassium [Moles/Vol] 3.4 mmol/L Low 3.5 - 5.1 mmol/L [place] Sodium [Moles/Vol] 139 mmol/L 135 - 145 mmol/L [place] Urea nitrogen [Mass/Vol] 10 mg/dL 7 - 20 mg/dL [place] Test Performed by [facility], [address] [place] [address] [place], [place] Complete Urinalysison 2018 Appearance (U) Clear Normal [facility] Comment on above: Result Comment: Refe rence Range: Clear Performed By: #### C UA2 #### [address] [place], [place] Bacteria LM.HPF (Urine sed) [#/Area] Negative Normal [facility] Comment on above: Result Comment: Refe rence Range: Negative Performed By: #### C UA2 #### [address] [place], [place] Bilirubin,Urine Negative Normal [facility] Comment on above: Result Comment: Refe rence Range: Negative Performed By: #### C UA2 #### [address] [place], [place] Cast, Hyaline Negative Normal [facility] Comment on above: Result Comment: Refe rence Range: Negative Performed By: #### C UA2 #### [address] [place] Color (U) Light-Yellow Normal [facility] Comment on above: Result Comment: Refe rence Range: Lt. Yellow Performed By: #### C UA2 #### [address] [place], [place] Glucose Ql (U) Normal Normal [facility] Comment on above: Result Comment: Refe rence Range: Normal (<70) Performed By: #### C UA2 #### [address] [place], [place] Ketone,Urine Negative Normal [facility] Comment on above: Result Comment: Refe rence Range: Negative Performed By: #### C UA2 #### [address] [place], [place] Leukocytes,Urine Negative Normal [facility] Comment on above: Result Comment: Refe rence Range: Negative Performed By: #### C UA2 #### [address] [place] Nitrites,Urine Negative Normal [facility] Comment on above: Result Comment: Refe rence Range: Negative Performed By: #### C UA2 #### [address] [place] Occult Blood,Urine 0.1 mg/dL Normal [facility] Comment on above: Result Comment: Refe rence Range: Negative Performed By: #### C UA2 #### [address] [place] pH (U) 7.5 Normal 5.0-8.0 [facility] Comment on above: Performed By: #### C UA2 #### [address] [place] Protein (U) [Mass/Vol] Negative Normal [facility] Comment on above: Result Comment: Refe rence Range: Negative Performed By: #### C UA2 #### [address] [place] RBC LM.HPF (Urine sed) [#/Area] 3 - 5 Normal [facility] Comment on above: Result Comment: Refe rence Range: 0-2 Performed By: #### C UA2 #### [address] [place], [place] Specific [place],Urine 1.018 Normal 1.005-1.030 [facility] Comment on above: Performed By: #### C UA2 #### [address] [place] Squamous Epithelial 0 - 2 Normal [facility] Comment on above: Result Comment: Refe rence Range: 3-5 Performed By: #### C UA2 #### [address] [place] Urobilinogen,Urine Normal Normal [facility] Comment on above: Result Comment: Refe rence Range: Normal (0-1) Performed By: #### C UA2 #### [address] [place] WBC LM.HPF (Urine sed) [#/Area] 0 - 2 Normal [facility] Comment on above: Result Comment: Refe rence Range: 0-5 Performed By: #### C UA2 #### [address] [place] [address] HCG, Quantitative, on 11-08-2018 hCG Quant 1561 m[IU]/mL Abnormal <3 [place] Interpretation and review of laboratory results Abnormal [place] Test Performed by [facility], [address] [place] [address] [place] Hemogram (CBC) w/Auto Diffon 11-08-2018 Absolute Baso # 0.0 10*3/uL 0 - 0.2 10*3/uL [place] Absolute Neut # 6.2 10*3/uL 1.8 - 7 10*3/uL [place] Basophils/100 WBC (Bld) 0.4 % 0 - 2 % [place] Eosinophils (Bld) [#/Vol] 0.1 10*3/uL 0 - 0.5 10*3/uL [place] Eosinophils/100 WBC (Bld) 0.9 % Low 1 - 6 % [place] Erythrocyte distribution width (RBC) [Ratio] 13.6 % 11.5 - 14.5 % [place] Granulocytes/100 WBC (Bld) 63.4 % 40 - 80 % [place] Hematocrit (Bld) [Volume fraction] 38.2 % 35 - 47 % [place] Hemoglobin (Bld) [Mass/Vol] 13.2 g/dL 11.7 - 16 g/dL [place] Interpretation and review of laboratory results Abnormal [place] Lymphocytes (Bld) [#/Vol] 2.6 10*3/uL 1 - 4.3 10*3/uL [place] Lymphocytes/100 WBC (Bld) 26.8 % 20 - 40 % [place] MCH (RBC) [Entitic mass] 29.7 pg 26 - 34 pg [place] MCHC (RBC) [Mass/Vol] 34.5 % 32 - 36 % [place] MCV (RBC) [Entitic vol] 86.0 fL 79 - 98 fL [place] Monocytes (Bld) [#/Vol] 0.8 10*3/uL 0 - 0.8 10*3/uL [place] Monocytes/100 WBC (Bld) 8.5 % 2 - 10 % [place] Platelet mean volume (Bld) [Entitic vol] 8.7 fL 7.4 - 10.4 fL [place] Platelets (Bld) [#/Vol] 208 10*3/uL 140 - 440 10*3/uL [place] RBC (Bld) [#/Vol] 4.45 10*6/uL 3.8 - 5.2 10*6/uL [place] WBC (Bld) [#/Vol] 9.8 10*3/uL 3.6 - 10.7 10*3/uL [place] Test Performed by [facility], [address] [place] [id number] [place] [address] Hemogram w/ Autodiffon 11-08 Abs Baso Cnt 0.0 10*3/uL Normal 0.0-0.2 [facility] Comment on above: Performed By: #### H EMDF, BMP3, QWNT #### [address] Abs Neutrophile Cnt 6.2 10*3/uL Normal 1.8-7.0 [facility] Comment on above: Performed By: #### H EMDF, BMP3, QWNT #### [address] [address] Basophils/100 WBC (Bld) 0.4 % Normal 0.0-2.0 [facility] Comment on above: Performed By: #### H EMDF, BMP3, QWNT #### [address] [address] Eosinophils (Bld) [#/Vol] 0.1 10*3/uL Normal 0.0-0.5 [facility] Comment on above: Performed By: #### H EMDF, BMP3, QWNT #### [address] [address] Eosinophils/100 WBC (Bld) 0.9 % Low 1.0-6.0 [facility] Comment on above: Performed By: #### H EMDF, BMP3, QWNT #### [address] [place] Erythrocyte distribution width (RBC) [Ratio] 13.6 % Normal 11.5-14.5 [facility] Comment on above: Performed By: #### H EMDF, BMP3, QWNT #### [address] [place] Granulocytes/100 WBC (Bld) 63.4 % Normal 40.0-80.0 [facility] Comment on above: Performed By: #### H EMDF, BMP3, QWNT #### [address] Hematocrit (Bld) [Volume fraction] 38.2 % Normal 35.0-47.0 [facility] Comment on above: Performed By: #### H EMDF, BMP3, QWNT #### [address] [place] Hemoglobin (Bld) [Mass/Vol] 13.2 g/dL Normal 11.7-16.0 [facility] Comment on above: Performed By: #### H EMDF, BMP3, QWNT #### [address] [address] [place] Lymphocytes (Bld) [#/Vol] 2.6 10*3/uL Normal 1.0-4.3 [facility] Comment on above: Performed By: #### H EMDF, BMP3, QWNT #### [address] Lymphocytes/100 WBC (Bld) 26.8 % Normal 20.0-40.0 [facility] Comment on above: Performed By: #### H EMDF, BMP3, QWNT #### [address] [address] [place] MCH (RBC) [Entitic mass] 29.7 pg Normal 26.0-34.0 [facility] Comment on above: Performed By: #### H EMDF, BMP3, QWNT #### [address] [address] [place] MCHC (RBC) [Mass/Vol] 34.5 % Normal 32.0-36.0 [facility] Comment on above: Performed By: #### H EMDF, BMP3, QWNT #### [address] MCV (RBC) [Entitic vol] 86.0 fL Normal 79.0-98.0 [facility] Comment on above: Performed By: #### H EMDF, BMP3, QWNT #### [address] Monocytes (Bld) [#/Vol] 0.8 10*3/uL Normal 0.0-0.8 [facility] Comment on above: Performed By: #### H EMDF, BMP3, QWNT #### [address] Monocytes/100 WBC (Bld) 8.5 % Normal 2.0-10.0 [facility] Comment on above: Performed By: #### H EMDF, BMP3, QWNT #### [address] Platelet mean volume (Bld) [Entitic vol] 8.7 fL Normal 7.4-10.4 [facility] Comment on above: Performed By: #### H EMDF, BMP3, QWNT #### [address] Platelets (Bld) [#/Vol] 208 10*3/uL Normal 140-440 [facility] Comment on above: Performed By: #### H EMDF, BMP3, QWNT #### [address] RBC (Bld) [#/Vol] 4.45 10*6/uL Normal 3.80-5.20 [facility] Comment on above: Performed By: #### H EMDF, BMP3, QWNT #### [facility] [address] [place] [address] WBC (Bld) [#/Vol] 9.8 10*3/uL Normal 3.6-10.7 [facility] Comment on above: Performed By: #### H EMDF, BMP3, QWNT #### [facility] [address] [place] [address] US OB TRANSVAGINALon [address], [facility] Incoming Radiology Results From [facility] - 11/08/2018 9:49 PM EDT Patient Name: IGNACIO PETTIT ---Ultrasound--- Exam Date/Time 11/08/2018 20:30:31 EDT Exam US Transvaginal Ordering Physician SHELL MORGAN MADALINA Accession Number [id number] CPT4 Codes 13079 () Reason For Exam 7 weeks, bleeding [...] RICHARD Transcribed Date and Time: 11/08/2018 9:43 [place], [place] Patient Name: IGNACIO PETTIT ---Ultrasound--- Exam Date/Time 11/08/2018 20:30:31 EDT Exam US Transvaginal Ordering Physician SHELL MORGAN MADALINA Accession Number [id number] CPT4 Codes 63399 () Reason For Exam 7 weeks, bleeding [...] RICHARD Transcribed Date and Time: 11/08/2018 9:43 [place], [place] US Transvaginalon 09-01-2019 US Transvaginal Patient Name: IGNACIO PETTIT Ultrasound Exam Date/Time 11/08/2018 20:30:31 EDT Exam US Transvaginal Ordering Physician SHELL MORGAN MADALINA Accession Number [id number] CPT4 Codes 81902 () Reason For Exam 7 weeks, bleeding [...] Transcribed Date and Time: 11/08/2018 9:43 Normal [facility] Urinalysison 11-08-2018 [facility] Comment on above: Reference Range: Adelso ar Bacteria, UA Negative /[HPF] [place], [place] Comment on above: Reference Range: Neg ative Bilirubin Urine Negative mg/dL [place] Comment on above: Reference Range: Neg ative Color (U) Light-Yellow [place] Comment on above: Reference Range: Lt. Yellow Glucose, Ur Normal mg/dL [place] Comment on above: Reference Range: Nor mal (<70) Hyaline Casts, UA Negative /[LPF] [place] Comment on above: Reference Range: Neg ative Ketones Ql (U) Negative mg/dL [place] Comment on above: Reference Range: Neg ative LEUKOCYTES, UA Negative Pacheco/uL [place] Comment on above: Reference Range: Neg ative Nitrite, Urine Negative [place] Comment on above: Reference Range: Neg ative Occult Blood,Urine 0.1 mg/dL [place] Comment on above: Reference Range: Neg ative pH (U) 7.5 [pH] [place] Protein (U) [Mass/Vol] Negative mg/dL [place] Comment on above: Reference Range: Neg ative RBC (U) [#/Vol] 3-5 /[HPF] [place] Comment on above: Reference Range: 0-2 Specific Dillon, Urine 1.018 [place] Squam Epithel, UA 0-2 /[HPF] [place] Comment on above: Reference Range: 3-5 Urobilinogen, Urine Normal mg/dL [place] Comment on above: Reference Range: Nor mal (0-1) WBC, UA 0-2 /[HPF] [place] Comment on above: Reference Range: 0-5 Test Performed by [employer], [address] [place] [id number] [place] hCG Quantitativeon 9 hCG Quantitative 1561 m[IU]/mL Abnormal < 3 [facility] [employer] [facility] Comment on above: Performed By: #### H EMDF, BMP3, QWNT #### [facility] [employer] [address] [address] Vital Signs Date Time Vital Sign Value Performing Clinician Facility 11-03-2024 11:00-0400 Body mass index (BMI) [Ratio] 26.41 kg/m2 Jocelyn Plotts ASPHALT SPREADER OPERATOR.CNM Work Phone: [facility] 11-03-2024 11:00-0400 Body weight 65.5 kg Jocelyn Plotts ASPHALT SPREADER OPERATOR.CNM Work Phone: [facility] 11-03-2024 11:00-0400 Diastolic blood pressure 60 mm[Hg] Jocelyn Plotts ASPHALT SPREADER OPERATOR.CNM Work Phone: [facility] 11-03-2024 11:00-0400 Systolic blood pressure 100 mm[Hg] Jocelyn Plotts ASPHALT SPREADER OPERATOR.CNM Work Phone: [facility] 10-27-2024 12:55-0400 Body mass index (BMI) [Ratio] 25.9 kg/m2 Jocelyn Plotts ASPHALT SPREADER OPERATOR.CNM Work Phone: [facility] 10-27-2024 12:55-0400 Body weight 64.23 kg Jocelyn Plotts ASPHALT SPREADER OPERATOR.CNM Work Phone: [facility] 10-27-2024 12:55-0400 Diastolic blood pressure 60 mm[Hg] Jocelyn Plotts ASPHALT SPREADER OPERATOR.CNM Work Phone: [facility] 10-27-2024 12:55-0400 Systolic blood pressure 100 mm[Hg] Jocelyn Plotts ASPHALT SPREADER OPERATOR.CNM Work Phone: [facility] 10-20-2024 09:49-0400 Body mass index (BMI) [Ratio] 25.53 kg/m2 Coreen Cespedes ASPHALT SPREADER OPERATOR.CNM Work Phone: [facility] 10-20-2024 09:49-0400 Body weight 63.32 kg Coreen Cespedes ASPHALT SPREADER OPERATOR.CNM Work Phone: [facility] 10-20-2024 09:49-0400 Diastolic blood pressure 60 mm[Hg] Coreen Cespedes ASPHALT SPREADER OPERATOR.CNM Work Phone: [facility] 10-20-2024 09:49-0400 Systolic blood pressure 90 mm[Hg] Coreencesar Cespedes ASPHALT SPREADER OPERATOR.CNM Work Phone: [facility] 10-06-2024 10:08-0400 Body mass index (BMI) [Ratio] 24.84 kg/m2 Jocelyn Polanconessa ASPHALT SPREADER OPERATOR.CNM Work Phone: [facility] 10-06-2024 10:08-0400 Body weight 61.6 kg Jocelyn Cooley ASPHALT SPREADER OPERATOR.CNM Work Phone: [facility] 10-06-2024 10:08-0400 Diastolic blood pressure 66 mm[Hg] Jocelyn Cooley ASPHALT SPREADER OPERATOR.CNM Work Phone: [facility] 10-06-2024 10:08-0400 Systolic blood pressure 112 mm[Hg] Jocelyn Cooley ASPHALT SPREADER OPERATOR.CNM Work Phone: [facility] 09-22-2024 09:58-0400 Body mass index (BMI) [Ratio] 24.51 kg/m2 Gisella Dinh MD Work Phone: [facility] 09-22-2024 09:58-0400 Body weight 60.78 kg Gisella Dinh MD Work Phone: [facility] 09-22-2024 09:58-0400 Diastolic blood pressure 60 mm[Hg] Gisella Dinh MD Work Phone: [facility] 09-22-2024 09:58-0400 Systolic blood pressure 100 mm[Hg] Gisella Dinh MD Work Phone: [facility] 09-08-2024 15:02-0400 Body mass index (BMI) [Ratio] 23.78 kg/m2 Coreen Cespedes ASPHALT SPREADER OPERATOR.CNM Work Phone: [facility] 09-08-2024 15:02-0400 Body weight 58.97 kg Coreen Cespedes APRN.CNM Work Phone: [facility] 09-08-2024 15:02-0400 Diastolic blood pressure 62 mm[Hg] Coreen Cespedes ASPHALT SPREADER OPERATOR.CNM Work Phone: [facility] 09-08-2024 15:02-0400 Systolic blood pressure 100 mm[Hg] Coreen Cespedes APRN.CNM Work Phone: [facility] 08-26-2024 10:46-0400 Body mass index (BMI) [Ratio] 23.23 kg/m2 Cristobal Almanzar MD Work Phone: [facility] 08-26-2024 10:46-0400 Body weight 57.61 kg Cristobal Almanzar MD Work Phone: [facility] 08-26-2024 10:46-0400 Diastolic blood pressure 60 mm[Hg] Cristobal Almanzar MD Work Phone: [facility] 08-26-2024 10:46-0400 Systolic blood pressure 108 mm[Hg] Cristobal Almanzar MD Work Phone: [facility] 08-13-2024 16:16-0400 Body mass index (BMI) [Ratio] 22.83 kg/m2 Gisella Dinh MD Work Phone: [facility] 08-13-2024 16:16-0400 Body weight 56.61 kg Gisella Dinh MD Work Phone: [facility] 08-13-2024 16:16-0400 Diastolic blood pressure 64 mm[Hg] Gisella Dinh MD Work Phone: [facility] 08-13-2024 16:16-0400 Systolic blood pressure 110 mm[Hg] Gisella Dinh MD Work Phone: [facility] 05-31-2024 10:15-0400 Body mass index (BMI) [Ratio] 19.94 kg/m2 Coreen Cespedes APRN.CNM Work Phone: [facility] 05-31-2024 10:15-0400 Body weight 49.44 kg Coreen Cespedes APRN.CNM Work Phone: [facility] 05-31-2024 10:15-0400 Diastolic blood pressure 62 mm[Hg] Coreen Cespedes ASPHALT SPREADER OPERATOR.CNM Work Phone: [facility] 05-31-2024 10:15-0400 Systolic blood pressure 100 mm[Hg] Coreen Cespedes ASPHALT SPREADER OPERATOR.CNM Work Phone: [facility] 05-24-2024 09:53-0400 Body height 157.5 cm Osmel José ASPHALT SPREADER OPERATOR.SIGNAL INSPECTOR Work Phone: [facility] 05-24-2024 09:53-0400 Body mass index (BMI) [Ratio] 20.69 kg/m2 Osmel José ASPHALT SPREADER OPERATOR.SIGNAL INSPECTOR Work Phone: [facility] 05-24-2024 09:53-0400 Body temperature 98.01 [degF] Osmel José ASPHALT SPREADER OPERATOR.SIGNAL INSPECTOR Work Phone: [facility] 05-24-2024 09:53-0400 Body weight 51.3 kg Osmel José ASPHALT SPREADER OPERATOR.SIGNAL INSPECTOR Work Phone: [facility] 05-24-2024 09:53-0400 Diastolic blood pressure 60 mm[Hg] Osmel José ASPHALT SPREADER OPERATOR.SIGNAL INSPECTOR Work Phone: [facility] 05-24-2024 09:53-0400 Heart rate 84 /min Osmel José ASPHALT SPREADER OPERATOR.SIGNAL INSPECTOR Work Phone: [facility] 05-24-2024 09:53-0400 Respiratory rate 17 /min Osmel José ASPHALT SPREADER OPERATOR.SIGNAL INSPECTOR Work Phone: [facility] 05-24-2024 09:53-0400 SaO2% (BldA) [Mass fraction] 99 % Osmel José ASPHALT SPREADER OPERATOR.SIGNAL INSPECTOR Work Phone: [facility] 05-24-2024 09:53-0400 Systolic blood pressure 97 mm[Hg] Osmel Alvarezi ASPHALT SPREADER OPERATOR.SIGNAL INSPECTOR Work Phone: [facility] 05-05-2024 10:00-0500 Body mass index (BMI) [Ratio] 18.21 kg/m2 Jocelyn Polancots ASPHALT SPREADER OPERATOR.CNM Work Phone: [facility] 05-05-2024 10:00-0500 Body weight 48.99 kg Jocelyn Polancots ASPHALT SPREADER OPERATOR.CNM Work Phone: [facility] 05-05-2024 10:00-0500 Diastolic blood pressure 66 mm[Hg] Jocelyn Polancots ASPHALT SPREADER OPERATOR.CNM Work Phone: [facility] 05-05-2024 10:00-0500 Systolic blood pressure 108 mm[Hg] Jocelyn Polancots ASPHALT SPREADER OPERATOR.CNM Work Phone: [facility] 04-05-2024 09:47-0500 Body height 164 cm Leodan Van ASPHALT SPREADER OPERATOR.CABLE INSTALLER REPAIRER HELPER Work Phone: [facility] 04-05-2024 09:47-0500 Body mass index (BMI) [Ratio] 18.38 kg/m2 Leodan Van ASPHALT SPREADER OPERATOR.CABLE INSTALLER REPAIRER HELPER Work Phone: [facility] 04-05-2024 09:47-0500 Body weight 49.44 kg Leodan Van ASPHALT SPREADER OPERATOR.CABLE INSTALLER REPAIRER HELPER Work Phone: [facility] 04-05-2024 09:47-0500 Diastolic blood pressure 60 mm[Hg] Leodan Van ASPHALT SPREADER OPERATOR.CABLE INSTALLER REPAIRER HELPER Work Phone: [facility] 04-05-2024 09:47-0500 Systolic blood pressure 108 mm[Hg] Leodan Van ASPHALT SPREADER OPERATOR.CABLE INSTALLER REPAIRER HELPER Work Phone: [facility] 03-18-2024 10:27-0500 Body temperature 97.52 [degF] LEODAN DUNN DO [facility] 03-18-2024 10:27-0500 Body weight 50 kg LEODAN DUNN DO [facility] 03-18-2024 10:27-0500 Diastolic Blood Pressure Non-Invasive 72 mm[Hg] LEODAN DUNN DO [facility] 03-18-2024 10:27-0500 Heart rate 88 /min LEODAN DUNN DO [facility] 03-18-2024 10:27-0500 Respiratory rate 18 /min LEODAN DUNN DO [facility] 03-18-2024 10:27-0500 Systolic Blood Pressure Non-Invasive 109 mm[Hg] LEODAN DUNN DO [facility] 09-25-2023 09:41-0400 Body height 157.5 cm Stacy Revelo ASPHALT SPREADER OPERATOR.CABLE INSTALLER REPAIRER HELPER Work Phone: [facility] 09-25-2023 09:41-0400 Body mass index (BMI) [Ratio] 18.47 kg/m2 Stacy Yudith ASPHALT SPREADER OPERATOR.CABLE INSTALLER REPAIRER HELPER Work Phone: [facility] 09-25-2023 09:41-0400 Body weight 45.81 kg Stacy Revelo ASPHALT SPREADER OPERATOR.CABLE INSTALLER REPAIRER HELPER Work Phone: [facility] 09-25-2023 09:41-0400 Diastolic blood pressure 58 mm[Hg] Stacy Yudith ASPHALT SPREADER OPERATOR.CABLE INSTALLER REPAIRER HELPER Work Phone: [facility] 09-25-2023 09:41-0400 Systolic blood pressure 104 mm[Hg] Stacy Revelo ASPHALT SPREADER OPERATOR.CABLE INSTALLER REPAIRER HELPER Work Phone: [facility] 02-07-2023 07:59-0500 Body temperature 97.9 [degF] Mikael Pendlebury ASPHALT SPREADER OPERATOR.CABLE INSTALLER REPAIRER HELPER Work Phone: [facility] 02-07-2023 07:59-0500 Body weight 49.9 kg Mikael Pendlebury ASPHALT SPREADER OPERATOR.CABLE INSTALLER REPAIRER HELPER Work Phone: [facility] 02-07-2023 07:59-0500 Diastolic blood pressure 78 mm[Hg] Mikael Pendlebury ASPHALT SPREADER OPERATOR.CABLE INSTALLER REPAIRER HELPER Work Phone: [facility] 02-07-2023 07:59-0500 Heart rate 83 /min Mikael Pendlebury ASPHALT SPREADER OPERATOR.CABLE INSTALLER REPAIRER HELPER Work Phone: [facility] 02-07-2023 07:59-0500 Respiratory rate 20 /min [facility] ASPHALT SPREADER OPERATOR.CABLE INSTALLER REPAIRER HELPER Work Phone: [facility] 02-07-2023 07:59-0500 SaO2% (BldA) [Mass fraction] 98 % [facility] ASPHALT SPREADER OPERATOR.CABLE INSTALLER REPAIRER HELPER Work Phone: [facility] 02-07-2023 07:59-0500 Systolic blood pressure 117 mm[Hg] [facility] ASPHALT SPREADER OPERATOR.CABLE INSTALLER REPAIRER HELPER Work Phone: [facility] 09-24-2022 07:23-0400 Body height 157.5 cm Stacy Revelo ASPHALT SPREADER OPERATOR.CABLE INSTALLER REPAIRER HELPER Work Phone: [facility] 09-24-2022 07:23-0400 Body weight 46.63 kg Stacy Yudith ASPHALT SPREADER OPERATOR.CABLE INSTALLER REPAIRER HELPER Work Phone: [facility] 09-24-2022 07:23-0400 Diastolic blood pressure 60 mm[Hg] Stacy Yudith ASPHALT SPREADER OPERATOR.CABLE INSTALLER REPAIRER HELPER Work Phone: [facility] 09-24-2022 07:23-0400 Systolic blood pressure 110 mm[Hg] Stacy Revelo ASPHALT SPREADER OPERATOR.CABLE INSTALLER REPAIRER HELPER Work Phone: [facility] 07-20-2020 20:57-0400 Body mass index (BMI) [Ratio] [...] 111 /min Milo Thornton DO Work Phone: [employer] Work Phone: 07-20-2020 20:57-0400 Respiratory rate 16 /min Milo Thornton DO Work Phone: [employer] Work Phone: 07-20-2020 20:57-0400 SaO2% (BldA) [Mass fraction] 100 % Milo Thornton DO Work Phone: [employer] Work Phone: 07-20-2020 20:57-0400 Systolic blood pressure 135 mm[Hg] Milo Thornton DO Work Phone: [employer] Work Phone: 11-08-2018 22:36-0400 BP Diastolic 79 mm[Hg] [place] 11-08-2018 22:36-0400 BP Systolic 109 mm[Hg] [place] 11-08-2018 22:36-0400 Pulse (Heart Rate) 81 /min Milo [place], [place] 11-08-2018 22:36-0400 Pulse Oximetry 98 % Milo [facility] , [place] 11-08-2018 22:36-0400 Respiratory Rate 18 /min [facility] [place] 11-08-2018 19:34-0400 BMI (Body Mass Index) 18.29 kg/m2 Milo Thornton [facility] [place] 11-08-2018 19:34-0400 Body Temperature 97.81 [degF] [facility] [place] 11-08-2018 19:34-0400 Body weight 45.36 [facility] [place] 11-08-2018 19:34-0400 Height 157.5 cm [facility] [place] Encounters Encounter Date Encounter Type Care Provider Facility Start: 11-17-2024 [facility] Facility: [facility] Start: 11-03-2024 End: 11-03-2024 Patient encounter procedure Jocelyn Cooley ASPHALT SPREADER OPERATOR.ERICK Work Phone: OB/Gynecology Comment on above: 38 weeks gestation o f (HCC) (Primary Dx); Supervision of high risk in third trimester (HCC); HSV-2 seropositive Start: 11-03-2024 End: 11-03-2024 ambulatory [facility] Facility:[facility] Start: 10-27-2024 End: 10-27-2024 Patient encounter procedure Jocelyn Cooley ASPHALT SPREADER OPERATOR.CNM Work Phone: OB/Gynecology Comment on above: 37 weeks gestation o f (HCC) (Primary Dx); Supervision of high risk in third trimester (HCC); HSV-2 seropositive; History of delivery Start: 10-27-2024 End: 10-27-2024 [facility] Facility:[facility] Start: 10-20-2024 End: 10-20-2024 Patient encounter procedure Coreen Cespedes ASPHALT SPREADER OPERATOR.ERICK Work Phone: OB/Gynecology Comment on above: Supervision of high risk in second trimester (HCC) (Primary Dx); 36 weeks gestation of (HCC); HSV-2 seropositive Start: 10-20-2024 End: 10-20-2024 [facility] Facility:[facility] Start: 10-11-2024 [facility] Facility: [facility] Start: 10-11-2024 End: 10-11-2024 Subsequent hospital visit by physician Kurt Ponce Ob L&D Work Phone: OB/Gynecology Comment on above: Supervision of high risk in second trimester (HCC) [O09.92] Start: 10-06-2024 End: 10-06-2024 Patient encounter procedure Jocelyn Polanconessa ASPHALT SPREADER OPERATOR.CNVeronica Work Phone: OB/Gynecology Comment on above: 34 weeks gestation o f (HCC) (Primary Dx); Supervision of high risk in third trimester (HCC); History of delivery; Penicillin allergy Start: 10-06-2024 End: 10-06-2024 [facility] Facility:[facility] Start: 09-29-2024 End: 09-29-2024 Telephone encounter Kurt Greene Ob L&D Work Phone: [facility] 3 L&D Comment on above: Care Coordination (M -Power scheduling, lmtcb//) Start: 09-22-2024 End: 09-22-2024 Patient encounter procedure Gisella Dinh MD Work Phone: OB/Gynecology Comment on above: Supervision of high risk in third trimester (HCC) (Primary Dx); Pyelectasis of fetus on ultrasound ([facility]); History of delivery; 32 weeks gestation of ([facility]) Start: 09-22-2024 End: 09-22-2024 ambulatory GISELLA DINH Facility:[facility] Start: 09-17-2024 End: 09-17-2024 Telephone encounter Kurt Greene Ob L&D Work Phone: [facility] 3 L&D Comment on above: Care Coordination (M -Power Scheduling/LM attempt # 1) Start: 09-15-2024 End: 09-15-2024 ambulatory Kurt Greene Ob L&D Work Phone: [facility] 3 L&D Comment on above: M-Power Time to Jasson cuenca Start: 09-15-2024 End: 09-15-2024 E-mail encounter from caregiver Kurt Greene Ob L&D Work Phone: [facility] 3 L&D Start: 09-08-2024 End: 09-08-2024 Patient encounter procedure Coreen Cespedes APRN.CNM Work Phone: OB/Gynecology Comment on above: Supervision of high risk in third trimester (HCC) (Primary Dx); Pyelectasis of fetus on ultrasound (HCC); History of delivery; Penicillin allergy; 30 weeks gestation of (HCC) Start: 09-08-2024 End: 09-08-2024 ambulatory COREEN CESPEDES Facility:[facility] Start: 09-06-2024 End: 09-06-2024 ambulatory JOCELYN SANCHEZNESSA Facility:[id number] Start: 08-26-2024 End: 10-26-2024 Follow-up encounter Leodan Van APRN.CABLE INSTALLER REPAIRER HELPER Work Phone: OB/Gynecology Start: 08-26-2024 End: 08-26-2024 Patient encounter procedure [employer] 1 Organ Recovery Coordinator [facility] Comment on above: Pyelectasis of fetus on ultrasound (HCC) (Primary Dx); Encounter for repeat ultrasound of pyelectasis, antepartum, single or unspecified fetus (HCC); Uterine size-date discrepancy, second trimester ([facility]) Supervision of high risk in third trimester (HCC) (Primary Dx); 28 weeks gestation of ([facility]); Need for vaccination; Pyelectasis of fetus on ultrasound ([facility]) Start: 08-26-2024 End: 08-26-2024 ambulatory JOCELYN COOLEY Facility:[facility] Start: 08-18-2024 End: 10-18-2024 Follow-up encounter Gisella Dinh MD Work Phone: OB/Gynecology Start: 08-17-2024 End: 08-19-2024 Telephone encounter Gisella Dinh MD Work Phone: OB/Gynecology Comment on above: Results Start: 08-16-2024 End: 08-18-2024 ambulatory GISELLA DINH Facility:[facility] Start: 08-13-2024 End: 08-13-2024 ambulatory GISELLA DINH Facility:[facility] Start: 08-13-2024 End: 08-13-2024 Patient encounter procedure Gisella Dinh MD Work Phone: OB/Gynecology Comment on above: Abdominal pain durin g in second trimester (HCC) (Primary Dx); Elevated LFTs; Supervision of high risk in second trimester ([facility]); History of delivery; Uterine size-date discrepancy, second trimester (HCC); 26 weeks gestation of ([facility]) Start: 08-13-2024 End: 08-13-2024 Telephone encounter Jocelyn Cooley APRN.CNM Work Phone: OB/Gynecology Comment on above: ER F/U Start: 08-12-2024 End: 08-13-2024 Emergency department patient visit [place] MD Facility:A Start: 08-12-2024 End: 08-13-2024 Observation [place] MD [facility] Start: 08-12-2024 End: 08-12-2024 ambulatory Jocelyn Cooley ASPHALT SPREADER OPERATOR.CNM Work Phone: OB/Gynecology Comment on above: Back pain Start: 08-12-2024 End: 08-12-2024 Emergency department patient visit [place] MD [facility] Start: 07-29-2024 End: 07-29-2024 ambulatory LEODAN YOLIS Facility:[facility] Start: 07-01-2024 End: 07-01-2024 [facility] Facility:[facility] Start: 05-31-2024 End: 05-31-2024 E-mail encounter from caregiver Kurt Greene Ob L&D Work Phone: [place] Start: 05-31-2024 End: 05-31-2024 ambulatory COREEN CESPEDES Facility:[facility] Start: 05-31-2024 End: 05-31-2024 Patient encounter procedure Coreen Cespedes ASPHALT SPREADER OPERATOR.CNM Work Phone: OB/Gynecology Comment on above: Supervision of high risk in second trimester (Primary Dx); 15 weeks gestation of ; History of delivery; Penicillin allergy; Enlarged thyroid; HSV-2 seropositive M-Power Referral Start: 05-24-2024 End: 05-24-2024 ambulatory OSMEL JOSÉ Facility:[facility] Start: 05-24-2024 End: 05-24-2024 Office outpatient visit 15 minutes Osmel José ASPHALT SPREADER OPERATOR.SIGNAL INSPECTOR Work Phone: Allergy Comment on above: Rash (Primary Dx); Personal history of allergy to penicillin; 15 weeks gestation of Start: 05-05-2024 End: 05-05-2024 ambulatory LEODAN VAN Facility:[facility] Start: 05-05-2024 End: 05-05-2024 Patient encounter procedure [...] Start: 04-22-2024 End: 04-22-2024 ambulatory LEODAN VAN Facility:[facility] Start: 04-08-2024 End: 04-08-2024 ambulatory LEODAN VAN Facility:[facility] Start: 04-05-2024 End: 04-05-2024 ambulatory LEODAN VAN Facility:[facility] Start: 04-05-2024 End: 04-05-2024 Patient encounter procedure [...] Emergency department patient visit LEODAN DUNN DO [facility] Start: 03-16-2024 End: 03-16-2024 ambulatory OTTO CALDWELL Facility:[facility] Start: 03-15-2024 End: 03-15-2024 Telephone encounter Stacy Caldera APRN.CNP Work Phone: OB/Gynecology Comment on above: Patient Question Start: 11-11-2023 End: 11-11-2023 Refill Stacy Caldera APRN.YOKO Work Phone: OB/Gynecology Comment on above: Refill Request Start: 09-25-2023 End: 09-25-2023 Patient encounter procedure Stacy Revelo ASPHALT SPREADER OPERATOR.YOKO Work Phone: OB/Gynecology Comment on above: Encounter for gyneco logical examination (general) (routine) without abnormal findings (Primary Dx); Screen for STD (sexually transmitted disease); Vaginal discharge; Encounter for surveillance of transdermal patch hormonal contraceptive device Start: 09-25-2023 End: 09-25-2023 Patient encounter status Stacy Caldera ASPHALT SPREADER OPERATOR.CABLE INSTALLER REPAIRER HELPER Work Phone: [facility] Work Phone: Start: 09-13-2023 End: 09-13-2023 Emergency department patient visit Facility:[facility] Start: 02-07-2023 End: 02-07-2023 Office outpatient visit 15 minutes Mikael Nicolas ASPHALT SPREADER OPERATOR.CABLE INSTALLER REPAIRER HELPER Work Phone: [facility] Comment on above: Sinobronchitis (Prim betito Dx) Start: 11-28-2022 Telephone encounter Stacy Keen idalia ASPHALT SPREADER OPERATOR.YOKO Work Phone: OB/Gynecology Comment on above: Patient Question Start: 11-18-2022 Telephone encounter Stacy friedman ASPHALT SPREADER OPERATOR.YOKO Work Phone: OB/Gynecology Comment on above: Patient Question Start: 09-26-2022 End: 09-26-2022 Subsequent hospital visit by physician [facility] Work Phone: Radiology Comment on above: Enlarged thyroid [E0 4.9] Start: 09-25-2022 Telephone encounter Stacy Keen idalia ASPHALT SPREADER OPERATOR.CABLE INSTALLER REPAIRER HELPER Work Phone: OB/Gynecology Comment on above: Results Start: 09-24-2022 End: 09-24-2022 Patient encounter procedure Stacy Caldera ASPHALT SPREADER OPERATOR.CABLE INSTALLER REPAIRER HELPER Work Phone: OB/Gynecology Comment on above: Encounter for gyneco logical examination (general) (routine) without abnormal findings (Primary Dx); Screening for cervical cancer; Encounter for screening for human papillomavirus (HPV); Screen for STD (sexually transmitted disease); Vaginal discharge; Enlarged thyroid; Encounter for other contraceptive management Start: 09-24-2022 End: 09-24-2022 Patient encounter status Stacy Caldera ASPHALT SPREADER OPERATOR.CABLE INSTALLER REPAIRER HELPER Work Phone: [facility] Work Phone: Start: 07-20-2020 End: 07-20-2020 Emergency department patient visit Milo Thornton DO Work Phone: [facility] ED Comment on above: Laceration [...] et rgnt non-auto w/o micrscp Jocelyn Plotts ASPHALT SPREADER OPERATOR.CNM Work Phone: Start: 10-27-2024 Urnls dip stick/tabl et rgnt non-auto w/o micrscp Jocelyn Plotts ASPHALT SPREADER OPERATOR.CNM Work Phone: Start: 10-20-2024 Urnls dip stick/tabl et rgnt non-auto w/o micrscp Coreen Cespedes ASPHALT SPREADER OPERATOR.CNM Work Phone: Start: 10-06-2024 Urnls dip stick/tabl et rgnt non-auto w/o micrscp Jocelyn Plotts ASPHALT SPREADER OPERATOR.CNM Work Phone: Start: 08-26-2024 Us preg uterus after 1st trimest 03/10 gestation Leodan Van ASPHALT SPREADER OPERATOR.CABLE INSTALLER REPAIRER HELPER Work Phone: Start: 08-13-2024 Urnls dip stick/tabl et rgnt auto w/o microscopy Gisella Dinh MD Work Phone: Start: 05-24-2024 ALLERGEN SKIN TEST-PENICILLIN Osmel José APRN.SIGNAL INSPECTOR Work Phone: Start: 05-05-2024 Us preg uterus after 1st trimest 03/10 gestation Leodan Arroyoyolis HOGAN.CABLE INSTALLER REPAIRER HELPER Work Phone: Start: 04-08-2024 Antibody screen OTTO CROWELL GABYJENNY Comment on above: Order Comment: Speci men Type: BLOOD SPECIMEN Ordering Facility: [facility] Address: [address] [place] [address] Performed By: #### T SPN #### [facility] CLIA [id number] [address] [place] [address] [place] [address] [place] Start: 04-05-2024 Us uterus l imited fetuses Leodan Arroyoyolis HOGAN.CABLE INSTALLER REPAIRER HELPER Work Phone: Start: 09-26-2022 Us soft tissue head & neck real time imge docm Stacy Caldera APRN.CABLE INSTALLER REPAIRER HELPER Work Phone: Start: 11-08-2018 Basic metabolic pane [...] DTaP,Tdap,Td Vaccine (3 - Td or Tdap) [facility] Start: 07-20-2030 DTaP/Tdap/Td vaccine (2 - Td) DTaP/Tdap/Td vaccine (2 - Td) [facility] Work Phone: Start: 07-20-2030 Urine microalbumin profile DTaP,Tdap,Td Vaccine (2 - Td or Tdap) [facility] Start: 09-24-2025 PAP TESTING PAP TESTING [facility] Start: 09-24-2025 Screening for malign ant neoplasm of cervix Cervical Cancer Screening [facility] Start: 11-17-2024 End: 11-17-2024 Patient encounter procedure 11/17/2024 9:45 AM EDT Routine Office Visit OB/Gynecology [address] [place] [address] Coreen Cespedes APRN.CNM [address] [place] [address] OB OB/Gynecology Comment on above: OB Start: 11-10-2024 End: 11-10-2024 Patient encounter procedure 11/10/2024 9:45 AM EDT Routine Office Visit OB/Gynecology [address] [place] [address] Coreen Cespedes APRN.CNM [address] [place] [address] (Fax) OB OB/Gynecology Comment on above: OB Start: 11-08-2024 Influenza vaccination [facility] Start: 11-03-2024 End: 11-03-2024 Patient encounter procedure 11/03/2024 11:15 AM EDT Routine Office Visit OB/Gynecology [address] [place] [address] Jocelyn Cooley APRN.CNVeronica [address] [place] [address] (Fax) OB OB/Gynecology Comment on above: OB Start: 10-27-2024 End: 10-27-2024 Patient encounter procedure 10/27/2024 1:00 PM EDT Routine Office Visit OB/Gynecology [address] [place] [address] Jocelyn Cooley APRN.CNM [address] [place] [address] OB OB/Gynecology Comment on above: OB Start: 10-20-2024 End: 10-20-2024 Patient encounter procedure 10/20/2024 9:45 AM EDT Routine Office Visit OB/Gynecology [address] [place] [address] Coreen Cespedes APRN.CNM [address] [place] [address] OB OB/Gynecology Comment on above: OB Start: 10-06-2024 End: 10-06-2024 Patient encounter procedure 10/06/2024 10:00 AM EDT Routine Office Visit OB/Gynecology [address] [place] [address] Jocelyn Cooley APRN.CNM [address] [place] [address] OB OB/Gynecology Comment on above: OB Start: 09-30-2024 End: 09-30-2024 Patient encounter procedure 09/30/2024 9:00 AM EDT Office Visit OB/Gynecology [address] [place] [address] Stacy Caldera APRN.CABLE INSTALLER REPAIRER HELPER [address] [place] [address] Annual Exam OB/Gynecology Comment on above: Annual Exam Start: 09-22-2024 End: 09-22-2024 Patient encounter procedure 09/22/2024 10:00 AM EDT Routine Office Visit OB/Gynecology [address] [place] [address] Gislela Knapp MD [address] [place] [address] OB OB/Gynecology Comment on above: OB Start: 09-07-2024 End: 09-07-2024 Patient encounter procedure 09/07/2024 3:15 PM EDT Routine Office Visit OB/Gynecology [address] [place] [address] Coreen Cespedes APRN.CN [address] [place] [address] OB OB/Gynecology Comment on above: OB Start: 08-26-2024 End: 08-26-2024 Patient encounter procedure Maternal Medicine Comment on above: growth/kidneys OB Routine Start: 08-26-2024 End: 08-26-2024 ambulatory [facility] Laboratory Comment on above: Glucose Test and Lab s Start: 08-16-2024 End: 08-16-2024 ambulatory 08/16/2024 11:00 AM EDT Results Only Lab [facility] [address] [place] [address] Lab [facility] Start: 08-13-2024 End: 08-13-2024 Patient encounter procedure 08/13/2024 4:00 PM EDT Routine Office Visit OB/Gynecology [address] [place] [address] Gisella Knapp MD [address] [place] [address] /[facility] ER OB/Gynecology Comment on above: /[facility] Start: 08-13-2024 End: 11-12-2024 Amylase [Enzymatic activity/volume] in Serum or Plasma AMYLASE Lab Routine Abdominal pain during in second trimester (HCC) Expected: 08/13/2024, Expires: 11/12/2024 [facility] Comment on above: Expected: 08/13/2024 , Expires: 11/12/2024 Start: 08-13-2024 End: 11-12-2024 BILE ACIDS FRACT BLD BILE ACIDS FRACT BLD Lab Routine Abdominal pain during in second trimester ([facility]) Elevated LFTs Expected: 08/13/2024, Expires: 11/12/2024 [facility] Comment on above: Expected: 08/13/2024 , Expires: 11/12/2024 Start: 08-13-2024 End: 11-12-2024 BILE ACIDS, TOTAL BILE ACIDS, TOTAL Lab Routine Abdominal pain during in second trimester ([facility]) Elevated LFTs Expected: 08/13/2024, Expires: 11/12/2024 [facility] Comment on above: Expected: 08/13/2024 , Expires: 11/12/2024 Start: 08-13-2024 End: 11-12-2024 CBC panel - Blood by Automated count COMPLETE BLOOD COUNT Lab Routine Abdominal pain during in second trimester ([facility]) Expected: 08/13/2024, Expires: 11/12/2024 [facility] Comment on above: Expected: 08/13/2024 , Expires: 11/12/2024 Start: 08-13-2024 End: 11-12-2024 Comprehensive metabolic 2000 panel - Serum or Plasma COMPREHENSIVE METABOLIC PANEL Lab Routine Abdominal pain during in second trimester ([facility]) Elevated LFTs Expected: 08/13/2024, Expires: 11/12/2024 [facility] Work Phone: Comment on above: Expected: 08/13/2024 , Expires: 11/12/2024 Start: 08-13-2024 End: 11-12-2024 Lipase [Enzymatic activity/volume] in Serum or Plasma LIPASE Lab Routine Abdominal pain during in second trimester ([facility]) Expected: 08/13/2024, Expires: 11/12/2024 [facility] Comment on above: Expected: 08/13/2024 , Expires: 11/12/2024 Start: 07-29-2024 End: 07-29-2024 Patient encounter procedure 07/29/2024 10:30 AM EDT Routine Office Visit OB/Gynecology [address] [place] [address] Jocelyn Cooley APRN.CN [address] [place] [address] OB Routine OB/Gynecology Comment on above: OB Routine Start: 07-01-2024 End: 07-01-2024 Patient encounter procedure Maternal Medicine Comment on above: Anatomy Scan OB Routine Start: 05-31-2024 End: 05-31-2024 Patient encounter procedure 05/31/2024 10:00 AM EDT Routine Office Visit OB/Gynecology [address] [place] [address] Coreen Cespedes APRN.CN [address] [place] [address] OB Routine OB/Gynecology Comment on above: OB Routine Start: 05-05-2024 End: 05-05-2024 Patient encounter procedure Maternal Medicine Comment on above: Nuchal OB Start: 04-05-2024 End: 07-05-2024 ANEMIA REFLEX PANEL ANEMIA REFLEX PANEL Lab Routine with uncertain dates in first trimester Expected: 04/05/2024, Expires: 07/05/2024 [facility] Work Phone: Comment on above: Expected: 04/05/2024 , Expires: 07/05/2024 Start: 04-05-2024 End: 07-05-2024 Chromosome 21 trisomy [Presence] in Blood or Tissue by Cytogenetics [id number] PLUS Lab Routine Encounter for supervision of high risk in first trimester, antepartum Expected: 04/05/2024, Expires: 07/05/2024 [facility] Comment on above: Expected: 04/05/2024 , Expires: 07/05/2024 Start: 04-05-2024 End: 07-05-2024 Hemoglobin A1c in Blood HEMOGLOBIN A1C Lab Routine with uncertain dates in first trimester Expected: 04/05/2024, Expires: 07/05/2024 [facility] Comment on above: Expected: 04/05/2024 , Expires: 07/05/2024 Start: 04-05-2024 End: 07-05-2024 Hepatitis B virus surface Ag [Presence] in Serum HEPATITIS B SURFACE ANTIGEN Lab Routine with uncertain dates in first trimester Expected: 04/05/2024, Expires: 07/05/2024 [facility] Comment on above: Expected: 04/05/2024 , Expires: 07/05/2024 Start: 04-05-2024 End: 07-05-2024 Hepatitis C virus Ab [Presence] in Serum HEPATITIS C ANTIBODY IA WITH CONFIRMATION Lab Routine with uncertain dates in first trimester Expected: 04/05/2024, Expires: 07/05/2024 [facility] Comment on above: Expected: 04/05/2024 , Expires: 07/05/2024 Start: 04-05-2024 End: 07-05-2024 HIV 1+2 Ab [Presence] in Serum or Plasma by Immunoassay HIV 1/2 COMBO WITH REFLEX TO DIFFERENTIATION Lab Routine with uncertain dates in first trimester Expected: 04/05/2024, Expires: 07/05/2024 [facility] Comment on above: Expected: 04/05/2024 , Expires: 07/05/2024 Start: 04-05-2024 End: 04-05-2025 OBSTETRIC ULTRASOUND WHI OBSTETRIC ULTRASOUND WHI Anc Imaging Routine with uncertain dates in first trimester Expected: 04/05/2024, Expires: 04/05/2025 [facility] Comment on above: Expected: 04/05/2024 , Expires: 04/05/2025 Start: 04-05-2024 End: 07-05-2024 RUBELLA IGG ANTIBODY RUBELLA IGG ANTIBODY Lab Routine with uncertain dates in first trimester Expected: 04/05/2024, Expires: 07/05/2024 [facility] Comment on above: Expected: 04/05/2024 , Expires: 07/05/2024 Start: 04-05-2024 End: 07-05-2024 SYPHILIS TREPONEMAL W/REFLEX SYPHILIS TREPONEMAL W/REFLEX Lab Routine with uncertain dates in first trimester Expected: 04/05/2024, Expires: 07/05/2024 [facility] Comment on above: Expected: 04/05/2024 , Expires: 07/05/2024 Start: 04-05-2024 End: 07-05-2024 Thyrotropin [Units/volume] in Serum or Plasma THYROID STIMULATING HORMONE Lab Routine Enlarged thyroid Expected: 04/05/2024, Expires: 07/05/2024 [facility] Comment on above: Expected: 04/05/2024 , Expires: 07/05/2024 Start: 04-05-2024 End: 07-05-2024 Thyroxine (T4) free [Mass/volume] in Serum or Plasma T4 FREE/FREE THYROXINE Lab Routine Enlarged thyroid Expected: 04/05/2024, Expires: 07/05/2024 [facility] Comment on above: Expected: 04/05/2024 , Expires: 07/05/2024 Start: 04-05-2024 End: 07-05-2024 TYPE + SCREEN TYPE + SCREEN Blood Bank Routine with uncertain dates in first trimester Expected: 04/05/2024, Expires: 07/05/2024 [facility] Comment on above: Expected: 04/05/2024 , Expires: 07/05/2024 Start: 04-05-2024 End: 04-05-2024 Patient encounter procedure 04/05/2024 9:30 AM EST Initial Office Visit OB/Gynecology [address] [place] [address] Leodan Van APRN.CABLE INSTALLER REPAIRER HELPER [address] [place] [address] New OB-LMP 02/10 OB/Gynecology Comment on above: New OB-LMP 02/10 Start: 03-15-2024 End: 06-14-2024 Choriogonadotropin.beta subunit [Units/volume] in Serum or Plasma HCG QUANTITATIVE Lab Routine Missed menses Expected: 03/15/2024, Expires: 06/14/2024 [facility] Work Phone: Comment on above: Expected: 03/15/2024 , Expires: 06/14/2024 Start: 11-09-2023 Covid-19 Vaccine () Covid-19 Vaccine () [facility] Start: 11-09-2023 Covid-19 Vaccine () Covid-19 Vaccine () [facility] Start: 11-09-2023 Influenza vaccination Influenza Vacc ine (#1) [facility] Start: 01-01-2024 Behavioral Health Screening Behavioral Health Screening [facility] Start: 11-08-2022 Covid-19 Vaccine () Covid-19 Vaccine () [facility] Start: 11-08-2022 Influenza vaccination [facility] Start: 09-24-2022 End: 11-24-2022 Hepatitis B virus surface Ag [Presence] in Serum [facility] Work Phone: Comment on above: Expected: 09/24/2022 , Expires: 11/24/2022 Start: 09-24-2022 End: 11-24-2022 Hepatitis C virus RNA [Units/volume] (viral load) in Serum or Plasma by RICH with probe detection [facility] Work Phone: Comment on above: Expected: 09/24/2022 , Expires: 11/24/2022 Start: 09-24-2022 End: 11-24-2022 HERPES SIMPLEX TYPE 1 AND 2 IG [facility] Work Phone: Comment on above: Expected: 09/24/2022 , Expires: 11/24/2022 Start: 09-24-2022 End: 11-24-2022 HIV 1+2 Ab [Presence] in Serum or Plasma by Immunoassay [facility] Work Phone: Comment on above: Expected: 09/24/2022 , Expires: 11/24/2022 Start: 09-24-2022 End: 11-24-2022 SYPHILIS TOTAL W/REFLEX [facility] Work Phone: Comment on above: Expected: 09/24/2022 , Expires: 11/24/2022 Start: 09-24-2022 End: 11-24-2022 THYROID PEROXIDASE ANTIBODY BLOOD [facility] Work Phone: Comment on above: Expected: 09/24/2022 , Expires: 11/24/2022 Start: 09-24-2022 End: 11-24-2022 Thyrotropin [Units/volume] in Serum or Plasma [facility] Work Phone: Comment on above: Expected: 09/24/2022 , Expires: 11/24/2022 Start: 09-24-2022 End: 11-24-2022 Thyroxine (T4) free [Mass/volume] in Serum or Plasma [facility] Work Phone: Comment on above: Expected: 09/24/2022 , Expires: 11/24/2022 Start: 09-24-2022 End: 11-24-2022 Triiodothyronine (T3) [Mass/volume] in Serum or Plasma [facility] Work Phone: Comment on above: Expected: 09/24/2022 , Expires: 11/24/2022 Start: 03-10-2022 DEPRESSION ASSESSMENT DEPRESSION ASS ESSMENT [facility] Start: 12-24-2021 PAP TESTING PAP TESTING [facility] Start: 11-08-2020 Influenza vaccination Flu vacc ine (Season Ended) [facility] Work Phone: Start: 2020 HPV Vaccine (1 - 3-d ose SCDM series) HPV Vaccine (1 - 3-dose SCDM series) [facility] Start: 11-20-2018 End: 11-20-2018 Appointment 11/20/2018 Appointment Radiology Therese Mckoy MD [address] [facility] [address] [place], [place] [id number] [facility] Ul[facility]ound Start: 11-08-2018 Influenza vaccination Flu vaccine (# 1) [place], [place] Start: 05-26-2017 Cervical cancer screen Cervical canc er screen [place], [place] Start: 05-26-2017 Screening for malign ant neoplasm of cervix Cervical cancer screen [facility] Work Phone: Start: 2012 DTaP/Tdap/Td vaccine (1 - Tdap) DTaP/Tdap/Td vaccine (1 - Tdap) [place], [place] Start: 2012 Hepatitis B Vaccine (1 of 3 - 19+ 3-dose series) Hepatitis B Vaccine (1 of 3 - 19+ 3-dose series) [facility] Start: 2012 Urine microalbumin profile [facility] Start: 2011 Anxiety Screening Anxiety Screening [facility] Start: 2011 Depression Screening Depression Scre ening [facility] Start: 2011 HEPATITIS C SCREENING HEPATITIS C SHAVON ALMONTE [facility] Start: 2011 HIV SCREENING HIV SCREENING [facility] Start: 2008 HIV screen HIV screen [place], [place] Start: 2008 HIV screening HIV screen [facility] Work Phone: Start: 2008 HPV vaccine (1 - Fem kenna 3-dose series) HPV vaccine (1 - Female 3-dose series) [place], [place] Start: 2006 Varicella Vaccine (1 of 2 - 13+ 2-dose series) Varicella Vaccine (1 of 2 - 13+ 2-dose series) [place], [place] Start: 2005 COVID-19 Vaccine (1) COVID-19 Vaccin e (1) [facility] Work Phone: Start: 1994 Varicella vaccine (1 of 2 - 2-dose childhood series) Varicella vaccine (1 of 2 - 2-dose childhood series) [facility] Work Phone: Start: 1993 COVID-19 VACCINE (#1) COVID-19 VACCI NE (#1) [facility] Start: 1993 HEPATITIS B (1 of 3 - 3-dose series) HEPATITIS B (1 of 3 - 3-dose series) [facility] Start: 1993 Hepatitis B Vaccine (1 of 3 - 3-dose series) Hepatitis B Vaccine (1 of 3 - 3-dose series) [facility] Start: 1993 Hepatitis C screening Hepatitis C shavon spencer [facility] Work Phone: Bacteria identified in Urine by Culture BACTERIAL CULTURE, URINE Microbiology Routine with uncertain dates in first trimester 04/05/2024 10:28 AM EST [facility] Bacteria identified in Urine by Culture BACTERIAL CULTURE, URINE Microbiology Routine Abdominal pain during in second trimester (HCC) 08/13/2024 4:25 PM EDT [facility] BACTERIAL VAGINOSIS NAAT BACTERI AL VAGINOSIS NAAT Lab Routine Vaginal discharge Ordered: 09/24/2022 [facility] Work Phone: Comment on above: Ordered: 09/24/2022 BACTERIAL VAGINOSIS NAAT BACTERI AL VAGINOSIS NAAT Lab Routine Screen for STD (sexually transmitted disease) Vaginal discharge 09/25/2023 10:09 AM EDT [facility] WILMAN/TRICHOMONAS NAAT WILMAN /TRICHOMONAS NAAT Microbiology Routine Vaginal discharge Ordered: 09/24/2022 [facility] Work Phone: Comment on above: Ordered: 09/24/2022 WILMAN/TRICHOMONAS NAAT WILMAN /TRICHOMONAS NAAT Lab Routine Screen for STD (sexually transmitted disease) Vaginal discharge 09/25/2023 10:09 AM EDT [facility] Chlamydia trachomatis+Neisseria gonorrhoeae DNA [Presence] in Unspecified specimen by RICH with probe detection GONORRHEA/CHLAMYDIA NAAT Lab Routine Screen for STD (sexually transmitted disease) Ordered: 09/24/2022 [facility] Work Phone: Comment on above: Ordered: 09/24/2022 Chlamydia trachomatis+Neisseria gonorrhoeae DNA [Presence] in Unspecified specimen by RICH with probe detection GONORRHEA/CHLAMYDIA NAAT Lab Routine Screen for STD (sexually transmitted disease) 09/25/2023 10:09 AM [facility] Work Phone: Chlamydia trachomatis+Neisseria gonorrhoeae DNA [Presence] in Unspecified specimen by RICH with probe detection GONORRHEA/CHLAMYDIA NAAT Lab Routine with uncertain dates in first trimester 04/05/2024 10:[address] [facility] EKG 12 Lead - Chest Pain EKG 12 Lead - Chest Pain ECG STAT 11/08/2018 7:55 PM EDT [facility], [place] PAP TEST PAP TEST Lab [facility] Encounter for gynecological examination (general) (routine) without abnormal findings Screening for cervical cancer Encounter for screening for human papillomavirus (HPV) Ordered: 09/24/2022 [facility] Work Phone: Comment on above: Ordered: 09/24/2022 ROUTINE, GR OUP B STREPTOCOCCUS BY PCR ROUTINE, GROUP B STREPTOCOCCUS BY PCR Microbiology Routine 36 weeks gestation of (HCC) 10/20/2024 10:27 AM [facility] Work Phone: End: 10-24-2023 Us soft tissue head & neck real time imge docm US THYROID/PARATHYROID Radiology Routine Enlarged thyroid 1 Occurrences starting 09/24/2022 until 10/24/2023 [facility] Work Phone: Comment on above: 1 Occurrences starti ng 09/24/2022 until 10/24/2023 [facility] c Immunizations Immunization Date Immunization Notes Care Provider Alina lambertbenja 08-26-2024 tetanus toxoid, redu bertha diphtheria toxoid, and acellular pertussis vaccine, adsorbed Whi Mob [facility] 07-20-2020 diphtheria, tetanus toxoids and acellular pertussis vaccine, unspecified formulation Milo Thornton DO Work Phone: [facility] Work Phone: 07-20-2020 tetanus toxoid, redu bertha diphtheria toxoid, and acellular pertussis vaccine, adsorbed Milo Thornton DO Work Phone: [facility] Work Phone: 12-29-2016 influenza virus vaccine, unspecified formulation Stacy Caldera APRN.CABLE INSTALLER REPAIRER HELPER Work Phone: [facility] Payers Date Payer Category Payer Self-pay 2024 Unknown [id number] 2022 [facility] BLUE CARD PPO OOS [id number] 2022 Unknown [id number] 2021 Private Health Insurance [id number] 2021 Unknown [id number] 2018 Unknown [id number] 2015 Unknown [employer] BLUE ACCESS BONNY xxxxxxxxxxxx 2015-Present [address] [place] [address] xxxxxxxxxxxx [id number] 1993 Unknown [id number] 1993 Unknown [id number] 1993 Unknown [id number] Unknown [id number] Social History Date Type Detail Facility Start: 11-08-2018 End: 04-05-2024 Tobacco smoking status NHIS Former smoker [facility] Work Phone: Start: 11-08-2018 End: 04-05-2024 Alcohol intake Not Currently [place], [place] Start: 1993 Sex Assigned At Not on file [place], [place] Start: 07-20-2020 End: 04-05-2024 Tobacco use and exposure Never used [facility] Start: 07-20-2020 End: 11-03-2024 Alcohol intake Ex-drinker (finding) [facility] Work Phone: Exposure to SARS-CoV -2 (event) Not sure [facility] History of tobacco use Current smoker [facility] Work Phone: History of tobacco use Passive smoker [facility] Work Phone: Start: 09-24-2022 End: 09-25-2023 Alcohol intake Current drinker of alcohol (finding) [facility] Start: 09-24-2022 End: 04-05-2024 History of Social function [facility] Start: 09-26-2014 National Score (1-10 0), lower number is lower risk 88 [facility] Start: 12-24-2018 Alcohol Comment social [facility] Start: 1995 Sex Assigned At Female [facility] Start: 06-01-2023 Gender identity Identifies as female gender (finding) [facility] Start: 06-01-2023 Sexual orientation Heterosexual (fin ding) [facility] Tobacco smoking status [facility] Start: 03-18-2024 Sex Female (finding) [facility] History of tobacco use Cigarette Smoker [facility] Start: 04-05-2024 Tobacco Comment Quit when i was 18 [facility] Start: 02-25-2024 [facility] Start: 08-12-2024 Tobacco smoking status Never s moked tobacco (finding) [facility] Goals Date Patient Goal Desired Activity /State Personal health goal Functional Status Date Assessment Result Facility 03-18-2024 Functional Status Repositions self [facility] Mental Status Date Assessment Result Facility 03-18-2024 Mental Status Oriented x 4 [facility] Clinical Notes 07-20-2020 to 11-03-2024 Quick Notes - Jocelyn Cooley APRN.[facility] - 11/03/2024 11:15 AM EDTPrenatal Quick Notes - Jocelyn Cooley APRN.[facility] - 11/03/2024 11:15 AM EDTPatient InstructionsPatient Instructions [...] discussed with the Patient or Patient's Authorized Air [employer] Senior Officer. As applicable, any other physician, advance practice provider, medical student, or other health professional student that will be observing or involved in the sensitive examination for educational or training purposes was discussed with the Patient or Authorized Air Force Senior Officer. The Patient or Authorized Air Force Senior Officer has agreed to proceed with the sensitive examination. ASSESSMENT/PLAN: 1. 38 weeks gestation of 2. 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 As applicable, any other physician, advance practice provider, medical student, or other health professional student that will be observing or involved in the sensitive examination for educational or training purposes was discussed with the Patient or Authorized Air Force Senior Officer. The Patient or Authorized Air [employer] Senior Officer has agreed to proceed with the sensitive examination. ASSESSMENT/PLAN: 1. 38 weeks gestation of 2. 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 Add soaked dates to homemade nut butter for a sweet treat. Add dates to km homemade salad dressing. Add dates during easily with these yummy (paleo friendly) bars made from dates. What Is Red Raspberry Laguna Tea? Red raspberry leaf tea comes from [...] , and too. How Much Red Raspberry Laguna Tea to Drink? With your doctor or sheep sorter s approval, start with 1 cup of [...] because of uterine cramping. Is Red Raspberry Laguna Tea the Same as Raspberry Laguna Tea? How About Plain Old Raspberry Tea? Sometimes. You really need to look at the ingredients to be sure. Note that there is no difference between red raspberry leaf and raspberry leaf. Keen Guides or Nutritics Raspberry Laguna Tea are two good brands. The red [...] outlined in this article. [employer] www.Happy Days I named this 'circuit' after my friend [...] sideways, 2 at a time, (have a cable driller downstairs of you!), take a walk outside [...] pelvis. Rossy Cortez Von: Circuit Creator - www.[facility]co Mary Vila, CD, BDT (MAIKOL), LCCE, FACCE: Supporting Content - www.connie.[employer] Leodan Miranda: Photography - www.PremiTech Emily Burk CD/CDT (MARLENA): Print and Turkish Rubber - www.Sportfort [employer] Masterminds [employer] www.Happy Days SEQUENTIAL SCREENINGS The [facility] offers sequential screenings for women who are [...] It will require an appointment with our dairy laboratory technician. This is not an ultrasound performed [...] the above symptoms, contact our office at [phone] and ask to speak with a nurse. After hours, you can call [facility] at [phone] OR call [facility] at [phone] and ask to have the doctor bus person dishwasher paged. If you consider this an emergency, dial 9-1-1 or go to your nearest emergency department. NEED HELP? Are you dealing with a violent or abusive relationship? Are you a victim of rape or sexual assult? Call [facility] ([place]) 24 hour Crisis Hotline: 914.926.3042 or 989-566-0935. MANUAL Your Guide to a Healthy manual is now on-line. Visit [email or web address] ancyGuide to download your free copy documented in this encounter [facility] 10-27-2024 Progress note Formatting of t his [...] Supervision of high risk in third trimester ([facility]) - ICD9: V23.9, ICD10: O09.93 3. HSV-2 seropositive 4. History of delivery - Hx. delivery at 36 weeks- PPROM - Started Acyclovir 400 mg PO TID - GBS negative - Labor precautions and timing of contractions reviewed Jocelyn Cooley APRN.CNM [facility] 10-27-2024 Miscellaneous Notes S: Ignacio Pettit is [...] nontender ASSESSMENT/PLAN: 1. 37 weeks gestation of ([facility]) - ICD9: V22.2, ICD10: Z3A.37 (primary diagnosis) 2. Supervision of high risk in third trimester ([facility]) - ICD9: V23.9, ICD10: O09.93 3. HSV-2 seropositive 4. History of delivery - Hx. delivery at 36 weeks- PPROM - Started Acyclovir 400 mg PO TID - GBS negative - Labor precautions and timing of contractions reviewed Jocelyn Cooley APRN.CNM documented in this encounter [facility] 10-27-2024 Instructions Paloma Bond LPN - 10/27/2024 12:51 PM EDT SEQUENTIAL SCREENINGS The [facility] offers sequential screenings for women who are [...] It will require an appointment with our dairy laboratory technician. This is not an ultrasound performed [...] the above symptoms, contact our office at [phone] and ask to speak with a nurse. After hours, you can call [facility] at [phone] OR call [facility] at [phone] and ask to have the doctor bus person dishwasher paged. If you consider this an emergency, dial 11-08- or go to your nearest emergency department. NEED HELP? Are you dealing with a violent or abusive relationship? Are you a victim of rape or sexual assult? Call [facility] ([place]) 24 hour Crisis Hotline: 862.520.6418 or 800-646-3229. MANUAL Your Guide to a Healthy manual is now on-line. Visit [email or web address] [email or web address] to download your free copy documented in this encounter [facility] 10-20-2024 Progress note Formatting of t his [...] discussed with the Patient or Patient's Authorized Air Force Senior Officer. As applicable, any other physician, advance practice provider, medical student, or other health professional student that will be observing or involved in the sensitive examination for educational or training purposes was discussed with the Patient or Authorized Air Force Senior Officer. The Patient or Authorized Air Force Senior Officer has agreed to proceed with the sensitive [...] RTO in one week Coreen Cespedes APRN.CNM [facility] 10-20-2024 Miscellaneous Notes BRENDA-S: Ignacio Pettit is [...] discussed with the Patient or Patient's Authorized Air [employer] Senior Officer. As applicable, any other physician, advance practice provider, medical student, or other health professional student that will be observing or involved in the sensitive examination for educational or training purposes was discussed with the Patient or Authorized Air Force Senior Officer. The Patient or Authorized Air Force Senior Officer has agreed to proceed with the sensitive [...] Coreen Cespedes APRN.CNM documented in this encounter [facility] 10-20-2024 Instructions Coreen Cespedes APRN.CNM - 10/20/2024 [...] the above symptoms, contact our office at [phone] and ask to speak with a nurse. After hours, you can call doctors registry at [phone] OR call [facility] at [phone] and ask to have the doctor bus person dishwasher paged. If you consider this an emergency, dial 9-1-0 or go to your nearest emergency department. NEED HELP? Are you dealing with a violent or abusive relationship? Are you a victim of rape or sexual assult? Call [facility] ([place]) 24 hour Crisis Hotline: 473.868.2662 or 444-493-5529. MANUAL Your Guide to a Healthy manual is now on-line. Visit [email or web address] ancyGuide to download your free copy documented in this encounter [facility] 10-11-2024 Miscellaneous Notes Summary: [address] Mobile-Tempo AI Consult M-Tempo AI Packing Machine Inspector Note Hospital Name: [place] Completed by: Светлана Warren RN Date: October 11, [address] [employer] AI Resource Time: 2 hours Consult Code:E Consult Type: Phone Safety Concerns: No Ignacio Pettit [id number] Preferred Name: Ignacio OB Provider: Abigail Hensley [...] Safety/Support/Social Work: None documented in this encounter [facility] 10-11-2024 Progress note Summary: Zak wilson Consult -Tempo AI Packing Machine Inspector Note Hospital Name: [place] Completed by: Светлана Warren RN Date: October 11, 2024 [employer]ent Resource Time: 2 hours Consult Code:E Consult Type: Phone Safety Concerns: No Ignacio Pettit [id number] Preferred Name: Ignacio OB Provider: Abigail Hensley [...] first child was born. Safety/Support/Social Work: None [facility] 10-06-2024 Progress note Formatting of t his [...] for AJ with GBS Jocelyn Cooley APRN.CNM [facility] 10-06-2024 Miscellaneous Notes S: Ignacio Pettit is a 29 year old female who presents at 34 weeks gestation for a routine visit. Positive movements. Occasional tl hcase. C/O skin itchy. No rashes noted. Denies [...] Jocelyn Cooley APRN.CNM documented in this encounter [facility] 10-06-2024 Instructions Paloma Bond LPN - 10/06/2024 10:03 AM EDT SEQUENTIAL SCREENINGS The [facility] offers sequential screenings for women who are [...] It will require an appointment with our dairy laboratory technician. This is not an ultrasound performed [...] the above symptoms, contact our office at [phone] and ask to speak with a nurse. After hours, you can call doctors registry at [phone] OR call [facility] at [phone] and ask to have the doctor bus person dishwasher paged. If you consider this an emergency, dial 4-3-3 or go to your nearest emergency department. NEED HELP? Are you dealing with a violent or abusive relationship? Are you a victim of rape or sexual assult? Call [facility] ([place]) 24 hour Crisis Hotline: 985.221.1140 or 687-178-6827. MANUAL Your Guide to a Healthy manual is now on-line. Visit [email or web address] ancyGuide to download your free copy documented in this encounter [facility] 09-22-2024 Progress note Formatting of t his [...] trimester (HCC) Pyelectasis of fetus on ultrasound ([facility]) History of delivery 32 weeks gestation of ([facility]) Gonzalo silva reviewed Gisella Mcclendon MD [facility] 09-22-2024 Miscellaneous Notes DM-Pt doing well. Denies vaginal Bleeding, Leaking fluid, or regular Contractions. Pt reports good movement Physical Exam: Gen: female in no apparent distress Abd: soft, Gravid. Non tender to palpation. See flow sheet @ 32 weeks Assessment & Plan Supervision of high risk in third trimester ([facility]) Pyelectasis of fetus on ultrasound ([facility]) History of delivery 32 weeks gestation of ([facility]) Gonzalo silva reviewed Gisella Mcclendon MD documented in this encounter [facility] 09-22-2024 Instructions Emelia Miles MA - 09/22/2024 9:52 AM EDT SEQUENTIAL SCREENINGS The [facility] offers sequential screenings for women who are [...] It will require an appointment with our dairy laboratory technician. This is not an ultrasound performed [...] the above symptoms, contact our office at [phone] and ask to speak with a nurse. After hours, you can call doctors registry at [phone] OR call [facility] at [phone] and ask to have the doctor bus person dishwasher paged. If you consider this an emergency, dial 9-1-6 or go to your nearest emergency department. NEED HELP? Are you dealing with a violent or abusive relationship? Are you a victim of rape or sexual assult? Call [facility] ([place]) 24 hour Crisis Hotline: 393.125.2268 or 418-738-5528. MANUAL Your Guide to a Healthy manual is now on-line. Visit [email or web address] [email or web address] to download your free copy documented in this encounter [facility] 09-08-2024 Instructions Coreen Cespedes APRN.JENNIFER - 09/08/2024 3:00 PM EDT in [place] -[email or web address] What is my perineum? Your perineum [...] or burning! Figure 1 1 Perineal Massage Flesch?[place] Grade Level: 7.2 Approved March 2015. This [...] the above symptoms, contact our office at [phone] and ask to speak with a nurse. After hours, you can call doctors registry at [phone] OR call [facility] at [phone] and ask to have the doctor bus person dishwasher paged. If you consider this an emergency, dial 11-08- or go to your nearest emergency department. NEED HELP? Are you dealing with a violent or abusive relationship? Are you a victim of rape or sexual assult? Call [facility] ([place]) 24 hour Crisis Hotline: 565.604.1442 or 299-294-4871. MANUAL Your Guide to a Healthy manual is now on-line. Visit [email or web address] [email or web address] to download your free copy documented in this encounter [facility] 09-08-2024 Progress note Formatting of t his [...] RTO in 2 wk Coreen Cespedes APRN.CNM [facility] 09-08-2024 Miscellaneous Notes BRENDA-S: Ignacio Pettit is [...] Coreen Cespedes APRN.CNM documented in this encounter [facility] 08-26-2024 Progress note Formatting of t his [...] PTL & FM precautions Cristobal Almanzar MD [facility] 08-26-2024 Miscellaneous Notes KJ - S: Ignacio [...] Cristobal Almanzar MD documented in this encounter [facility] 08-26-2024 Note HNO ID: [id number] Author: KARISSA JACKSON MA Service: ? Author Type: Security Flex Officer Type: Progress Notes Filed: 08/26/2024 11:51 Note [...] severely ill: Yes Patient denies history of Guillain-Clint Syndrome (a severe paralytic illness): Yes Tdap Adacel injection was given without incident. See immunizations for details of immunizations administered today. VIS sheet provided: Yes Provider Dr Almanzar was present in office at time of injection. Shawnee Cole MA [facility] 08-26-2024 History of Presen t illness [...] severely ill: Yes Patient denies history of Guillain-Clint Syndrome (a severe paralytic illness): Yes Tdap Adacel injection was given without incident. See immunizations for details of immunizations administered today. VIS sheet provided: Yes Provider Dr Almanzar was present in office at time of injection. Shawnee Cole MA documented in this encounter [facility] 08-26-2024 Instructions Shawnee Cole MA - 08/26/2024 10:45 AM EDT SEQUENTIAL SCREENINGS The [facility] offers sequential screenings for women who are [...] It will require an appointment with our dairy laboratory technician. This is not an ultrasound performed [...] the above symptoms, contact our office at [phone] and ask to speak with a nurse. After hours, you can call [facility] registry at [phone] OR call [facility] at [phone] and ask to have the doctor bus person dishwasher paged. If you consider this an emergency, dial 2 or go to your nearest emergency department. NEED HELP? Are you dealing with a violent or abusive relationship? Are you a victim of rape or sexual assult? Call [facility] ([place]) 24 hour Crisis Hotline: 609.937.1610 or 380-470-9255. MANUAL Your Guide to a Healthy manual is now on-line. Visit [email or web address] ancyGuide to download your free copy documented in this encounter [facility] 08-26-2024 Note Indication Evaluation of growth. Urinary [...] 9 oz EFW by: Hadlock (HC-AC-FL) Extended Aws Developer 3.4 mm Extremities / Bony Struc FL [...] encounter. Patient was notified. Patricia Pryor RN [facility] 08-19-2024 Miscellaneous Notes See 08/18 results follow up encounter. Patient was notified. Patricia Pryor RN Left message for patient to call office. Patricia Pryor RN Images from the original note were not included. Gisella Knapp MD to [facility] Ob-Pipe Installer Pool (Selected Message) 08/18/24 7:47 AM Result [...] feeling. Next appt 08/26/24. Pt was in [facility] last week for pain. BILE ACIDS, TOTAL; LIPASE; COMPREHENSIVE METABOLIC PANEL; AMYLASE; COMPLETE BLOOD COUNT See result note 26w6d Patient called in asking if provider reviewed labs from yesterday yet. Aware provider back in office tomorrow. Patricia Pryor RN documented in this encounter [facility] 08-18-2024 Telephone encounter Note I think at this point it is not OB related- I would see if she can see GI/Gen surgery for any further recommendations. Consult order placed. [facility] 08-18-2024 Miscellaneous Notes I think at this point it is not OB related- I would see if she can see GI/Gen surgery for any further recommendations. Consult order placed. Ob patient is 27w0d and reports mid back pain and upper mid abdominal pain that has been persistent and varies in intensity. Reports decreased appetite. documented in this encounter [facility] 08-18-2024 Telephone encounter Note Ob patient is 27w0d and reports mid back pain and upper mid abdominal pain that has been persistent and varies in intensity. Reports decreased appetite. [facility] 08-18-2024 Telephone encounter Note Left message for patient to call office. Patricia Pryor RN [facility] 08-18-2024 Telephone encounter Note Images from the original note were not included. Gisella Knapp MD to [facility] Ob-Pipe Installer Pool (Selected Message) 08/18/24 7:47 AM Result [...] feeling. Next appt 08/26/24. Pt was in [facility] last week for pain. BILE ACIDS, TOTAL; LIPASE; COMPREHENSIVE METABOLIC PANEL; AMYLASE; COMPLETE BLOOD COUNT [facility] 08-18-2024 Telephone encounter Note See result note [facility] 08-17-2024 Telephone encounter Note 26w6d Patient called in asking if provider reviewed labs from yesterday yet. Aware provider back in office tomorrow. Patricia Pryor RN T [facility] 08-13-2024 Progress note Formatting of t his [...] Epigastric area, no significant RUQ pain. Negative [place] See flow sheet @ 26.2 weeks Assessment & Plan Abdominal pain during in second trimester ([facility]) Orders: UA DIP, URINE (POC) BACTERIAL CULTURE, URINE COMPREHENSIVE METABOLIC PANEL; Future BILE ACIDS, TOTAL; Future BILE ACIDS FRACT BLD; Future AMYLASE; Future LIPASE; Future COMPLETE BLOOD COUNT; Future Elevated LFTs Orders: COMPREHENSIVE METABOLIC PANEL; Future BILE ACIDS, TOTAL; Future BILE ACIDS FRACT BLD; Future Supervision of high risk in second trimester ([facility]) History of delivery Uterine size-date discrepancy, second trimester ([facility]) 26 weeks gestation of ([facility]) Labs to be repeated Friday When to return to ER discussed with patient Juanitock counts reviewed Gisella Mcclendon MD [facility] 08-13-2024 Miscellaneous Notes DM-pt seen for ER [...] Epigastric area, no significant RUQ pain. Negative [place] See flow sheet @ 26.2 weeks Assessment & Plan Abdominal pain during in second trimester ([facility]) Orders: UA DIP, URINE (POC) BACTERIAL CULTURE, URINE COMPREHENSIVE METABOLIC PANEL; Future BILE ACIDS, TOTAL; Future BILE ACIDS FRACT BLD; Future AMYLASE; Future LIPASE; Future COMPLETE BLOOD COUNT; Future Elevated LFTs Orders: COMPREHENSIVE METABOLIC PANEL; Future BILE ACIDS, TOTAL; Future BILE ACIDS FRACT BLD; Future Supervision of high risk in second trimester ([facility]) History of delivery Uterine size-date discrepancy, second trimester ([facility]) 26 weeks gestation of ([facility]) Labs to be repeated Friday When to return to ER discussed with patient Juanitock counts reviewed Gisella Mcclendon MD documented in this encounter [facility] 08-13-2024 Instructions Harley Lam MA - 08/13/2024 4:16 PM EDT SEQUENTIAL SCREENINGS The [facility] offers sequential screenings for women who are [...] It will require an appointment with our dairy laboratory technician. This is not an ultrasound performed [...] the above symptoms, contact our office at [phone] and ask to speak with a nurse. After hours, you can call doctors registry at [phone] OR call [facility] at [phone] and ask to have the doctor bus person dishwasher paged. If you consider this an emergency, dial 9--1 or go to your nearest emergency department. NEED HELP? Are you dealing with a violent or abusive relationship? Are you a victim of rape or sexual assult? Call [facility] ([place]) 24 hour Crisis Hotline: 506.673.5698 or 273-591-8425. MANUAL Your Guide to a Healthy manual is now on-line. Visit [email or web address] [email or web address] to download your free copy documented in this encounter [facility] 08-13-2024 Telephone encounter Note 26w2d Went to [facility] ER for pain in kidney/gallbladder. Pt [...] bed at this time. Records requested from [facility] for appt scheduled in office today with DM. Marylu Simons, JOSE [facility] [facility] 08-13-2024 Miscellaneous Notes 26w2d Went to [facility] ER for pain in kidney/gallbladder. Pt [...] Marylu Simons RN documented in this encounter [facility] 08-13-2024 Hospital Discharg e instructions Patient Education [...] the nearest Emergency Room for assistance. Form [id number] D: 02/15 Document Released: 02/24/2006 Document Revised: 02/13/2012 Document Reviewed: 02/24/2006 ExitCare Patient Information 2012 [employer]. Follow Up Care 08/12/2024 20:42:17 With:[facility] Address: When: Unknown Comments:with [facility] s[facility] Follow-up as scheduled [facility] 08-13-2024 Note Discharge Instructions Thank you for allowing [facility] to assist you with your healthcare needs. The following is important discharge information regarding your hospital visit. Your Care Team MILO THORNTON DO What to do next Follow Up Appointments Follow Up with [facility] Additional Information: with [facility] Follow-up as scheduled Someone Will Contact You [...] a day Duration: 7 Days Pickup at [facility] Unchanged multivitamin, 1 tab(s) by mouth Every day Pharmacy Information [facility]: [address] [place], [place] [id number] [phone] Please take this list to your next doctor s visit. Bring all medications you take, including over the counter medications, herbals and other supplements with you to your doctor s visit. Patients and families are reminded to discard old lists and to update any records with all medication providers or retail pharmacies. Education Materials [facility] OUTPATIENT HOME-GOING INSTRUCTIONS _X_ [...] the nearest Emergency Room for assistance. Form [id number] D: 02/15 Document Released: 02/24/2006 Document Revised: 02/13/2012 Document Reviewed: 02/24/2006 ExitCare Patient Information 2012 [employer]. Additional Information VACCINATE! IT SAVES LIVES! Members of the community who have not yet received the COVID-19 vaccine and would like to receive it can visit one of [facility] vaccine clinics. There are many vaccine clinic locations within the [facility]. For locations and available times, please visit www.[email or web address]. gov/. It is important to note that some COVID mobile vaccine clinics are held outdoors and may be canceled in rainy or stormy conditions. To learn more about pediatric vaccinations (ages 5-11), we invite you to visit the [facility] webpage. https://www.[facility].org/p ages/3337-Gxzzu-Oiwvjfxpgbh-Freq mmoozm-Ztisw-Okkmigeuc.html To learn more about the COVID-19 vaccine, we invite you to visit the CDC website for a list of frequently asked questions. https://www.cdc.gov/coronavirus/ 2019-ncov/vaccines/faq.html [facility] Patient Portal Access Instructions: Stay connected with your healthcare team and access your personal medical information anytime with the [facility] Patient Portal.If you would like a full copy of your medical records, please contact the [facility] Medical Records Department, Friday through Friday between 8a.m. and 4:30p.m. Please follow the directions below to access the portal: 1.Access the email account you provided upon registration to the hospital.2.Look for an invitation email from [facility].3.Open the email and access the invitation link: Accept Invitation to [facility]4.Fill in the required kim to create your account. Sign into [email or web address] with your username and password that you [...] you will allow to register on the [facility] Patient Portal for access to your information. You can also access the [facility] Patient Portal on the BookTour noman. Simply click on Health Records under Health Data and then click on the Om[facility] logo. HOW TO SAFELY DISPOSE OF PRESCRIPTION [...] Call your local pharmacy or go to http://[employer]/6A2Lk7i to find one close to you.3.Make use of household items: Use cat litter or old coffee grounds to dispose medications if other options are not available. Mix your drugs with these household products, seal them in an airtight container and throw it into the garbage. Call [facility]: [phone] to be sure your drugs can be [...] aware that I should contact my doctor. 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: Date/Time: Relationship to Patient: Witness Name/Signature: Date/Time: [facility] 08-12-2024 Note Exam Date Time Procedure Performing Provider Status 08/12/24 11:50 PM US Abdomen Limited JOSE MARTINEZ; Auth (Verified) [id number] ORIGINAL EXAMINATION: RIGHT UPPER QUADRANT ULTRASOUND 08/12/2024 [...] Date: 08/13/2024 12:52:23 AM Ordering Provider: JENNIFER VELASQEUZ [id number] Telephone encounter Note* Telephone Encounter - Renate [...] and understands importance of being seen SUZI [facility]06-05-2025 Miscellaneous Notes* Telephone Encounter - Renate Fong [...] of being seen SUZI documented [facility] Progress note* Quick Notes - Coreen Cespedes [...] RTO in 4 wk Coreen Cespedes APRN.CNM [facility]03-24-2025 Miscellaneous Notes* Quick Notes - Coreen Cespedes [...] wk Coreen Cespedes APRN.CNM documented in this encounterAv[facility] Instructions* Patient Instructions* Coreen Cespedes APRN.CNM - 05/31/2024 9:25 AM EDT in [facility] SIGNS AND SYMPTOMS OF LABOR 1. Contractions every 10 minutes or more often 2. Clear, pink, or brownish fluid (water) leaking from vagina 3. Feeling that baby is pushing down, pressure 4. Low, dull backache 5. Cramps that feel like a period 6. Cramps with or without diarrhea If you notice any of the above symptoms, contact our office at [phone] and ask to speak with anurse. After hours, you can call doctors registry at [phone] OR call [facility] at [phone] ask to have the doctor bus person dishwasher paged. If you consider this an emergency, dial 9-1-6 or go to your nearest emergency department. NEED HELP? Are you dealing with a violent or abusive relationship? Are you a victim of rape or sexual assult? Call [facility] ([place]) 24 hour Crisis Hotline: 989.678.8137 or 704-747-5130. MANUAL Your Guide to a Healthy manual is now on-line. Visit [email or web address] to download your free copy documented [facility] Instructions* Patient Instructions* Osmel José APRN.CNS - 05/25/2024 5:05 PM EDT Your skin test is positive to penicillin indicating you have an increased risk for an allergic reaction to penicillin and penicillin-like medications. -Recommend strict avoidance of penicillin and penicillin-like antibiotics -May return for repeat testing documented in this encounterAvita [facility]-2025 NoteHNO ID: [id number] Author: MAYTE MARSHALL RN Service: ? Author Type: Registered Nurse Type: Progress Notes Filed: 05/25/2024 17:08 Note Text: Hydrocortisone cream 2.5% applied to positive skin test reactions per order. Discussed avoidance measures for environmental allergies.[facility]03-17-2025 History of Present illness Narrative* Mayte Marshall RN - 05/24/2024 11:02 AM EDT Hydrocortisone cream 2.5% applied to positive skin test reactions per order. Discussed avoidance measures for environmental allergies. * Osmel José APRN.CNS - 05/24/2024 10:06 AM EDT [facility] Allergy & Clinical Immunology Jocelyn Cooley APRN.CNM has requested consultation for penicillin allergy. My progress note withassessment and recommendations from today's appointment will be electronically routed to Joceyln Cooley APRN.CNM. 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 AVS provided to patient via Tiqets and included a recap of today's appointment and medical plan. This note was partially generated using Loudcaster voice recognition system, and there may be some incorrect words, spellings, and punctuation that were not noted in checking the note before saving. Osmel José APRN.SIGNAL INSPECTOR Allergy & Clinical Immunology documented in this encounterAvita [facility]-2025 NoteHNO ID: [id number] Author: OSMEL JOSÉ APRN.SIGNAL INSPECTOR Service: ? 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 PAST MEDICAL HISTORY Diagnosis [...] considered -May return p (more content not included)...[facility]02-26-2025 Progress note* Quick Notes - Jocelyn [...] risk in second trimester - Consult for [facility] allergy clinic for confirmation - N/V resolved - Start ASA daily - Continue vitamin daily - RTO 4 weeks Jocelyn Cooley APRN.CNM [facility]02-26-2025 Miscellaneous Notes* Quick Notes - Jocelyn Cooley [...] risk in second trimester - Consult for [facility] allergy clinic for confirmation - N/V resolved - Start ASA daily - Continue vitamin daily - RTO 4 weeks Jocelyn Cooley APRN.CNM documented in this encounterAv[facility]-2025 Instructions* Patient Instructions* Harley Lam MA - 05/05/2024 9:59 AM EST SEQUENTIAL SCREENINGS The [facility] offers sequential screenings for women who are [...] testing. It will require an appointment withour dairy laboratory technician. This is not an ultrasound performed [...] the above symptoms, contact our office at [phone] and ask to speak with anurse. After hours, you can call doctors registry at [phone] OR call [facility] at [phone] ask to have the doctor bus person dishwasher paged. If you consider this an emergency, dial [phone] or go to your nearest emergency department. NEED HELP? Are you dealing with a violent or abusive relationship? Are you a victim of rape or sexual assult? Call [facility] ([place]) 24 hour Crisis Hotline: 577.735.1021 or 656-970-6088. MANUAL Your Guide to a Healthy manual is now on-line. Visit [email or web address] to download your free copy documented in this encounterAvita [facility]25 Telephone encounter Note * Telephone Encounter - Marylu Simons RN - 04/26/2024 3:43 PM EST Linked to OB episode. Marylu Simons RN [facility]02-17-2025 Miscellaneous Notes* Telephone Encounter - Marylu Simons RN - 04/26/2024 3:43 PM EST Linked to OB episode. Marylu Simons RN documented in this encounterAvita [facility]01-27-2025 Instructions* Patient Instructions* Leodan Van APRN.CABLE INSTALLER REPAIRER HELPER - 04/05/2024 9:28 AM EST Please select the following link to access the [facility] Your Guide to a Healthy . [email or web address] MORNING SICKNESS IN by Bebe Fields M.D. for [employer] As you may already know, morning sickness can often be more appropriately called evening sickness or jopjm-yrfqlg-ib-the-day sickness. While there are the nikolas few, [...] medication, Doxylamine, is currently marketed as an yzxq-ylm-ucwczbw sleeping pill. Ask your practitioner if creating a vitamin B6/Doxylaminecombination with dpyk-jzx-rgnivfs medications would be safe for you. Prescription [...] as Phenergan, Compazine, Reglan documented in this encounterAvita Health [facility]01-27-2025 NoteHNO ID: [id number] Author: LEODAN VAN APRN.YOKO Service: ? Author Type: Nurse Practitioner Type: Progress Notes Filed: 04/05/2024 10:39 Note Text: Refinery Operator Polymerization Plant offered: Patient declines. INITIAL OB ASSESSMENT HPI: [...] the following (please check all that apply)? Ob/Gyn Nurse; Relay Engineer care Social History: Do you have any [...] for: Heartburn, Constipation, Diarrhe (more content not included)...[facility]01-27-2025 History of Present illness Narrative* Leodan Van, SAMIRA.CABLE INSTALLER REPAIRER HELPER - 04/05/2024 9:27 AM EST Refinery Operator Polymerization Plant offered: Patient declines. INITIAL OB ASSESSMENT HPI: [...] the following (please check all that apply)? Ob/Gyn Nurse; Relay Engineer care Social History: Do you have any [...] discussed with the Patient or Patient's Authorized Air Force Senior Officer. As applicable, any other physician, advance practice provider, medical student, or other health professional student that will be observing or involved in the sensitive examination for educational or training purposes was discussed with the Patient or Authorized Air Force Senior Officer. The Patient or Authorized Air Force Senior Officer has agreed to proceed with the sensitive [...] above documentation of this student. Leodan Van, ASPHALT SPREADER OPERATOR.CABLE INSTALLER REPAIRER HELPER Limited OB ultrasound exam: single intrauterine and [...] Your guide to a health and the Children Counselor. Discussed hemoglobin electrophoresis. Patient: Declines Patient has penicillin allergy, plan for allergy testing. Reviewed midwifery and fibreglass laminator services that are available. 2) Screening: Hemoglobin [...] (28-30 weeks): [] Consent [] Contraception [] General Education Instructor [] TeamBirth handout Third trimester (36-40 weeks): [] GBS [] Presentation - [] Scheduled [] yes - Hibiclens, pre-op instructions, CBC, T&S ordered [] no [] H&P [] Preferences worksheet [] Scanned in EMR History of Delivery - 04/05/2024 Comment: April 05, 2024 Delivered at 36w5d due to SROM at [place]. Leodan Van, ASPHALT SPREADER OPERATOR.CABLE INSTALLER REPAIRER HELPER History of Miscarriage - 04/05/2024 Comment: 2019 7w0d Underweight - 04/05/2024 Comment: BMI 18 Leodan Van APRN.CABLE INSTALLER REPAIRER HELPER At Risk for Sexually Transmitted Disease Due [...] gestation. Leodan Van APRN.CNP documented in this encounterAvita [facility]01-22-2025 Telephone encounter Note * Telephone Encounter - Marylu Simons RN - 2024 9:58 AM EST Attempted to reach patient to go over new OB intake questions. Left message for Pt to call office today and as to speak to TarBabita or Carei and if unable to reach one of us, to please arrive to her appointment on Friday at least 30 minutes early to allow time to go over questions prior to appointment with provider and to arrive with a full bladder. Marylu Simons RN [facility]01-22-2025 Miscellaneous Notes* Telephone Encounter - Marylu Simons [...] bladder. Marylu Simons RN documented in this encounterAvita [facility]01-09-2025 Hospital Discharge instructions Patient Education 03/18/2024 10:50:48 [...] swelling, or pus coming from any wound 2623-9524 [employer]. [address] [place] [address]. All rights reserved. This information is not intended as a substitute for professional medical care. Always follow yourhealthcare professional's instructions. Follow Up Care 03/18/2024 10:24:57 With:please follow up with your obgyn Address:Unknown When:2-4 days With:Go to emergency room if symptoms worsen Address:Unknown When:2-4 days With:MILO THORNTON DO Address: [address] [place] [address] [place] [phone] When:2-4 days [facility] 01-09-2025 Emergency department Discharge summary Discharge Instructions Thank you for allowing [facility] to assist you with your healthcare needs. [...] more emergent evaluation, otherwise follow-up with your AMERICAN HISTORY PROFESSOR and PCP. No qualifying data available. Post Acute Orders No qualifying data available. You Need to Schedule the Following Appointments Follow Up with please follow up with your obgyn When:Within 2-4 days Follow Up with Go to emergency room if symptoms worsen When:Within 2-4 days Follow Up with MILO THORNTON DO When:Within 2-4 days Where:[address] [place] [address] [place] [phone] Allergies Latex penicillin Medications Please ask your [...] swelling, or pus coming from any wound [phone] [employer], [employer]. [address] [place] [address], [place] [address]. All rights reserved. This information is not intended as a substitute for professional medical care. Always follow yourhealthcare professional's instructions. Additional Information VACCINATE! IT SAVES LIVES! Members of the community who have not yet received the COVID-19 vaccine and would like to receive it can visit one of [facility] vaccine clinics. There are many vaccine clinic locations within the [facility]. For locations and available times, please visit www.[email or web address]/. It is important to note that some COVID mobile vaccine clinics are held outdoors and may be canceled in rainy or stormy conditions. To learn more about pediatric vaccinations (ages 5-11), we invite you to visit the [facility] webpage. https://www.[employer].org/pages/2962-Sdydq-Zyyustcepkb-Qhibtjxawp-Rrqcv-Ffn stions.htmlTo learn more about the COVID-19 vaccine, we invite you to visit the CDC website for a list of frequently asked questions. https://www.cdc.gov/coronavirus/2019-ncov/vaccines/faq.html [facility] Patient Portal Access Instructions: Stay connected with your healthcare team and access your personal medical information anytime with the [facility] Patient Portal. If you would like a full copy of your medical records please contact the [facility] Medical Records Department Friday through Friday between 8a.m. and 4:30p.m. Please follow the directions below to access the portal: 1.Access the email account you provided upon registration to the hospital.2.Look for an invitation email from [facility].3.Open the email and access the invitation link: Accept Invitation to [facility]4.Fill in the required kim to create your account. Sign into [email or web address] with your username and password that you [...] you will allow to register on the [facility] Patient Portal for access to your information. You can also access the [facility] Patient Portal on the BookTour noman. Simply click on Health Records under [email or web address] and then click on the Omegawave logo. HOW TO SAFELY DISPOSE OF PRESCRIPTION [...] Call your local pharmacy or go to http://[employer]/2J2Iy4y to find one close to you.3.Make use of household items: Use cat litter or old coffee grounds to dispose medications if other options arenot available. Mix your drugs with these household products, seal them in an airtight container andthrow it into the garbage. Call [facility]: [phone] to be sure your drugs can be [...] that I should contact my d octor. 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: Date/Time: Relationship to Patient: Witness Name/Signature: Date/Time: [id number] Telephone encounter Note* Telephone Encounter - Joanna Orozco RN - 03/15/2024 2:28 PM EST Patient notified and voiced understanding. Joanna Orozco RN [facility]01-06-2025 Miscellaneous Notes* Telephone Encounter - Joanna Orozco [...] 15, 2024 10:37 AM documented in this encounterAvita Health [facility]01-06-2025 Telephone encounter Note * Telephone Encounter - Otto Caldwell MD - 03/15/2024 2:25 PM EST Hcg quant filed Valtrex is ok to take in for hsv outbreak [facility] Work Phone: [phone]) 428-319501-06-2025 Telephone encounter Note* Telephone Encounter - Joanna [...] NewOB has been scheduled. Joanna Orozco RN [facility]01-06-2025 Telephone encounter Note* Telephone Encounter - Ana [...] Ana Diaz March 15, 2024 10:37 AM [facility]09-03-2024 Telephone encounter Note* Telephone Encounter - Renate Fong RN - 11/11/2023 1:14 PM EDT Last seen in office 09/25/2023 for annual. Last rx given 01/02/2023 [facility]09-03-2024 Miscellaneous Notes* Telephone Encounter - Renate Fong RN - 11/11/2023 1:14 PM EDT Last seen in office 09/25/2023 for annual. Last rx given 01/02/2023 documented in this encounterAvita [facility]07-18-2024 History of Present illness Narrative* Stacy Caldera [...] L1 SAB1 IAB0 Ectopic0 Multiple0 Live Births1 Pipe Installer History LMP: 08/24/2023 (Exact Date), Having periods Age at Menarche: Age at First : Age at Menopause: Pipe Installer History Comments: Sexual Activity: Yes; Male; patch [...] external genitalia normal, normal Bartholin's glands, urethra, [place]'s glands, no vulvar lesions, no cervical lesions, [...] needed Stacy Caldera APRN.YOKO documented in this encounterAvita [facility]12-01-2023 History of Present illness Narrative* Mikael Nicolas [...] of care. This note was generated using Loudcaster software. It may contain errors in wording, punctuation, or spelling. Mikael Nicolas APRN.CNP documented in this encounterAvita Health [facility]09-21-2023 Miscellaneous Notes* Telephone Encounter - Naomi Auguste [...] given. Abigail Doshi LPN documented in this encounterAvita Health [facility]09-11-2023 Miscellaneous Notes* Telephone Encounter - Therese Schafer RN - 11/18/2022 4:44 PM EDT Patient notified. Therese Schafer RN * Telephone Encounter - Stacy Caldera APRN.CNP - 11/18/2022 4:40 PM EDT Valtrex sent. Stacy Caldera APRN.CABLE INSTALLER REPAIRER HELPER * Telephone Encounter - Abigail Doshi LPN [...] areas. Abigail Doshi LPN documented in this encounterAvita Health [facility]07-20-2023 History of Present illness Narrative* Hamida Storm [...] 26, 2022 8:19 AM documented in this encounterAvita Health [facility]07-19-2023 Miscellaneous Notes* Telephone Encounter - Abigail Doshi [...] needed. Stacy Caldera APRN.YOKO documented in this encounterAvita Health [facility]07-18-2023 History of Present illness Narrative* Stacy Caldera [...] L1 SAB1 IAB0 Ectopic0 Multiple0 Live Births1 Pipe Installer History LMP: 09/14/2022 (Exact Date), Having periods Age at Menarche: Age at First : Age at Menopause: Pipe Installer History Comments: Sexual Activity: Yes; Male Contraception: [...] external genitalia normal, normal Bartholin's glands, urethra, [place]'s glands, no vulvar lesions, no cervical lesions, [...] Level: 4 - Moderate documented in this encounterAvita Health [facility]05-13-2021 Hospital Discharge instructions* Instructions* Ramesh Mejia APRN [...] sent through Care Everywhere. * Lacerations: Open (Palestinian) documented in this [facility] Work Phone: Evaluation + Plan note No data available for this section [facility] Evaluation note* Diagnosis Laceration of right middle finger without foreign body without damage to nail, initial encounter- Primary documented in this encounter [facility] Work Phone: Evaluation note* Diagnosis Encounter [...] other contraceptive management [facility] Enlarged thyroid Goiter, unspecified [facility] Diagnosis Sinobronchitis- Primary Unspecified sinusitis (chronic) [facility] Diagnosis Encounter for gynecological examination (general) (routine) without abnormal findings- Primary Screen for STD (sexually transmitted disease) Screening examination for venereal disease Vaginal discharge Leukorrhea, not specified as infective Encounter for surveillance of transdermal patch hormonal contraceptive device [facility] Diagnosis Missed menses- Primary Absence of menstruation [facility] Diagnosis Encounter for supervision of high [...] of congenital anomalies [facility] Diagnosis 12 weeks gestation of - Primary state, incidental History of delivery Penicillin allergy Personal history of allergy to penicillin Supervision of high risk in second trimester Unspecified high-risk [facility] Diagnosis Encounter for screening for malformation using ultrasound- Primary 12 weeks gestation of state, incidental [facility] Diagnosis Rash- Primary Rash and other nonspecific skin eruption Personal history of allergy to penicillin 15 weeks gestation of state, incidental [facility] Diagnosis Supervision of high risk in second trimester- Primary Unspecified high-risk 15 weeks gestation of state, incidental History of delivery Penicillin allergy Personal history of allergy to penicillin Enlarged thyroid Goiter, unspecified HSV-2 seropositive Other and unspecified nonspecific immunological findings [facility]* Diagnosis Abdominal pain during in second trimester (HCC)- Primary Elevated LFTs Other abnormal blood chemistry Supervision of high risk in second trimester ([facility]) Unspecified high-risk History of delivery Uterine size-date discrepancy, second trimester ([facility]) 26 weeks gestation of ([facility]) state, incidental * Assessment & Plan Note - Gisella Knapp MD - 08/13/2024 4:58 PM EDT Associated Problem(s): History of delivery * Assessment & Plan Note - Gisella Knapp MD - 08/13/2024 4:58 PM EDT Associated Problem(s): Uterine size-date discrepancy, second trimester ([facility]) [facility]* Diagnosis Abdominal pain during in second trimester ([facility])- Primary Elevated LFTs Other abnormal blood chemistry Supervision of high risk in second trimester ([facility]) Unspecified high-risk History of delivery Uterine size-date discrepancy, second trimester ([facility]) 26 weeks gestation of ([facility]) state, incidental Pyelectasis of fetus on ultrasound ([facility])- Primary Abnormal findings on screening Encounter for repeat ultrasound of pyelectasis, antepartum, single or unspecified fetus ([facility]) Uterine size-date discrepancy, second trimester ([facility]) [facility]* Diagnosis Abdominal pain during in second trimester ([facility])- Primary Elevated LFTs Other abnormal blood chemistry Supervision of high risk in second trimester ([facility]) Unspecified high-risk History of delivery Uterine size-date discrepancy, second trimester ([facility]) 26 weeks gestation of ([facility]) state, incidental Supervision of high risk in third trimester ([facility])- Primary Unspecified high-risk 28 weeks gestation of ([facility]) state, incidental Need for vaccination Need for prophylactic vaccination and inoculation against unspecified single disease Pyelectasis of fetus on ultrasound ([facility]) Abnormal findings on screening * Assessment & Plan Note - Cristobal Almanzar MD - 08/26/2024 11:00 AM EDTAssociated Problem(s): Pyelectasis of fetus on ultrasound ([facility]) (Resolved 08/26/2024) RESOLVED on US today documented in this encounter [facility] note* Diagnosis Abdominal pain during in second trimester ([facility])- Primary Elevated LFTs Other abnormal blood chemistry Supervision of high risk in second trimester ([facility]) Unspecified high-risk History of delivery Uterine size-date discrepancy, second trimester ([facility]) 26 weeks gestation of ([facility]) state, incidental Supervision of high risk in third trimester ([facility])- Primary Unspecified high-risk Pyelectasis of fetus on ultrasound ([facility]) Abnormal findings on screening History of delivery Penicillin allergy Personal history of allergy to penicillin 30 weeks gestation of ([facility]) state, incidental documented in this encounter [facility] note* Diagnosis Abdominal pain during in second trimester ([facility])- Primary Elevated LFTs Other abnormal blood chemistry Supervision of high risk in second trimester ([facility]) Unspecified high-risk History of delivery Uterine size-date discrepancy, second trimester ([facility]) 26 weeks gestation of ([facility]) state, incidental Supervision of high risk in third trimester ([facility])- Primary Unspecified high-risk Pyelectasis of fetus on ultrasound ([facility]) Abnormal findings on screening History of delivery 32 weeks gestation of ([facility]) state, incidental * Assessment & Plan Note - Gisella Knapp MD - 09/22/2024 10:04 AM EDTAssociated Problem(s): History of delivery documented in this encounter [facility] note* Diagnosis Abdominal pain during in second trimester ([facility])- Primary Elevated LFTs Other abnormal blood chemistry Supervision of high risk in second trimester ([facility]) Unspecified high-risk History of delivery Uterine size-date discrepancy, second trimester ([facility]) 26 weeks gestation of ([facility]) state, incidental Supervision of high risk in third trimester ([facility])- Primary Unspecified high-risk Pyelectasis of fetus on ultrasound ([facility]) Abnormal findings on screening History of delivery 32 weeks gestation of ([facility]) state, incidental 34 weeks gestation of ([facility])- Primary state, incidental Supervision of high risk in third trimester ([facility]) Unspecified high-risk History of delivery Penicillin allergy Personal history of allergy to penicillin [facility] Diagnosis Abdominal pain during in second trimester ([facility])- Primary Elevated LFTs Other abnormal blood chemistry Supervision of high risk in second trimester ([facility]) Unspecified high-risk History of delivery Uterine size-date discrepancy, second trimester ([facility]) 26 weeks gestation of ([facility]) state, incidental Supervision of high risk in third trimester ([facility])- Primary Unspecified high-risk Pyelectasis of fetus on ultrasound ([facility]) Abnormal findings on screening History of delivery 32 weeks gestation of ([facility]) state, incidental M-Power- Primary Other specified complication, antepartum Supervision of high risk in second trimester ([facility]) Unspecified high-risk 15 weeks gestation of ([facility]) state, incidental [facility] Diagnosis Abdominal pain during in second trimester ([facility])- Primary Elevated LFTs Other abnormal blood chemistry Supervision of high risk in second trimester ([facility]) Unspecified high-risk History of delivery Uterine size-date discrepancy, second trimester ([facility]) 26 weeks gestation of ([facility]) state, incidental Abdominal pain during in second trimester ([facility])- Primary Elevated amylase Other nonspecific abnormal serum enzyme levels Gallbladder polyp Cholesterolosis of gallbladder Supervision of high risk in third trimester ([facility])- Primary Unspecified high-risk Pyelectasis of fetus on ultrasound ([facility]) Abnormal findings on screening History of delivery 32 weeks gestation of ([facility]) state, incidental [facility] Diagnosis Abdominal pain during in second trimester ([facility])- Primary Elevated LFTs Other abnormal blood chemistry Supervision of high risk in second trimester ([facility]) Unspecified high-risk History of delivery Uterine size-date discrepancy, second trimester ([facility]) 26 weeks gestation of ([facility]) state, incidental Supervision of high risk in third trimester ([facility])- Primary Unspecified high-risk Pyelectasis of fetus on ultrasound ([facility]) Abnormal findings on screening History of delivery 32 weeks gestation of ([facility]) state, incidental Supervision of high risk in second trimester ([facility])- Primary Unspecified high-risk 36 weeks gestation of ([facility]) state, incidental HSV-2 seropositive Other and unspecified nonspecific immunological findings [facility] Diagnosis Abdominal pain during in second trimester ([facility])- Primary Elevated LFTs Other abnormal blood chemistry Supervision of high risk in second trimester ([facility]) Unspecified high-risk History of delivery Uterine size-date discrepancy, second trimester ([facility]) 26 weeks gestation of ([facility]) state, incidental Elevated glucose- Primary Other abnormal glucose Supervision of high risk in third trimester ([facility])- Primary Unspecified high-risk Pyelectasis of fetus on ultrasound ([facility]) Abnormal findings on screening History of delivery 32 weeks gestation of ([facility]) state, incidental [facility] Diagnosis Abdominal pain during in second trimester ([facility])- Primary Elevated LFTs Other abnormal blood chemistry Supervision of high risk in second trimester ([facility]) Unspecified high-risk History of delivery Uterine size-date discrepancy, second trimester ([facility]) 26 weeks gestation of ([facility]) state, incidental Supervision of high risk in third trimester ([facility])- Primary Unspecified high-risk Pyelectasis of fetus on ultrasound ([facility]) Abnormal findings on screening History of delivery 32 weeks gestation of ([facility]) state, incidental 37 weeks gestation of ([facility])- Primary state, incidental Supervision of high risk in third trimester ([facility]) Unspecified high-risk HSV-2 seropositive Other and unspecified nonspecific immunological findings History of delivery [facility]* Diagnosis Abdominal pain during in second trimester ([facility])- Primary Elevated LFTs Other abnormal blood chemistry Supervision of high risk in second trimester ([facility]) Unspecified high-risk History of delivery Uterine size-date discrepancy, second trimester ([facility]) 26 weeks gestation of ([facility]) state, incidental Supervision of high risk in third trimester (HCC)- Primary Unspecified high-risk Pyelectasis of fetus on ultrasound ([facility]) Abnormal findings on screening History of delivery 32 weeks gestation of (HCC) state, incidental 38 weeks gestation of (HCC)- Primary state, incidental Supervision of high risk in third trimester ([facility]) Unspecified high-risk HSV-2 seropositive Other and unspecified nonspecific immunological findings documented in this encounter [facility] Discharge instructions No data available for this section [facility] Progress note No data available for this section [facility] Reason for referral (narrative)* Diagnostic Procedure Only (Routine) - Authorized Specialty Diagnoses / Procedures Referred By Fadyac t Referred To Contact US IMAGING Diagnoses Enlarged thyroid Procedures US THYROID/PARATHYROID US SOFT TISSUE HEAD & NECK REAL TIME IMGE Stacy Danielson APRN.CNP [address] [place] [address] Us Imaging Referral ID Status Reason Start Date Expiration Date Visits Requested Visits Authorized [id number] Authorized Auto-Generat ed Referral 09/24/2022 10/24/2023 1 1 [facility] for referral (narrative)* Diagnostic Procedure Only (Routine) - Closed Specialty Diagnoses / Procedures Referred By Contac t Referred To Contact US IMAGING Diagnoses Enlarged thyroid Procedures US THYROID/PARATHYROID US SOFT TISSUE HEAD & NECK REAL TIME IMGE Stacy Danielson APRN.CNP [address] [place] [address] [place] [address] Referral ID Status Reason Start Date Expiration Date V isits Requested Visits Authorized [id number] Closed Auto-Generate d Referral 09/24/2022 10/24/2023 1 1 [facility] for referral (narrative)* Diagnostic Procedure Only (Routine) - New Request Specialty Diagnoses / Procedures Referred By Contac t Referred To Contact [facility] Diagnoses with uncertain dates in first trimester Procedures OBSTETRIC ULTRASOUND WHI US PREG UTERUS AFTER 1ST TRIMEST 1 GESTATION Leodan Van APRN.CABLE INSTALLER REPAIRER HELPER [address] [place] [address] [address] Referral ID Status Reason Start Date Expiration Date Visits Requested Visits Authorized [id number] New Request Auto-Generat ed Referral 04/05/2024 04/05/2025 1 1 * Diagnostic Procedure Only (Routine) - Pending Review Specialty Diagnoses / Procedures Referred By Contac t Referred To Contact [facility] Diagnoses with uncertain dates in first trimester Procedures OBSTETRIC ULTRASOUND WHI US PREG UTERUS AFTER 1ST TRIMEST GESTATION Leodan Van APRN.CABLE INSTALLER REPAIRER HELPER [address] [place] [address] [facility] [address] [place] [address] Referral ID Status Reason Start Date Expiration Date Visits Requested Visits Authorized [id number] Pending Review Auto-Generat ed Referral 04/05/2024 04/05/2025 1 1 [facility] for visit Narrative* Transition of Care (Routine) - Closed Specialty Diagnoses / Procedures Referred By Contac t Referred To Contact Diagnoses Supervision of high risk in second trimester (HCC) 15 weeks gestation of (HCC) Procedures MPOCoreen Max APRN.CNM [address] [place] [address] Phone: tel: fax: Referral ID Status Reason Start Date Expiration Date V isits Requested Visits Authorized [id number] Closed PCP Requested Referral 05/31/2024 05/31/2025 1 1 [facility] note* Ekaterina Lora: PERFORM Event Display: Patient Summary Documents Authored Date: [id number] [facility] Discharge Instructions * Instructions* Tonya Morgan PA-C - 11/09/[address] Mckoy on Friday for repeat blood work. Return to the ED if bleeding gets worse. * Attachments The following attachments cannot be sent through Care Everywhere. * Miscarriage: Threatened (Palestinian) documented in this encounter Assessments Diagnosis Vaginal bleeding- Primary Other specified noninflammatory disorder of vagina Threatened , antepartum Advance Directives No Advanced Directives Records FoundDocuments on File Type Date Recorded Patient [employer] Expl anation Advance Directives and Living Will Power of Word Processor Technician Documents on File Type Date Recorded Patient [employer] Expl anation ACP-Advance Directive ACP-Power of Word Processor Technician Summary Purpose Family History No Family History [...] NECK REAL TIME IMGE DOCM Stacy Caldera, SAMIRA.CABLE INSTALLER REPAIRER HELPER [address] [place] [address] [place] [address] Referral ID Status Reason Start Date Expiration Date V isits Requested Visits Authorized [id number] Closed Auto-Generate d Referral 09/24/2022 10/24/2023 1 1 Reason Comments Cough Nasal congestion x 1 week Reason Comments Yearly Exam Reason Onset Date Comments Refill Request 11/11/2023 Reason Comments Appointment Reason Comments Initial OB Visit Reason Onset Date Comments Care 05/05/2024 Reason Comments US Specialty Diagnoses / Procedures Referred By Contstefan t Referred To Contact [facility] Diagnoses with uncertain dates in first trimester Procedures OBSTETRIC ULTRASOUND WHI US PREG UTERUS AFTER 1ST TRIMEST GESTATION Leodan Van APRN.CNP [address] [place] [address] Phone: tel: fax:[phone] [address] Referral ID Status Reason Start Date Expiration Date V isits Requested Visits Authorized [id number] Closed Auto-Generate d Referral 04/20/2024 03/09/2025 1 1 Reason Comments pnc testing Reason Onset Date Comments Care 05/31/2024 Reason Comments ER F/U Reason Onset Date Comments Care 08/13/2024 Specialty Diagnoses / Procedures Referred By Aaron rojas Referred To Contact [facility] Diagnoses Encounter for repeat ultrasound of pyelectasis, antepartum, single or unspecified fetus (HCC) Procedures OBSTETRIC ULTRASOUND WHI US PREG UTERUS AFTER 1ST TRIMEST GESTATION Leodan Van APRN.YOKO [address] [place] [address] Phone: tel: fax:[phone] [address] [address] [place] [address] Referral ID Status Reason Start Date Expiration Date V isits Requested Visits Authorized [id number] Closed Auto-Generate d Referral 08/12/2024 03/09/2025 1 [...] section and content) DATE CREATED AUTHOR 11/16/2018 [facility] [employer] DATE CREATED AUTHOR AUTHOR'S ORGANIZ ATION 11/29/2020 [employer] [employer] DATE CREATED AUTHOR AUTHOR'S ORGANIZ ATION 09/14/2023 [facility] DATE CREATED AUTHOR AUTHOR'S ORGANIZ ATION 09/06/2024 [facility] DATE CREATED AUTHOR AUTHOR'S ORGANIZ ATION 09/09/2024 [facility] DATE CREATED AUTHOR AUTHOR'S ORGANIZ ATION 10/01/2024 [facility] DATE CREATED AUTHOR AUTHOR'S ORGANIZ ATION 10/13/2024 [facility] DATE CREATED AUTHOR AUTHOR'S ORGANIZ ATION 10/27/2024 [facility] DATE CREATED AUTHOR AUTHOR'S ORGANIZ ATION 11/05/2024 [facility] Source Comments (unrecognize d section and content) In the event this informatio n is protected by the Federal Confidentiality of Alcohol and Drug Abuse Patient Records regulations: The Federal rules restrict any use of the information to criminally investigate or prosecute any alcohol or drug abuse patient.[facility] the event this information is protected by the Federal Confidentiality of Alcohol and Drug Abuse Patient Records regulations: The Federal rules restrict any use of the information to criminally investigate or prosecute any alcohol or drug abuse patient.[facility] the event this information is protected by the Federal Confidentiality of Alcohol and Drug Abuse Patient Records regulations: The Federal rules restrict any use of the information to criminally investigate or prosecute any alcohol or drug abuse patient.[facility] the event this information is protected by the Federal Confidentiality of Alcohol and Drug Abuse Patient Records regulations: The Federal rules restrict any use of the information to criminally investigate or prosecute any alcohol or drug abuse patient.[facility] the event this information is protected by the Federal Confidentiality of Alcohol and Drug Abuse Patient Records regulations: The Federal rules restrict any use of the information to criminally investigate or prosecute any alcohol or drug abuse patient.[facility] the event this information is protected by the Federal Confidentiality of Alcohol and Drug Abuse Patient Records regulations: The Federal rules restrict any use of the information to criminally investigate or prosecute any alcohol or drug abuse patient.[facility] the event this information is protected by the Federal Confidentiality of Alcohol and Drug Abuse Patient Records regulations: The Federal rules restrict any use of the information to criminally investigate or prosecute any alcohol or drug abuse patient.[facility] the event this information is protected by the Federal Confidentiality of Alcohol and Drug Abuse Patient Records regulations: The Federal rules restrict any use of the information to criminally investigate or prosecute any alcohol or drug abuse patient.[facility] the event this information is protected by the Federal Confidentiality of Alcohol and Drug Abuse Patient Records regulations: The Federal rules restrict any use of the information to criminally investigate or prosecute any alcohol or drug abuse patient.[facility] the event this information is protected by the Federal Confidentiality of Alcohol and Drug Abuse Patient Records regulations: The Federal rules restrict any use of the information to criminally investigate or prosecute any alcohol or drug abuse patient.[facility] Hospital[facility] the event this information is protected by the Federal Confidentiality of Alcohol and Drug Abuse Patient Records regulations: The Federal rules restrict any use of the information to criminally investigate or prosecute any alcohol or drug abuse patient.[facility] Hospital[facility] the event this information is protected by the Federal Confidentiality of Alcohol and Drug Abuse Patient Records regulations: The Federal rules restrict any use of the information to criminally investigate or prosecute any alcohol or drug abuse patient.[facility] HospitalIn the event this information is protected by the Federal Confidentiality of Alcohol and Drug Abuse Patient Records regulations: The Federal rules restrict any use of the information to criminally investigate or prosecute any alcohol or drug abuse patient.[facility] HospitalIn the event this information is protected by the Federal Confidentiality of Alcohol and Drug Abuse Patient Records regulations: The Federal rules restrict any use of the information to criminally investigate or prosecute any alcohol or drug abuse patient.[facility] HospitalIn the event this information is protected by the Federal Confidentiality of Alcohol and Drug Abuse Patient Records regulations: The Federal rules restrict any use of the information to criminally investigate or prosecute any alcohol or drug abuse patient.[facility] HospitalIn the event this information is protected by the Federal Confidentiality of Alcohol and Drug Abuse Patient Records regulations: The Federal rules restrict any use of the information to criminally investigate or prosecute any alcohol or drug abuse patient.[facility] HospitalIn the event this information is protected by the Federal Confidentiality of Alcohol and Drug Abuse Patient Records regulations: The Federal rules restrict any use of the information to criminally investigate or prosecute any alcohol or drug abuse patient.[facility] HospitalIn the event this information is protected by the Federal Confidentiality of Alcohol and Drug Abuse Patient Records regulations: The Federal rules restrict any use of the information to criminally investigate or prosecute any alcohol or drug abuse patient.[facility] HospitalIn the event this information is protected by the Federal Confidentiality of Alcohol and Drug Abuse Patient Records regulations: The Federal rules restrict any use of the information to criminally investigate or prosecute any alcohol or drug abuse patient.[facility] HospitalIn the event this information is protected by the Federal Confidentiality of Alcohol and Drug Abuse Patient Records regulations: The Federal rules restrict any use of the information to criminally investigate or prosecute any alcohol or drug abuse patient.[facility] HospitalIn the event this information is protected by the Federal Confidentiality of Alcohol and Drug Abuse Patient Records regulations: The Federal rules restrict any use of the information to criminally investigate or prosecute any alcohol or drug abuse patient.[facility] HospitalIn the event this information is protected by the Federal Confidentiality of Alcohol and Drug Abuse Patient Records regulations: The Federal rules restrict any use of the information to criminally investigate or prosecute any alcohol or drug abuse patient.[facility] HospitalIn the event this information is protected by the Federal Confidentiality of Alcohol and Drug Abuse Patient Records regulations: The Federal rules restrict any use of the information to criminally investigate or prosecute any alcohol or drug abuse patient.[facility] HospitalIn the event this information is protected by the Federal Confidentiality of Alcohol and Drug Abuse Patient Records regulations: The Federal rules restrict any use of the information to criminally investigate or prosecute any alcohol or drug abuse patient.[facility] HospitalIn the event this information is protected by the Federal Confidentiality of Alcohol and Drug Abuse Patient Records regulations: The Federal rules restrict any use of the information to criminally investigate or prosecute any alcohol or drug abuse patient.[facility] HospitalIn the event this information is protected by the Federal Confidentiality of Alcohol and Drug Abuse Patient Records regulations: The Federal rules restrict any use of the information to criminally investigate or prosecute any alcohol or drug abuse patient.[facility] HospitalIn the event this information is protected by the Federal Confidentiality of Alcohol and Drug Abuse Patient Records regulations: The Federal rules restrict any use of the information to criminally investigate or prosecute any alcohol or drug abuse patient.[facility] HospitalIn the event this information is protected by the Federal Confidentiality of Alcohol and Drug Abuse Patient Records regulations: The Federal rules restrict any use of the information to criminally investigate or prosecute any alcohol or drug abuse patient.[facility] HospitalIn the event this information is protected by the Federal Confidentiality of Alcohol and Drug Abuse Patient Records regulations: The Federal rules restrict any use of the information to criminally investigate or prosecute any alcohol or drug abuse patient.[facility] HospitalIn the event this information is protected by the Federal Confidentiality of Alcohol and Drug Abuse Patient Records regulations: The Federal rules restrict any use of the information to criminally investigate or prosecute any alcohol or drug abuse patient.[facility] HospitalIn the event this information is protected by the Federal Confidentiality of Alcohol and Drug Abuse Patient Records regulations: The Federal rules restrict any use of the information to criminally investigate or prosecute any alcohol or drug abuse patient.[facility] HospitalIn the event this information is protected by the Federal Confidentiality of Alcohol and Drug Abuse Patient Records regulations: The Federal rules restrict any use of the information to criminally investigate or prosecute any alcohol or drug abuse patient.[facility] HospitalIn the event this information is protected by the Federal Confidentiality of Alcohol and Drug Abuse Patient Records regulations: The Federal rules restrict any use of the information to criminally investigate or prosecute any alcohol or drug abuse patient.[facility] HospitalIn the event this information is protected by the Federal Confidentiality of Alcohol and Drug Abuse Patient Records regulations: The Federal rules restrict any use of the information to criminally investigate or prosecute any alcohol or drug abuse patient.[facility] HospitalIn the event this information is protected by the [facility] Confidentiality of Alcohol and Drug Abuse Patient Records regulations: The Federal rules restrict any use of the information to criminally investigate or prosecute any alcohol or drug abuse patient.[facility] HospitalIn the event this information is protected by the Federal Confidentiality of Alcohol and Drug Abuse Patient Records regulations: The Federal rules restrict any use of the information to criminally investigate or prosecute any alcohol or drug abuse patient.[facility] Patient Care team informatio n (unrecognized section and content) Care Team Personnel Name: MILO THORNTON DO Member Role: Primary Care Physician Address: [address] [place] [address] [place] [address] Telecom: Care Team Related Persons Name: BRYN PETTIT Care Team Personnel Name: MILO THORNTON DO Member Role: Primary Care Physician Address: [address] [place] [address] [place] [address] Telecom: Care Team Related Persons Name: BRYN PETTIT Care Team Personnel Name: MILO THORNTON DO Member Role: Primary Care Physician Address: [address] [place] [address] [place] [address] Telecom: Name: JENNIFER VELASQUEZ MD Position: AH Resident Member Role: Ordering Physician Address: [address] [facility] [employer] [place] [address]- Telecom: Care Team Related Persons Name: BRYN [...] BE BASED ON THE PRIMARY CLINICAL RECORDS. [employer] provides no warranty or guarantee of the accuracy or completeness of information in this document.
[2024-11-10] VITALS (62 sets, daily range): BP systolic 97–135; BP diastolic 51–86; PULSE 89–144; RESP 16–18; TEMP 36.1–37.2; O2SAT 92–100
[2024-11-10] MEDS: Oxytocin 15 Units/NS 250ml 15 UNITS/250 ML IV.SOLN 2 UNITS IV (00:37)
[2024-11-10] MEDS: 0.9% Saline Lock 10 ML Syringe IV (00:47)
[2024-11-10] MEDS: fentaNYL 100 MCG/2 ML Ampul IV (00:47)
[2024-11-10] MEDS: Lactated Ringers 1,000 ML 50 ML IV (02:15)
[2024-11-10] MEDS: Lactated Ringers 1,000 ML 999 ML IV ×2 (02:15→03:17)
[2024-11-10] MEDS: fentaNYL-bupivacaine (epidural) 100 ML BAG EPIDURAL (03:11)
[2024-11-10] MEDS: Oxytocin 15 Units/NS 250ml 15 UNITS/250 ML IV.SOLN 83 UNITS IV (06:53)
--- NOTE | 2024-11-10 07:08 | OB.VAGDELI_ITS ---
Assessment & Plan (1) (spontaneous vaginal delivery): Maternal Data Information Final APOLONIA: 11/17/24 Gestational age: 39 0/7 Vaginal Delivery Maternal Presentation Maternal Presentation: Spontaneous Rupture of Membranes Type of Induction: Pitocin Medical Reason for Induction: Premature Rupture of Membranes Vaginal Delivery Information Procedure Performed: Spontaneous Vaginal Delivery Surgeon/Practitioner: Abigail Hensley Date of Procedure: 11/10/24 Pre-Procedure Diagnosis: labor Post-Procedure Diagnosis: same Type of anesthesia: Epidural Special Medications: none Estimated Blood Loss: 300 Time of Delivery: 06:22 Findings Description of procedure: A vigorous male infant was delivered SYBIL over an intact perineum. The remainder the was delivered with maternal pushing and gentle traction only in less than 15 seconds. The Pitocin infusion was initiated for active management of the third stage. The cord was clamped and cut after cord pulsations ceased. The was attended to by the waiting nursing staff. The placenta was delivered spontaneously and intact. The cervix and vagina were intact. Sponge and needle counts were correct. A vaginal sweep was completed by me. Procedure findings: Vigorous male infant Presentation: SYBIL Amniotic Membrane Rupture Type: Spontaneous Amniotic Fluid Description: Clear Placental Delivery Description: Spontaneous Placenta Disposition: [facility] Specimen collected: No Cord Vessel Description: 3 Vessels Cord Entanglement: None A Gender: Male (Lino) (1 minute): 8 (5 minute): 9 Delayed Cord Clamping: Yes Accident Report Clerk home care assistant: No Post Vaginal Deli Medications given after delivery: IV Pitocin Episiotomy Description: None Laceration: None Complication Complications: No
[2024-11-10] MEDS: Senna/Docusate Sodium 1 Tablet PO (22:04)
[2024-11-11 00:37] VITALS: BP 111/69; PULSE 80; RESP 16; TEMP 36.1; O2SAT 98
[2024-11-11 04:32] VITALS: BP 102/66; PULSE 87; RESP 15; TEMP 36.7; O2SAT 98
[2024-11-11 07:40] VITALS: BP 114/72; PULSE 87; RESP 16; TEMP 36.7; O2SAT 97
--- NOTE | 2024-11-11 08:59 | PCM.DC.SUM ---
Providers Date of Admission: 11/09/24 Primary Care Physician: No Primary Care Phys Reason For Visit: LABOR & DELIVERY/VAGINAL DELIVERY Diagnosis Discharge Diagnosis (1) (spontaneous vaginal delivery): Status: Acute Code(s): O80 - Encounter for full-term uncomplicated delivery Medications at Discharge Home Medications vitamins no.102-iron 90 mg-folate 1 mg-dha 200 mg capsule 1 cap PO DAILY 11/09/24 Hospital Course Operations None Procedures None Summary of Care Provided Minutes Spent on Discharge: 15 Hospital Course: Patient had vaginal delivery. Hospital course was uneventful. Physical Exam Narrative Patient seen at bedside. Denies pain. Ambulating and voiding without difficulty. Lochia decreased. Desires discharge home today. Const alert and oriented x3 General Appearance: Negative for in distress HEENT normocephalic Eyes General Eye: normal appearance of both eyes Neck General: normal visual inspection Chest Chest: symmetrical chest wall rise Resp normal respiratory effort and normal air movement Effort and Inspection: symmetric chest movement; Negative for tachypneic Auscultation: clear to auscultation bilaterally Cardio regular rate and regular rhythm Peripheral Pulses: pulses 2+ throughout GI normal to inspection, nondistended, normoactive bowel sounds Narrative: Ice to perineum OB / External & Speculum: vaginal bleeding and other Lochia decreasing Uterus Palpation: uterus fundus firm (Below U) Extremity normal to inspection, full ROM and normal capillary refill Skin no rashes or lesions noted Neuro oriented x3, CN's II-XII intact bilaterally and gait normal Psych mental status grossly normal, thought process normal and activity/motor behavior normal Weight / BMI Weight Weight: 146 lb Body Mass Index (BMI) 26.6 ABG / Lab / Microbiology Data 11/09/24 17:30 D/C Instructions Discharge Activity: Return to Normal Activity, No Restrictions, May Drive, May Shower and May Take a Tub Bath (Warm water only. No bath salts, soaps, bubbles) May resume sexual activity in: 6-8 weeks Weight Bearing Status: Weight bearing as tolerated Call your doctor if you observe: Fever of 101 or Higher, Inability to urinate, Using more than 1 pad per hour, Shortness of breath, Dizziness, Chest pain, Calf discomfort and Uncontrolled pain DC O2, CPAP, BIPAP Needs Home O2 Discharge instructions: No Please Follow Up With: [facility] Nuzhat BALTAZAR When: 2 weeks in office or virtual Meaningful Use Info Meaningful Use Meaningful Use Diagnoses (Choose all that apply): None applicable Discharge Plan Admission Admit Date/Time: 11/09/24 17:05 Primary Reason for Your Visit: Labor and Delivery Attending Provider: Abigail Hensley Primary Care Provider: Care Physician,No Primary Discharge Orders/Prescriptions Prescriptions: Continued PNV 651-cxrq-sbbmxw-dha 90 mg iron- 1 mg-200 mg capsule 1 cap PO DAILY Discontinued acyclovir 400 mg tablet 400 mg PO TID Referrals / Follow Up: Jocelyn Cooley CNM [Med Staff - Adv Practice Prof] - Care Physician,No Primary [Primary Care Provider] - Disposition Disposition (needs filled in before D/C Order can be placed): Home, Self Care
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
[2024-11-11 15:26] VITALS: BP 115/77; PULSE 99; RESP 18; TEMP 36.7
== END 2024-11-11 18:00 | disposition home or self-care (01) | DRG 807 ==
LOC: WPOUT 17:08 → WP 17:12
PROVIDERS: Admitting Provider Obstetrics & Gynecology; Referring Provider Obstetrics & Gynecology; Visit Provider Obstetrics & Gynecology
DX: O42.92 Full-term premature rupture of membranes, unspecified as to length of time between rupture and onset of labor (principal); Z37.0 Single live birth; Z3A.38 38 weeks gestation of pregnancy; Z87.891 Personal history of nicotine dependence
CPT/HCPCS: 59025; 59050; 84112; 85025; 86780; 86850; 86900; 86901; 99221; A4216; G0378